=== PATIENT | female | born 1930 | race Caucasian/White ===

== ENCOUNTER 2016-04-01 19:01 | Emergency (ER) | payer OTHER, MEDICARE ==
[~2016-04-01 19:01] MED LIST: AMLODIPINE BESYL5 MG PO; ASPIRIN EC LOW81 MG PO; DOCUSATE SODIU100 MG PO; GLIMEPIRIDE2 MG PO; IRON325 MG PO; LEVOTHYROXINE100 MCG PO; LIPITOR80 MG PO; LOSARTAN POTASS25 MG PO; MILK OF MA400 MG/5 M; MIRALAX EQUIVAL17 GM; NITROSTAT0.4 MG SL; NORCO1 TA2 PO; PRILOSEC20 MG PO; SENNA8.6 M1 PO; TEMAZEPAM15 MG PO
--- NOTE | 2016-04-01 19:55 | DIAGNOSTIC IMAGING REPORT ---
PROCEDURE: XR CHEST 1 VIEW INDICATION: CHEST PAIN, initial encounter TECHNIQUE: Portable AP view 07:35 p.m. COMPARISON: Chest x-ray 12/29/2015 FINDINGS: The patient is rotated. Lungs are clear. Heart and mediastinum are normal. Thorax is normal. No significant interval change. IMPRESSION: 1. Negative chest.
--- NOTE | 2016-04-01 21:52 | ED NURSING NOTES ---
Clinical Report - Nurses [facility] [address] [place] [address] 04/01/2016 19:02 Patient: RENATO CARDONA TRIAGE Triage time 19:Apr 01 2016. Acuity: LEVEL 3. Chief Complaint: CHEST PAIN. SEPSIS SCREEN: Sepsis Screen: negative. Negative (no infection suspected/documented). --19:14 Sheryl Tate R.N. 19:07 04/01/16. BP: 131/46. HR: 65. RR: 18. O2 saturation: 97%. Temp: 98.0 F. Pain level now 5/10. --19:14 Sheryl Tate R.N. 19:34 04/01/16. --19:34 Sheryl Tate R.N. Weight: 100.2 kg. Height/Length: 65 inches. BMI: 36.8. --19:05 Sheryl Tate R.N. Medications AmLODIPine Besylate Oral 5 mg, daily. Aspirin Oral (Tablet 325 mg), daily. Atorvastatin Calcium Oral (Tablet 80 mg), daily. Ferrous Sulfate Oral (Tablet 325 (65 Fe) mg), daily. Fiber Oral. Glimepiride Oral (Tablet 2 mg), 2x a day. Hydrocodone-Acetaminophen Oral (Tablet 7.5-325 mg), as needed. Levothyroxine Sodium Oral (Tablet 100 mcg), daily. Losartan Potassium Oral (Tablet 25 mg), daily. Magnesium Oral (Capsule 300 mg), 2x a day. Metoprolol Tartrate Oral 25 mg, 2x a day. Milk of Magnesia Oral. Omeprazole Oral 20 mg, 2x a day. Ondansetron Oral (Tablet Dispersible 4 mg), 3x a day. Senna Oral. Stool Softener Oral. Temazepam Oral (Capsule 15 mg), daily. --19:08 Sheryl Tate R.N. Medication/allergy information source: the patient. --19:14 Sheryl Tate R.N. Allergies NKDA. --19:08 Sheryl Tate R.N. History Arrived by EMS. Historian: patient. Accompanied by family. This started today. No difficulty breathing, nausea, vomiting, fever or cough. Treatment BOBBIN DOFFER: None. Oxygen administered by nasal cannula. real estate valuer applied. Medications given- morphine IVP (10 mg IV). ( nitro and aspirin). PAST MEDICAL HX: Immunizations: has received pneumonia vaccine; seasonal influenza. SOCIAL HX: Never smoker. No alcohol use or drug use. No infectious disease exposure. ABUSE ASSESSMENT: No report of abuse. SELF HARM ASSESSMENT: A self harm assessment was performed. The patient answered "no" to the question "Have you recently felt down, depressed, or hopeless?", "Have you noticed less interest or pleasure in doing things?", "Do you have thoughts of harming or killing yourself?", "Are you here because you tried to hurt yourself?", "Have you ever tried to hurt yourself before today?", "Have you recently had thoughts about harming or killing others?" and "Do you have any dangerous items in your possession?". --19:14 Sheryl Tate R.N. ( Patient reports CP sharp on left side of chest since 1500 today. Went to PCP office. They gave nitro and MSo4 5 mg and then EMS called, they gave additional nitro and 10 mg MSO4. Pt reports recent admission to [place] with cardiac cath. States they can do no more due to renal issues.). --19:34 Sheryl Tate R.N. PROBLEMS: Hypertension [Active]. Heart Disease [Active]. Diabetes Mellitus [Active]. --19:08 Sheryl Tate R.N. Hyperlipidemia. Chest Wall Pain. Acute Pain. Renal Insufficiency. --19:08 Sheryl Tate R.N. ADDITIONAL SURGERIES: Bowel Surgery. Cardiac Procedures. Cholecystectomy. Shoulder Surgery. --19:08 Sheryl Tate R.N. Interventions ID band on patient. --19:14 Sheryl Tate R.N. PHYSICAL ASSESSMENT 19:56 04/01/16. To room via stretcher. GENERAL / NEURO / PSYCH: Alert. Oriented X 4. Appears in no acute distress. HEENT: Mucous membranes are pink. RESPIRATORY: Respirations not labored. Breath sounds within normal limits. CVS: Normal sinus rhythm noted. Pulses within normal limits. Capillary refill less than 2 seconds. GI / : The patient has had nausea. Abdomen soft. No emesis noted. EXTREMITIES: No lower extremity edema. SKIN: Skin is dry. Skin is cool. Skin is non-tender. --19:57 Sheryl Tate R.N. NURSING PROGRESS NOTES EKG time: (1920). EKG was performed by a forrest and shown to the ED physician. --19:24 Ronda Munoz late entry - 19:10 04/01/16. Cardiac rhythm: normal sinus rhythm. The initial plan of care for this patient includes an assessment with efforts to address the presence of pain; impairment of the cardiovascular system. This plan of care was discussed with the patient. real estate valuer, pulse oximeter and NIBP monitor placed on patient; sponge maker- Lead II; monitor alarms on. Patient gowned. Reassurance given. Two patient identifiers checked. Call light placed in reach. Side rails up x 2. Bed placed in lowest position. Patient ready for evaluation. --19:56 Sheryl Tate R.N. 19:30 04/01/2016 Site #1 started prior to arrival in doctor's office via IV in the left with an 22g angiocath, with good blood return (IV started by Drs office. IV site dressing changed and capped to saline lock. site cleansed with chlorhexadine and allowed to dry prior to new clear occlusive dressing.). --19:35 Sheryl Tate R.N. 19:45 04/01/2016 NITROGLYCERIN PASTE Topical Paste 1 inch. Applied to the left upper arm. Allergies verified and confirmed 5 rights. --19:53 Sheryl Tate R.N. 19:53 04/01/2016 Zofran (Ondansetron HCl) IVP 8 mg given over 1 minute(s) via site #1. Allergies verified and confirmed 5 rights. IV patency established. IV site checked: no pain, redness, or swelling. IV flushed thoroughly pre- and post-medication administration. --19:53 Sheryl Tate R.N. 21:29 04/01/16. BP: 133/78. HR: 64. RR: 18. O2 saturation: 95%. Pain level now 5/10. --21:29 Sheryl Tate R.N. 21:29 04/01/16. Cardiac rhythm: normal sinus rhythm. The patient is calm. RESPIRATORY: No respiratory distress. GI / : The patient reports nausea. SKIN: Skin is warm and dry. Patient waiting for disposition. --21:29 Sheryl Tate R.N. 21:45 04/01/2016 PHENERGAN (Promethazine HCl) IVP 6.25 mg given over 3 minute(s) via site #1. Allergies verified and confirmed 5 rights. IV patency established. IV site checked: no pain, redness, or swelling. IV flushed thoroughly pre- and post-medication administration. IVP given by RN. --21:49 Sheryl Tate R.N. 21:48 04/01/2016 Dilaudid (HYDROmorphone HCl PF) IVP 0.5 mg given over 1 minute(s) via site #1. Allergies verified, confirmed 5 rights and sedative warning given to the patient. IV patency established. IV site checked: no pain, redness, or swelling. IV flushed thoroughly pre- and post-medication administration. IVP given by RN. --21:49 Sheryl Tate R.N. DISPOSITION / DISCHARGE 22:30 04/01/16. BP: 138/49. HR: 69. RR: 16. O2 saturation: 93% on room air. Temp: 98.6 F. Pain level now: 310. Additional comments: Abdominal Pain. --22:54 Goyo Pollack R.N. Departure time: 2229. --22:54 Goyo Pollack R.N. 22:30. Condition at departure: improved. No learning barriers present. Discharge instructions provided and reviewed with the patient. Reviewed medication(s) (Continue your usual medications as ordered). Reviewed referral to family practice for followup. Patient verbalized understanding. Written instructions provided in Ivorian. The patient was discharged by the physician. She was discharged home and accompanied by java lead engineer. She left the Emergency Department in a wheelchair and via private vehicle. General Manager Road Production driving. --23:01 Goyo Pollack R.N. Locked/Released at 04/01/2016 23:03 by Goyo Pollack R.N.
--- NOTE | 2016-04-01 21:52 | ED NURSING NOTES ---
Clinical Report - Nurses [facility] [address] [place] [address] 04/01/2016 19:02 Patient: RENATO CARDONA TRIAGE Triage time 19:Apr 01 2016. Acuity: LEVEL 3. Chief Complaint: CHEST PAIN. SEPSIS SCREEN: Sepsis Screen: negative. Negative (no infection suspected/documented). --19:14 Sheryl Tate R.N. 19:07 04/01/16. BP: 131/46. HR: 65. RR: 18. O2 saturation: 97%. Temp: 98.0 F. Pain level now 5/10. --19:14 Sheryl Tate R.N. 19:34 04/01/16. --19:34 Sheryl Tate R.N. Weight: 100.2 kg. Height/Length: 65 inches. BMI: 36.8. --19:05 Sheryl Tate R.N. Medications AmLODIPine Besylate Oral 5 mg, daily. Aspirin Oral (Tablet 325 mg), daily. Atorvastatin Calcium Oral (Tablet 80 mg), daily. Ferrous Sulfate Oral (Tablet 325 (65 Fe) mg), daily. Fiber Oral. Glimepiride Oral (Tablet 2 mg), 2x a day. Hydrocodone-Acetaminophen Oral (Tablet 7.5-325 mg), as needed. Levothyroxine Sodium Oral (Tablet 100 mcg), daily. Losartan Potassium Oral (Tablet 25 mg), daily. Magnesium Oral (Capsule 300 mg), 2x a day. Metoprolol Tartrate Oral 25 mg, 2x a day. Milk of Magnesia Oral. Omeprazole Oral 20 mg, 2x a day. Ondansetron Oral (Tablet Dispersible 4 mg), 3x a day. Senna Oral. Stool Softener Oral. Temazepam Oral (Capsule 15 mg), daily. --19:08 Sheryl Tate R.N. Medication/allergy information source: the patient. --19:14 Sheryl Tate R.N. Allergies NKDA. --19:08 Sheryl Tate R.N. History Arrived by EMS. Historian: patient. Accompanied by family. This started today. No difficulty breathing, nausea, vomiting, fever or cough. Treatment EMERGENCY ROOM SPECIALIST: None. Oxygen administered by nasal cannula. quality assurance monitor applied. Medications given- morphine IVP (10 mg IV). ( nitro and aspirin). PAST MEDICAL HX: Immunizations: has received pneumonia vaccine; seasonal influenza. SOCIAL HX: Never smoker. No alcohol use or drug use. No infectious disease exposure. ABUSE ASSESSMENT: No report of abuse. SELF HARM ASSESSMENT: A self harm assessment was performed. The patient answered "no" to the question "Have you recently felt down, depressed, or hopeless?", "Have you noticed less interest or pleasure in doing things?", "Do you have thoughts of harming or killing yourself?", "Are you here because you tried to hurt yourself?", "Have you ever tried to hurt yourself before today?", "Have you recently had thoughts about harming or killing others?" and "Do you have any dangerous items in your possession?". --19:14 Sheryl Tate R.N. ( Patient reports CP sharp on left side of chest since 1500 today. Went to PCP office. They gave nitro and MSo4 5 mg and then EMS called, they gave additional nitro and 10 mg MSO4. Pt reports recent admission to [place] with cardiac cath. States they can do no more due to renal issues.). --19:34 Sheryl Tate R.N. PROBLEMS: Hypertension [Active]. Heart Disease [Active]. Diabetes Mellitus [Active]. --19:08 Sheryl Tate R.N. Hyperlipidemia. Chest Wall Pain. Acute Pain. Renal Insufficiency. --19:08 Sheryl Tate R.N. ADDITIONAL SURGERIES: Bowel Surgery. Cardiac Procedures. Cholecystectomy. Shoulder Surgery. --19:08 Sheryl Tate R.N. Interventions ID band on patient. --19:14 Sheryl Tate R.N. PHYSICAL ASSESSMENT 19:56 04/01/16. To room via stretcher. GENERAL / NEURO / PSYCH: Alert. Oriented X 4. Appears in no acute distress. HEENT: Mucous membranes are pink. RESPIRATORY: Respirations not labored. Breath sounds within normal limits. CVS: Normal sinus rhythm noted. Pulses within normal limits. Capillary refill less than 2 seconds. GI / : The patient has had nausea. Abdomen soft. No emesis noted. EXTREMITIES: No lower extremity edema. SKIN: Skin is dry. Skin is cool. Skin is non-tender. --19:57 Sheryl Tate R.N. NURSING PROGRESS NOTES EKG time: (1920). EKG was performed by a forrest and shown to the ED physician. --19:24 Ronda Munoz late entry - 19:10 04/01/16. Cardiac rhythm: normal sinus rhythm. The initial plan of care for this patient includes an assessment with efforts to address the presence of pain; impairment of the cardiovascular system. This plan of care was discussed with the patient. quality assurance monitor, pulse oximeter and NIBP monitor placed on patient; campus monitor- Lead II; monitor alarms on. Patient gowned. Reassurance given. Two patient identifiers checked. Call light placed in reach. Side rails up x 2. Bed placed in lowest position. Patient ready for evaluation. --19:56 Sheryl Tate R.N. 19:30 04/01/2016 Site #1 started prior to arrival in doctor's office via IV in the left with an 22g angiocath, with good blood return (IV started by Drs office. IV site dressing changed and capped to saline lock. site cleansed with chlorhexadine and allowed to dry prior to new clear occlusive dressing.). --19:35 Sheryl Tate R.N. 19:45 04/01/2016 NITROGLYCERIN PASTE Topical Paste 1 inch. Applied to the left upper arm. Allergies verified and confirmed 5 rights. --19:53 Sheryl Tate R.N. 19:53 04/01/2016 Zofran (Ondansetron HCl) IVP 8 mg given over 1 minute(s) via site #1. Allergies verified and confirmed 5 rights. IV patency established. IV site checked: no pain, redness, or swelling. IV flushed thoroughly pre- and post-medication administration. --19:53 Sheryl Tate R.N. 21:29 04/01/16. BP: 133/78. HR: 64. RR: 18. O2 saturation: 95%. Pain level now 5/10. --21:29 Sheryl Tate R.N. 21:29 04/01/16. Cardiac rhythm: normal sinus rhythm. The patient is calm. RESPIRATORY: No respiratory distress. GI / : The patient reports nausea. SKIN: Skin is warm and dry. Patient waiting for disposition. --21:29 Sheryl Tate R.N. 21:45 04/01/2016 PHENERGAN (Promethazine HCl) IVP 6.25 mg given over 3 minute(s) via site #1. Allergies verified and confirmed 5 rights. IV patency established. IV site checked: no pain, redness, or swelling. IV flushed thoroughly pre- and post-medication administration. IVP given by RN. --21:49 Sheryl Tate R.N. 21:48 04/01/2016 Dilaudid (HYDROmorphone HCl PF) IVP 0.5 mg given over 1 minute(s) via site #1. Allergies verified, confirmed 5 rights and sedative warning given to the patient. IV patency established. IV site checked: no pain, redness, or swelling. IV flushed thoroughly pre- and post-medication administration. IVP given by RN. --21:49 Sheryl Tate R.N. DISPOSITION / DISCHARGE 22:30 04/01/16. BP: 138/49. HR: 69. RR: 16. O2 saturation: 93% on room air. Temp: 98.6 F. Pain level now: 310. Additional comments: Abdominal Pain. --22:54 Goyo Pollack R.N. Departure time: 2229. --22:54 Goyo Pollack R.N. 22:30. Condition at departure: improved. No learning barriers present. Discharge instructions provided and reviewed with the patient. Reviewed medication(s) (Continue your usual medications as ordered). Reviewed referral to family practice for followup. Patient verbalized understanding. Written instructions provided in Emirati. The patient was discharged by the physician. She was discharged home and accompanied by golf club repairer. She left the Emergency Department in a wheelchair and via private vehicle. Lap Regulator driving. --23:01 Goyo Pollack R.N. Locked/Released at 04/01/2016 23:03 by Goyo Pollack R.N.
--- NOTE | 2016-04-01 21:52 | ED ORDER SUMMARY ---
..... Patient: RENATO CARDONA OrderSheet [facility] VisitID: [id number] [place] [address] 85y, F Registration Date/Time: 04/01/2016 ORDER SHEET Weight: 100.2 kg Allergies: NKDA GENERAL ORDERS: Lean Process Deployment Consultant (Continuous) (19:16 04/01/2016 EInderbitzen R.N. verbal order read back to Brenda WOOD) (19:35 EInderbitzen R.N.) Cardiac Panel Stat (19:16 04/01/2016 EInderbitzen R.N. verbal order read back to Brenda WOOD) (Ack 19:35 LTapper) (19:37 EInderbitzen R.N.) Pulse oximeter (19:16 04/01/2016 EInderbitzen R.N. verbal order read back to Brenda WOOD) (19:35 EInderbitzen R.N.) EKG - ER Stat (19:16 04/01/2016 EInderbitzen R.N. verbal order read back to Brenda WOOD) (19:35 EInderbitzen R.N.) (Ack 19:35 LTapper) BNP Urgent (19:31 04/01/2016 Brenda WOOD) (Ack 19:35 LTapper) (19:37 EInderbitzen R.N.) Chest 1V Urgent (19:31 04/01/2016 Brenda WOOD) (Ack 19:35 LTapper) Lipase Urgent (20:22 04/01/2016 Brenda WOOD) (20:26 EInderbitzen R.N.) MEDICATION ORDERS: Aspirin PO 325 mg (NOW) (19:30 04/01/2016 Brenda WOOD) (Cancelled: Patient [id number] EInderbitzen R.N.) NitroGLYCERIN Paste Topical 1 in. (to CW) (19:34 04/01/2016 Brenda WOOD) (19:53 EInderbitzen R.N.) Phenergan IV 6.25 mg (NOW) (20:59 04/01/2016 Brenda WOOD) (21:49 EInderbitzen R.N.) IV FLUIDS: IV Saline Lock (19:16 04/01/2016 EVELIAnderchalinozen R.N. verbal order read back to Brenda WOOD) (19:37 EInderbitzen R.N.) Zofran IV 8 mg (NOW) (19:34 04/01/2016 Brenda WOOD) (19:53 EInderbitzen R.N.) Dilaudid IV 0.5 mg (NOW) (20:59 04/01/2016 Brenda WOOD) (21:49 EInderbitzen R.N.) ORDER SHEET NOTES: [Electronically signed by Goyo Pollack R.N. (23:03 04/01/2016)] [Electronically signed by Qamar Johnson MD (12:05 04/02/2016)] [Electronically locked/signed by Goyo Pollack R.N. (23:03 04/01/2016)]
--- NOTE | 2016-04-01 21:52 | ED ORDER SUMMARY ---
..... Patient: RENATO CARDONA OrderSheet [facility] VisitID: [id number] [place] [address] 85y, F Registration Date/Time: 04/01/2016 ORDER SHEET Weight: 100.2 kg Allergies: NKDA GENERAL ORDERS: Physician Obstetrician (Continuous) (19:16 04/01/2016 EInderbitzen R.N. verbal order read back to Brenda WOOD) (19:35 EInderbitzen R.N.) Cardiac Panel Stat (19:16 04/01/2016 EInderbitzen R.N. verbal order read back to Brenda WOOD) (Ack 19:35 LTapper) (19:37 EInderbitzen R.N.) Pulse oximeter (19:16 04/01/2016 EInderbitzen R.N. verbal order read back to Brenda WOOD) (19:35 EInderbitzen R.N.) EKG - ER Stat (19:16 04/01/2016 EInderbitzen R.N. verbal order read back to Brenda WOOD) (19:35 EInderbitzen R.N.) (Ack 19:35 LTapper) BNP Urgent (19:31 04/01/2016 Brenda WOOD) (Ack 19:35 LTapper) (19:37 EInderbitzen R.N.) Chest 1V Urgent (19:31 04/01/2016 Brenda WOOD) (Ack 19:35 LTapper) Lipase Urgent (20:22 04/01/2016 Brenda WOOD) (20:26 EInderbitzen R.N.) MEDICATION ORDERS: Aspirin PO 325 mg (NOW) (19:30 04/01/2016 Brenda WOOD) (Cancelled: Patient [id number] EInderbitzen R.N.) NitroGLYCERIN Paste Topical 1 in. (to CW) (19:34 04/01/2016 Brenda WOOD) (19:53 EInderbitzen R.N.) Phenergan IV 6.25 mg (NOW) (20:59 04/01/2016 Brenda WOOD) (21:49 EInderbitzen R.N.) IV FLUIDS: IV Saline Lock (19:16 04/01/2016 EVELIAnderchalinozen R.N. verbal order read back to Brenda WOOD) (19:37 EInderbitzen R.N.) Zofran IV 8 mg (NOW) (19:34 04/01/2016 Brenda WOOD) (19:53 EInderbitzen R.N.) Dilaudid IV 0.5 mg (NOW) (20:59 04/01/2016 Brenda WOOD) (21:49 EInderbitzen R.N.) ORDER SHEET NOTES: [Electronically signed by Goyo Pollack R.N. (23:03 04/01/2016)] [Electronically signed by Qamar Johnson MD (12:05 04/02/2016)] [Electronically locked/signed by Goyo Pollack R.N. (23:03 04/01/2016)]
--- NOTE | 2016-04-01 21:52 | ED CLINICAL REPORT ---
Clinical Report - Physicians/Mid Levels [facility] [address] [place] [place] [address] 04/01/2016 19:02 Patient: RENATO CARDONA Time Seen: 19:28. Arrived- By ambulance. Historian- patient. HISTORY OF PRESENT ILLNESS Chief Complaint: CHEST PAIN. and ABDOMINAL PAIN. At its maximum, severity described as 7 / 10. When seen in the E.D., severity described as 5 / 10. Modifying factors- relieved by morphine and nitroglycerin (two, given by paramedics). Relief was partial. This started today 11 AM; Ms Cardona developed central chest pain at 11 am. She also has her significant but usual mid to upper abdominal pain and is still present. It was abrupt in onset. It is described as "pain" and it is described as located in the central chest area. No radiation. The patient has had nausea. No difficulty breathing or diaphoresis. Recent medical care: The patient was seen recently by a health care provider. ( Ms Cardona was recently seen by her PCP and per his personal communication has had a fairly recent and negative EGD (HH was present)). REVIEW OF SYSTEMS No fever, chills, cough, pedal edema or calf pain. No fainting episodes, sore throat, black stools, difficulty with urination or skin rash. No bloody stools, double vision, ear pain or sinus pain. The patient has had abdominal pain. PAST HISTORY PCP: Markos Illness: Renal insufficiency, Recurrent chest pain 2011 LAD angioplasty and stent, 2013 repeat angio normal during chest pain episode, 12/2015 admit to [facility] for similar pain episode which was ultimately felt to be atypical chest pain of non-cardiac etiology PROBLEMS: Hypertension [Active]. Heart Disease [Active]. Diabetes Mellitus [Active]. Hyperlipidemia. Chest Wall Pain Renal Insufficiency. ADDITIONAL SURGERIES: Bowel Surgery. Cardiac Procedures - snpbr Cholecystectomy. Shoulder Surgery R hand partial amputation. SOCIAL HISTORY Never smoker. ADDITIONAL NOTES The nursing notes have been reviewed. PHYSICAL EXAM Vital Signs: 04/01/2016 22:30 BP: 138/49. HR: 69. RR: 16. O2 saturation: 93%. Temp: 98.6 F. Pain level now: 05/24. 04/01/2016 21:29 BP: 133/78. HR: 64. RR: 18. O2 saturation: 95%. 04/01/2016 19:07 BP: 131/46. HR: 65. RR: 18. O2 saturation: 97%. Temp: 98.0 F. Appearance: Alert. No acute distress. Eyes: Eyes normal inspection. ENT: Pharynx normal. Neck: Normal inspection. CVS: Normal heart rate and rhythm. Respiratory: No respiratory distress. Breath sounds normal. Chest nontender. Abdomen: Soft. Mild tenderness diffusely. Bowel sounds normal. No mass. Skin: Skin warm. Extremities: Extremities exhibit normal ROM. No lower extremity edema. Neuro: No alteration in mental status. LABS, X-RAYS, AND EKG EKG: Normal sinus rhythm. Rate: 66. Abnormal P waves. Left axis deviation. ST depression. T wave inversion in lead III, aVF, V1, V2, V3, V4, V5 and V6 (Biphasic). Improved from 2015. Chest X-ray: (PROCEDURE: XR CHEST 1 VIEW INDICATION: CHEST PAIN, initial encounter TECHNIQUE: Portable AP view 07:35 p.m. COMPARISON: Chest x-ray 12/29/2015 FINDINGS: The patient is rotated. Lungs are clear. Heart and mediastinum are normal. Thorax is normal. No significant interval change. IMPRESSION: 1. Negative chest. Electronically Final signed by:Micha Mendez MD 04/01/2016 7:55:03 PM). Laboratory Tests: CBC w Diff: (DESTINEE: 04/01/2016 19:30) ( MsgRcvd 04/01/2016 20:10) Final results Test Result Flag Units (Reference) WHITE BLOOD COUNT 8.7 K/uL (4.5-11.5) RED BLOOD COUNT 3.97 L M/uL (4.00-5.20) HEMOGLOBIN 11.5 L gm/dL (12.0-16.0) HEMATOCRIT 38.0 % (36.0-46.0) MEAN CELL VOLUME 96 fL (80-100) MEAN CORPUSCULAR HGB 29 pg (26-34) MEAN CORPUSCULAR HGB CONC 30 L g/dL (31-37) RED CELL DISTRIBUTION WIDTH 17.0 H % (11.6-14.8) PLATELET COUNT 174 K/uL (150-400) NEUTROPHIL % 65.2 % (50-75) LYMPH % 18.9 L % (25-40) MONO % 7.9 % (3-14) EOSINOPHIL % 7.8 H % (0-4) BASOPHIL % 0.2 % (0-2) Lipase: (DESTINEE: 04/01/2016 19:30) ( [facility] 04/01/2016 20:33) Final results Test Result Flag Units (Reference) LIPASE 254 U/L (73-393) BNP: (DESTINEE: 04/01/2016 19:30) ( [facility] 04/01/2016 20:29) Final results Test Result Flag Units (Reference) B-TYPE NATRIURETIC PEPTIDE 69.2 pg/ml (5-100) CHEM 13 PANEL: (DESTINEE: 04/01/2016 19:30) ( [facility] 04/01/2016 20:09) Final results Test Result Flag Units (Reference) GLUCOSE 143 H mg/dL (70-110) BUN 24 H mg/dL (7-18) CREATININE 1.5 H mg/dL (0.6-1.3) Estimated GFR 35.25 mL/min Estimated GFR- 42.72 mL/min Note: Persistent reduction over 3 months in eGFR<60 mL/min/1.73 m2 defines CKD. Patients with eGFR values>=60 mL/min/1.73 m2 may also have CKD if evidence ofpersistent proteinuria. Additional information may be foundat www.kidney.org. SODIUM 139 mmol/L (136-145) POTASSIUM 4.7 mmol/L (3.5-5.1) CHLORIDE 106 mmol/L (98-107) CARBON DIOXIDE 28 mmol/L (21-32) CALCIUM 8.8 mg/dL (8.5-10.1) TOTAL PROTEIN 6.0 L g/dL (6.4-8.2) ALBUMIN 3.3 g/dL (3.3-5.0) BILIRUBIN, TOTAL 0.4 mg/dL (0.0-1.0) ALKALINE PHOSPHATASE 111 U/L (46-116) AST (SGOT) 13 L U/L (15-37) ALT (SGPT) 23 U/L (12-78) MAGNESIUM 2.7 H mg/dL (1.8-2.4) CPK 41 U/L (24-260) TROPONIN I <0.05 ng/mL (0.00-1.5) TROPONIN REFERENCE RANGE:<0.1 NEGATIVE0.1-1.5 INDETERMINANT>1.5 POSITIVE . PROGRESS AND PROCEDURES Course of Care: 19:33 04/01/16. pain 3-4 down from 710 20:16 04/01/16. EKG is less abnormal than in 2015. CK, Troponin are negative after 8 hours of continuous pain making ACS unlikely. 20:45 04/01/16. EKG is abnormal but better than December 2015 when she was transported to [facility]. 21:03 04/01/16. Dr Willis of the [facility] service provided me with much of the detail on the patient's prior heart procedures. I discussed the management of Ms Cardona chest and abdominal symptoms in some detail with Dr Burrows. He is able to see her in follow up. ACS is not likely and acute surgical abdomen is even less likely. She had medications at home for both pain and nausea. Both inpatient and out patient pain management were considers, in the end Ms Cardona preferred home care and I endorse that choice. Disposition: Discharged. Condition: stable. CLINICAL IMPRESSION Abdominal pain. Atypical chest pain INSTRUCTIONS (USE YOUR OWN ODANSETRON AND HYDROCODONE FOR PAIN CONTROL. IMMEDIATE RECHECK FOR INCREASED ABDOMINAL OR CHEST PAIN OR SHORTNESS OF BREATH CALL DR LOVE IN THE AM.). Follow-up: Follow up with your doctor tomorrow. Understanding of the discharge instructions verbalized by patient. (Electronically signed by Qamar Johnson MD 04/02/2016 12:05)
--- NOTE | 2016-04-02 12:05 | ED MED RECONCILIATION SUMMARY ---
Patient: RENATO CARDONA Medication Reconciliation Report [facility] VisitID: [id number] [address] [place] [address] 85y, F Registration Date/Time: 04/01/2016 Weight: 100.2 kg Height/Length: 65 in. BMI: 36.8 ALLERGIES: NKDA The patient's Home Medications are listed below: THE FOLLOWING MEDICATIONS NEED TO BE RECONCILED: AmLODIPine Besylate Oral 5 mg, daily Aspirin Oral (325 mg), daily Atorvastatin Calcium Oral (80 mg), daily Ferrous Sulfate Oral (325 (65 Fe) mg), daily Fiber Oral Glimepiride Oral (2 mg), 2x a day Hydrocodone-Acetaminophen Oral (7.5-325 mg) Levothyroxine Sodium Oral (100 mcg), daily Losartan Potassium Oral (25 mg), daily Magnesium Oral (300 mg), 2x a day Metoprolol Tartrate Oral 25 mg, 2x a day Milk of Magnesia Oral Omeprazole Oral 20 mg, 2x a day Ondansetron Oral (4 mg), 3x a day Senna Oral Stool Softener Oral Temazepam Oral (15 mg), daily The source(s) of the original Home Medication information: patient The following Medications were given to the patient in the Emergency Department: NITROGLYCERIN PASTE [TOPICAL] Topical 1 in., administered: 04/01/2016 7:45:00 PM Zofran [IVP] IVP 8 mg, administered: 04/01/2016 7:53:00 PM PHENERGAN [IVP] IVP 6.25 mg, administered: 04/01/2016 9:45:00 PM Dilaudid [IVP] IVP 0.5 mg, administered: 04/01/2016 9:48:00 PM The following Medications were prescribed to the patient: None.
--- NOTE | 2016-04-02 12:05 | ED DISCHARGE INSTRUCTIONS ---
Patient: RENATO CARDONA General Instructions [facility] VisitID: [id number] [place] [address] 85y, F Registration Date/Time: 04/01/2016 Abdominal pain. Atypical chest pain INSTRUCTIONS (USE YOUR OWN ODANSETRON AND HYDROCODONE FOR PAIN CONTROL. IMMEDIATE RECHECK FOR INCREASED ABDOMINAL OR CHEST PAIN OR SHORTNESS OF BREATH CALL DR LOVE IN THE AM.). Follow-up: Follow up with your doctor tomorrow. Understanding of the discharge instructions verbalized by patient. ADDITIONAL INFORMATION Chest Pain, Noncardiac Based on your visit today, the exact cause of your chest pain is not certain. Your condition does not seem serious and your pain does not appear to be coming from your heart. However, sometimes the signs of a serious problem take more time to appear. Therefore, please watch for the warning signs listed below. Home Care: Rest today and avoid strenuous activity. Take any prescribed medicine as directed. Follow Up with your doctor or this facility as instructed or if you do not start to feel better within 24 hours. Get Prompt Medical Attention if any of the following occur: A change in the type of pain: if it feels different, becomes more severe, lasts longer, or begins to spread into your shoulder, arm, neck, jaw or back Shortness of breath or increased pain with breathing Cough with dark colored sputum (phlegm) or blood Weakness, dizziness, or fainting Fever of 100.4F (38C) or higher, or as directed by your healthcare provider Swelling, pain or redness in one leg Abdominal Pain, Unknown Cause (Female) The exact cause of your abdominal (stomach) pain is not certain. This does not mean that this is something to worry about, or the right tests were not done. Everyone likes to know the exact cause of the problem, but sometimes with abdominal pain, there is no clear-cut cause, and this could be a good thing. The good news is that your symptoms can be treated, and you will feel better. Your condition does not seem serious now; however, sometimes the signs of a serious problem may take more time to appear. For this reason,it is important for you to watch for any new symptoms, problems,or worsening of your condition. Over the next few days, the abdominal pain may come and go, or be continuous. Other common symptoms can include nausea and vomiting. Sometimes it can be difficult to tell if you feel nauseous, you may just feel bad and not associate that feeling with nausea. Constipation, diarrhea, and a fever may go along with the pain. The pain may continue even if treated correctly over the following days. Depending on how things go, sometimes the cause can become clear and may require further or different treatment. Additional evaluations, medications, or tests may be needed. Home care Your health care provider may prescribe medications for pain, symptoms, or an infection. Follow the health care provider's instructions for taking these medications. General care Rest until your next exam. No strenuous activities. Try to find positions that ease discomfort. A small pillow placed on the abdomen may help relieve pain. Something warm on your abdomen (such as a heating pad) may help, but be careful not to burn yourself. Diet Do not force yourself to eat, especially if having cramps, vomiting, or diarrhea. Water is important so you do not get dehydrated. Soup may also be good. Sports drinks may also help, especially if they are not too acidic. Make sure you don't drink sugary drinks as this can make things worse. Take liquids in small amounts. Do not guzzle them. Caffeine sometimes makes the pain and cramping worse. Avoid dairy products if you have vomiting or diarrhea. Don't eat large amounts at a time. Wait a few minutes between bites. Eat a diet low in fiber (called a low-residue diet). Foods allowed include refined breads, white rice, fruit and vegetable juices without pulp, tender meats. These foods will pass more easily through the intestine. Avoid whole-grain foods, whole fruits and vegetables, meats, seeds and nuts, fried or fatty foods, dairy, alcohol and spicy foods until your symptoms go away. Follow-up care Follow up with your health care provider as instructed, or if your pain does not begin to improve in the next 24 hours. When to seek medical care Seek prompt medical care if any of the following occur: Pain gets worse or moves to the right lower abdomen New or worsening vomiting or diarrhea Swelling of the abdomen Unable to pass stool for more than three days Fever of 100.4F (38C) or higher, or as directed by your healthcare provider. Blood in vomit or bowel movements (dark red or black color) Jaundice (yellow color of eyes and skin) Weakness, dizziness Chest, arm, back, neck or jaw pain Unexpected vaginal bleeding or missed period Call 911 Call emergency services if any of the following occur: Trouble breathing Confusion Fainting or loss of consciousness Rapid heart rate Seizure You have been given the following additional information: Chest Pain, Noncardiac Abdominal Pain, Unknown Cause, (Female) (Electronically signed by Qamar Johnson MD 04/02/2016 12:05)
--- NOTE | 2016-04-02 12:05 | ED MAR SUMMARY ---
..... Medication Administration Record [facility] [address] [place] [address] Patient: RENTAO CARDONA Visit ID: [id number] 85y, F Weight: 100.2 kg Height/Length: 65 in BMI: 36.8 ALLERGIES: NKDA Given 19:45 04/01/2016 Sheryl Tate R.N. Medication Administered: NITROGLYCERIN PASTE [TOPICAL], Dose: 1 in. Paste Topical. Medication Ordered: NitroGLYCERIN Paste Topical 1 in. (to CW). Given 19:53 04/01/2016 Sheryl Tate R.N. Medication Administered: ZOFRAN [IVP] (ONDANSETRON HCL), Dose: 8 mg IVP over 1 minute(s), Site: #1 left. Medication Ordered: Zofran IV 8 mg (NOW). Given :45 04/01/2016 Sheryl Tate R.N. Medication Administered: PHENERGAN [IVP] (PROMETHAZINE HCL), Dose: 6.25 mg IVP over 3 minute(s), Site: #1 left. Medication Ordered: Phenergan IV 6.25 mg (NOW). Given :48 04/01/2016 Sheryl Tate R.N. Medication Administered: DILAUDID [IVP] (HYDROMORPHONE HCL PF), Dose: 0.5 mg IVP over 1 minute(s), Site: #1 left. Medication Ordered: Dilaudid IV 0.5 mg (NOW).
--- NOTE | 2016-04-02 12:05 | ED MAR SUMMARY ---
..... Medication Administration Record [facility] [address] [place] [address] Patient: RENATO CARDONA Visit ID: [id number] 85y, F Weight: 100.2 kg Height/Length: 65 in BMI: 36.8 ALLERGIES: NKDA Given 19:45 04/01/2016 Sheryl Tate R.N. Medication Administered: NITROGLYCERIN PASTE [TOPICAL], Dose: 1 in. Paste Topical. Medication Ordered: NitroGLYCERIN Paste Topical 1 in. (to CW). Given 19:53 04/01/2016 Sheryl Tate R.N. Medication Administered: ZOFRAN [IVP] (ONDANSETRON HCL), Dose: 8 mg IVP over 1 minute(s), Site: #1 left. Medication Ordered: Zofran IV 8 mg (NOW). Given :45 04/01/2016 Sheryl Tate R.N. Medication Administered: PHENERGAN [IVP] (PROMETHAZINE HCL), Dose: 6.25 mg IVP over 3 minute(s), Site: #1 left. Medication Ordered: Phenergan IV 6.25 mg (NOW). Given :48 04/01/2016 Sheryl Tate R.N. Medication Administered: DILAUDID [IVP] (HYDROMORPHONE HCL PF), Dose: 0.5 mg IVP over 1 minute(s), Site: #1 left. Medication Ordered: Dilaudid IV 0.5 mg (NOW).
--- NOTE | 2016-04-02 12:05 | ED MED RECONCILIATION SUMMARY ---
Patient: RENATO CARDONA Medication Reconciliation Report [facility] VisitID: [id number] [address] [place] [address] 85y, F Registration Date/Time: 04/01/2016 Weight: 100.2 kg Height/Length: 65 in. BMI: 36.8 ALLERGIES: NKDA The patient's Home Medications are listed below: THE FOLLOWING MEDICATIONS NEED TO BE RECONCILED: AmLODIPine Besylate Oral 5 mg, daily Aspirin Oral (325 mg), daily Atorvastatin Calcium Oral (80 mg), daily Ferrous Sulfate Oral (325 (65 Fe) mg), daily Fiber Oral Glimepiride Oral (2 mg), 2x a day Hydrocodone-Acetaminophen Oral (7.5-325 mg) Levothyroxine Sodium Oral (100 mcg), daily Losartan Potassium Oral (25 mg), daily Magnesium Oral (300 mg), 2x a day Metoprolol Tartrate Oral 25 mg, 2x a day Milk of Magnesia Oral Omeprazole Oral 20 mg, 2x a day Ondansetron Oral (4 mg), 3x a day Senna Oral Stool Softener Oral Temazepam Oral (15 mg), daily The source(s) of the original Home Medication information: patient The following Medications were given to the patient in the Emergency Department: NITROGLYCERIN PASTE [TOPICAL] Topical 1 in., administered: 04/01/2016 7:45:00 PM Zofran [IVP] IVP 8 mg, administered: 04/01/2016 7:53:00 PM PHENERGAN [IVP] IVP 6.25 mg, administered: 04/01/2016 9:45:00 PM Dilaudid [IVP] IVP 0.5 mg, administered: 04/01/2016 9:48:00 PM The following Medications were prescribed to the patient: None.
[2016-04-25] MEDS ORDERED: METOPROLOL TART25 MG PO ×2 (15:47)
[2016-08-30] MEDS ORDERED: ASPIRIN325 MG PO (11:43)
[2016-08-30] MEDS ORDERED: MAGNESIUM400 M1 PO (11:43)
[2016-08-30] MEDS ORDERED: MILK OF MA400 MG/5 M PO ×2 (11:46→11:47)
== END 2016-04-01 22:30 | disposition home or self-care (01) ==
LOC: ED SRH 19:01
DX: R07.89 Other chest pain (principal); R10.9 Unspecified abdominal pain; I10 Essential (primary) hypertension; E11.9 Type 2 diabetes mellitus without complications; E78.5 Hyperlipidemia, unspecified
CPT/HCPCS: 90100; 90616; 91320; 92235; 92610; 92720; 95059

== ENCOUNTER 2016-04-13 17:58 | Inpatient (IN) | payer OTHER, MEDICARE ==
[~2016-04-13] VITALS: Ht 165.1 cm; Wt 100.2 kg
--- NOTE | 2016-04-13 18:49 | ED NURSING NOTES ---
Clinical Report - Nurses [facility] [address] [place] [address] 04/13/2016 17:59 Patient: RENATO CARDONA TRIAGE Triage time 18:08. Acuity: LEVEL 3. Chief Complaint: ABDOMINAL PAIN and NAUSEA and (Hernia, "I talked to dr Ba, and he said to come in for surgurg"). Alert. No acute distress. SEPSIS SCREEN: Sepsis Screen: negative. Negative (no infection suspected/documented). --18:24 Jayashree Preston R.N. 18:07 04/13/16. BP: 144/66. HR: 82. RR: 20. O2 saturation: 95%. Temp: 97.8 F. Pain level now: 7/10. --18:24 Jayashree Preston R.N. 18:07 04/13/16. BP: 144/66. HR: 82. RR: 20. O2 saturation: 95%. Temp: 97.8 F. Pain level now: 710. --18:24 Jayashree Preston R.N. Weight: 90.7 kg stated. Height/Length: 65 inches Per Patient. BMI: 33.3. --18:22 Jayashree Preston R.N. Medications AmLODIPine Besylate Oral 5 mg, daily. Aspirin Oral (Tablet 325 mg), daily. Atorvastatin Calcium Oral (Tablet 80 mg), daily. Ferrous Sulfate Oral (Tablet 325 (65 Fe) mg), daily. Fiber Oral. Glimepiride Oral (Tablet 2 mg), 2x a day. Hydrocodone-Acetaminophen Oral (Tablet 7.5-325 mg), as needed. Levothyroxine Sodium Oral (Tablet 100 mcg), daily. Losartan Potassium Oral (Tablet 25 mg), daily. Magnesium Oral (Capsule 300 mg), 2x a day. Metoprolol Tartrate Oral 25 mg, 2x a day. Milk of Magnesia Oral. Omeprazole Oral 20 mg, 2x a day. Ondansetron Oral (Tablet Dispersible 4 mg), 3x a day. Senna Oral. Stool Softener Oral. Temazepam Oral (Capsule 15 mg), daily. --18:16 Jayashree Preston R.N. Medication/allergy information source: the patient. --18:24 Jayashree Preston R.N. Allergies NKDA. --18:16 Jayashree Preston R.N. History Arrived by private vehicle. Historian: patient and family. Accompanied by family. Primary physician (daniel). The patient has had nausea. She has had constipation (3 days ago). Last oral intake by patient was breakfast today (coffee and sandwich.). PAST MEDICAL HX: Immunizations: status is unknown. The patient is post-menopausal. SOCIAL HX: Smoker- current status unknown. No alcohol use or drug use. FALL RISK ASSESSMENT: Fall risk assessment completed. No fall risk identified. NUTRITIONAL RISK ASSESSMENT: The nutritional risk assessment revealed no deficiencies. LEARNING NEEDS ASSESSMENT: The learning needs assessment revealed no barriers. FUNCTIONAL ASSESSMENT: Functional assessment performed: independent with the activities of daily living; uses walker and cane. SKIN INTEGRITY ASSESSMENT: Skin integrity risk assessment completed. No skin integrity risk identified. --18:24 Jayashree Preston R.N. PROBLEMS: Hypertension [Active]. Diabetes Mellitus [Active]. Dyspnea [Active]. Chest Pain [Active]. --18:15 Jayashree Preston R.N. Hyperlipidemia. Chest Pain of GI Origin. Palpitations. Ovarian Cyst. Back Pain. Acute Pain. Atypical Chest Pain. Anemia. UTI - Urinary Tract Infection. Diabetes Mellitus. Pyelonephritis. Abdominal Pain. Heart Disease. Hyperglycemia. Renal Insufficiency. Chest Pain. Coronary Artery Disease. Sinus bradycardia. --18:15 Jayashree Preston R.N. Angina [RuleOut]. Acute Myocardial Infarction [RuleOut]. --18:15 Jayashree Preston R.N. ADDITIONAL SURGERIES: Bowel Surgery. Cardiac Procedures. Cholecystectomy. Shoulder Surgery. --18:15 Jayashree Preston R.N. Interventions ID band on patient. To room. --18:24 Jayashree Preston R.N. PHYSICAL ASSESSMENT To room via wheelchair. Patient gowned. GENERAL / NEURO / PSYCH: Alert. Oriented X 4. Appears in pain and anxious. HEENT: Mucous membranes are pink. RESPIRATORY: Respirations not labored. CVS: Capillary refill less than 2 seconds. GI / : Abdomen nontender. SKIN: Skin is warm and dry. --18:24 Jayashree Preston R.N. NURSING PROGRESS NOTES electronic device monitor, pulse oximeter and NIBP monitor placed on patient; electronic device monitor- Lead II; monitor alarms on. Patient gowned. Head of bed elevated. Two patient identifiers checked. Call light placed in reach. Side rails up x 2. Bed placed in lowest position. Brakes of bed on. Patient ready for evaluation. --18:25 Jayashree Preston R.N. 18:44 04/13/2016 Site #1 started via IV in the right hand with an 18g angiocath using 1% intra-dermal lidocaine, with aseptic technique and good blood return; one attempt. Blood drawn: rainbow set. Labeled in the presence of the patient and sent to the lab. Saline lock flushed with 10 mL saline. --18:44 Amberly Henley R.N. EKG time: (18:56). EKG was performed by a tech and shown to the ED physician. --19:06 Sylvia Hughes 19:09 04/13/2016 Started bag #1 1000 mL IV Fluids IV NS (Saline); bolus of 500 mL over 30 minute(s) then at 250 mL/hr over 2 hour(s) via site #1. Allergies verified and confirmed 5 rights. Completed per protocol. --19:09 Jayashree Preston R.N. 19:10 04/13/2016 Zofran (Ondansetron HCl) IVP 4 mg given over 1 minute(s) via site #1. Allergies verified and confirmed 5 rights. IV patency established. IV site checked: no pain, redness, or swelling. IV flushed thoroughly pre- and post-medication administration. IVP given by RN. --19:10 Jayashree Preston R.N. In/out catheterization. During procedure hand hygiene observed and sterile equipment and aseptic technique used. Return of less than 50 mL mirian-colored clear urine. She tolerated procedure well. --19:11 Jayashree Preston R.N. electronic device monitor and NIBP monitor placed on patient; electronic device monitor- Lead II; monitor alarms on. Pulse oximeter not placed on patient. --19:20 Jayashree Preston R.N. Patient transported to [place] by stretcher with tech. --19:20 Jayashree Preston R.N. 19:21 04/13/2016 Site #1 removed. Catheter intact. Bandaid applied. --19:21 Jayashree Preston R.N. 19:21 04/13/2016 Site #1 relocated to the left wrist with an 20g angiocath, with aseptic technique and good blood return; one attempt. Saline lock flushed with 10 mL saline. --19:21 Jayashree Preston R.N. 20:13 04/13/2016 IV Fluids IV NS via IV site #1 Rate Changed: bag #1 decreased to 250 mL/hr via IV pump. IV patency established. IV site checked: no pain, redness, or swelling. IV flushed thoroughly. Confirmed 5 Rights. --20:13 Jayashree Preston R.N. Cold pack applied to back. --20:14 Jayashree Preston R.N. Intake & Output TOTAL INTAKE: 750 mL. IV fluids: 750. TOTAL OUTPUT: 50. Urine, with return of less than 50 mL urine. --20:36 Jayashree Pretson R.N. DISPOSITION / DISCHARGE Transported via stretcher by nurse with IV. Report was given to a nurse. Report included patient's care, treatment, medications, reviewed medication reconcilliation, and condition (including any recent changes or anticipated changes). (kong Wooten). Patient's personal items include: pants, undergarments, socks, shoes and glasses; items were placed in belongings bag and transported with the patient. Collection of belongings was witnessed by 1 nurse. She did not have a shirt. --20:38 Jayashree Preston R.N. 20:07 04/13/16. BP: 141/85. HR: 78. RR: 18. O2 saturation: 95% on room air. Temp: deferred. Pain level now: 05/24. 19:17 04/13/16. BP: 126/78. HR: 84. RR: 20. O2 saturation: 96% on room air. 18:07 04/13/16. BP: 144/66. HR: 82. RR: 20. O2 saturation: 95%. Temp: 97.8 F. Pain level now: 09/23. --20:38 Prseton, Jayashree, R.N. Locked/Released at 04/13/2016 21:39 by Jayashree Preston R.N.
--- NOTE | 2016-04-13 18:49 | ED CLINICAL REPORT ---
Clinical Report - Physicians/Mid Levels [facility] [address] [place] [address] 04/13/2016 17:59 Patient: RENATO CARDONA Time Seen: 18:24. Arrived- By private vehicle. Historian- patient. HISTORY OF PRESENT ILLNESS Chief Complaint: ABDOMINAL PAIN. At its maximum, severity described as moderate. When seen in the E.D., severity described as moderate. Modifying factors- worsened by movement and food. Relieved by rest. It is described as "pain". No radiation. It is described as located in the right abdomen and left abdomen, in the periumbilical area and in the lower abdomen. This started about 2 days ago and is still present. It was gradual in onset and has been waxing/waning. The patient has had nausea. No vomiting or diarrhea. Similar symptoms previously: Recent medical care: The patient was seen recently at this facility and another facility in the emergency department. Seen for similar symptoms. Evaluation/treatment: x-rays and labs. REVIEW OF SYSTEMS The patient is post-menopausal. She has had constipation and back pain. No black stools, hematemesis, bloody stools, fever or headache. No sore throat, chest pain or difficulty breathing. Last bowel movement: 3 days ago. All systems otherwise negative, except as recorded above. PAST HISTORY PCP: Tha Illness: Renal insufficiency, Recurrent chest pain 2011 LAD angioplasty and stent, 2013 repeat angio normal during chest pain episode, 12/2015 admit to [facility] for similar pain episode which was ultimately felt to be atypical chest pain of non-cardiac etiology PROBLEMS: Hypertension [Active]. Heart Disease [Active]. Diabetes Mellitus [Active]. Hyperlipidemia. Chest Wall Pain Renal Insufficiency. Hypothyroidism GERD with hiatal hernia on recent ECG Anxiety SURGERIES: Bowel Surgery. Cardiac Procedures Cholecystectomy. Shoulder Surgery R hand partial amputation. Medications: AmLODIPine Besylate Oral 5 mg, daily. Aspirin Oral (Tablet 325 mg), daily. Atorvastatin Calcium Oral (Tablet 80 mg), daily. Ferrous Sulfate Oral (Tablet 325 (65 Fe) mg), daily. Fiber Oral. Glimepiride Oral (Tablet 2 mg), 2x a day. Hydrocodone-Acetaminophen Oral (Tablet 7.5-325 mg), as needed. Levothyroxine Sodium Oral (Tablet 100 mcg), daily. Losartan Potassium Oral (Tablet 25 mg), daily. Magnesium Oral (Capsule 300 mg), 2x a day. Metoprolol Tartrate Oral 25 mg, 2x a day. Milk of Magnesia Oral. Omeprazole Oral 20 mg, 2x a day. Ondansetron Oral (Tablet Dispersible 4 mg), 3x a day. Senna Oral. Stool Softener Oral. Temazepam Oral (Capsule 15 mg), daily. Allergies: NKDA. SOCIAL HISTORY Former smoker, end date 1986. No alcohol use or drug use. ADDITIONAL NOTES The nursing notes have been reviewed. PHYSICAL EXAM Vital Signs: 04/13/2016 18:07 BP: 144/66. HR: 82. RR: 20. O2 saturation: 95%. Temp: 97.8 F. Pain level now: 7/10. Appearance: Alert. Oriented X3. Patient in mild distress. Eyes: Eyes normal inspection. No scleral icterus or pale conjunctivae. ENT: Pharynx normal. No pharyngeal erythema or tonsillar exudate. The mucous membranes are not dry. Neck: Normal inspection. Neck supple. CVS: Cardiac murmur present. Pulses normal. Respiratory: No respiratory distress. Breath sounds normal. Abdomen: Soft. Moderate tenderness diffusely. Mild rebound tenderness in the right side of the abdomen. Distention. (RUQ and mid abdominal scars). Back: Normal inspection. Skin: Skin warm and dry. Normal skin color. Normal skin turgor. Extremities: Extremities exhibit normal ROM. (right hand finger amputations). Neuro: Oriented X 3. No motor deficit. LABS, X-RAYS, AND EKG EKG: EKG time: (18:56). Normal sinus rhythm. Rate: 80. RBBB. Non-specific ST segment / T wave abnormalities. Changes present when compared to prior EKG. (anterior/lateral T wave inversions and lateral ST depression on 01Apr2016 - now resolved; otherwise unchanged). The study has been interpreted contemporaneously by me. The EKG appears to be a good tracing. Abdominal CT: IMPRESSION: 1. Midline ventral herniorrhaphy with stable adjacent broad-based hernia 2. Rectal wall thickening which may indicate proctitis or neoplastic changes. Correlate clinically 3. Cholecystectomy, appendectomy and bilateral hip arthroplasties 4. Mid descending colon surgical suture 5. Sigmoid colon diverticulosis. Study type: abdomen and pelvis. Abdominal CT performed without contrast. The study was independently viewed by me, interpreted by the radiologist and discussed with the radiologist. Laboratory Tests: UA-Culture if indicated: (DESTINEE: 04/13/2016 19:15) ( [facility] 04/13/2016 19:40) Final results Test Result Flag Units (Reference) URINE COLOR YELLOW URINE APPEARANCE CLEAR URINE GLUCOSE NEGATIVE (NEGATIVE) URINE BILIRUBIN NEGATIVE (NEGATIVE) URINE KETONE NEGATIVE (NEGATIVE) URINE SPECIFIC GRAVITY 1.010 (1.010-1.030) URINE PH 7.0 (5.0-8.0) URINE PROTEIN NEGATIVE (NEGATIVE) URINE UROBILINOGEN 0.2 EU/dL (0.2-1.0) URINE NITRITE NEGATIVE (NEGATIVE) URINE BLOOD TRACE-LYSED (NEGATIVE) URINE LEUK ESTERASE NEGATIVE (NEGATIVE) URINE RBC 0-1 rbc/hpf (0-1) URINE WBC 1-3 wbc/hpf (0-1) URINE EPITHELIAL CELLS 5-10 EPI/hpf (0-5) URINE BACTERIA FEW (1+) (NONE SEEN) URINE COMMENT CULT NOT INDICATED 2 m.l. patient sample submitted.URINE CULTURES ARE SET-UP BASED ON THE FOLLOWING CRITERIA:POSITIVE NITRITEPOSITIVE LEUKOCYTE ESTERASEGREATER THAN 10 WHITE BLOOD CELLSMODERATE (2+) OR GREATER BACTERIA CBC w Diff: (DESTINEE: 04/13/2016 18:40) ( [facility] 04/13/2016 18:55) Final results Test Result Flag Units (Reference) WHITE BLOOD COUNT 13.2 H K/uL (4.5-11.5) RED BLOOD COUNT 4.33 M/uL (4.00-5.20) HEMOGLOBIN 12.4 gm/dL (12.0-16.0) HEMATOCRIT 37.9 % (36.0-46.0) MEAN CELL VOLUME 87 fL (80-100) MEAN CORPUSCULAR HGB 29 pg (26-34) MEAN CORPUSCULAR HGB CONC 33 g/dL (31-37) RED CELL DISTRIBUTION WIDTH 16.0 H % (11.6-14.8) PLATELET COUNT 345 K/uL (150-400) NEUTROPHIL % 93.4 H % (50-75) LYMPH % 5.2 L % (25-40) MONO % 0.8 L % (3-14) EOSINOPHIL % 0 % (0-4) BASOPHIL % 0.6 % (0-2) PT with INR: (DESTINEE: 04/13/2016 18:40) ( [facility] 04/13/2016 19:00) Final results Test Result Flag Units (Reference) INR 1.0 (0.8-1.2) Low Intensity Therapy: INR 1.5-2.0 PT range 18.5-23.1Mod.Intensity Therapy: INR 2.0-3.0 PT range 23.1-31.5High Intensity Therapy: INR 2.5-3.5 PT range 27.4-35.5High Intensity Therapy 2: INR 3.0-4.0 PT range 31.5-39.3 D-DIMER QUANTITATIVE 0.59 H ug/mLFEU (0.27-0.52) The primary value of this quantitative assay relates toits negative predictive value (i.e. exclusion) of pulmonaryembolism/deep vein thrombosis/DIC.Elevated levels of d-dimer may also occur with:, age, cancer, inflammation, liver disease,post-op, infection, hematoma, coronary disease, peripheralarteriopathy, bleeding disorders and thrombolytic treatment.Results should be correlated with other clinical andradiological data.Testing Methodology: Latex Immunoassay Urine Drug Screen: (DESTINEE: 04/13/2016 19:15) ( [facility] 04/13/2016 19:57) Final results Test Result Flag Units (Reference) AMPHETAMINE/METHAMPHETAMINE NEGATIVE (NEGATIVE) BARBITURATE NEGATIVE (NEGATIVE) BENZODIAZEPINE NEGATIVE (NEGATIVE) CANNABINOID NEGATIVE (NEGATIVE) COCAINE NEGATIVE (NEGATIVE) ECSTASY NEGATIVE (NEGATIVE) METHADONE NEGATIVE (NEGATIVE) OPIATE POSITIVE H (NEGATIVE) The urine drug screen is a qualitative screening test fordrug overdose and abuse. All screen results should beconsidered as presumptive.Drugs screened for are as follows:BenzodiazepinesCocaineAmphetamines/MetamphetaminesTHC (Tetrahydrocannabinol)OpiatesBarbituratesEcstasyMethadonePositive results are unconfirmed. For confirmation, notifythe lab for the specimen to be sent to the reference lab.All confirmations must be performed by a differentmethodology.The ingestion of natural herbal and plant productscontaining Ephedra/Ephedra metabolites can produce in urineone or more substances capable of cross reacting withamphetamine/methamphetamine immunoassays. These testsprovide a preliminary result only. A more specificalternative chemical method must be used to obtain aconfirmed analytical result. BNP: (DESTINEE: 04/13/2016 18:40) ( [facility] 04/13/2016 19:14) Final results Test Result Flag Units (Reference) B-TYPE NATRIURETIC PEPTIDE 195 H pg/ml (5-100) Lipase: (DESTINEE: 04/13/2016 18:40) ( [facility] 04/13/2016 19:14) Final results Test Result Flag Units (Reference) LIPASE 230 U/L (73-393) AMYLASE 84 U/L (25-115) THYROID STIMULATING HORMONE 0.237 L uIU/mL (0.30-3.74) CHEM 13 PANEL: (DESTINEE: 04/13/2016 18:40) ( [facility] 04/13/2016 19:15) Final results Test Result Flag Units (Reference) GLUCOSE 201 H mg/dL (70-110) BUN 29 H mg/dL (7-18) CREATININE 1.5 H mg/dL (0.6-1.3) Estimated GFR 35.25 mL/min Estimated GFR- 42.72 mL/min Note: Persistent reduction over 3 months in eGFR<60 mL/min/1.73 m2 defines CKD. Patients with eGFR values>=60 mL/min/1.73 m2 may also have CKD if evidence ofpersistent proteinuria. Additional information may be foundat www.kidney.org. SODIUM 134 L mmol/L (136-145) POTASSIUM 5.4 H mmol/L (3.5-5.1) CHLORIDE 98 mmol/L (98-107) CARBON DIOXIDE 25 mmol/L (21-32) CALCIUM 9.4 mg/dL (8.5-10.1) TOTAL PROTEIN 6.7 g/dL (6.4-8.2) ALBUMIN 3.4 g/dL (3.3-5.0) BILIRUBIN, TOTAL 0.5 mg/dL (0.0-1.0) ALKALINE PHOSPHATASE 114 U/L (46-116) AST (SGOT) 15 U/L (15-37) ALT (SGPT) 22 U/L (12-78) MAGNESIUM 2.9 H mg/dL (1.8-2.4) CPK 40 U/L (24-260) TROPONIN I 0.05 ng/mL (0.00-1.5) TROPONIN REFERENCE RANGE:<0.1 NEGATIVE0.1-1.5 INDETERMINANT>1.5 POSITIVE . Pulse Oximetry: 04/13/2016 18:07 O2 saturation: 95%. (FIO2 - room air). Interpretation: normal. PROGRESS AND PROCEDURES Course of Care: Normal Saline 1 liter IVPB given. Zofran 4 mg IVP given. 20:56 04/13/16. Patient is stable. Physical exam findings are unchanged. The patient's symptoms are unchanged. Discussed case with health care provider (Mejia call returned 20:10). Reviewed test results. Agreed upon treatment plan. Discussed case with health care provider (Yash). Patient/family counseled. Old ED records reviewed. (5 visits to [facility] ED in past 12 months). Transition orders written. Disposition: Observation in Acute Care. Condition: stable and improved. CLINICAL IMPRESSION Acute periumbilical abdominal pain. Chronic, moderately well controlled type 2 diabetes with hyperglycemia. No coma. Essential hypertension. Hyperkalemia (mild). Recurrent ventral hernia. No obstruction or gangrene. Renal insufficiency Hyperthyroidism (iatrogenic). INSTRUCTIONS Follow-up: Screening today revealed the patient's blood pressure to be in the hypertensive range. The patient should follow up with a primary care provider for blood pressure management. (Electronically signed by Bayron Goldstein DO 04/13/2016 21:28)
--- NOTE | 2016-04-13 18:49 | ED NURSING NOTES ---
Clinical Report - Nurses [facility] [address] [place] [address] 04/13/2016 17:59 Patient: RENATO CARDONA TRIAGE Triage time 18:08. Acuity: LEVEL 3. Chief Complaint: ABDOMINAL PAIN and NAUSEA and (Hernia, "I talked to dr Ba, and he said to come in for surgurg"). Alert. No acute distress. SEPSIS SCREEN: Sepsis Screen: negative. Negative (no infection suspected/documented). --18:24 Jayashree Preston R.N. 18:07 04/13/16. BP: 144/66. HR: 82. RR: 20. O2 saturation: 95%. Temp: 97.8 F. Pain level now: 7/10. --18:24 Jayashree Preston R.N. 18:07 04/13/16. BP: 144/66. HR: 82. RR: 20. O2 saturation: 95%. Temp: 97.8 F. Pain level now: 710. --18:24 Jayashree Preston R.N. Weight: 90.7 kg stated. Height/Length: 65 inches Per Patient. BMI: 33.3. --18:22 Jayashree Preston R.N. Medications AmLODIPine Besylate Oral 5 mg, daily. Aspirin Oral (Tablet 325 mg), daily. Atorvastatin Calcium Oral (Tablet 80 mg), daily. Ferrous Sulfate Oral (Tablet 325 (65 Fe) mg), daily. Fiber Oral. Glimepiride Oral (Tablet 2 mg), 2x a day. Hydrocodone-Acetaminophen Oral (Tablet 7.5-325 mg), as needed. Levothyroxine Sodium Oral (Tablet 100 mcg), daily. Losartan Potassium Oral (Tablet 25 mg), daily. Magnesium Oral (Capsule 300 mg), 2x a day. Metoprolol Tartrate Oral 25 mg, 2x a day. Milk of Magnesia Oral. Omeprazole Oral 20 mg, 2x a day. Ondansetron Oral (Tablet Dispersible 4 mg), 3x a day. Senna Oral. Stool Softener Oral. Temazepam Oral (Capsule 15 mg), daily. --18:16 Jayashree Preston R.N. Medication/allergy information source: the patient. --18:24 Jayashree Preston R.N. Allergies NKDA. --18:16 Jayashree Preston R.N. History Arrived by private vehicle. Historian: patient and family. Accompanied by family. Primary physician (daniel). The patient has had nausea. She has had constipation (3 days ago). Last oral intake by patient was breakfast today (coffee and sandwich.). PAST MEDICAL HX: Immunizations: status is unknown. The patient is post-menopausal. SOCIAL HX: Smoker- current status unknown. No alcohol use or drug use. FALL RISK ASSESSMENT: Fall risk assessment completed. No fall risk identified. NUTRITIONAL RISK ASSESSMENT: The nutritional risk assessment revealed no deficiencies. LEARNING NEEDS ASSESSMENT: The learning needs assessment revealed no barriers. FUNCTIONAL ASSESSMENT: Functional assessment performed: independent with the activities of daily living; uses walker and cane. SKIN INTEGRITY ASSESSMENT: Skin integrity risk assessment completed. No skin integrity risk identified. --18:24 Jayashree Preston R.N. PROBLEMS: Hypertension [Active]. Diabetes Mellitus [Active]. Dyspnea [Active]. Chest Pain [Active]. --18:15 Jayashree Preston R.N. Hyperlipidemia. Chest Pain of GI Origin. Palpitations. Ovarian Cyst. Back Pain. Acute Pain. Atypical Chest Pain. Anemia. UTI - Urinary Tract Infection. Diabetes Mellitus. Pyelonephritis. Abdominal Pain. Heart Disease. Hyperglycemia. Renal Insufficiency. Chest Pain. Coronary Artery Disease. Sinus bradycardia. --18:15 Jayashree Preston R.N. Angina [RuleOut]. Acute Myocardial Infarction [RuleOut]. --18:15 Jayashree Preston R.N. ADDITIONAL SURGERIES: Bowel Surgery. Cardiac Procedures. Cholecystectomy. Shoulder Surgery. --18:15 Jayashree Preston R.N. Interventions ID band on patient. To room. --18:24 Jayashree Pretson R.N. PHYSICAL ASSESSMENT To room via wheelchair. Patient gowned. GENERAL / NEURO / PSYCH: Alert. Oriented X 4. Appears in pain and anxious. HEENT: Mucous membranes are pink. RESPIRATORY: Respirations not labored. CVS: Capillary refill less than 2 seconds. GI / : Abdomen nontender. SKIN: Skin is warm and dry. --18:24 Jayashree Preston R.N. NURSING PROGRESS NOTES monitoring tech, pulse oximeter and NIBP monitor placed on patient; property assessment monitor- Lead II; monitor alarms on. Patient gowned. Head of bed elevated. Two patient identifiers checked. Call light placed in reach. Side rails up x 2. Bed placed in lowest position. Brakes of bed on. Patient ready for evaluation. --18:25 Jayashree Preston R.N. 18:44 04/13/2016 Site #1 started via IV in the right hand with an 18g angiocath using 1% intra-dermal lidocaine, with aseptic technique and good blood return; one attempt. Blood drawn: rainbow set. Labeled in the presence of the patient and sent to the lab. Saline lock flushed with 10 mL saline. --18:44 Amberly Henley R.N. EKG time: (18:56). EKG was performed by a tech and shown to the ED physician. --19:06 Sylvia Hughes 19:09 04/13/2016 Started bag #1 1000 mL IV Fluids IV NS (Saline); bolus of 500 mL over 30 minute(s) then at 250 mL/hr over 2 hour(s) via site #1. Allergies verified and confirmed 5 rights. Completed per protocol. --19:09 Jayashree Preston R.N. 19:10 04/13/2016 Zofran (Ondansetron HCl) IVP 4 mg given over 1 minute(s) via site #1. Allergies verified and confirmed 5 rights. IV patency established. IV site checked: no pain, redness, or swelling. IV flushed thoroughly pre- and post-medication administration. IVP given by RN. --19:10 Jayashree Preston R.N. In/out catheterization. During procedure hand hygiene observed and sterile equipment and aseptic technique used. Return of less than 50 mL mirian-colored clear urine. She tolerated procedure well. --19:11 Jayashree Preston R.N. monitoring tech and NIBP monitor placed on patient; property assessment monitor- Lead II; monitor alarms on. Pulse oximeter not placed on patient. --19:20 Jayashree Preston R.N. Patient transported to OK by stretcher with tech. --19:20 Jayashree Presotn R.N. 19:21 04/13/2016 Site #1 removed. Catheter intact. Bandaid applied. --19:21 Jayashree Preston R.N. 19:21 04/13/2016 Site #1 relocated to the left wrist with an 20g angiocath, with aseptic technique and good blood return; one attempt. Saline lock flushed with 10 mL saline. --19:21 Jayashree Preston R.N. 20:13 04/13/2016 IV Fluids IV NS via IV site #1 Rate Changed: bag #1 decreased to 250 mL/hr via IV pump. IV patency established. IV site checked: no pain, redness, or swelling. IV flushed thoroughly. Confirmed 5 Rights. --20:13 Jayashree Preston R.N. Cold pack applied to back. --20:14 Jayashree Preston R.N. Intake & Output TOTAL INTAKE: 750 mL. IV fluids: 750. TOTAL OUTPUT: 50. Urine, with return of less than 50 mL urine. --20:36 Jayashree Preston R.N. DISPOSITION / DISCHARGE Transported via stretcher by nurse with IV. Report was given to a nurse. Report included patient's care, treatment, medications, reviewed medication reconcilliation, and condition (including any recent changes or anticipated changes). (kong Wooten). Patient's personal items include: pants, undergarments, socks, shoes and glasses; items were placed in belongings bag and transported with the patient. Collection of belongings was witnessed by 1 nurse. She did not have a shirt. --20:38 Jayashree Preston R.N. 20:07 04/13/16. BP: 141/85. HR: 78. RR: 18. O2 saturation: 95% on room air. Temp: deferred. Pain level now: 05/24. 19:17 04/13/16. BP: 126/78. HR: 84. RR: 20. O2 saturation: 96% on room air. 18:07 04/13/16. BP: 144/66. HR: 82. RR: 20. O2 saturation: 95%. Temp: 97.8 F. Pain level now: 09/23. --20:38 Preston, Jayashree, R.N. Locked/Released at 04/13/2016 21:39 by Jayashree Preston R.N.
--- NOTE | 2016-04-13 18:49 | ED ORDER SUMMARY ---
..... Patient: RENATO CARDONA OrderSheet [facility] VisitID: [id number] [address] [place] [address] 85y, F Registration Date/Time: 04/13/2016 ORDER SHEET Weight: 90.7 kg (stated) Allergies: NKDA GENERAL ORDERS: Rig Site Engineer (Continuous) (18:30 04/13/2016 [facility]) (18:42 DMaziarka R.N.) UA-Culture if indicated Urgent (18:04/13/2016 PHutchinson DO) (Ack 18:32 LTapper) (19:08 SRoberts R.N.) Cardiac Panel Stat ([facility]2016 [facility] (Ack 18:32 LTapper) (18:43 DMaziarka R.N.) BNP Urgent (18:04/13/2016 PHutchinson DO) (Ack 18:32 LTapper) (18:43 DMaziarka R.N.) D-Dimer Urgent (18:30 04/13/2016 PHnechinson DO) (Ack 18:32 LTapper) (18:43 DMaziarka R.N.) Amylase Urgent (18:04/13/2016 PHutchinson DO) (Ack 18:32 LTapper) (18:43 DMaziarka R.N.) PT with INR Urgent (18:30 04/13/2016 PHutchinson DO) (Ack 18:32 LTapper) (18:43 DMaziarka R.N.) TSH Urgent (18:30 04/13/2016 PHutchinson DO) (Ack 18:32 LTapper) (18:43 DMaziarka R.N.) Urine Drug Screen Urgent (18:04/13/2016 PHnechinson DO) (Ack 18:32 LTapper) (19:08 SRoberts R.N.) Lipase Urgent (18:04/13/2016 PHutchinson DO) (Ack 18:32 LTapper) (18:43 DMaziarka R.N.) Pulse oximeter (18:04/13/2016 PHutchinson DO) (18:42 DMaziarka R.N.) EKG - ER Stat (18:30 04/13/2016 [facility]) (Ack 18:32 LTapper) (18:44 DMaziarka R.N.) Vitals (18:30 04/13/2016 [facility]) (18:43 DMaziarka R.N.) CT Abd/Pel w Cont (Yes) (N/A) Urgent (18:35 04/13/2016 [facility]) (Ack 18:42 LTapper) (Cancelled: Other19:03 [facility]) CT Abd/Pel wo Cont Urgent (19:03 04/13/2016 [facility]) (Ack 19:04 LTapper) (19:22 SRoberts R.N.) MEDICATION ORDERS: IV FLUIDS: IV NS : initial bolus 500 mL (1000 mL/hr), then 250 mL/hr for X2 (NOW) (18:30 04/13/2016 [facility]) (19:09 SRoberts R.N.) Zofran IV 4 mg (NOW) (18:30 04/13/2016 [facility]) (19:10 SRoberts R.N.) ORDER SHEET NOTES: [Electronically signed by Bayron Goldstein DO (21:28 04/13/2016)] [Electronically signed by Jayashree Preston R.N. (21:39 04/13/2016)] [Electronically locked/signed by Jayashree Preston R.N. (21:39 04/13/2016)]
--- NOTE | 2016-04-13 18:49 | ED ORDER SUMMARY ---
..... Patient: RENATO CARDONA OrderSheet [facility] VisitID: [id number] [address] [place] [address] 85y, F Registration Date/Time: 04/13/2016 ORDER SHEET Weight: 90.7 kg (stated) Allergies: NKDA GENERAL ORDERS: Conservation Science Officer (Continuous) (18:30 04/13/2016 [facility]) (18:42 DMaziarka R.N.) UA-Culture if indicated Urgent (18:04/13/2016 PHutchinson DO) (Ack 18:32 LTapper) (19:08 SRoberts R.N.) Cardiac Panel Stat [facility] (Ack 18:32 LTapper) (18:43 DMaziarka R.N.) BNP Urgent (18:04/13/2016 PHutchinson DO) (Ack 18:32 LTapper) (18:43 DMaziarka R.N.) D-Dimer Urgent (18:30 04/13/2016 PHmdchinson DO) (Ack 18:32 LTapper) (18:43 DMaziarka R.N.) Amylase Urgent (18:04/13/2016 PHutchinson DO) (Ack 18:32 LTapper) (18:43 DMaziarka R.N.) PT with INR Urgent (18:30 04/13/2016 PHutchinson DO) (Ack 18:32 LTapper) (18:43 DMaziarka R.N.) TSH Urgent (18:30 04/13/2016 PHutchinson DO) (Ack 18:32 LTapper) (18:43 DMaziarka R.N.) Urine Drug Screen Urgent (18:04/13/2016 PHmdchinson DO) (Ack 18:32 LTapper) (19:08 SRoberts R.N.) Lipase Urgent (18:04/13/2016 PHutchinson DO) (Ack 18:32 LTapper) (18:43 DMaziarka R.N.) Pulse oximeter (18:04/13/2016 PHutchinson DO) (18:42 DMaziarka R.N.) EKG - ER Stat (18:30 04/13/2016 [facility]) (Ack 18:32 LTapper) (18:44 DMaziarka R.N.) Vitals (18:30 04/13/2016 [facility]) (18:43 DMaziarka R.N.) CT Abd/Pel w Cont (Yes) (N/A) Urgent (18:35 04/13/2016 [facility]) (Ack 18:42 LTapper) (Cancelled: Other19:03 [facility]) CT Abd/Pel wo Cont Urgent (19:03 04/13/2016 [facility]) (Ack 19:04 LTapper) (19:22 SRoberts R.N.) MEDICATION ORDERS: IV FLUIDS: IV NS : initial bolus 500 mL (1000 mL/hr), then 250 mL/hr for X2 (NOW) (18:30 04/13/2016 [facility]) (19:09 SRoberts R.N.) Zofran IV 4 mg (NOW) (18:30 04/13/2016 [facility]) (19:10 SRoberts R.N.) ORDER SHEET NOTES: [Electronically signed by Bayron Golsdtein DO (21:28 04/13/2016)] [Electronically signed by Jayashree Preston R.N. (21:39 04/13/2016)] [Electronically locked/signed by Jayashree Preston R.N. (21:39 04/13/2016)]
--- NOTE | 2016-04-13 20:07 | DIAGNOSTIC IMAGING REPORT ---
PROCEDURE: CT ABDOMEN/PELVIS W/O CONTRAST INDICATION: Right-sided abdominal pain, initial encounter TECHNIQUE: Noncontrast axial images were obtained of the entire abdomen and pelvis with sagittal and coronal reformations. COMPARISON: CT abdomen/pelvis 12/29/2015 FINDINGS: ABDOMEN: Lung base are clear. Heart size is normal. Cholecystectomy. Liver, pancreas, spleen and adrenal glands are normal. Mild bilateral renal cortical atrophy. Severe atherosclerosis of the aorta. Mid descending colon suture line. Mild descending colon diverticulosis. Ventral hernia, stable. PELVIS: Bilateral hip arthroplasties with prominent beam-hardening artifacts. Rectal wall thickening. Appendectomy. Bladder and adnexa are unremarkable. No pelvic mass, inflammatory changes or free fluid. Mild degenerative changes of the spine. IMPRESSION: 1. Midline ventral herniorrhaphy with stable adjacent broad-based hernia 2. Rectal wall thickening which may indicate proctitis or neoplastic changes. Correlate clinically 3. Cholecystectomy, appendectomy and bilateral hip arthroplasties 4. Mid descending colon surgical suture 5. Sigmoid colon diverticulosis 6. Results discussed with Dr. Goldstein All CT scans at this facility use dose modulation, iterative reconstruction, and/or weight-based dosing when appropriate to reduce radiation dose to as low as reasonably achievable.
[2016-04-13 21:10] VITALS: BP 135/65
--- NOTE | 2016-04-13 21:40 | ED MAR SUMMARY ---
..... Medication Administration Record [facility] [address] [place] [place] [address] Patient: RENATO CARDONA Visit ID: [id number] 85y, F Weight: 90.7 kg Height/Length: 65 in BMI: 33.3 ALLERGIES: NKDA Start 19:09 04/13/2016 Jayashree Preston R.N. Medication Administered: IV NS (SALINE), Dose: IV Fluids over 2 hour(s), Rate: 250 mL/hr, Bolus: 500 mL over 30 minute(s), Dispensed: 1000 mL bag, Site: #1 right hand. Medication Ordered: IV NS : initial bolus 500 mL (1000 mL/hr), then 250 mL/hr for X2 (NOW). Given 19:10 04/13/2016 Jayashree Preston R.N. Medication Administered: ZOFRAN [IVP] (ONDANSETRON HCL), Dose: 4 mg IVP over 1 minute(s), Site: #1 right hand. Medication Ordered: Zofran IV 4 mg (NOW).
--- NOTE | 2016-04-13 21:40 | ED DISCHARGE INSTRUCTIONS ---
Patient: RENATO CARDONA General Instructions [facility] VisitID: [id number] [place] [address] 85y, F Registration Date/Time: 04/13/2016 Acute periumbilical abdominal pain. Chronic, moderately well controlled type 2 diabetes with hyperglycemia. No coma. Essential hypertension. Hyperkalemia (mild). Recurrent ventral hernia. No obstruction or gangrene. Renal insufficiency Hyperthyroidism (iatrogenic). INSTRUCTIONS Follow-up: Screening today revealed the patient's blood pressure to be in the hypertensive range. The patient should follow up with a primary care provider for blood pressure management. ADDITIONAL INFORMATION High Blood Pressure --Established High Blood Pressure (Hypertension) is a chronic disease. The cause is unknown in most cases. It can usually be controlled with lifestyle changes and/or medicines. Symptoms of high blood pressure may include headache, dizziness, visual changes, chest pain and shortness of breath. Sometimes it causes no symptoms at all. However, even if there are no symptoms, untreated high blood pressure increases the risk of heart attack, also known as acute myocardial infarction, or AMI, and stroke. It is a serious health risk and should not be ignored. A normal blood pressure is 120/80 or less. The first (top) number is the "systolic" pressure. The second (bottom) number is the "diastolic" pressure. Hypertension exists when either the top number is 140 or higher, OR the bottom number is 90 or higher on repeated measurements. Home Care: All patients with high blood pressure should do the following to lower their pressure. If you are on medicines, then these methods may reduce or eliminate your need for medicines in the future. Begin a weight loss program if you are overweight. Reduce your salt intake. Avoid high salt foods (olives, pickles, smoked meats, salted potato chips, etc.). Do not add salt to your food at the table. Use only small amounts of salt when cooking. Begin an exercise program. Discuss with your doctor what type of exercise program would be best for you. It doesn't have to be difficult. Even brisk walking for 20 minutes three times a week is a good form of exercise. Avoid medicines which contain heart stimulants. This includes many cold and sinus decongestant pills and sprays as well as diet pills. Check the warnings about hypertension on the label. Stimulants such as amphetamine or cocaine could be lethal for someone with hypertension. Never take these. Limit your caffeine intake or switch to caffeine-free products. Stop smoking. If you are a long-time smoker, this can be hard. Enroll in a stop-smoking program to improve your chance of success. Learning how to handle stress better is an important part of any program to lower blood pressure. Learn about relaxation methods such as meditation, yoga or biofeedback. If medicines were prescribed, take them exactly as directed. Missing doses may cause your blood pressure get out of control. Consider buying an automatic blood pressure machine (available at most pharmacies). Use this to monitor your blood pressure at home and report the results to your doctor. Follow Up: Regular visits to your own physician for blood pressure checks and medicine adjustment is an important part of your care. Make a follow-up appointment as directed by our staff. Get Prompt Medical Attention if any of the following occur: Chest pain or shortness of breath Severe headache Throbbing or rushing sound in the ears Nosebleed Sudden severe abdominal pain Extreme drowsiness, confusion or fainting Dizziness or vertigo (dizziness with spinning sensation) Weakness of an arm or leg or one side of the face Difficulty with speech or vision You have been given the following additional information: Hypertension, Established (Electronically signed by Bayron Goldstein DO 04/13/2016 21:28)
--- NOTE | 2016-04-13 21:40 | ED MED RECONCILIATION SUMMARY ---
Patient: RENATO CARDONA Medication Reconciliation Report [facility] VisitID: [id number] [address] [place] [address] 85y, F Registration Date/Time: 04/13/2016 Weight: 90.7 kg Height/Length: 65 in. BMI: 33.3 ALLERGIES: NKDA The patient's Home Medications are listed below: THE FOLLOWING MEDICATIONS NEED TO BE RECONCILED: AmLODIPine Besylate Oral 5 mg, daily Aspirin Oral (325 mg), daily Atorvastatin Calcium Oral (80 mg), daily Ferrous Sulfate Oral (325 (65 Fe) mg), daily Fiber Oral Glimepiride Oral (2 mg), 2x a day Hydrocodone-Acetaminophen Oral (7.5-325 mg) Levothyroxine Sodium Oral (100 mcg), daily Losartan Potassium Oral (25 mg), daily Magnesium Oral (300 mg), 2x a day Metoprolol Tartrate Oral 25 mg, 2x a day Milk of Magnesia Oral Omeprazole Oral 20 mg, 2x a day Ondansetron Oral (4 mg), 3x a day Senna Oral Stool Softener Oral Temazepam Oral (15 mg), daily The source(s) of the original Home Medication information: patient The following Medications were given to the patient in the Emergency Department: IV NS IV Fluids bolus 500 mL over 30 minute(s), then 250 mL/hr, administered: 04/13/2016 7:09:00 PM Zofran [IVP] IVP 4 mg, administered: 04/13/2016 7:10:00 PM The following Medications were prescribed to the patient: None.
--- NOTE | 2016-04-13 21:40 | ED MAR SUMMARY ---
..... Medication Administration Record [facility] [address] [place] [address] Patient: RENATO CARDONA Visit ID: [id number] 85y, F Weight: 90.7 kg Height/Length: 65 in BMI: 33.3 ALLERGIES: NKDA Start 19:09 04/13/2016 Jayashree Preston R.N. Medication Administered: IV NS (SALINE), Dose: IV Fluids over 2 hour(s), Rate: 250 mL/hr, Bolus: 500 mL over 30 minute(s), Dispensed: 1000 mL bag, Site: #1 right hand. Medication Ordered: IV NS : initial bolus 500 mL (1000 mL/hr), then 250 mL/hr for X2 (NOW). Given 19:10 04/13/2016 Jayashree Preston R.N. Medication Administered: ZOFRAN [IVP] (ONDANSETRON HCL), Dose: 4 mg IVP over 1 minute(s), Site: #1 right hand. Medication Ordered: Zofran IV 4 mg (NOW).
--- NOTE | 2016-04-13 21:40 | ED MED RECONCILIATION SUMMARY ---
Patient: RENATO CARDONA Medication Reconciliation Report [facility] VisitID: [id number] [address] [place] [address] 85y, F Registration Date/Time: 04/13/2016 Weight: 90.7 kg Height/Length: 65 in. BMI: 33.3 ALLERGIES: NKDA The patient's Home Medications are listed below: THE FOLLOWING MEDICATIONS NEED TO BE RECONCILED: AmLODIPine Besylate Oral 5 mg, daily Aspirin Oral (325 mg), daily Atorvastatin Calcium Oral (80 mg), daily Ferrous Sulfate Oral (325 (65 Fe) mg), daily Fiber Oral Glimepiride Oral (2 mg), 2x a day Hydrocodone-Acetaminophen Oral (7.5-325 mg) Levothyroxine Sodium Oral (100 mcg), daily Losartan Potassium Oral (25 mg), daily Magnesium Oral (300 mg), 2x a day Metoprolol Tartrate Oral 25 mg, 2x a day Milk of Magnesia Oral Omeprazole Oral 20 mg, 2x a day Ondansetron Oral (4 mg), 3x a day Senna Oral Stool Softener Oral Temazepam Oral (15 mg), daily The source(s) of the original Home Medication information: patient The following Medications were given to the patient in the Emergency Department: IV NS IV Fluids bolus 500 mL over 30 minute(s), then 250 mL/hr, administered: 04/13/2016 7:09:00 PM Zofran [IVP] IVP 4 mg, administered: 04/13/2016 7:10:00 PM The following Medications were prescribed to the patient: None.
--- NOTE | 2016-04-13 22:46 | NUR ---
PT ARRIVED AROUND 2144 VIA GURNEY FROM THE ED. VSS. A&OX3, LS DIMINISHED THRUOUT AND BT ACTIVE. HR IS REG IN THE 70'S IN NSR. C/O PAIN AT 6/10. PT ALSO WANTED SLEEP MED KRISTINA. THIS RN GAVE HER SMALL ATIVAN ORDERED DOSE, INSTEAD OF PAIN MEDS AND SLEEP MEDS. NO C/O NAUSEA. ABD IS FIRM AND DISTENDED W/ MIDLINE SCAR. PT HAS HAD 2 BM'S TONIGHT AFTER MAG CITRATE WAS GIVEN. RESTING W/ CALL LIGHT IN REACH.
--- NOTE | 2016-04-13 22:51 | HISTORY AND PHYSICAL ---
ADMITTED: 04/13/2016 CHIEF COMPLAINT: 1. Abdominal pain HISTORY OF PRESENT ILLNESS: An 85-year-old female, patient of Dr. Hernandez, with history of diabetes, coronary artery disease, hypertension, hyperlipidemia, and hypothyroidism, presents with abdominal pain, worsening over 3-4 days. She states she has had a hernia in the middle of her abdomen since she had a very large surgery many years ago. She is not certain what the surgery was for, but does have a history of bowel surgery. She states that her wound was left open for 1 or 2 months and that she was very sick and had to be on life support during that time. That surgery took place many years ago. She does not recall how many years. She thinks she may have had something ruptured at that time. More recently, she has had a hernia in the middle of the abdomen and has had difficulty with constipation for which she takes fiber regularly and sometimes takes Milk of Magnesia. Milk of Magnesia is not very often. She tried Milk of Magnesia this morning with no results. The patient has had pain with this which has waxed and waned. She has had no bowel movement since the pain started 3-4 days ago. She discussed her situation with Dr. Ba, her surgeon, who told her to come in for possible surgery. She, therefore, came to the hospital. She reports nausea, but no vomiting. She states she has felt like she had to vomit, but has not been able to vomit. MEDICAL/SURGICAL HISTORY: Past medical history remarkable for coronary artery disease with stent placement. She thinks she had a heart attack at that time when the stent was placed. She does not recall how long ago that was. Diabetes mellitus times approximately 20 years. The patient denies any known complications from her diabetes. Hypertension greater than 20 years. Hyperlipidemia greater than 20 years. History of renal insufficiency. History of hypothyroidism, on oral medication. GERD with hiatal hernia. Anxiety. History of pyelonephritis. History of chronic back pain. Surgeries: Bowel surgery, cardiac procedures, cholecystectomy, shoulder surgery, bilateral hip arthroplasties, and appendectomy. MEDICATIONS: 1. Amlodipine 5 mg p.o. daily. 2. Aspirin 325 mg p.o. daily. 3. Atorvastatin 80 mg p.o. daily. 4. Iron sulfate 325 mg daily. 5. Fiber supplement. 6. Glimepiride 2 mg b.i.d. 7. 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 8. Levothyroxine 100 mcg daily. 9. Losartan 25 mg daily. 10. Magnesium 300 mg capsules b.i.d. 11. Metoprolol 25 mg b.i.d. 12. Milk of Magnesia p.r.n. 13. Omeprazole 20 mg b.i.d. 14. Ondansetron 4 mg dissolvable t.i.d. p.r.n. nausea. 15. Senna p.r.n. 16. Stool softener p.r.n. 17. Temazepam 15 mg at bedtime. ALLERGIES: 1. NO KNOWN DRUG ALLERGIES. SOCIAL HISTORY: female, lives alone in her own home. The patient is able to drive. She has a woman who comes in and helps with chores in her home periodically. The patient has 4 children. She was 8 years ago. Her son has power of litigation attorney associate. Son and [id number] were present in the ED and gave history. FAMILY HISTORY: Mother of unknown etiology. Father of myocardial infarction. Two brothers had myocardial infarction. Sister has had breast cancer. REVIEW OF SYSTEMS: General: Denies fevers, chills, sweats, weight loss. Neurological: Denies seizures, headache, or syncope. HEENT: Denies vision or hearing change recently. Denies sore throat. Respiratory: Denies cough, shortness of breath, or wheezing. Cardiovascular: Denies chest pain, palpitations, or shortness of breath on lying down. Gastrointestinal: See above. Genitourinary: The patient has a feeling of pressure in her bladder. She describes this as "burning in my right kidneys," but then points to the bladder area. She states this has bothered her in the last day. Dermatological: Denies rash, skin lesions, itching. Musculoskeletal: The patient admits to chronic low back pain and chronic right hand pain for which she takes pain medication. She denies joint swelling. PHYSICAL EXAMINATION: VITAL SIGNS: Blood pressure 144/66, heart rate 82, respirations 20, SaO2 95%, temperature 97.8. Pain level 7/10 in the emergency department. GENERAL: Well-developed, well-nourished obese female in no acute distress at the time of my evaluation. HEENT: Shows clear tympanic membranes. Throat is clear. Sinuses are nontender. NECK: Supple, without adenopathy or thyromegaly. CHEST: Clear to auscultation and percussion without wheezing, rhonchi, or rales. HEART: Regular rate and rhythm without murmur. ABDOMEN: Positive bowel sounds. Large ventral hernia is noted with diffuse tenderness. The patient is more tender over the hernia, but is diffusely tender with mild guarding. No rebound, no rigidity. No masses are palpable. Abdomen is moderately protuberant. Hernia appears chronically incarcerated, although is a broad-based large hernia. BACK: Straight without CVA tenderness. EXTREMITIES: Reveal no cyanosis, clubbing, or edema. 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 GENITAL/RECTAL/BREASTS: Deferred. LAB/IMAGING: WBC 13.2, hemoglobin 12.4, hematocrit 37.9, platelets 345. INR 1.0. D-dimer 0.59. Glucose 201, BUN 29, creatinine 1.5, sodium 134, potassium 5.4, chloride 98, bicarbonate 25. Total bilirubin 0.5, alkaline phosphatase 114, AST 15, ALT 22. Magnesium 2.9. CPK 40. Troponin is 0.05. BNP 195. Lipase 230, amylase 84. TSH 0.237. Urinalysis reveals clear yellow urine, pH 7.0, specific gravity 1.010, protein negative, ketones negative, blood trace positive, nitrite negative, bilirubin negative, urobilinogen 0.2, leukocyte esterase negative, 5-10 epithelial cells are noted, 0-1 red cells, and 1-3 white cells, glucose negative. Urine toxicology screen is obtained, which is negative. CT abdomen and pelvis obtained and read by Radiology as showing midline ventral herniorrhaphy with stable adjacent broad-based hernia, rectal wall thickening, cholecystectomy, appendectomy, bilateral hip arthroplasties, mid descending colon surgical suture, sigmoid colon diverticulosis. IMPRESSION: 1. Abdominal pain, probably from a partial bowel obstruction, intermittent from hernia, not acutely obstructed but causing pain. 2. Relative obstipation. 3. Coronary artery disease status post stent placement. 4. Diabetes mellitus type 2, stable, with no history of complications. 5. Hypertension. 6. Hyperlipidemia. 7. Chronic back and hand pain. 8. Hypothyroidism. 9. Gastroesophageal reflux disease. 10. Anxiety disorder. PLAN: Admit to [facility]. We will place the patient on n.p.o. status with intravenous hydration and treat with magnesium citrate as recommended by Dr. Ba, her surgeon. Anticipate resolution of symptomatology versus worsening and need for surgery. These are discussed with the patient. She states she does not want surgery, but would consider it if it was needed to keep her alive. The patient's wishes are discussed in terms of ongoing healthcare. Power of litigation attorney associate is noted as recorded above. Additionally, she requests DO NOT RESUSCITATE status and refuses intubation or artificial life support. Hypermagnesemia was noted and, other than treatment of obstipation, other magnesium will not be given and the patient will be instructed to discontinue her magnesium, at least temporarily on discharge. Diabetes will be managed with Accu-Cheks and sliding scale. Her oral medications will be held. Intravenous proton pump inhibitor will be used for gastroesophageal reflux disease. She will be monitored on telemetry.
--- NOTE | 2016-04-14 00:18 | NUR ---
RESTING IN BED, STATES ABDOMINAL DISCOMFORT 3/10 AT THIS TIME. DENIES NAUSEA. NPO. IVF INFUSING TO L WRIST.
[2016-04-14] MEDS ORDERED: ASPIRIN325 MG PO (01:55)
[2016-04-14] MEDS ORDERED: ONDANSETRON ODT4 MG PO (01:56)
[2016-04-14] MEDS ORDERED: METOPROLOL TART25 MG PO (01:57)
[2016-04-14] MEDS ORDERED: FIBER0.52 GM PO (01:59)
[2016-04-14 02:59] VITALS: BP 133/65
--- NOTE | 2016-04-14 03:06 | NUR ---
C/O 9/10 ABDOMINAL CRAMPING, PRN PAIN MEDS GIVEN. DENIES NAUSEA AT THIS TIME.
[2016-04-14 06:23] VITALS: BP 123/50
--- NOTE | 2016-04-14 09:45 | Provider's Discharge Care Plan ---
Problem, Goal, Plan Problem List 1. Constipation Goals: Improve disease control Instructions: Follow up as needed, Take meds as directed
--- NOTE | 2016-04-14 09:45 | Provider's Discharge Care Plan ---
Problem, Goal, Plan Problem List 1. Constipation Goals: Improve disease control Instructions: Follow up as needed, Take meds as directed
--- NOTE | 2016-04-14 10:04 | NUR ---
0730- BLOOD SUGAR 86. PT IS NPO AND DIABETIC. ATTEMPTED TO PAGE MD TO REPORT X2, NO RESPONSE. 0900- SAW MD LOGAN AND NOTIFIED OF BS, RECHECKED BS PER MD ORDER. BS 54. GIVEN 250 CC BOLUS OF D5 1/2NS 0920- BS 102 1000- MD KAUFMAN WROTE DISCHARGE ORDERS. PT VERY EAGER TO DC TO HOME. MD LOGAN NOTIFIED.
--- NOTE | 2016-04-14 10:36 | CONSULTATION REPORT ---
DATE OF CONSULTATION: 04/14/2016 CHIEF COMPLAINT: Constipation. HISTORY OF PRESENT ILLNESS: An 85-year-old female with known history of ventral hernia, who called me yesterday stating that she had not been able to have a bowel movement for 3 days, stated that her hernia was protruding. I felt this possibly could be an incarcerated hernia leading to her constipation. I asked her to come to the emergency room to be evaluated. The patient was evaluated in the emergency room. A CAT scan of her abdomen showed a midline ventral hernia with stable adjacent broad-based changes, unchanged from prior CAT scans and this was compared to a CAT scan that she had on 12/29/2015. Denied any nausea, vomiting. The patient states that she has taken some milk of magnesia without results. She states that she has had nausea, but no vomiting. This morning, the patient states that she has had a bowel movement with magnesium citrate that she was given last night. She no longer experiencing abdominal discomfort. MEDICAL/SURGICAL HISTORY: Coronary artery disease with stent placement, status post myocardial infarction, history of diabetes for over 20 years, hypertension, hyperlipidemia, renal insufficiency, hypothyroidism, reflux, pyelonephritis, chronic back pain, status post cholecystectomy, appendectomy, bilateral hip arthroplasties, shoulder surgery, amputation of digits, left hand, and sigmoid resection. The patient is followed by Dr. Hernandez who is her family physician and is followed by Dr. Nichols, [facility], having undergone multiple EGDs and colonoscopies. MEDICATIONS: 1. Amlodipine 5 mg daily. 2. Aspirin 325 mg daily. 3. Atorvastatin 80 mg daily. 4. Iron supplementation 325 daily. 5. Glimepiride 2 mg b.i.d. 6. Hydrocodone 7.5/325 two tablets daily for chronic back pain. 7. Levothyroxine 100 mcg daily. 8. Lovastatin 25 mg daily. 9. Magnesium 300 mg tablets b.i.d. 10. Metoprolol 25 mg b.i.d. 11. Milk of magnesia p.r.n. 12. Omeprazole 20 mg b.i.d. 13. Ondansetron 4 mg t.i.d. nausea. 14. Temazepam 15 mg at bedtime. ALLERGIES: 1. NONE. SOCIAL HISTORY: , lives alone. She has 4 children, does not smoke, does not drink alcohol. Rarely drinks coffee. Does not use recreational drugs. FAMILY HISTORY: Mother , etiology unknown. Father , myocardial infarction. Two brothers, MIs. Sister, breast cancer. REVIEW OF SYSTEMS: The patient denies any recent chest pain, shortness of breath , orthopnea. Denies any fainting spells or seizures. She does admit to reflux on occasion, occasional dysuria. Has chronic back pain and hand pain. Denies any history of hepatitis, jaundice, or rheumatic fever. Remaining 12-point review of systems is negative. PHYSICAL EXAMINATION: GENERAL: The patient is awake, alert, does not appear to be any acute discomfort and is anxious to go home. VITAL SIGNS: Blood pressure is 122/50, pulse 61, respirations 21, temperature 97.7. HEENT: Normocephalic, atraumatic. Pupils equal and reactive. No scleral icterus. External auditory canals clear. No nasal septal defect or discharge. Good oral hygiene. Moist mucous membranes. NECK: Supple. No JVD, carotid bruit or adenopathy. LUNGS: Clear. No rales, rhonchi, or wheezing. Room air O2 saturation 96%. HEART: Regular rhythm. No murmur I can appreciate. ABDOMEN: Prominent, she has a midline incisional scar. She does have a ventral hernia. It is soft to palpation. There is no guarding. There is no incarceration. No rebound or rigidity. EXTREMITIES: No pretibial or ankle edema. Right hand partial amputation. SKIN: Warm and dry with no peripheral cyanosis. NEUROLOGIC: The patient is grossly intact with no focal motor neurologic deficits. LYMPHATICS: No cervical, supraclavicular, axillary, or groin adenopathy. LABS: WBC 13.7, this AM 12.0 H/H 12.4/37.9, this AM 11.8/36 IMPRESSION: 1. Constipation. PLAN: I do not see any reason to perform surgery this hospitalization. She is not incarcerated. Recommend discharge. Follow up with Dr. Nichols, surgery clinic to discuss surgery at a later date electively.
--- NOTE | 2016-04-14 10:49 | NUR ---
0730- ASSESSMENT COMPLETED. PT IS ALERT AND ORIENTED. DENIES PAIN. SHE WOULD LIKE TO GO HOME AND BE GIVEN FOOD. 0930- SHAE APPROVED PO AND TO DC TO HOME. PT GIVEN HALF A SANDWICH 1050- PT STABLE. DISCHARGE EDUCATION COMPLETED. PT GIVEN WRITTEN AND VERBAL INSTRUCTIONS. NO NEW RX'S. PT TO DC TO HOME WITH SON.
--- NOTE | 2016-04-14 14:00 | DISCHARGE SUMMARY ---
ADMIT DATE: 04/13/2016 DISCHARGE DATE: 04/14/2016 ADMISSION DIAGNOSES: 1. Abdominal pain 2. Concern for bowel obstruction 3. Constipation DISCHARGE DIAGNOSES: 1. Abdominal pain, resolved after bowel movement 2. Constipation BRIEF HISTORY: This is an 85-year-old female with a history of diabetes, coronary artery disease, hypertension, dyslipidemia, and hypothyroidism, presenting with abdominal pain, worsening over the 3 to 4 days prior to admission. She states that she has had a hernia in the middle of her abdomen, that she had a very large surgery many years ago. She is not certain what the surgery was for, but does have a history of bowel surgery. She states that her wound was left open for 1-2 months, and that she was very sick and had to be on life support during that time. The surgery took place many years ago. She does not recall how many years. She thinks she may have had something ruptured at that time. More recently, she has had a hernia in the middle of the abdomen and has had difficulty with constipation, for which she takes fiber regularly and sometimes takes Milk of Magnesia. Milk of Magnesium is not very often taken. She tried Milk of Magnesium on the morning of admission, without results. The patient had pain with this, which had waxed and waned. She had no bowel movement since the pain started 3-4 days prior to admission. She discussed her situation with Dr. Ba, her surgeon, who told her to come in for possible surgery. She therefore came to the hospital. She reports nausea but no vomiting. She states she has felt like she has had to vomit but has not been able to vomit. HOSPITAL COURSE: The patient was admitted to the hospital and monitored overnight. She was given medications to help with bowel movements and did successfully have a bowel movement this morning, after which she felt significantly improved. PHYSICAL EXAMINATION: At the time of discharge, vital signs were stable. This is a well-appearing female sitting in bed, in no apparent distress. Head is atraumatic, normocephalic. Heart: S1, S2, regular rate and rhythm. No S3, S4, gallops, rubs. A 2/6 systolic murmur, increased at the base. Lungs clear to auscultation bilaterally. Abdomen is nontender, non-diffuse, with active bowel sounds diffusely. The patient does have a very large ventral hernia. There is like 1+ bilateral lower extremity edema. DISCHARGE INSTRUCTIONS/MEDICATIONS: The patient was discharged to home with instructions to follow up with her primary care provider within the next week. Diet: The consistent carb cardiac diet. Activity: Up ad. aly. Medications: Aspirin 81 mg p.o. daily. Docusate 2 tabs p.o. at bedtime. Senna 8.6 mg p.o. daily p.r.n. constipation. Ferrous sulfate 325 mg p.o. daily. MiraLAX 17 g p.o. daily. Milk of Magnesia 400 mg p.o. p.r.n. constipation. Amlodipine 5 mg p.o. daily. Glimepiride 2 mg p.o. b.i.d. Vicodin 7.5/325 mg 1 tablet p.o. b.i.d. p.r.n. pain. Levothyroxine 100 mcg p.o. daily. Omeprazole 20 mg p.o. b.i.d. Nitroglycerin 0.4 mg sublingual every 5 minutes x3 p.r.n. chest pain. Temazepam 15 mg p.o. at bedtime. Atorvastatin 80 mg p.o. daily. Losartan 25 mg p.o. daily. Ondansetron 4 mg p.o. t.i.d. p.r.n. Metoprolol 25 mg p.o. at bedtime. Psyllium 1 gram p.o. daily.
[2016-04-25] MEDS ORDERED: METOPROLOL TART25 MG PO ×2 (15:47)
[2016-08-30] MEDS ORDERED: ASPIRIN325 MG PO (11:43)
[2016-08-30] MEDS ORDERED: MAGNESIUM400 M1 PO (11:43)
[2016-08-30] MEDS ORDERED: MILK OF MA400 MG/5 M PO ×2 (11:46→11:47)
== END 2016-04-14 10:45 | disposition home or self-care (01) | DRG 392 ==
LOC: ED SRH 17:58 → TRANS SRH 19:34 → ACUTE2 SRH 20:48
PROVIDERS: ADMIT Emergency Medicine
DX: K59.00 Constipation, unspecified (principal); E11.9 Type 2 diabetes mellitus without complications; Z79.84 Long term (current) use of oral hypoglycemic drugs; I25.10 Atherosclerotic heart disease of native coronary artery without angina pectoris; Z95.5 Presence of coronary angioplasty implant and graft; I10 Essential (primary) hypertension; E03.9 Hypothyroidism, unspecified; E78.5 Hyperlipidemia, unspecified
CPT/HCPCS: 29230; 81460; 90004; 90074; 90098; 90100; 90616; 90648; 91023; 91286; 91320; 91556; 92235; 92530; 92610; 92720; 92760; 92761; 92762; 92763; 92764; 92765; 92766; 92767; 93140; 94060; 95059

== ENCOUNTER 2016-04-29 07:50 | Day surgery (SDC) | payer OTHER, MEDICARE ==
[~2016-04-29 07:50] MED LIST changes: +ASPIRIN325 MG PO; +FIBER0.52 GM PO; +METOPROLOL TART25 MG PO; +ONDANSETRON ODT4 MG PO
--- NOTE | 2016-04-29 10:52 | Provider's Discharge Care Plan ---
Problem, Goal, Plan Problem List 1. Colon polyp
--- NOTE | 2016-04-29 10:52 | Provider's Discharge Care Plan ---
Problem, Goal, Plan Problem List 1. Colon polyp
--- NOTE | 2016-04-29 11:31 | OPERATIVE REPORT ---
DATE OF SURGERY: 04/29/2016 SURGEON: Bayron Landrum MD PREOPERATIVE DIAGNOSES: 1. Constipation 2. Rectal wall thickening POSTOPERATIVE DIAGNOSES: 1. Colon polyps x2 2. Submucosal lipoma 3. Status post colon resection PROCEDURE PERFORMED: 1. colonoscopy with snare polypectomy and biopsy INDICATIONS: The patient is an 85-year-old woman with longstanding constipation. She had some right-sided abdominal pain, and CT showed thickening of the rectal wall, and the possibility of neoplastic change was raised. She has also had a previous colon resection for perforated diverticulitis. SURGICAL TECHNIQUE: The patient was taken to the endoscopy suite where total IV general was administered and the patient was placed in the left lateral decubitus position. The well-lubricated colonoscope was advanced the length of the colon under direct vision. There was some liquid in the rectal region, but there was solid stool soilage, and the prep appeared adequate. The rectal wall appeared completely normal, expanded nicely and did not show signs of fibrosis or neoplastic change. The colonoscope was advanced into the cecum, and the ileocecal valve was visualized. On withdrawal, the colon was carefully inspected. There was an obvious anastomotic site at about 50 cm, where there was seen to be a double-lumen suggesting a stapled functional end-to-end anastomosis at this location. There were 2 polyps seen proximal to this area, both about 4 mm in diameter. These were removed with cautery snare and submitted for histopathology. The patient, on the right side of the colon, had a thickened fold with a slightly yellowish color. A biopsy forceps was used to palpate this and appeared to show a pillow sign, most consistent with a submucosal lipoma. A single biopsy was taken of the surface mucosa. The rectum itself was once again viewed and appeared to be normal, without signs of active thickening. A retroflexed view was normal, and the patient left in good condition. No intraoperative complications were encountered.
[2016-08-30] MEDS ORDERED: MAGNESIUM400 M1 PO (11:43)
[2016-08-30] MEDS ORDERED: ASPIRIN325 MG PO (11:43)
[2016-08-30] MEDS ORDERED: MILK OF MA400 MG/5 M PO ×2 (11:46→11:47)
== END 2016-04-29 12:10 | disposition home or self-care (01) ==
LOC: OR SRH 07:50 → SCU SRH 07:52
PROVIDERS: Surgery
PROC: 0DBM8ZX Excision of Descending Colon, Via Natural or Artificial Opening Endoscopic, Diagnostic (ICD-10-PCS; principal; 2016-04-29 10:00)
PROC: 0DBK8ZX Excision of Ascending Colon, Via Natural or Artificial Opening Endoscopic, Diagnostic (ICD-10-PCS; principal; 2016-04-29 10:00)
DX: D12.4 Benign neoplasm of descending colon (principal); D17.79 Benign lipomatous neoplasm of other sites; E11.9 Type 2 diabetes mellitus without complications; Z79.84 Long term (current) use of oral hypoglycemic drugs; I10 Essential (primary) hypertension; I25.10 Atherosclerotic heart disease of native coronary artery without angina pectoris
CPT/HCPCS: 29229; 29240; 50004; 60001; 82900; 82944; 83526; 90004

== ENCOUNTER 2016-05-03 17:08 | Emergency (ER) | payer OTHER, MEDICARE ==
--- NOTE | 2016-05-03 20:07 | DIAGNOSTIC IMAGING REPORT ---
PROCEDURE: XR ABD SERIES 2V ABD/1V CHEST INDICATION: CONSTIPATION TECHNIQUE: AP supine and upright views with PA view chest. COMPARISON: Compared to CT abdomen and pelvis (04/13/2016) and chest x-ray (04/01/2016). FINDINGS: ABDOMEN: Bowel pattern is within normal limits with mild stool right colon. No evidence of free air. There are multiple surgical coils overlying the lower central abdomen consistent with prior hernia repair. Status post cholecystectomy with multiple surgical clips in right upper quadrant. Status post bilateral total hip prosthesis. Multiple injection granulomas overlying the left buttocks. CHEST: Lungs are clear. Heart and mediastinum are normal. Thorax is normal. IMPRESSION: 1. Postoperative change of the abdomen (previously documented). 2. Otherwise negative abdomen. 3. Negative chest.
--- NOTE | 2016-05-03 21:48 | ED NURSING NOTES ---
Clinical Report - Nurses [facility] [address] [place] [address] 05/03/2016 17:08 [id number] Triage time 17:02. Acuity: LEVEL 3. Chief Complaint: ABDOMINAL PAIN. Alert. JESSIE COMA SCORE: Jessie Coma Scale: 15- eyes open spontaneously (4); best verbal response- oriented x 4 (5); best motor response- obeys commands (6). --17:17 Ellie Ott R.N. 17:02 05/03/16. BP: 160/67. HR: 87. RR: 18. O2 saturation: 97%. Temp: 98.5 F (oral). Pain level now: 8/10. --17:17 Ellie Ott R.N. Weight: 90.7 kg stated. Height/Length: 65 inches Per Patient. BMI: 33.3. --17:06 Ellie Ott R.N. Medications AmLODIPine Besylate Oral 5 mg, daily. Aspirin Oral (Tablet 325 mg), daily. Atorvastatin Calcium Oral (Tablet 80 mg), daily. Ferrous Sulfate Oral (Tablet 325 (65 Fe) mg), daily. Fiber Oral. Glimepiride Oral (Tablet 2 mg), 2x a day. Hydrocodone-Acetaminophen Oral (Tablet 7.5-325 mg), as needed. Levothyroxine Sodium Oral (Tablet 100 mcg), daily. Metoprolol Tartrate Oral (Tablet 25 mg) 1/2 tablet, daily. Milk of Magnesia Oral (Suspension 400 mg/5mL), daily. Ondansetron Oral (Tablet Dispersible 4 mg), 3x a day as needed. Senna Oral (Tablet 8.6 mg), as needed. Temazepam Oral (Capsule 15 mg), daily as needed. --17:16 Ellie Ott R.N. Losartan Potassium Oral (Tablet 25 mg), daily. Magnesium Oral (Capsule 300 mg), 2x a day. Omeprazole Oral 20 mg, 2x a day. --17:16 Ellie Ott R.N. Polyethylene Glycol 3350 Oral, as needed. --17:52 Ellie Ott R.N. Proctosol HC Rectal (Cream 2.5 %), daily. --17:54 Ellie Ott R.N. Clotrimazole External, 2x a day. --17:56 Ellie Ott R.N. Nitrostat Sublingual (Tablet Sublingual 0.4 mg), as needed. --17:59 Ellie Ott R.N. Docusate Sodium Oral (Capsule 100 mg) 2 capsules, as needed. --18:03 Ellie Ott R.N. The following entry was struck and corrected by Ellie Ott R.N., 18:14 (05/03/16) Reason for correction - other(correction). <<STRICKEN ENTRY-- Docusate Sodium Oral (Capsule 100 mg), as needed. --18:03 Ellie Ott R.N. --END STRIKE>> The following entry was struck and corrected by Ellie Ott R.N., 17:57 (05/03/16) Reason for correction - other(correction). <<STRICKEN ENTRY-- Temazepam Oral (Capsule 15 mg), daily. --17:16 Ellie Ott R.N. --END STRIKE>> The following entry was struck and corrected by Ellie Ott R.N., 17:57 (05/03/16) Reason for correction - other(correction). <<STRICKEN ENTRY-- Ondansetron Oral (Tablet Dispersible 4 mg), 3x a day. --17:16 Ellie Ott R.N. --END STRIKE>> The following entry was struck and corrected by Ellie Ott R.N., 17:54 (05/03/16) Reason for correction - other(correction). <<STRICKEN ENTRY-- Milk of Magnesia Oral. --17:16 Ellie Ott R.N. --END STRIKE>> The following entry was struck by Ellie Ott R.N., 17:52 (05/03/16) Reason - other. <<STRICKEN ENTRY-- Stool Softener Oral. --17:16 Ellie Ott R.N. --END STRIKE>> The following entry was struck and corrected by Ellie Ott R.N., 17:51 (05/03/16) Reason for correction - other(correction). <<STRICKEN ENTRY-- Metoprolol Tartrate Oral 25 mg, daily. --17:16 Ellie Ott R.N. --END STRIKE>> The following entry was struck and corrected by Ellie Ott R.N., 17:51 (05/03/16) Reason for correction - other(correction). <<STRICKEN ENTRY-- Senna Oral. --17:16 Ellie Ott R.N. --END STRIKE>>. Allergies NKDA. --17:16 Ellie Ott R.N. History Arrived by EMS. Historian: EMS and patient. Primary physician (Mary). Onset. (about 2 days). ( s/p colonoscopy 04/29/16 (Dr Landrum), states no BM since procedure). SOCIAL HX: Smoker- current status unknown (no). No alcohol use or drug use. LEARNING NEEDS ASSESSMENT: The learning needs assessment revealed no barriers. FALL RISK ASSESSMENT: Fall risk assessment completed. Risk factors identified include patient impairment of mobility. Fall interventions initiated. Patient placed on stretcher. Side rails up x2. Brakes on Bed in low position. FUNCTIONAL ASSESSMENT: Functional assessment performed: independent with the activities of daily living; uses cane. --17:17 Ellie Ott R.N. Treatment MEDICAL CUSTOMER SERVICE REPRESENTATIVE: (Dilaudid 2 mg IM, Zofran 4 mg ODT at clinic). --18:26 Ellie Ott R.N. PROBLEMS: Hypertension [Active]. Heart Disease [Active]. Diabetes Mellitus [Active]. Dyspnea [Active]. Chest Pain [Active]. --17:12 Ellie Ott R.N. Hernia. Hyperkalemia. Hyperlipidemia. Chest Wall Pain. Chest Pain of GI Origin. Palpitations. Abnormal EKG. Ovarian Cyst. Back Pain. Acute Pain. Atypical Chest Pain. Anemia. UTI - Urinary Tract Infection. Immunizations. Pyelonephritis. Abdominal Pain. Hyperglycemia. Renal Insufficiency. Coronary Artery Disease. Sinus bradycardia. --17:12 Ellie Ott R.N. Angina [RuleOut]. Acute Myocardial Infarction [RuleOut]. --17:12 Ellie Ott R.N. Diverticulitis. --17:50 Ellie Ott R.N. The following entry was modified by Ellie Ott R.N., 17:50 <<STRICKEN ENTRY-- Hypertension. --18:30 Ellie Ott R.N. --END STRIKE>> The following entry was modified by Ellie Ott R.N., 17:50 <<STRICKEN ENTRY-- Diabetes Mellitus. --17:34 Ellie Ott R.N. --END STRIKE>> The following entry was modified by Ellie Ott R.N., 17:50 <<STRICKEN ENTRY-- Heart Disease. --14:44 Ellie Ott R.N. --END STRIKE>> The following entry was modified by Ellie Ott R.N., 17:50 <<STRICKEN ENTRY-- Chest Pain. --00:26 Ellie Ott R.N. --END STRIKE>>. ADDITIONAL SURGERIES: Bowel Surgery. Cardiac Procedures. Cholecystectomy. Colonoscopy. Shoulder Surgery. --17:12 Ellie Ott R.N. Assessment GENERAL / NEURO / PSYCH: Alert. Oriented X 4. Appears in no acute distress. Patient appears calm and cooperative. RESPIRATORY: Respirations not labored. SKIN: Skin is warm and dry. --17:17 Ellie Ott R.N. Interventions ID band on patient. To treatment room. --17:17 Ellie Ott R.N. PHYSICAL ASSESSMENT 17:11 05/03/16. To room via stretcher. Patient gowned. GENERAL / NEURO / PSYCH: Alert. Oriented X 4. Appears in no acute distress. RESPIRATORY: Respirations not labored. SKIN: Skin is warm and dry. --17:11 Ellie Ott R.N. NURSING PROGRESS NOTES 17:11 05/03/16. Pulse oximeter and NIBP monitor placed on patient. Patient gowned. Head of bed elevated. Call light placed in reach. Side rails up x 2. Bed placed in lowest position. Brakes of bed on. --17:11 Ellie Ott R.N. 17:18 05/03/2016 Site #1 started via IV in the right forearm with an 20g angiocath, with aseptic technique and good blood return; one attempt. Blood drawn: rainbow set. Labeled in the presence of the patient and sent to the lab. Saline lock flushed with 10 mL saline (by Rocio VALENTIN). --17:18 Ellie Ott R.N. 17:24 05/03/16. Assisted patient to bedside commode and back to bed (by RN and EDT). :patient confirmed. Clean catch urine collected; sample sent to lab. Specimen labeled in the presence of the patient. --17:24 Ellie Ott R.N. 18:12 05/03/2016 Started bag #1 1000 mL IV Fluids IV NS (Saline); at 1000 mL/hr over 30 minute(s) via site #1 via IV pump. --18:12 Ellie Ott R.N. 18:12 05/03/2016 Zofran (Ondansetron HCl) IVP 4 mg given over 2 minute(s) via site #1. Allergies verified and confirmed 5 rights. IV patency established. IV site checked: no pain, redness, or swelling. IV flushed thoroughly pre- and post-medication administration. IVP given by RN. --18:12 Ellie Ott R.N. 18:13 05/03/2016 Dilaudid (HYDROmorphone HCl PF) IVP 0.5 mg given over 2 minute(s) via site #1. Allergies verified, confirmed 5 rights and sedative warning given to the patient. IV patency established. IV site checked: no pain, redness, or swelling. IV flushed thoroughly pre- and post-medication administration. IVP given by RN. --18:13 Ellie Ott R.N. Patient transported to radiology by stretcher. Patient returned from radiology by stretcher with tech. --18:25 Ellie Ott R.N. 18:25. Reassessment after fluids administered, procedure and medication administered. She is resting quietly. Overall patient status is the same- she states feels the same. SKIN: Skin is warm and dry. --18:25 Ellie Ott R.N. 18:26 still "hurting alot". --18:26 Ellie Ott R.N. 19:08 05/03/16. ( Pt placed on bedpan. 100cc urine out, UA to lab. Pt c/o increased pain and nausea, asking for meds). --19:08 Cris Patterson R.N. EKG time: (18:19). EKG was performed by a tech and shown to the ED physician. --19:25 Sylvia Hughes 20:35 05/03/2016 Fleets enema * TN 1 amplication --20:45 Cris Patterson R.N. 20:15 pt given oil retention enema, then assisted to BSC. no results. --21:33 Cris Patterson R.N. 20:35 pt given fleet enema, small amount of "grape sized" stool returned. --21:36 Cris Patterson R.N. 21:00 Soap suds enema given, minimal results , ERPA notified. --21:37 Cris Patterson R.N. 21:30 additional soap suds enema given. small amount of grape sized stool returned. --21:38 Cris Patterson R.N. 22:00 05/03/2016 GOLYTELY PO 1000 mL given. Allergies verified and confirmed 5 rights. --22:00 Brando Richmond R.N. 22:00 05/03/2016 Site #1 removed upon discharge. Bandage applied. --22:00 Brando Richmond R.N. ( pt had small bm). --22:02 Brando Richmond R.N. 21:37 05/03/2016 IV Fluids IV NS Discontinued: bag #1 infused upon discharge. Total amount infused: 1000 mL. IV patency established. IV site checked: no pain, redness, or swelling. IV flushed thoroughly. --22:02 Brando Richmond R.N. DISPOSITION / DISCHARGE Departure time: 2200. Condition at departure: improved. No learning barriers present. Discharge instructions provided and reviewed with dehydrogenation converter operator and the patient. Reviewed warnings. Reviewed medication(s). Treatments reviewed. Reviewed referrals. Reviewed diet. Activity restrictions reviewed. Patient and dehydrogenation converter operator verbalized understanding. Written instructions provided in Tajik. The patient was discharged by the physician topographical field assistant. She was discharged home and accompanied by dehydrogenation converter operator. She left the Emergency Department ambulatory and via private vehicle. [employer] driving. FALL RISK ASSESSMENT: Fall risk assessment completed. No fall risk identified. --22:01 Brando Richmond R.N. 22:00 05/03/16. BP: 158/68. HR: 88. RR: 18. O2 saturation: 98%. Temp: 98 F. Pain level now 0/10. --22:01 Brando Richmond R.N. Locked/Released at 05/03/2016 22:03 by Brando Richmond R.N.
--- NOTE | 2016-05-03 21:48 | ED NURSING NOTES ---
Clinical Report - Nurses [facility] [address] [place] [address] 05/03/2016 17:08 [id number] Triage time 17:02. Acuity: LEVEL 3. Chief Complaint: ABDOMINAL PAIN. Alert. JESSIE COMA SCORE: Jessie Coma Scale: 15- eyes open spontaneously (4); best verbal response- oriented x 4 (5); best motor response- obeys commands (6). --17:17 Ellie Ott R.N. 17:02 05/03/16. BP: 160/67. HR: 87. RR: 18. O2 saturation: 97%. Temp: 98.5 F (oral). Pain level now: 8/10. --17:17 Ellie Ott R.N. Weight: 90.7 kg stated. Height/Length: 65 inches Per Patient. BMI: 33.3. --17:06 Ellie Ott R.N. Medications AmLODIPine Besylate Oral 5 mg, daily. Aspirin Oral (Tablet 325 mg), daily. Atorvastatin Calcium Oral (Tablet 80 mg), daily. Ferrous Sulfate Oral (Tablet 325 (65 Fe) mg), daily. Fiber Oral. Glimepiride Oral (Tablet 2 mg), 2x a day. Hydrocodone-Acetaminophen Oral (Tablet 7.5-325 mg), as needed. Levothyroxine Sodium Oral (Tablet 100 mcg), daily. Metoprolol Tartrate Oral (Tablet 25 mg) 1/2 tablet, daily. Milk of Magnesia Oral (Suspension 400 mg/5mL), daily. Ondansetron Oral (Tablet Dispersible 4 mg), 3x a day as needed. Senna Oral (Tablet 8.6 mg), as needed. Temazepam Oral (Capsule 15 mg), daily as needed. --17:16 Ellie Ott R.N. Losartan Potassium Oral (Tablet 25 mg), daily. Magnesium Oral (Capsule 300 mg), 2x a day. Omeprazole Oral 20 mg, 2x a day. --17:16 Ellie Ott R.N. Polyethylene Glycol 3350 Oral, as needed. --17:52 Ellie Ott R.N. Proctosol HC Rectal (Cream 2.5 %), daily. --17:54 Ellie Ott R.N. Clotrimazole External, 2x a day. --17:56 Ellie Ott R.N. Nitrostat Sublingual (Tablet Sublingual 0.4 mg), as needed. --17:59 Ellie Ott R.N. Docusate Sodium Oral (Capsule 100 mg) 2 capsules, as needed. --18:03 Ellie Ott R.N. The following entry was struck and corrected by Ellie Ott R.N., 18:14 (05/03/16) Reason for correction - other(correction). <<STRICKEN ENTRY-- Docusate Sodium Oral (Capsule 100 mg), as needed. --18:03 Ellie Ott R.N. --END STRIKE>> The following entry was struck and corrected by Ellie Ott R.N., 17:57 (05/03/16) Reason for correction - other(correction). <<STRICKEN ENTRY-- Temazepam Oral (Capsule 15 mg), daily. --17:16 Ellie Ott R.N. --END STRIKE>> The following entry was struck and corrected by Ellie Ott R.N., 17:57 (05/03/16) Reason for correction - other(correction). <<STRICKEN ENTRY-- Ondansetron Oral (Tablet Dispersible 4 mg), 3x a day. --17:16 Ellie Ott R.N. --END STRIKE>> The following entry was struck and corrected by Ellie Ott R.N., 17:54 (05/03/16) Reason for correction - other(correction). <<STRICKEN ENTRY-- Milk of Magnesia Oral. --17:16 Ellie Ott R.N. --END STRIKE>> The following entry was struck by lElie Ott R.N., 17:52 (05/03/16) Reason - other. <<STRICKEN ENTRY-- Stool Softener Oral. --17:16 Ellie Ott R.N. --END STRIKE>> The following entry was struck and corrected by Ellie Ott R.N., 17:51 (05/03/16) Reason for correction - other(correction). <<STRICKEN ENTRY-- Metoprolol Tartrate Oral 25 mg, daily. --17:16 Ellie Ott R.N. --END STRIKE>> The following entry was struck and corrected by Ellie Ott R.N., 17:51 (05/03/16) Reason for correction - other(correction). <<STRICKEN ENTRY-- Senna Oral. --17:16 Ellie Ott R.N. --END STRIKE>>. Allergies NKDA. --17:16 Ellie Ott R.N. History Arrived by EMS. Historian: EMS and patient. Primary physician (Mary). Onset. (about 2 days). ( s/p colonoscopy 04/29/16 (Dr Landrum), states no BM since procedure). SOCIAL HX: Smoker- current status unknown (no). No alcohol use or drug use. LEARNING NEEDS ASSESSMENT: The learning needs assessment revealed no barriers. FALL RISK ASSESSMENT: Fall risk assessment completed. Risk factors identified include patient impairment of mobility. Fall interventions initiated. Patient placed on stretcher. Side rails up x2. Brakes on Bed in low position. FUNCTIONAL ASSESSMENT: Functional assessment performed: independent with the activities of daily living; uses cane. --17:17 Ellie Ott R.N. Treatment TRAVEL RN: (Dilaudid 2 mg IM, Zofran 4 mg ODT at clinic). --18:26 Ellie Ott R.N. PROBLEMS: Hypertension [Active]. Heart Disease [Active]. Diabetes Mellitus [Active]. Dyspnea [Active]. Chest Pain [Active]. --17:12 Ellie Ott R.N. Hernia. Hyperkalemia. Hyperlipidemia. Chest Wall Pain. Chest Pain of GI Origin. Palpitations. Abnormal EKG. Ovarian Cyst. Back Pain. Acute Pain. Atypical Chest Pain. Anemia. UTI - Urinary Tract Infection. Immunizations. Pyelonephritis. Abdominal Pain. Hyperglycemia. Renal Insufficiency. Coronary Artery Disease. Sinus bradycardia. --17:12 Ellie Ott R.N. Angina [RuleOut]. Acute Myocardial Infarction [RuleOut]. --17:12 Ellie Ott R.N. Diverticulitis. --17:50 Ellie Ott R.N. The following entry was modified by Ellie Ott R.N., 17:50 <<STRICKEN ENTRY-- Hypertension. --18:30 Ellie Ott R.N. --END STRIKE>> The following entry was modified by Ellie Ott R.N., 17:50 <<STRICKEN ENTRY-- Diabetes Mellitus. --17:34 Ellie Ott R.N. --END STRIKE>> The following entry was modified by Ellie Ott R.N., 17:50 <<STRICKEN ENTRY-- Heart Disease. --14:44 Ellie Ott R.N. --END STRIKE>> The following entry was modified by Ellie Ott R.N., 17:50 <<STRICKEN ENTRY-- Chest Pain. --00:26 Ellie Ott R.N. --END STRIKE>>. ADDITIONAL SURGERIES: Bowel Surgery. Cardiac Procedures. Cholecystectomy. Colonoscopy. Shoulder Surgery. --17:12 Ellie Ott R.N. Assessment GENERAL / NEURO / PSYCH: Alert. Oriented X 4. Appears in no acute distress. Patient appears calm and cooperative. RESPIRATORY: Respirations not labored. SKIN: Skin is warm and dry. --17:17 Ellie Ott R.N. Interventions ID band on patient. To treatment room. --17:17 Ellie Ott R.N. PHYSICAL ASSESSMENT 17:11 05/03/16. To room via stretcher. Patient gowned. GENERAL / NEURO / PSYCH: Alert. Oriented X 4. Appears in no acute distress. RESPIRATORY: Respirations not labored. SKIN: Skin is warm and dry. --17:11 Ellie Ott R.N. NURSING PROGRESS NOTES 17:11 05/03/16. Pulse oximeter and NIBP monitor placed on patient. Patient gowned. Head of bed elevated. Call light placed in reach. Side rails up x 2. Bed placed in lowest position. Brakes of bed on. --17:11 Ellie Ott R.N. 17:18 05/03/2016 Site #1 started via IV in the right forearm with an 20g angiocath, with aseptic technique and good blood return; one attempt. Blood drawn: rainbow set. Labeled in the presence of the patient and sent to the lab. Saline lock flushed with 10 mL saline (by Rocio VALENTIN). --17:18 Ellie Ott R.N. 17:24 05/03/16. Assisted patient to bedside commode and back to bed (by RN and EDT). :patient confirmed. Clean catch urine collected; sample sent to lab. Specimen labeled in the presence of the patient. --17:24 Ellie Ott R.N. 18:12 05/03/2016 Started bag #1 1000 mL IV Fluids IV NS (Saline); at 1000 mL/hr over 30 minute(s) via site #1 via IV pump. --18:12 Ellie Ott R.N. 18:12 05/03/2016 Zofran (Ondansetron HCl) IVP 4 mg given over 2 minute(s) via site #1. Allergies verified and confirmed 5 rights. IV patency established. IV site checked: no pain, redness, or swelling. IV flushed thoroughly pre- and post-medication administration. IVP given by RN. --18:12 Ellie Ott R.N. 18:13 05/03/2016 Dilaudid (HYDROmorphone HCl PF) IVP 0.5 mg given over 2 minute(s) via site #1. Allergies verified, confirmed 5 rights and sedative warning given to the patient. IV patency established. IV site checked: no pain, redness, or swelling. IV flushed thoroughly pre- and post-medication administration. IVP given by RN. --18:13 Ellie Ott R.N. Patient transported to radiology by stretcher. Patient returned from radiology by stretcher with tech. --18:25 Ellie Ott R.N. 18:25. Reassessment after fluids administered, procedure and medication administered. She is resting quietly. Overall patient status is the same- she states feels the same. SKIN: Skin is warm and dry. --18:25 Ellie Ott R.N. 18:26 still "hurting alot". --18:26 Ellie Ott R.N. 19:08 05/03/16. ( Pt placed on bedpan. 100cc urine out, UA to lab. Pt c/o increased pain and nausea, asking for meds). --19:08 Cris Patterson R.N. EKG time: (18:19). EKG was performed by a tech and shown to the ED physician. --19:25 Sylvia Hughes 20:35 05/03/2016 Fleets enema * AK 1 amplication --20:45 Cris Patterson R.N. 20:15 pt given oil retention enema, then assisted to BSC. no results. --21:33 Cris Patterson R.N. 20:35 pt given fleet enema, small amount of "grape sized" stool returned. --21:36 Cris Patterson R.N. 21:00 Soap suds enema given, minimal results , ERPA notified. --21:37 Cris Patterson R.N. 21:30 additional soap suds enema given. small amount of grape sized stool returned. --21:38 Cris Patterson R.N. 22:00 05/03/2016 GOLYTELY PO 1000 mL given. Allergies verified and confirmed 5 rights. --22:00 Brando Richmond R.N. 22:00 05/03/2016 Site #1 removed upon discharge. Bandage applied. --22:00 Brando Richmond R.N. ( pt had small bm). --22:02 Brando Richmond R.N. 21:37 05/03/2016 IV Fluids IV NS Discontinued: bag #1 infused upon discharge. Total amount infused: 1000 mL. IV patency established. IV site checked: no pain, redness, or swelling. IV flushed thoroughly. --22:02 Brando Richmond R.N. DISPOSITION / DISCHARGE Departure time: 2200. Condition at departure: improved. No learning barriers present. Discharge instructions provided and reviewed with switchboard mechanic and the patient. Reviewed warnings. Reviewed medication(s). Treatments reviewed. Reviewed referrals. Reviewed diet. Activity restrictions reviewed. Patient and switchboard mechanic verbalized understanding. Written instructions provided in Rwandan. The patient was discharged by the physician respiratory therapy assistant. She was discharged home and accompanied by switchboard mechanic. She left the Emergency Department ambulatory and via private vehicle. Banquet Captain driving. FALL RISK ASSESSMENT: Fall risk assessment completed. No fall risk identified. --22:01 Brando Richmond R.N. 22:00 05/03/16. BP: 158/68. HR: 88. RR: 18. O2 saturation: 98%. Temp: 98 F. Pain level now 0/10. --22:01 Brando Richmond R.N. Locked/Released at 05/03/2016 22:03 by Brando Richmond R.N.
--- NOTE | 2016-05-03 21:48 | ED ORDER SUMMARY ---
..... Patient: RENATO CARDONA OrderSheet [facility] VisitID: [id number] [address] [place] [address] 85y, F Registration Date/Time: 05/03/2016 ORDER SHEET Weight: 90.7 kg (stated) Allergies: NKDA GENERAL ORDERS: Abd Series 2V Abd/1V Chest Urgent (17:33 05/03/2016 JCoates) (Ack 17:35 LTapper) (18:11 Vasu R.N.) CBC w Diff Urgent (17:33 05/03/2016 JCoates) (17:34 Vasu R.N.) CMP Urgent (17:33 05/03/2016 JCoates) (17:34 Vasu R.N.) UA-Culture if indicated Urgent (17:33 05/03/2016 JCoates) (17:34 Vasu R.N.) PT with INR Urgent (17:33 05/03/2016 JCoates) (17:34 Vasu R.N.) PTT Urgent (17:33 05/03/2016 JCoates) (17:34 Vasu R.N.) Lipase Urgent (17:33 05/03/2016 JCoates) (17:34 Vasu R.N.) Troponin-I Urgent (17:33 05/03/2016 JCoates) (17:34 Vasu R.N.) EKG - ER Stat (17:33 05/03/2016 JCoates) (Ack 17:35 LTapper) (19:16 Vasu R.N.) - (Please call Dr. Wolff. Lucas) (18:15 05/03/2016 JCoates) (19:21 Monika ER General Pediatrician) - (soap suds enema) (21:04 05/03/2016 DDean R.N. verbal order read back to JCoates) (21:05 DDean R.N.) - (repeat soap suds enema) (21:31 05/03/2016 DDean R.N. verbal order read back to JCoates) (21:31 DDean R.N.) - (oil retention enema now) (21:31 05/03/2016 DDean R.N. per protocol) (21:32 DDean R.N.) MEDICATION ORDERS: Golytely PO 1,000 mL (NOW) (19:06 05/03/2016 JCoates) (22:00 Donna R.N.) - (FLEETS enema. Thanks) (19:05/03/2016 JCoates) (20:45 DDean R.N.) IV FLUIDS: IV NS : initial bolus 500 mL (1000 mL/hr), then 500 mL/hr for X1 (NOW) (17:32 05/03/2016 JCoates) (Ack 17:33 Vasu R.N.) (18:12 Vasu R.N.) Zofran IV 4 mg (NOW) (17:32 05/03/2016 JCoates) (Ack 17:33 Vasu R.N.) (18:12 Vasu R.N.) Dilaudid IV 0.5 mg (NOW) (17:32 05/03/2016 JCoates) (Ack 17:34 Vasu R.N.) (18:13 Vasu R.N.) IV Saline Lock (17:33 05/03/2016 JCoates) (17:33 Vasu R.N.) ORDER SHEET NOTES: [Electronically signed by Brando Richmond R.N. (22:03 05/03/2016)] [Electronically signed by Brad Gray (00:13 05/04/2016)] [Electronically locked/signed by Brando Richmond R.N. (22:03 05/03/2016)]
--- NOTE | 2016-05-03 21:48 | ED ORDER SUMMARY ---
..... Patient: RENATO CARDONA OrderSheet [facility] VisitID: [id number] [address] [place] [address] 85y, F Registration Date/Time: 05/03/2016 ORDER SHEET Weight: 90.7 kg (stated) Allergies: NKDA GENERAL ORDERS: Abd Series 2V Abd/1V Chest Urgent (17:33 05/03/2016 JCoates) (Ack 17:35 LTapper) (18:11 Vasu R.N.) CBC w Diff Urgent (17:33 05/03/2016 JCoates) (17:34 Vasu R.N.) CMP Urgent (17:33 05/03/2016 JCoates) (17:34 Vasu R.N.) UA-Culture if indicated Urgent (17:33 05/03/2016 JCoates) (17:34 Vasu R.N.) PT with INR Urgent (17:33 05/03/2016 JCoates) (17:34 Vasu R.N.) PTT Urgent (17:33 05/03/2016 JCoates) (17:34 Vasu R.N.) Lipase Urgent (17:33 05/03/2016 JCoates) (17:34 Vasu R.N.) Troponin-I Urgent (17:33 05/03/2016 JCoates) (17:34 Vasu R.N.) EKG - ER Stat (17:33 05/03/2016 JCoates) (Ack 17:35 LTapper) (19:16 Vasu R.N.) - (Please call Dr. Wolff. Lucas) (18:15 05/03/2016 JCoates) (19:21 Monika ER Tomography Technologist) - (soap suds enema) (21:04 05/03/2016 DDean R.N. verbal order read back to JCoates) (21:05 DDean R.N.) - (repeat soap suds enema) (21:31 05/03/2016 DDean R.N. verbal order read back to JCoates) (21:31 DDean R.N.) - (oil retention enema now) (21:31 05/03/2016 DDean R.N. per protocol) (21:32 DDean R.N.) MEDICATION ORDERS: Golytely PO 1,000 mL (NOW) (19:06 05/03/2016 JCoates) (22:00 Donna R.N.) - (FLEETS enema. Thanks) (19:05/03/2016 JCoates) (20:45 DDean R.N.) IV FLUIDS: IV NS : initial bolus 500 mL (1000 mL/hr), then 500 mL/hr for X1 (NOW) (17:32 05/03/2016 JCoates) (Ack 17:33 Vasu R.N.) (18:12 Vasu R.N.) Zofran IV 4 mg (NOW) (17:32 05/03/2016 JCoates) (Ack 17:33 Vasu R.N.) (18:12 Vasu R.N.) Dilaudid IV 0.5 mg (NOW) (17:32 05/03/2016 JCoates) (Ack 17:34 Vasu R.N.) (18:13 Vasu R.N.) IV Saline Lock (17:33 05/03/2016 JCoates) (17:33 Vasu R.N.) ORDER SHEET NOTES: [Electronically signed by Brando Richmond R.N. (22:03 05/03/2016)] [Electronically signed by Brad Gray (00:13 05/04/2016)] [Electronically locked/signed by Brando Richmond R.N. (22:03 05/03/2016)]
--- NOTE | 2016-05-03 21:48 | ED CLINICAL REPORT ---
Clinical Report - Physicians/Mid Levels [facility] [address] [place] [address] 05/03/2016 17:08 Patient: RENATO CARDONA Time Seen: 17:22 May 03 2016. Arrived- By ambulance. Historian- EMS personnel. HISTORY OF PRESENT ILLNESS Chief Complaint: ABDOMINAL PAIN and CONSTIPATION. It is described as diffuse. No radiation. This started 4 days ago; Patient recently had a colonoscopy for her chronic constipation. She says since the colonoscopy she hasn't had a regular bowel movement. She says she's not passing flatus today. No fevers or vomiting. She went to see her primary care provider todayand mentioned that she was feeling quite tired so they transported her here for further evaluation. She denies any chest pain or shortness of breath. and is still present. The patient has had nausea and loss of appetite. No vomiting or diarrhea. Similar symptoms previously: Many times. Recent medical care: The patient was seen recently at another facility in a clinic and hospitalized. REVIEW OF SYSTEMS The patient has had constipation. No black stools, hematemesis, difficulty with urination, pain with urination or bloody stools. No headache, chest pain, difficulty breathing or cough. Last bowel movement- 4 days ago. All systems otherwise negative, except as recorded above. PAST HISTORY See nurses notes. Hypertension. Diabetes mellitus. Heart disease. No history of bowel obstruction. SOCIAL HISTORY Never smoker. No alcohol use. ADDITIONAL NOTES The nursing notes have been reviewed. PHYSICAL EXAM Appearance: Alert. Oriented X3. No acute distress. Eyes: Pupils equal, round and reactive to light. Eyes normal inspection. ENT: Nose normal. Pharynx normal. Neck: Normal inspection. JVD present. Neck supple. CVS: Normal heart rate and rhythm. Heart sounds normal. Respiratory: No respiratory distress. Breath sounds normal. Abdomen: Soft. Moderate tenderness diffusely. No guarding, rebound tenderness or Wilson's sign present. Bowel sounds normal. No mass. Moderate mass present in the periumbilical area (moderate size reproducible hernia.). Back: Normal inspection. No CVA tenderness. Skin: Skin warm and dry. Normal skin color. No rash. Normal skin turgor. Extremities: Extremities exhibit normal ROM. Neuro: No motor deficit. No sensory deficit. LABS, X-RAYS, AND EKG KUB: Abnormal gas pattern. Increased stool present. (Discussed with supervising physician.). Views: two-view AP. Technique: good. Laboratory Tests: UA-Culture if indicated: (DESTINEE: 05/03/2016 17:15) ( [facility] 05/03/2016 17:54) Final results Test Result Flag Units (Reference) URINE COLOR YELLOW URINE APPEARANCE CLEAR URINE GLUCOSE NEGATIVE (NEGATIVE) URINE BILIRUBIN NEGATIVE (NEGATIVE) URINE KETONE NEGATIVE (NEGATIVE) URINE SPECIFIC GRAVITY 1.010 (1.010-1.030) URINE PH 7.5 (5.0-8.0) URINE PROTEIN NEGATIVE (NEGATIVE) URINE UROBILINOGEN 0.2 EU/dL (0.2-1.0) URINE NITRITE NEGATIVE (NEGATIVE) URINE BLOOD NEGATIVE (NEGATIVE) URINE LEUK ESTERASE NEGATIVE (NEGATIVE) URINE RBC NONE SEEN rbc/hpf (0-1) URINE WBC NONE SEEN wbc/hpf (0-1) URINE EPITHELIAL CELLS 1-3 EPI/hpf (0-5) URINE BACTERIA NONE SEEN (NONE SEEN) URINE COMMENT CULT NOT INDICATED URINE CULTURES ARE SET-UP BASED ON THE FOLLOWING CRITERIA:POSITIVE NITRITEPOSITIVE LEUKOCYTE ESTERASEGREATER THAN 10 WHITE BLOOD CELLSMODERATE (2+) OR GREATER BACTERIA CBC w Diff: (DESTINEE: 05/03/2016 17:15) ( [facility] 05/03/2016 17:39) Final results Test Result Flag Units (Reference) WHITE BLOOD COUNT 7.3 K/uL (4.5-11.5) RED BLOOD COUNT 4.61 M/uL (4.00-5.20) HEMOGLOBIN 13.5 gm/dL (12.0-16.0) HEMATOCRIT 41.3 % (36.0-46.0) MEAN CELL VOLUME 90 fL (80-100) MEAN CORPUSCULAR HGB 29 pg (26-34) MEAN CORPUSCULAR HGB CONC 33 g/dL (31-37) RED CELL DISTRIBUTION WIDTH 17.8 H % (11.6-14.8) PLATELET COUNT 181 K/uL (150-400) NEUTROPHIL % 59.7 % (50-75) LYMPH % 23.0 L % (25-40) MONO % 6.4 % (3-14) EOSINOPHIL % 10.7 H % (0-4) BASOPHIL % 0.2 % (0-2) PT with INR: (DESTINEE: 05/03/2016 17:15) ( MsgRcvd 05/03/2016 17:52) Final results Test Result Flag Units (Reference) INR 0.9 (0.8-1.2) Low Intensity Therapy: INR 1.5-2.0 PT range 18.5-23.1Mod.Intensity Therapy: INR 2.0-3.0 PT range 23.1-31.5High Intensity Therapy: INR 2.5-3.5 PT range 27.4-35.5High Intensity Therapy 2: INR 3.0-4.0 PT range 31.5-39.3 APTT 27 SECONDS (24-34) CMP: (DESTINEE: 05/03/2016 17:15) ( MsgRcvd 05/03/2016 18:14) Final results Test Result Flag Units (Reference) GLUCOSE 135 H mg/dL (70-110) BUN 13 mg/dL (7-18) CREATININE 1.4 H mg/dL (0.6-1.3) Estimated GFR 38.17 mL/min Estimated GFR- 46.26 mL/min Note: Persistent reduction over 3 months in eGFR<60 mL/min/1.73 m2 defines CKD. Patients with eGFR values>=60 mL/min/1.73 m2 may also have CKD if evidence ofpersistent proteinuria. Additional information may be foundat www.kidney.org. SODIUM 134 L mmol/L (136-145) POTASSIUM 4.7 mmol/L (3.5-5.1) CHLORIDE 99 mmol/L (98-107) CARBON DIOXIDE 26 mmol/L (21-32) CALCIUM 9.9 mg/dL (8.5-10.1) TOTAL PROTEIN 6.9 g/dL (6.4-8.2) ALBUMIN 3.9 g/dL (3.3-5.0) BILIRUBIN, TOTAL 0.3 mg/dL (0.0-1.0) ALKALINE PHOSPHATASE 116 U/L (46-116) AST (SGOT) 16 U/L (15-37) ALT (SGPT) 18 U/L (12-78) LIPASE 263 U/L (73-393) TROPONIN I <0.05 ng/mL (0.00-1.5) TROPONIN REFERENCE RANGE:<0.1 NEGATIVE0.1-1.5 INDETERMINANT>1.5 POSITIVE . PROGRESS AND PROCEDURES Course of Care: 17:33 05/03/16. patient stable. Primarily constipation causing the abdominal pain. Fatigue is a concern so troponin and EKG ordered as well. 19:06 05/03/16. Spoke with Dr. Landrum, He recommends fleets enemas and starting a quarter of the GoLYTELY. Patient had a small bowel movement in the room. She is feeling much better. At this point in time her labs and x-rays do not suggest life-threatening etiology. We'll discharge her home. Follow-up with Dr. Landrum as scheduled as well as her primary care provider next week. Continue with the GoLYTELY at home. Disposition: Discharged home in stable and improved condition. CLINICAL IMPRESSION Constipation Chronic generalized abdominal pain. INSTRUCTIONS Rest at home tomorrow. Drink plenty of fluids. Take clear liquids only for the next 24 hours until better. Warnings: Further evaluation is necessary. GENERAL WARNINGS: Return or contact your physician immediately if your condition worsens or changes unexpectedly, if not improving as expected, or if other problems arise. SPECIFICALLY, return if you develop fever, vomiting, the inability to keep fluids down, blood in diarrhea or lightheadedness; or for a return of pain in the abdomen. Prescription Medications: GoLYTELY: drink 8 ounces mixed in 8 ounces water or juice every day until consumed for 4 days. Dispense twenty-six (26) ounce bottle. No refills. Substitution is permissible Follow-up: Follow up with your doctor Friday in four days even if well. Understanding of the discharge instructions verbalized by patient. Follow-up with: Bayron Landrum MD, General Surgeon, , [facility], [address] [place] [address], [id number] Follow up as scheduled even if well. (Electronically signed by Brad Gray, 05/04/2016 0:13)
--- NOTE | 2016-05-03 21:48 | ED CLINICAL REPORT ---
Clinical Report - Physicians/Mid Levels [facility] [address] [place] [address] 05/03/2016 17:08 Patient: RENATO CARDONA Time Seen: 17:22 May 03 2016. Arrived- By ambulance. Historian- EMS personnel. HISTORY OF PRESENT ILLNESS Chief Complaint: ABDOMINAL PAIN and CONSTIPATION. It is described as diffuse. No radiation. This started 4 days ago; Patient recently had a colonoscopy for her chronic constipation. She says since the colonoscopy she hasn't had a regular bowel movement. She says she's not passing flatus today. No fevers or vomiting. She went to see her primary care provider todayand mentioned that she was feeling quite tired so they transported her here for further evaluation. She denies any chest pain or shortness of breath. and is still present. The patient has had nausea and loss of appetite. No vomiting or diarrhea. Similar symptoms previously: Many times. Recent medical care: The patient was seen recently at another facility in a clinic and hospitalized. REVIEW OF SYSTEMS The patient has had constipation. No black stools, hematemesis, difficulty with urination, pain with urination or bloody stools. No headache, chest pain, difficulty breathing or cough. Last bowel movement- 4 days ago. All systems otherwise negative, except as recorded above. PAST HISTORY See nurses notes. Hypertension. Diabetes mellitus. Heart disease. No history of bowel obstruction. SOCIAL HISTORY Never smoker. No alcohol use. ADDITIONAL NOTES The nursing notes have been reviewed. PHYSICAL EXAM Appearance: Alert. Oriented X3. No acute distress. Eyes: Pupils equal, round and reactive to light. Eyes normal inspection. ENT: Nose normal. Pharynx normal. Neck: Normal inspection. JVD present. Neck supple. CVS: Normal heart rate and rhythm. Heart sounds normal. Respiratory: No respiratory distress. Breath sounds normal. Abdomen: Soft. Moderate tenderness diffusely. No guarding, rebound tenderness or Wilson's sign present. Bowel sounds normal. No mass. Moderate mass present in the periumbilical area (moderate size reproducible hernia.). Back: Normal inspection. No CVA tenderness. Skin: Skin warm and dry. Normal skin color. No rash. Normal skin turgor. Extremities: Extremities exhibit normal ROM. Neuro: No motor deficit. No sensory deficit. LABS, X-RAYS, AND EKG KUB: Abnormal gas pattern. Increased stool present. (Discussed with supervising physician.). Views: two-view AP. Technique: good. Laboratory Tests: UA-Culture if indicated: (DESTINEE: 05/03/2016 17:15) ( [facility] 05/03/2016 17:54) Final results Test Result Flag Units (Reference) URINE COLOR YELLOW URINE APPEARANCE CLEAR URINE GLUCOSE NEGATIVE (NEGATIVE) URINE BILIRUBIN NEGATIVE (NEGATIVE) URINE KETONE NEGATIVE (NEGATIVE) URINE SPECIFIC GRAVITY 1.010 (1.010-1.030) URINE PH 7.5 (5.0-8.0) URINE PROTEIN NEGATIVE (NEGATIVE) URINE UROBILINOGEN 0.2 EU/dL (0.2-1.0) URINE NITRITE NEGATIVE (NEGATIVE) URINE BLOOD NEGATIVE (NEGATIVE) URINE LEUK ESTERASE NEGATIVE (NEGATIVE) URINE RBC NONE SEEN rbc/hpf (0-1) URINE WBC NONE SEEN wbc/hpf (0-1) URINE EPITHELIAL CELLS 1-3 EPI/hpf (0-5) URINE BACTERIA NONE SEEN (NONE SEEN) URINE COMMENT CULT NOT INDICATED URINE CULTURES ARE SET-UP BASED ON THE FOLLOWING CRITERIA:POSITIVE NITRITEPOSITIVE LEUKOCYTE ESTERASEGREATER THAN 10 WHITE BLOOD CELLSMODERATE (2+) OR GREATER BACTERIA CBC w Diff: (DESTINEE: 05/03/2016 17:15) ( [facility] 05/03/2016 17:39) Final results Test Result Flag Units (Reference) WHITE BLOOD COUNT 7.3 K/uL (4.5-11.5) RED BLOOD COUNT 4.61 M/uL (4.00-5.20) HEMOGLOBIN 13.5 gm/dL (12.0-16.0) HEMATOCRIT 41.3 % (36.0-46.0) MEAN CELL VOLUME 90 fL (80-100) MEAN CORPUSCULAR HGB 29 pg (26-34) MEAN CORPUSCULAR HGB CONC 33 g/dL (31-37) RED CELL DISTRIBUTION WIDTH 17.8 H % (11.6-14.8) PLATELET COUNT 181 K/uL (150-400) NEUTROPHIL % 59.7 % (50-75) LYMPH % 23.0 L % (25-40) MONO % 6.4 % (3-14) EOSINOPHIL % 10.7 H % (0-4) BASOPHIL % 0.2 % (0-2) PT with INR: (DESTINEE: 05/03/2016 17:15) ( MsgRcvd 05/03/2016 17:52) Final results Test Result Flag Units (Reference) INR 0.9 (0.8-1.2) Low Intensity Therapy: INR 1.5-2.0 PT range 18.5-23.1Mod.Intensity Therapy: INR 2.0-3.0 PT range 23.1-31.5High Intensity Therapy: INR 2.5-3.5 PT range 27.4-35.5High Intensity Therapy 2: INR 3.0-4.0 PT range 31.5-39.3 APTT 27 SECONDS (24-34) CMP: (DESTINEE: 05/03/2016 17:15) ( MsgRcvd 05/03/2016 18:14) Final results Test Result Flag Units (Reference) GLUCOSE 135 H mg/dL (70-110) BUN 13 mg/dL (7-18) CREATININE 1.4 H mg/dL (0.6-1.3) Estimated GFR 38.17 mL/min Estimated GFR- 46.26 mL/min Note: Persistent reduction over 3 months in eGFR<60 mL/min/1.73 m2 defines CKD. Patients with eGFR values>=60 mL/min/1.73 m2 may also have CKD if evidence ofpersistent proteinuria. Additional information may be foundat www.kidney.org. SODIUM 134 L mmol/L (136-145) POTASSIUM 4.7 mmol/L (3.5-5.1) CHLORIDE 99 mmol/L (98-107) CARBON DIOXIDE 26 mmol/L (21-32) CALCIUM 9.9 mg/dL (8.5-10.1) TOTAL PROTEIN 6.9 g/dL (6.4-8.2) ALBUMIN 3.9 g/dL (3.3-5.0) BILIRUBIN, TOTAL 0.3 mg/dL (0.0-1.0) ALKALINE PHOSPHATASE 116 U/L (46-116) AST (SGOT) 16 U/L (15-37) ALT (SGPT) 18 U/L (12-78) LIPASE 263 U/L (73-393) TROPONIN I <0.05 ng/mL (0.00-1.5) TROPONIN REFERENCE RANGE:<0.1 NEGATIVE0.1-1.5 INDETERMINANT>1.5 POSITIVE . PROGRESS AND PROCEDURES Course of Care: 17:33 05/03/16. patient stable. Primarily constipation causing the abdominal pain. Fatigue is a concern so troponin and EKG ordered as well. 19:06 05/03/16. Spoke with Dr. Landrum, He recommends fleets enemas and starting a quarter of the GoLYTELY. Patient had a small bowel movement in the room. She is feeling much better. At this point in time her labs and x-rays do not suggest life-threatening etiology. We'll discharge her home. Follow-up with Dr. Landrum as scheduled as well as her primary care provider next week. Continue with the GoLYTELY at home. Disposition: Discharged home in stable and improved condition. CLINICAL IMPRESSION Constipation Chronic generalized abdominal pain. INSTRUCTIONS Rest at home tomorrow. Drink plenty of fluids. Take clear liquids only for the next 24 hours until better. Warnings: Further evaluation is necessary. GENERAL WARNINGS: Return or contact your physician immediately if your condition worsens or changes unexpectedly, if not improving as expected, or if other problems arise. SPECIFICALLY, return if you develop fever, vomiting, the inability to keep fluids down, blood in diarrhea or lightheadedness; or for a return of pain in the abdomen. Prescription Medications: GoLYTELY: drink 8 ounces mixed in 8 ounces water or juice every day until consumed for 4 days. Dispense twenty-six (26) ounce bottle. No refills. Substitution is permissible Follow-up: Follow up with your doctor Friday in four days even if well. Understanding of the discharge instructions verbalized by patient. Follow-up with: Bayron Landrum MD, General Surgeon, , [facility], [address] [place] [address], [id number] Follow up as scheduled even if well. (Electronically signed by Brad Gray, 05/04/2016 0:13)
--- NOTE | 2016-05-04 00:14 | ED MAR SUMMARY ---
..... Medication Administration Record [facility] [address] [place] [address] Patient: RENATO CARDONA Visit ID: [id number] 85y, F Weight: 90.7 kg Height/Length: 65 in BMI: 33.3 ALLERGIES: NKDA Start 18:12 05/03/2016 Ellie Ott R.N., Stop 21:37 05/03/2016 Brando Richmond R.N. Medication Administered: IV NS (SALINE), Dose: IV Fluids over 30 minute(s), Rate: 1000 mL/hr, Dispensed: 1000 mL bag, Site: #1 right forearm. Medication Ordered: IV NS : initial bolus 500 mL (1000 mL/hr), then 500 mL/hr for X1 (NOW). Given 18:12 05/03/2016 Ellie Ott R.N. Medication Administered: ZOFRAN [IVP] (ONDANSETRON HCL), Dose: 4 mg IVP over 2 minute(s), Site: #1 right forearm. Medication Ordered: Zofran IV 4 mg (NOW). Given 18:13 05/03/2016 Ellie Ott R.N. Medication Administered: DILAUDID [IVP] (HYDROMORPHONE HCL PF), Dose: 0.5 mg IVP over 2 minute(s), Site: #1 right forearm. Medication Ordered: Dilaudid IV 0.5 mg (NOW). Given 20:35 05/03/2016 Cris Patterson R.N. Medication Administered: Fleets enema *, Dose: 1 amplication * [place]. Medication Ordered: - (FLEETS enema. Thanks). Given 22:00 05/03/2016 Brando Richmond R.N. Medication Administered: GOLYTELY [PO], Dose: 1000 mL PO. Medication Ordered: Golytely PO 1,000 mL (NOW).
--- NOTE | 2016-05-04 00:14 | ED DISCHARGE INSTRUCTIONS ---
Patient: RENATO CARDONA General Instructions [facility] VisitID: [id number] [address] [place], [place] [id number] 85y, F Registration Date/Time: 05/03/2016 Constipation Chronic generalized abdominal pain. INSTRUCTIONS Rest at home tomorrow. Drink plenty of fluids. Take clear liquids only for the next 24 hours until better. Warnings: Further evaluation is necessary. GENERAL WARNINGS: Return or contact your physician immediately if your condition worsens or changes unexpectedly, if not improving as expected, or if other problems arise. SPECIFICALLY, return if you develop fever, vomiting, the inability to keep fluids down, blood in diarrhea or lightheadedness; or for a return of pain in the abdomen. Prescription Medications: GoLYTELY: drink 8 ounces mixed in 8 ounces water or juice every day until consumed for 4 days. Dispense twenty-six (26) ounce bottle. No refills. Substitution is permissible Follow-up: Follow up with your doctor Friday in four days even if well. Understanding of the discharge instructions verbalized by patient. Follow-up with: Bayron Landrum MD, General Surgeon, , [facility], [address] [place] [id number] Follow up as scheduled even if well. ADDITIONAL INFORMATION Constipation (Adult) Constipation is bowel movements that are less frequent than usual. Stools often become very hard and difficult to pass. This may lead to abdominal pain and bloating. It may also cause painful bowel movements. Constipation may be due to a diet thats low in fiber. Some medications, especially pain medications, can also cause it. Constipation may be treated with enemas, suppositories, laxatives or stool softeners. Your doctor will advise you which will work best for you. Follow the advice below to help avoid this problem in the future. Home Care Medication: Take any medicines as directed. Some laxatives are safe only for occasional use. Others can be taken on a regular basis. Talk to your doctor or pharmacist if you have questions. General Care: Prescription pain medications can cause constipation. If you are prescribed pain medications, ask the doctor whether you should also take a stool softener. A diet high in fiber with plenty of fluids helps to maintain regular, soft bowel movements. The following foods are good sources of dietary fiber: Cereals and breads: Whole grain cereal with bran, oatmeal, rolled oats, whole grain breads Fruits: All fruits (fresh and dried), raisins, prunes, apricots, berries, figs Vegetables: Any fresh vegetables, especially peas, broccoli, brussels sprouts, winter squash, green beans, cauliflower, durand beans, carrots Other: Popcorn, brown rice Drink plenty of water when you increase the amount of fiber you eat. Follow Up with your doctor or return to this facility if symptoms do not improve in the next few days. You may require further tests or a referral to a specialist. Get Prompt Medical Attention if any of the following occur: Fever over 100.4F (38C) Failure to resume normal bowel movements Increasing abdominal or back pain Nausea or vomiting Abdominal swelling Blood in the stool Weakness, dizziness or fainting Unexpected vaginal bleeding You have been given the following additional information: Constipation (Adult) Rest at home tomorrow. (Electronically signed by Brad Gray, 05/04/2016 0:13)
--- NOTE | 2016-05-04 00:14 | ED DISCHARGE INSTRUCTIONS ---
Patient: RENATO CARDONA General Instructions [facility] VisitID: [id number] [address] [place], [place] [id number] 85y, F Registration Date/Time: 05/03/2016 Constipation Chronic generalized abdominal pain. INSTRUCTIONS Rest at home tomorrow. Drink plenty of fluids. Take clear liquids only for the next 24 hours until better. Warnings: Further evaluation is necessary. GENERAL WARNINGS: Return or contact your physician immediately if your condition worsens or changes unexpectedly, if not improving as expected, or if other problems arise. SPECIFICALLY, return if you develop fever, vomiting, the inability to keep fluids down, blood in diarrhea or lightheadedness; or for a return of pain in the abdomen. Prescription Medications: GoLYTELY: drink 8 ounces mixed in 8 ounces water or juice every day until consumed for 4 days. Dispense twenty-six (26) ounce bottle. No refills. Substitution is permissible Follow-up: Follow up with your doctor Friday in four days even if well. Understanding of the discharge instructions verbalized by patient. Follow-up with: Bayron Landrum MD, General Surgeon, , [facility], [address] [place] [id number] Follow up as scheduled even if well. ADDITIONAL INFORMATION Constipation (Adult) Constipation is bowel movements that are less frequent than usual. Stools often become very hard and difficult to pass. This may lead to abdominal pain and bloating. It may also cause painful bowel movements. Constipation may be due to a diet thats low in fiber. Some medications, especially pain medications, can also cause it. Constipation may be treated with enemas, suppositories, laxatives or stool softeners. Your doctor will advise you which will work best for you. Follow the advice below to help avoid this problem in the future. Home Care Medication: Take any medicines as directed. Some laxatives are safe only for occasional use. Others can be taken on a regular basis. Talk to your doctor or pharmacist if you have questions. General Care: Prescription pain medications can cause constipation. If you are prescribed pain medications, ask the doctor whether you should also take a stool softener. A diet high in fiber with plenty of fluids helps to maintain regular, soft bowel movements. The following foods are good sources of dietary fiber: Cereals and breads: Whole grain cereal with bran, oatmeal, rolled oats, whole grain breads Fruits: All fruits (fresh and dried), raisins, prunes, apricots, berries, figs Vegetables: Any fresh vegetables, especially peas, broccoli, brussels sprouts, winter squash, green beans, cauliflower, durand beans, carrots Other: Popcorn, brown rice Drink plenty of water when you increase the amount of fiber you eat. Follow Up with your doctor or return to this facility if symptoms do not improve in the next few days. You may require further tests or a referral to a specialist. Get Prompt Medical Attention if any of the following occur: Fever over 100.4F (38C) Failure to resume normal bowel movements Increasing abdominal or back pain Nausea or vomiting Abdominal swelling Blood in the stool Weakness, dizziness or fainting Unexpected vaginal bleeding You have been given the following additional information: Constipation (Adult) Rest at home tomorrow. (Electronically signed by Brad Gray, 05/04/2016 0:13)
--- NOTE | 2016-05-04 00:14 | ED MED RECONCILIATION SUMMARY ---
Patient: RENATO CARDONA Medication Reconciliation Report [facility] VisitID: [id number] [address] [place] [address] 85y, F Registration Date/Time: 05/03/2016 Weight: 90.7 kg Height/Length: 65 in. BMI: 33.3 ALLERGIES: NKDA The patient's Home Medications are listed below: THE FOLLOWING MEDICATIONS NEED TO BE RECONCILED: AmLODIPine Besylate Oral 5 mg, daily Aspirin Oral (325 mg), daily Atorvastatin Calcium Oral (80 mg), daily Clotrimazole External, 2x a day Docusate Sodium Oral (100 mg) 2 capsules Ferrous Sulfate Oral (325 (65 Fe) mg), daily Fiber Oral Glimepiride Oral (2 mg), 2x a day Hydrocodone-Acetaminophen Oral (7.5-325 mg) Levothyroxine Sodium Oral (100 mcg), daily Losartan Potassium Oral (25 mg), daily Magnesium Oral (300 mg), 2x a day Metoprolol Tartrate Oral (25 mg) 1/2 tablet, daily Milk of Magnesia Oral (400 mg/5mL), daily Nitrostat Sublingual (0.4 mg) Omeprazole Oral 20 mg, 2x a day Ondansetron Oral (4 mg), 3x a day Polyethylene Glycol 3350 Oral Proctosol HC Rectal (2.5 %), daily Senna Oral (8.6 mg) Temazepam Oral (15 mg), daily The source(s) of the original Home Medication information: Not obtained. The following Medications were given to the patient in the Emergency Department: IV NS IV Fluids bolus 0, then 1000 mL/hr, administered: 05/03/2016 6:12:00 PM Zofran [IVP] IVP 4 mg, administered: 05/03/2016 6:12:00 PM Dilaudid [IVP] IVP 0.5 mg, administered: 05/03/2016 6:13:00 PM Fleets enema MS 1 amplication, administered: 05/03/2016 8:35:00 PM GOLYTELY [PO] PO 1000 mL, administered: 05/03/2016 10:00:00 PM The following Medications were prescribed to the patient: GoLYTELY: drink 8 ounces mixed in 8 ounces water or juice every day until consumed for 4 days. Dispense twenty-six (26) ounce bottle. No refills. Substitution is permissible -- Brad Gray
--- NOTE | 2016-05-04 00:14 | ED MAR SUMMARY ---
..... Medication Administration Record [facility] [address] [place] [address] Patient: RENATO CARDONA Visit ID: [id number] 85y, F Weight: 90.7 kg Height/Length: 65 in BMI: 33.3 ALLERGIES: NKDA Start 18:12 05/03/2016 Ellie Ott R.N., Stop 21:37 05/03/2016 Brando Richmond R.N. Medication Administered: IV NS (SALINE), Dose: IV Fluids over 30 minute(s), Rate: 1000 mL/hr, Dispensed: 1000 mL bag, Site: #1 right forearm. Medication Ordered: IV NS : initial bolus 500 mL (1000 mL/hr), then 500 mL/hr for X1 (NOW). Given 18:12 05/03/2016 Ellei Ott R.N. Medication Administered: ZOFRAN [IVP] (ONDANSETRON HCL), Dose: 4 mg IVP over 2 minute(s), Site: #1 right forearm. Medication Ordered: Zofran IV 4 mg (NOW). Given 18:13 05/03/2016 Ellie Ott R.N. Medication Administered: DILAUDID [IVP] (HYDROMORPHONE HCL PF), Dose: 0.5 mg IVP over 2 minute(s), Site: #1 right forearm. Medication Ordered: Dilaudid IV 0.5 mg (NOW). Given 20:35 05/03/2016 Cris Patterson R.N. Medication Administered: Fleets enema *, Dose: 1 amplication * [place]. Medication Ordered: - (FLEETS enema. Thanks). Given 22:00 05/03/2016 Brando Richmond R.N. Medication Administered: GOLYTELY [PO], Dose: 1000 mL PO. Medication Ordered: Golytely PO 1,000 mL (NOW).
--- NOTE | 2016-05-04 00:14 | ED MED RECONCILIATION SUMMARY ---
Patient: RENATO CARDONA Medication Reconciliation Report [facility] VisitID: [id number] [address] [place] [address] 85y, F Registration Date/Time: 05/03/2016 Weight: 90.7 kg Height/Length: 65 in. BMI: 33.3 ALLERGIES: NKDA The patient's Home Medications are listed below: THE FOLLOWING MEDICATIONS NEED TO BE RECONCILED: AmLODIPine Besylate Oral 5 mg, daily Aspirin Oral (325 mg), daily Atorvastatin Calcium Oral (80 mg), daily Clotrimazole External, 2x a day Docusate Sodium Oral (100 mg) 2 capsules Ferrous Sulfate Oral (325 (65 Fe) mg), daily Fiber Oral Glimepiride Oral (2 mg), 2x a day Hydrocodone-Acetaminophen Oral (7.5-325 mg) Levothyroxine Sodium Oral (100 mcg), daily Losartan Potassium Oral (25 mg), daily Magnesium Oral (300 mg), 2x a day Metoprolol Tartrate Oral (25 mg) 1/2 tablet, daily Milk of Magnesia Oral (400 mg/5mL), daily Nitrostat Sublingual (0.4 mg) Omeprazole Oral 20 mg, 2x a day Ondansetron Oral (4 mg), 3x a day Polyethylene Glycol 3350 Oral Proctosol HC Rectal (2.5 %), daily Senna Oral (8.6 mg) Temazepam Oral (15 mg), daily The source(s) of the original Home Medication information: Not obtained. The following Medications were given to the patient in the Emergency Department: IV NS IV Fluids bolus 0, then 1000 mL/hr, administered: 05/03/2016 6:12:00 PM Zofran [IVP] IVP 4 mg, administered: 05/03/2016 6:12:00 PM Dilaudid [IVP] IVP 0.5 mg, administered: 05/03/2016 6:13:00 PM Fleets enema [place] 1 amplication, administered: 05/03/2016 8:35:00 PM GOLYTELY [PO] PO 1000 mL, administered: 05/03/2016 10:00:00 PM The following Medications were prescribed to the patient: GoLYTELY: drink 8 ounces mixed in 8 ounces water or juice every day until consumed for 4 days. Dispense twenty-six (26) ounce bottle. No refills. Substitution is permissible -- Brad Gray
[2016-08-30] MEDS ORDERED: MAGNESIUM400 M1 PO (11:43)
[2016-08-30] MEDS ORDERED: ASPIRIN325 MG PO (11:43)
[2016-08-30] MEDS ORDERED: MILK OF MA400 MG/5 M PO ×2 (11:46→11:47)
== END 2016-05-03 22:00 | disposition home or self-care (01) ==
LOC: ED SRH 17:08
DX: R10.84 Generalized abdominal pain (principal); K59.00 Constipation, unspecified; G89.29 Other chronic pain; I10 Essential (primary) hypertension; E11.9 Type 2 diabetes mellitus without complications; N28.9 Disorder of kidney and ureter, unspecified; Z79.899 Other long term (current) drug therapy; Z79.82 Long term (current) use of aspirin
CPT/HCPCS: 90004; 90100; 90616; 92235; 94001; 94060; 95059

== ENCOUNTER 2016-05-23 07:21 | Day surgery (SDC) | payer OTHER, MEDICARE ==
--- NOTE | 2016-05-23 11:45 | Provider's Discharge Care Plan ---
Problem, Goal, Plan Problem List 1. Ventral hernia
--- NOTE | 2016-05-23 11:45 | Provider's Discharge Care Plan ---
Problem, Goal, Plan Problem List 1. Ventral hernia
[2016-05-23] MEDS ORDERED: NORCO1 TA1 PO (11:48)
[2016-05-23 13:09] VITALS: BP 152/70
--- NOTE | 2016-05-23 14:00 | OPERATIVE REPORT ---
DATE OF SURGERY: 05/23/2016 SURGEON: Bayron Landrum MD PREOPERATIVE DIAGNOSIS: 1. Ventral hernia POSTOPERATIVE DIAGNOSIS: 1. Ventral hernia PROCEDURE PERFORMED: 1. Ventral herniorrhaphy with mesh ANESTHESIA: General. INDICATIONS: The patient is an 85-year-old woman with an increasingly painful recurrent ventral hernia. She had a remote repair many years ago. SURGICAL TECHNIQUE: The patient was taken to the operating room where a general anesthetic was administered and the patient prepped and draped in the usual sterile fashion. IV antibiotics were given. The midline incisional scar was incised and later excised directly over the site of the hernia. Dissection was carried down, freeing up the hernia. The bowel was from the undersurface, where there was a previous bridging mesh. It had pulled away from the left side, and the right side was still attached to the fascia. This was all well incorporated into soft tissue. This dissection was carried back at least 5 cm in all directions, and part of the anterior surface of the fascia on the left and the mesh on the right was exposed. A piece of Parietex adhesion barrier mesh was tailored to suit the defect. On both lateral sides, transfascial sutures using 2-0 Prolene were performed to anchor the lateral edge of the mesh well up under the fascia or mesh at least 5 cm back. A bunch of old suture and tacks was also removed during this process. Once the mesh was in place, the fascia was closed over the top of it using running #1 Maxon suture, with the knot tied internally. There was a relatively small subcutaneous pocket; therefore, no drain was placed. The skin was closed with running subcuticular 4-0 Vicryl suture and Steri-Strips. A pressure dressing and an abdominal binder were placed. The patient left in good condition.
[2016-08-30] MEDS ORDERED: ASPIRIN325 MG PO (11:43)
[2016-08-30] MEDS ORDERED: MAGNESIUM400 M1 PO (11:43)
[2016-08-30] MEDS ORDERED: MILK OF MA400 MG/5 M PO ×2 (11:46→11:47)
== END 2016-05-23 13:49 | disposition home or self-care (01) ==
LOC: OR SRH 07:21 → SCU SRH 08:22 → OR SRH 09:00
PROVIDERS: Surgery
PROC: 0WUF0JZ Supplement Abdominal Wall with Synthetic Substitute, Open Approach (ICD-10-PCS; principal; 2016-05-23 09:30)
DX: K43.2 Incisional hernia without obstruction or gangrene (principal); I10 Essential (primary) hypertension; E11.9 Type 2 diabetes mellitus without complications; Z79.84 Long term (current) use of oral hypoglycemic drugs
CPT/HCPCS: 29240; 50002; 60001; 70002; 80102; 80124; 80212; 80866; 84038; 84041; 84519; 85311

== ENCOUNTER 2016-05-27 20:15 | Emergency (ER) | payer OTHER, MEDICARE ==
[~2016-05-27 20:15] MED LIST changes: +NORCO1 TA1 PO
--- NOTE | 2016-05-27 21:11 | DIAGNOSTIC IMAGING REPORT ---
PROCEDURE: XR CHEST 1 VIEW INDICATION: SHORTNESS OF BREATH TECHNIQUE: Single view chest. 2100 hours COMPARISON: 04/01/2016 FINDINGS: Mild cardiomegaly, stable. Normal aortic contour and central vessels. Small opacity laterally at the left lung base and minor right base atelectatic changes. The upper lung zones are clear. No effusion or pneumothorax. Intact osseous structures. IMPRESSION: 1. Probable bibasilar atelectatic changes, underlying pneumonia entirely excluded. 2. Stable mild cardiomegaly.
--- NOTE | 2016-05-27 23:45 | ED CLINICAL REPORT ---
Clinical Report - Physicians/Mid Levels [facility] [address] [place] [address] 05/27/2016 20:15 Patient: RENATO CARDONA Time Seen: 21:06 May 27 2016. Arrived- By private vehicle. Historian- patient. CPT: ER phys charges level 4 plus (#[id number]). EKG interpretation (#[id number]). HISTORY OF PRESENT ILLNESS Chief Complaint: LOWER EXTREMITY PAIN and SWELLING. Severity is described as being moderate. The quality is noted to be sharp, aching and "pain". 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 (3 hours ago). ( pt had ventral hernia repair 5 days ago. today developed sudden onset of shortness of breath and bilateral lower leg pain).). Symptoms located in the area of the right leg and left leg. The patient has had swelling, but not had redness. She has had difficulty walking. No bladder dysfunction, bowel dysfunction, sensory loss or motor loss. Patient denies an injury. Similar symptoms previously: None. Recent medical care: Not recently seen/assessed. REVIEW OF SYSTEMS No cough, chest pain, difficulty breathing, fever or skin rash. No neck pain, back pain, sore throat, abdominal pain or vomiting. No diarrhea. Pt indicates that she is not short of breath. PAST HISTORY ( Constipation. Diverticulitis. Hernia. Hyperkalemia. Hypertension. Hyperlipidemia. Back Pain. Acute Pain. Anemia. UTI - Urinary Tract Infection. Diabetes Mellitus. Pyelonephritis. Heart Disease. Renal Insufficiency. Coronary Artery Disease. Sinus bradycardia. --20:31 Sheryl Tate R.N. ADDITIONAL SURGERIES: Bowel Surgery. Cardiac Procedures. Cholecystectomy. Colonoscopy. Hernia Repair. Shoulder Surgery. --). Medications: Metoprolol Tartrate Oral (Tablet 25 mg) 1/2 tablet, daily. Omeprazole Oral 20 mg, 2x a day. Senna Oral (Tablet 8.6 mg), as needed. Temazepam Oral (Capsule 15 mg), daily as needed. AmLODIPine Besylate Oral 5 mg, daily. Aspirin Oral (Tablet 325 mg), daily. Atorvastatin Calcium Oral (Tablet 80 mg), daily. Docusate Sodium Oral (Capsule 100 mg) 2 capsules, as needed. Ferrous Sulfate Oral (Tablet 325 (65 Fe) mg), daily. Fiber Oral. Glimepiride Oral (Tablet 2 mg), 2x a day. Hydrocodone-Acetaminophen Oral (Tablet 7.5-325 mg), as needed. Levothyroxine Sodium Oral (Tablet 100 mcg), daily. Losartan Potassium Oral (Tablet 25 mg), daily. Magnesium Oral (Capsule 300 mg), 2x a day. Allergies: No Known Drug Allergy. SOCIAL HISTORY Former smoker. No alcohol use or drug use. ADDITIONAL NOTES The nursing notes have been reviewed. PHYSICAL EXAM Vital Signs: 05/27/2016 20:25 BP: 137/59. HR: 77. RR: 20. O2 saturation: 95%. Temp: 98.7 F. Pain level now: 7/10. Appearance: Alert. No acute distress. Eyes: Eyes normal inspection. ENT: Pharynx normal. Neck: Normal inspection. CVS: Normal heart rate and rhythm. Heart sounds normal. Respiratory: No respiratory distress. Breath sounds normal. Abdomen: Soft and nontender. Back: No tenderness. Skin: Skin intact. Skin warm. Normal skin color. Extremities: Right leg: moderate tenderness located in the upper leg. No swelling. Left leg: mild tenderness located in the mid leg. No swelling. Neuro, Vascular and Tendons: No pulse deficit present. Neuro: Oriented X 3. No motor deficit. No sensory deficit. LABS, X-RAYS, AND EKG EKG: Normal sinus rhythm. Normal P waves. RBBB. ST depression in lead II, III, aVF, V3, V4, V5 and V6. EKG unchanged when compared with prior EKG. The study has been interpreted contemporaneously. The study has been independently viewed by me. The EKG appears to be a good tracing. Lower Extremity Sonography: Negative study. Laboratory Tests: CBC w Diff: (DESTINEE: 05/27/2016 20:35) ( MsgRcvd 05/27/2016 20:57) Final results Test Result Flag Units (Reference) WHITE BLOOD COUNT 7.6 K/uL (4.5-11.5) RED BLOOD COUNT 4.12 M/uL (4.00-5.20) HEMOGLOBIN 12.2 gm/dL (12.0-16.0) HEMATOCRIT 36.4 % (36.0-46.0) MEAN CELL VOLUME 88 fL (80-100) MEAN CORPUSCULAR HGB 30 pg (26-34) MEAN CORPUSCULAR HGB CONC 33 g/dL (31-37) RED CELL DISTRIBUTION WIDTH 16.7 H % (11.6-14.8) PLATELET COUNT 230 K/uL (150-400) NEUTROPHIL % 69.5 % (50-75) LYMPH % 19.2 L % (25-40) MONO % 6.7 % (3-14) EOSINOPHIL % 4.3 H % (0-4) BASOPHIL % 0.3 % (0-2) PT with INR: (DESTINEE: 05/27/2016 20:35) ( [facility] 05/27/2016 21:09) Final results Test Result Flag Units (Reference) INR 0.8 (0.8-1.2) Low Intensity Therapy: INR 1.5-2.0 PT range 18.5-23.1Mod.Intensity Therapy: INR 2.0-3.0 PT range 23.1-31.5High Intensity Therapy: INR 2.5-3.5 PT range 27.4-35.5High Intensity Therapy 2: INR 3.0-4.0 PT range 31.5-39.3 [id number]: (DESTINEE: 05/27/2016 20:35) ( [facility] 05/27/2016 21:01) Final results Test Result Flag Units (Reference) D-DIMER QUANTITATIVE 0.59 H ug/mLFEU (0.27-0.52) The primary value of this quantitative assay relates toits negative predictive value (i.e. exclusion) of pulmonaryembolism/deep vein thrombosis/DIC.Elevated levels of d-dimer may also occur with:, age, cancer, inflammation, liver disease,post-op, infection, hematoma, coronary disease, peripheralarteriopathy, bleeding disorders and thrombolytic treatment.Results should be correlated with other clinical andradiological data.Testing Methodology: Latex Immunoassay CPK: (DESTINEE: 05/27/2016 20:30) ( [facility] 05/27/2016 21:58) Final results Test Result Flag Units (Reference) CPK 44 U/L (24-260) TROPONIN I <0.05 ng/mL (0.00-1.5) TROPONIN REFERENCE RANGE:<0.1 NEGATIVE0.1-1.5 INDETERMINANT>1.5 POSITIVE BNP: (DESTINEE: 05/27/2016 20:35) ( [facility] 05/27/2016 21:12) Final results Test Result Flag Units (Reference) B-TYPE NATRIURETIC PEPTIDE 102 H pg/ml (5-100) CMP: (DESTINEE: 05/27/2016 20:35) ( [facility] 05/27/2016 21:03) Final results Test Result Flag Units (Reference) GLUCOSE 134 H mg/dL (70-110) BUN 20 H mg/dL (7-18) CREATININE 1.6 H mg/dL (0.6-1.3) Estimated GFR 32.72 mL/min Estimated GFR- 39.65 mL/min Note: Persistent reduction over 3 months in eGFR<60 mL/min/1.73 m2 defines CKD. Patients with eGFR values>=60 mL/min/1.73 m2 may also have CKD if evidence ofpersistent proteinuria. Additional information may be foundat www.kidney.org. SODIUM 135 L mmol/L (136-145) POTASSIUM 4.3 mmol/L (3.5-5.1) CHLORIDE 98 mmol/L (98-107) CARBON DIOXIDE 27 mmol/L (21-32) CALCIUM 9.3 mg/dL (8.5-10.1) TOTAL PROTEIN 6.3 L g/dL (6.4-8.2) ALBUMIN 3.4 g/dL (3.3-5.0) BILIRUBIN, TOTAL 0.5 mg/dL (0.0-1.0) ALKALINE PHOSPHATASE 119 H U/L (46-116) AST (SGOT) 10 L U/L (15-37) ALT (SGPT) 15 U/L (12-78) . PROGRESS AND PROCEDURES Course of Care: Heplock Toradol 30 mg IV Patient is stable. Symptoms better. Patient/family counseled. Disposition: Discharged. Condition: stable and improved. 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 INSTRUCTIONS You may walk and bear weight as tolerated. Warnings: Further evaluation is necessary. GENERAL WARNINGS: Return or contact your physician immediately if your condition worsens or changes unexpectedly, if not improving as expected, or if other problems arise. Your Current Medications: CONTINUE TAKING THE FOLLOWING MEDICATIONS: AmLODIPine Besylate Oral : 5 mg daily. Aspirin Oral : Tablet 325 mg, daily. Atorvastatin Calcium Oral : Tablet 80 mg, daily. Docusate Sodium Oral : Capsule 100 mg, 2 capsules, prn. Ferrous Sulfate Oral : Tablet 325 (65 Fe) mg, daily. Fiber Oral. Glimepiride Oral : Tablet 2 mg, 2x a day. Hydrocodone-Acetaminophen Oral : Tablet 7.5-325 mg, prn. Levothyroxine Sodium Oral : Tablet 100 mcg, daily. Losartan Potassium Oral : Tablet 25 mg, daily. Magnesium Oral : Capsule 300 mg, 2x a day. Metoprolol Tartrate Oral : Tablet 25 mg, 1/2 tablet daily. Omeprazole Oral : 20 mg 2x a day. Senna Oral : Tablet 8.6 mg, prn. Temazepam Oral : Capsule 15 mg, daily, prn. Prescription Medications: Hydrocodone / APAP Liquid 7.5mg/325mg/15 mL: take ten (10) mL orally every 4 hours as needed for pain. Dispense one hundred fifty (150) mL. No refill. Follow-up: Return to the emergency department If worse. Follow up with your doctor in two days. Call for an appointment. Understanding of the discharge instructions verbalized by patient. Discharge instructions reviewed with and understanding was verbalized by spouse. (Electronically signed by Leighton Mendoza MD 05/30/2016 9:45)
--- NOTE | 2016-05-27 23:45 | ED ORDER SUMMARY ---
..... Patient: RENATO CARDONA OrderSheet [facility] VisitID: [id number] [address] [place] [address] 85y, F Registration Date/Time: 05/27/2016 ORDER SHEET Weight: 99.7 kg Allergies: No Known Drug Allergy GENERAL ORDERS: Chest 1V (er room 10) Urgent (20:44 05/27/2016 EInderbitzen R.N. verbal order read back to Pio Lira) (Ack 20:47 AMcQuoid ER Tech1) (21:04 MCampbell) CBC w Diff Urgent (20:45 05/27/2016 EInderbitzen R.N. verbal order read back to Pio Lira) (Ack 20:47 AMcQuoid ER Tech1) (20:47 AMcQuoid ER Tech1) CMP Urgent (20:45 05/27/2016 EInderchalinozen R.N. verbal order read back to Pio Lira) (Ack 20:47 AMcQuoid ER Tech1) (20:47 AMcQuoid ER Tech1) BNP Urgent (20:45 05/27/2016 EInderbitzen R.N. verbal order read back to Pio Lira) (Ack 20:47 AMcQuoid ER Tech1) (20:47 AMcQuoid ER Tech1) D-Dimer Urgent (20:45 05/27/2016 EInderbitzen R.N. verbal order read back to Pio Lira) (Ack 20:47 AMcQuoid ER Tech1) (20:47 AMcQuoid ER Tech1) EKG - ER Stat (20:45 05/27/2016 EInderbitzen R.N. verbal order read back to Pio Lira) (Ack 20:47 AMcQuoid ER Tech1) (21:00 Nahidegekimana) PT with INR Urgent (20:47 05/27/2016 EInderbitzen R.N. verbal order read back to Pio Lira) (20:54 AMcQuoid ER Tech1) US Venous Bilat Urgent (21:33 05/27/2016 Nathan WOOD) (Ack 21:42 AMcQuoid ER Tech1) (23:24 AMcQuoid ER Tech1) Troponin-I Urgent (21:33 05/27/2016 Nathan WOOD) (21:42 AMcQuoid ER Tech1) CPK Urgent (21:33 05/27/2016 Nathan WOOD) (21:42 AMcQuoid ER Tech1) Old Records (Old EKG) (21:55 05/27/2016 Nathan WOOD) (21:58 AMcQuoid ER Tech1) MEDICATION ORDERS: IV FLUIDS: IV Saline Lock (20:46 05/27/2016 Yael R.NSedrick verbal order read back to Pio Lira) (20:48 EIndkye R.N.) Toradol IV 30 mg (NOW) (23:42 05/27/2016 Nathan WOOD) (23:52 EInderleobardo R.N.) ORDER SHEET NOTES: [Electronically signed by Sheryl Tate R.N. (00:00 05/28/2016)] [Electronically signed by Leighton Mendoza MD (09:45 05/30/2016)] [Electronically locked/signed by Sheryl Tate R.N. (00:00 05/28/2016)]
--- NOTE | 2016-05-27 23:45 | ED NURSING NOTES ---
Clinical Report - Nurses [facility] [address] [place] [address] 05/27/2016 20:15 Patient: RENATO CARDONA TRIAGE Triage time 20:May 27 2016. Acuity: LEVEL 3. Chief Complaint: (short of breath and bilateral leg pain). 20:25 05/27/16. --20:32 Sheryl Tate R.N. 20:25 05/27/16. BP: 137/59. HR: 77. RR: 20. O2 saturation: 95%. Temp: 98.7 F. Pain level now: 09/23. --20:32 Sheryl Tate R.N. Weight: 99.7 kg. Height/Length: 65 inches Per Patient. BMI: 36.6. --20:24 Sheryl Tate R.N. Medications AmLODIPine Besylate Oral 5 mg, daily. Aspirin Oral (Tablet 325 mg), daily. Atorvastatin Calcium Oral (Tablet 80 mg), daily. Docusate Sodium Oral (Capsule 100 mg) 2 capsules, as needed. Ferrous Sulfate Oral (Tablet 325 (65 Fe) mg), daily. Fiber Oral. Glimepiride Oral (Tablet 2 mg), 2x a day. Hydrocodone-Acetaminophen Oral (Tablet 7.5-325 mg), as needed. Levothyroxine Sodium Oral (Tablet 100 mcg), daily. Losartan Potassium Oral (Tablet 25 mg), daily. Magnesium Oral (Capsule 300 mg), 2x a day. --20:30 Sheryl Tate R.N. Metoprolol Tartrate Oral (Tablet 25 mg) 1/2 tablet, daily. Omeprazole Oral 20 mg, 2x a day. Senna Oral (Tablet 8.6 mg), as needed. Temazepam Oral (Capsule 15 mg), daily as needed. --20:30 Sheryl Tate R.N. Medication/allergy information source: the patient. --20:32 Sheryl Tate R.N. Allergies No Known Drug Allergy. --20:27 Sheryl Tate R.N. History Arrived by private vehicle. Historian: patient. Accompanied by friend. This started just prior to arrival. Onset. (3 hours ago). ( pt had ventral hernia repair 5 days ago. today developed sudden onset of shortness of breath and bilateral lower leg pain). No fever or cough. 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 PAST MEDICAL HX: Immunizations: has received pneumonia vaccine; seasonal influenza. SOCIAL HX: Former smoker. No alcohol use or drug use. No infectious disease exposure. ABUSE ASSESSMENT: No report of abuse. SELF HARM ASSESSMENT: A self harm assessment was performed. The patient answered "no" to the question "Have you recently felt down, depressed, or hopeless?", "Have you noticed less interest or pleasure in doing things?", "Do you have thoughts of harming or killing yourself?", "Are you here because you tried to hurt yourself?", "Have you ever tried to hurt yourself before today?", "Have you recently had thoughts about harming or killing others?" and "Do you have any dangerous items in your possession?". NUTRITIONAL RISK ASSESSMENT: The nutritional risk assessment revealed no deficiencies. LEARNING NEEDS ASSESSMENT: The learning needs assessment revealed no barriers. FUNCTIONAL ASSESSMENT: Functional assessment performed: independent with the activities of daily living; uses cane- this mobility impairment is an ongoing problem. SKIN INTEGRITY ASSESSMENT: Skin integrity risk assessment completed. No skin integrity risk identified. --20:32 Sheryl Tate R.N. PROBLEMS: Constipation. Diverticulitis. Hernia. Hyperkalemia. Hypertension. Hyperlipidemia. Back Pain. Acute Pain. Anemia. UTI - Urinary Tract Infection. Diabetes Mellitus. Pyelonephritis. Heart Disease. Renal Insufficiency. Coronary Artery Disease. Sinus bradycardia. --20:31 Sheryl Tate R.N. ADDITIONAL SURGERIES: Bowel Surgery. Cardiac Procedures. Cholecystectomy. Colonoscopy. Hernia Repair. Shoulder Surgery. --20:31 Sheryl Tate R.N. Interventions ID band on patient. --20:32 Sheryl Tate R.N. PHYSICAL ASSESSMENT 20:30 05/27/16. To room via wheelchair. ( post op surgical dressing in place over vertical left abdominal incision, wound edges well approximated, steri strips in place, brusing around surgical site). GENERAL / NEURO / PSYCH: Alert. Oriented X 4. Appears anxious. HEENT: Pupils equal, round and reactive to light. No facial asymmetry noted. Mucous membranes are pink. RESPIRATORY: Decreased breath sounds. CVS: Pulses within normal limits. GI / : Abdomen soft. Abdominal tenderness (post surgical). EXTREMITIES: Bilateral 1+ non-pitting edema of the lower extremities. SKIN: Skin is warm and dry. Normal skin turgor. --21:08 Sheryl Tate R.N. NURSING PROGRESS NOTES 20:30 05/27/16. The initial plan of care for this patient includes an assessment with efforts to address patient positioning; the presence of pain. This plan of care was discussed with the patient. Patient gowned. Reassurance given to the patient. Patient identifiers checked. Call light placed in reach. Side rails up x 1. Bed placed in lowest position. Brakes of bed on. Patient ready for evaluation. --20:33 Sheryl Tate R.N. 20:30 05/27/2016 Site #1 started via IV in the left wrist with an 20g angiocath, with aseptic technique and good blood return; one attempt. Blood drawn: rainbow set. Labeled in the presence of the patient. Saline lock flushed with 10 mL saline. --20:33 Sheryl Tate R.N. EKG time: (2056). EKG was ordered, performed by a tech and shown to the ED physician. --21:01 Grace Silva 21:50- Called into room by pt, pt upset and states "What is going on? If they arent going to do anything for me, I want to leave". Extensive reasurance given and pt updated with plan of care (US exam ordered and ETA of RealtimeBoard tech 3060). Pt requesting to get up and walk around. Primary nurse informed and will attend to pts needs. --21:55 Natali Casillas R.N. 22:11 05/27/16. BP: 120/49. HR: 74. RR: 18. O2 saturation: 95%. Pain level now 5/10. --22:12 Sheryl Tate R.N. 22:11 05/27/16. Overall patient status is the same- she states feels the same. RESPIRATORY: No respiratory distress. SKIN: Skin is warm and dry. --22:12 Sheryl Tate R.N. 23:20 Ultrasound complete. --23:24 McQuoid, Deedee, ER Tech1 23:28 05/27/16. ( MD in to review test results with patient). --23:44 Sheryl Tate R.N. 23:48 05/27/2016 Toradol IVP 30 mg given over 1 minute(s) via site #1. Allergies verified and confirmed 5 rights. IV patency established. IV site checked: no pain, redness, or swelling. IV flushed thoroughly pre- and post-medication administration. IVP given by RN. --23:52 Sheryl Tate R.N. DISPOSITION / DISCHARGE 23:53 05/27/2016 Site #1 removed upon discharge. Catheter intact. Bandage applied. --23:54 Sheryl Tate R.N. 23:55 05/27/16. Condition at departure: improved and stable. The goals identified in the patient's plan of care were met. --23:55 Sheryl Tate R.N. 23:55 05/27/16. BP: 108/54. HR: 78. RR: 18. O2 saturation: 95%. Temp: 98.0 F. Pain level now 5/10. --23:55 Sheryl Tate R.N. 00:00 05/28/16. Departure time: 00:00 May 28 2016. No learning barriers present. Reviewed medication(s) side effects, precautions, dosing and course information. Prescription(s) given to the patient. Reviewed referral to a surgeon for followup. Summary of care provided to patient via paper. Patient verbalized understanding. Written instructions provided in Lithuanian. The patient was discharged home and accompanied by irrigator head. She left the Emergency Department in a wheelchair and via private vehicle. Office Specialist driving. --00:00 Sheryl Tate R.N. Locked/Released at 05/28/2016 0:00 by Sheryl Tate R.N.
--- NOTE | 2016-05-27 23:45 | ED ORDER SUMMARY ---
..... Patient: RENATO CARDONA OrderSheet [facility] VisitID: [id number] [address] [place] [address] 85y, F Registration Date/Time: 05/27/2016 ORDER SHEET Weight: 99.7 kg Allergies: No Known Drug Allergy GENERAL ORDERS: Chest 1V (er room 10) Urgent (20:44 05/27/2016 EInderbitzen R.N. verbal order read back to Pio Lira) (Ack 20:47 AMcQuoid ER Tech1) (21:04 MCampbell) CBC w Diff Urgent (20:45 05/27/2016 EInderbitzen R.N. verbal order read back to Pio Lira) (Ack 20:47 AMcQuoid ER Tech1) (20:47 AMcQuoid ER Tech1) CMP Urgent (20:45 05/27/2016 EInderchalinozen R.N. verbal order read back to Pio Lira) (Ack 20:47 AMcQuoid ER Tech1) (20:47 AMcQuoid ER Tech1) BNP Urgent (20:45 05/27/2016 EInderbitzen R.N. verbal order read back to Pio Lira) (Ack 20:47 AMcQuoid ER Tech1) (20:47 AMcQuoid ER Tech1) D-Dimer Urgent (20:45 05/27/2016 EInderbitzen R.N. verbal order read back to Pio Lira) (Ack 20:47 AMcQuoid ER Tech1) (20:47 AMcQuoid ER Tech1) EKG - ER Stat (20:45 05/27/2016 EInderbitzen R.N. verbal order read back to Pio Lira) (Ack 20:47 AMcQuoid ER Tech1) (21:00 Nahidegekimana) PT with INR Urgent (20:47 05/27/2016 EInderbitzen R.N. verbal order read back to Pio Lira) (20:54 AMcQuoid ER Tech1) US Venous Bilat Urgent (21:33 05/27/2016 Nathan WOOD) (Ack 21:42 AMcQuoid ER Tech1) (23:24 AMcQuoid ER Tech1) Troponin-I Urgent (21:33 05/27/2016 Nathan WOOD) (21:42 AMcQuoid ER Tech1) CPK Urgent (21:33 05/27/2016 Nathan WOOD) (21:42 AMcQuoid ER Tech1) Old Records (Old EKG) (21:55 05/27/2016 Nathan WOOD) (21:58 AMcQuoid ER Tech1) MEDICATION ORDERS: IV FLUIDS: IV Saline Lock (20:46 05/27/2016 Yael R.NSedrick verbal order read back to Pio Lira) (20:48 EIndkye R.N.) Toradol IV 30 mg (NOW) (23:42 05/27/2016 Nathan WOOD) (23:52 EInderleobardo R.N.) ORDER SHEET NOTES: [Electronically signed by Sheryl Tate R.N. (00:00 05/28/2016)] [Electronically signed by Leighton Mendoza MD (09:45 05/30/2016)] [Electronically locked/signed by Sheryl Tate R.N. (00:00 05/28/2016)]
--- NOTE | 2016-05-27 23:45 | ED NURSING NOTES ---
Clinical Report - Nurses [facility] [address] [place] [address] 05/27/2016 20:15 Patient: RENATO CARDONA TRIAGE Triage time 20:May 27 2016. Acuity: LEVEL 3. Chief Complaint: (short of breath and bilateral leg pain). 20:25 05/27/16. --20:32 Sheryl Tate R.N. 20:25 05/27/16. BP: 137/59. HR: 77. RR: 20. O2 saturation: 95%. Temp: 98.7 F. Pain level now: 09/23. --20:32 Sheryl Tate R.N. Weight: 99.7 kg. Height/Length: 65 inches Per Patient. BMI: 36.6. --20:24 Sheryl Tate R.N. Medications AmLODIPine Besylate Oral 5 mg, daily. Aspirin Oral (Tablet 325 mg), daily. Atorvastatin Calcium Oral (Tablet 80 mg), daily. Docusate Sodium Oral (Capsule 100 mg) 2 capsules, as needed. Ferrous Sulfate Oral (Tablet 325 (65 Fe) mg), daily. Fiber Oral. Glimepiride Oral (Tablet 2 mg), 2x a day. Hydrocodone-Acetaminophen Oral (Tablet 7.5-325 mg), as needed. Levothyroxine Sodium Oral (Tablet 100 mcg), daily. Losartan Potassium Oral (Tablet 25 mg), daily. Magnesium Oral (Capsule 300 mg), 2x a day. --20:30 Sheryl Tate R.N. Metoprolol Tartrate Oral (Tablet 25 mg) 1/2 tablet, daily. Omeprazole Oral 20 mg, 2x a day. Senna Oral (Tablet 8.6 mg), as needed. Temazepam Oral (Capsule 15 mg), daily as needed. --20:30 Sheryl Tate R.N. Medication/allergy information source: the patient. --20:32 Sheryl Tate R.N. Allergies No Known Drug Allergy. --20:27 Sheryl Tate R.N. History Arrived by private vehicle. Historian: patient. Accompanied by friend. This started just prior to arrival. Onset. (3 hours ago). ( pt had ventral hernia repair 5 days ago. today developed sudden onset of shortness of breath and bilateral lower leg pain). No fever or cough. 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 PAST MEDICAL HX: Immunizations: has received pneumonia vaccine; seasonal influenza. SOCIAL HX: Former smoker. No alcohol use or drug use. No infectious disease exposure. ABUSE ASSESSMENT: No report of abuse. SELF HARM ASSESSMENT: A self harm assessment was performed. The patient answered "no" to the question "Have you recently felt down, depressed, or hopeless?", "Have you noticed less interest or pleasure in doing things?", "Do you have thoughts of harming or killing yourself?", "Are you here because you tried to hurt yourself?", "Have you ever tried to hurt yourself before today?", "Have you recently had thoughts about harming or killing others?" and "Do you have any dangerous items in your possession?". NUTRITIONAL RISK ASSESSMENT: The nutritional risk assessment revealed no deficiencies. LEARNING NEEDS ASSESSMENT: The learning needs assessment revealed no barriers. FUNCTIONAL ASSESSMENT: Functional assessment performed: independent with the activities of daily living; uses cane- this mobility impairment is an ongoing problem. SKIN INTEGRITY ASSESSMENT: Skin integrity risk assessment completed. No skin integrity risk identified. --20:32 Sheryl Tate R.N. PROBLEMS: Constipation. Diverticulitis. Hernia. Hyperkalemia. Hypertension. Hyperlipidemia. Back Pain. Acute Pain. Anemia. UTI - Urinary Tract Infection. Diabetes Mellitus. Pyelonephritis. Heart Disease. Renal Insufficiency. Coronary Artery Disease. Sinus bradycardia. --20:31 Sheryl Tate R.N. ADDITIONAL SURGERIES: Bowel Surgery. Cardiac Procedures. Cholecystectomy. Colonoscopy. Hernia Repair. Shoulder Surgery. --20:31 Sheryl Tate R.N. Interventions ID band on patient. --20:32 Sheryl Tate R.N. PHYSICAL ASSESSMENT 20:30 05/27/16. To room via wheelchair. ( post op surgical dressing in place over vertical left abdominal incision, wound edges well approximated, steri strips in place, brusing around surgical site). GENERAL / NEURO / PSYCH: Alert. Oriented X 4. Appears anxious. HEENT: Pupils equal, round and reactive to light. No facial asymmetry noted. Mucous membranes are pink. RESPIRATORY: Decreased breath sounds. CVS: Pulses within normal limits. GI / : Abdomen soft. Abdominal tenderness (post surgical). EXTREMITIES: Bilateral 1+ non-pitting edema of the lower extremities. SKIN: Skin is warm and dry. Normal skin turgor. --21:08 Sheryl Tate R.N. NURSING PROGRESS NOTES 20:30 05/27/16. The initial plan of care for this patient includes an assessment with efforts to address patient positioning; the presence of pain. This plan of care was discussed with the patient. Patient gowned. Reassurance given to the patient. Patient identifiers checked. Call light placed in reach. Side rails up x 1. Bed placed in lowest position. Brakes of bed on. Patient ready for evaluation. --20:33 Sheryl Tate R.N. 20:30 05/27/2016 Site #1 started via IV in the left wrist with an 20g angiocath, with aseptic technique and good blood return; one attempt. Blood drawn: rainbow set. Labeled in the presence of the patient. Saline lock flushed with 10 mL saline. --20:33 Sheryl Tate R.N. EKG time: (2056). EKG was ordered, performed by a tech and shown to the ED physician. --21:01 Grace Silva 21:50- Called into room by pt, pt upset and states "What is going on? If they arent going to do anything for me, I want to leave". Extensive reasurance given and pt updated with plan of care (US exam ordered and ETA of [email or web address] tech [id number]). Pt requesting to get up and walk around. Primary nurse informed and will attend to pts needs. --21:55 Natali Casillas R.N. 22:11 05/27/16. BP: 120/49. HR: 74. RR: 18. O2 saturation: 95%. Pain level now 5/10. --22:12 Sheryl Tate R.N. 22:11 05/27/16. Overall patient status is the same- she states feels the same. RESPIRATORY: No respiratory distress. SKIN: Skin is warm and dry. --22:12 Sheryl Tate R.N. 23:20 Ultrasound complete. --23:24 McQuoid, Deedee, ER Tech1 23:28 05/27/16. ( MD in to review test results with patient). --23:44 Sheryl Tate R.N. 23:48 05/27/2016 Toradol IVP 30 mg given over 1 minute(s) via site #1. Allergies verified and confirmed 5 rights. IV patency established. IV site checked: no pain, redness, or swelling. IV flushed thoroughly pre- and post-medication administration. IVP given by RN. --23:52 Sheryl Tate R.N. DISPOSITION / DISCHARGE 23:53 05/27/2016 Site #1 removed upon discharge. Catheter intact. Bandage applied. --23:54 Sheryl Tate R.N. 23:55 05/27/16. Condition at departure: improved and stable. The goals identified in the patient's plan of care were met. --23:55 Sheryl Tate R.N. 23:55 05/27/16. BP: 108/54. HR: 78. RR: 18. O2 saturation: 95%. Temp: 98.0 F. Pain level now 5/10. --23:55 Sheryl Tate R.N. 00:00 05/28/16. Departure time: 00:00 May 28 2016. No learning barriers present. Reviewed medication(s) side effects, precautions, dosing and course information. Prescription(s) given to the patient. Reviewed referral to a surgeon for followup. Summary of care provided to patient via paper. Patient verbalized understanding. Written instructions provided in [place]. The patient was discharged home and accompanied by tightener. She left the Emergency Department in a wheelchair and via private vehicle. Firesetter driving. --00:00 Sheryl Tate R.N. Locked/Released at 05/28/2016 0:00 by Sheryl Tate R.N.
--- NOTE | 2016-05-28 06:23 | DIAGNOSTIC IMAGING REPORT ---
PROCEDURE: US VENOUS - BILATERAL EXT INDICATION: Pain, swelling. History of diabetes. TECHNIQUE: Color Doppler duplex imaging of the deep and superficial venous system without and with compression. COMPARISON: None. FINDINGS: RIGHT LOWER EXTREMITY: Deep and superficial venous system of the right lower extremity is within normal limits. There is no evidence of deep vein thrombosis or superficial thrombophlebitis. LEFT LOWER EXTREMITY: Deep and superficial venous system of the left lower extremity is within normal limits. There is no evidence of deep vein thrombosis or superficial thrombophlebitis. IMPRESSION: 1. Negative venous ultrasound of the bilateral lower extremities.
--- NOTE | 2016-05-30 09:45 | ED MAR SUMMARY ---
..... Medication Administration Record [facility] [address] [place] [address] Patient: RENATO CARDONA Visit ID: [id number] 85y, F Weight: 99.7 kg Height/Length: 65 in BMI: 36.6 ALLERGIES: No Known Drug Allergy Given 23:48 05/27/2016 Sheryl Tate R.N. Medication Administered: TORADOL [IVP], Dose: 30 mg IVP over 1 minute(s), Site: #1 left wrist. Medication Ordered: Toradol IV 30 mg (NOW).
--- NOTE | 2016-05-30 09:45 | ED MED RECONCILIATION SUMMARY ---
Patient: RENATO CARDONA Medication Reconciliation Report [facility] VisitID: [id number] [address] [place] [address] 85y, F Registration Date/Time: 05/27/2016 Weight: 99.7 kg Height/Length: 65 in. BMI: 36.6 ALLERGIES: No Known Drug Allergy The patient's Home Medications are listed below: CONTINUE TAKING THE FOLLOWING MEDICATIONS: AmLODIPine Besylate Oral 5 mg, daily Aspirin Oral (325 mg), daily Atorvastatin Calcium Oral (80 mg), daily Docusate Sodium Oral (100 mg) 2 capsules Ferrous Sulfate Oral (325 (65 Fe) mg), daily Fiber Oral Glimepiride Oral (2 mg), 2x a day Hydrocodone-Acetaminophen Oral (7.5-325 mg) Levothyroxine Sodium Oral (100 mcg), daily Losartan Potassium Oral (25 mg), daily Magnesium Oral (300 mg), 2x a day Metoprolol Tartrate Oral (25 mg) 1/2 tablet, daily Omeprazole Oral 20 mg, 2x a day Senna Oral (8.6 mg) Temazepam Oral (15 mg), daily The source(s) of the original Home Medication information: patient The following Medications were given to the patient in the Emergency Department: Toradol [IVP] IVP 30 mg, administered: 05/27/2016 11:48:00 PM The following Medications were prescribed to the patient: Hydrocodone / APAP Liquid 7.5mg/325mg/15 mL: take ten (10) mL orally every 4 hours as needed for pain. Dispense one hundred fifty (150) mL. No refill. -- Leighton Mendoza MD
--- NOTE | 2016-05-30 09:45 | ED DISCHARGE INSTRUCTIONS ---
Patient: RENATO CARDONA General Instructions [facility] VisitID: [id number] [place] [address] 85y, F Registration Date/Time: 05/27/2016 Bilateral leg pain due to back and or knee DJD. INSTRUCTIONS You may walk and bear weight as tolerated. Warnings: Further evaluation is necessary. GENERAL WARNINGS: Return or contact your physician immediately if your condition worsens or changes unexpectedly, if not improving as expected, or if other problems arise. Your Current Medications: CONTINUE TAKING THE FOLLOWING MEDICATIONS: AmLODIPine Besylate Oral : 5 mg daily. Aspirin Oral : Tablet 325 mg, daily. Atorvastatin Calcium Oral : Tablet 80 mg, daily. Docusate Sodium Oral : Capsule 100 mg, 2 capsules, prn. Ferrous Sulfate Oral : Tablet 325 (65 Fe) mg, daily. Fiber Oral. Glimepiride Oral : Tablet 2 mg, 2x a day. Hydrocodone-Acetaminophen Oral : Tablet 7.5-325 mg, prn. Levothyroxine Sodium Oral : Tablet 100 mcg, daily. Losartan Potassium Oral : Tablet 25 mg, daily. Magnesium Oral : Capsule 300 mg, 2x a day. Metoprolol Tartrate Oral : Tablet 25 mg, 1/2 tablet daily. Omeprazole Oral : 20 mg 2x a day. Senna Oral : Tablet 8.6 mg, prn. Temazepam Oral : Capsule 15 mg, daily, prn. Prescription Medications: Hydrocodone / APAP Liquid 7.5mg/325mg/15 mL: take ten (10) mL orally every 4 hours as needed for pain. Dispense one hundred fifty (150) mL. No refill. Follow-up: Return to the emergency department If worse. Follow up with your doctor in two days. Call for an appointment. Understanding of the discharge instructions verbalized by patient. Discharge instructions reviewed with and understanding was verbalized by spouse. ADDITIONAL INFORMATION Hydrocodone Bitartrate, Acetaminophen Oral solution What is this medicine? ACETAMINOPHEN; HYDROCODONE (a set a WILLOW alisha fen; srini droe KOE done) is a pain reliever. It is used to treat mild to moderate pain. How should I use this medicine? Take this medicine by mouth. Use a specially marked spoon or dropper to measure your dose. Ask your pharmacist if you do not have a dropper or measuring spoon. Do not use a household spoon. Follow the directions on the prescription label. If the medicine upsets your stomach, take it with food or milk. Do not take more medicine than you are told to take. Talk to your administrative clerk regarding the use of this medicine in children. This medicine is not approved for use in children. What side effects may I notice from receiving this medicine? Side effects that you should report to your doctor or health animal care taker as soon as possible: allergic reactions like skin rash, itching or hives, swelling of the face, lips, or tongue breathing problems confusion feeling faint or lightheaded, falls stomach pain yellowing of the eyes or skin Side effects that usually do not require medical attention (report to your doctor or health animal care taker if they continue or are bothersome): nausea, vomiting stomach upset What may interact with this medicine? alcohol antihistamines isoniazid medicines for depression, anxiety, or psychotic disturbances medicines for sleep muscle relaxants naltrexone narcotic medicines (opiates) for pain phenobarbital ritonavir tramadol What if I miss a dose? If you miss a dose, take it as soon as you can. If it is almost time for your next dose, take only that dose. Do not take double or extra doses. Where should I keep my medicine? Keep out of the reach of children. This medicine can be abused. Keep your medicine in a safe place to protect it from theft. Do not share this medicine with anyone. Selling or giving away this medicine is dangerous and against the law. Store at room temperature between 20 and 25 degrees C (68 and 77 degrees F). Protect from light. Keep container tightly closed. Throw away any unused medicine after the expiration date. Discard unused medicine and used packaging carefully. Pets and children can be harmed if they find used or lost packages. What should I tell my health care provider before I take this medicine? They need to know if you have any of these conditions: brain tumor Crohn's disease, inflammatory bowel disease, or ulcerative colitis drink more than 3 alcohol-containing drinks per day drug abuse or addiction head injury heart or circulation problems kidney disease or problems going to the bathroom liver disease lung disease, asthma, or breathing problems an unusual or allergic reaction to acetaminophen, hydrocodone, other opioid analgesics, other medicines, foods, dyes, or preservatives or trying to get breast-feeding What should I watch for while using this medicine? Tell your doctor or health animal care taker if your pain does not go away, if it gets worse, or if you have new or a different type of pain. You may develop tolerance to the medicine. Tolerance means that you will need a higher dose of the medicine for pain relief. Tolerance is normal and is expected if you take this medicine for a long time. Do not suddenly stop taking your medicine because you may develop a severe reaction. Your body becomes used to the medicine. This does NOT mean you are addicted. Addiction is a behavior related to getting and using a drug for a non-medical reason. If you have pain, you have a medical reason to take pain medicine. Your doctor will tell you how much medicine to take. If your doctor wants you to stop the medicine, the dose will be slowly lowered over time to avoid any side effects. You may get drowsy or dizzy when you first start taking the medicine or change doses. Do not drive, use machinery, or do anything that may be dangerous until you know how the medicine affects you. Stand or sit up slowly. There are different types of narcotic medicines (opiates) for pain. If you take more than one type at the same time, you may have more side effects. Give your health care provider a list of all medicines you use. Your doctor will tell you how much medicine to take. Do not take more medicine than directed. Call emergency for help if you have problems breathing. The medicine will cause constipation. Try to have a bowel movement at least every 2 to 3 days. If you do not have a bowel movement for 3 days, call your doctor or health animal care taker. Too much acetaminophen can be very dangerous. Do not take Tylenol (acetaminophen) or medicines that contain acetaminophen with this medicine. Many non-prescription medicines contain acetaminophen. Always read the labels carefully. You have been given the following additional information: Hydrocodone Bitartrate, Acetaminophen Oral solution You may walk and bear weight as tolerated. (Electronically signed by Leighton Mendoza MD 05/30/2016 9:45)
--- NOTE | 2016-05-30 09:45 | ED MED RECONCILIATION SUMMARY ---
Patient: RENATO CARDONA Medication Reconciliation Report [facility] VisitID: [id number] [address] [place] [address] 85y, F Registration Date/Time: 05/27/2016 Weight: 99.7 kg Height/Length: 65 in. BMI: 36.6 ALLERGIES: No Known Drug Allergy The patient's Home Medications are listed below: CONTINUE TAKING THE FOLLOWING MEDICATIONS: AmLODIPine Besylate Oral 5 mg, daily Aspirin Oral (325 mg), daily Atorvastatin Calcium Oral (80 mg), daily Docusate Sodium Oral (100 mg) 2 capsules Ferrous Sulfate Oral (325 (65 Fe) mg), daily Fiber Oral Glimepiride Oral (2 mg), 2x a day Hydrocodone-Acetaminophen Oral (7.5-325 mg) Levothyroxine Sodium Oral (100 mcg), daily Losartan Potassium Oral (25 mg), daily Magnesium Oral (300 mg), 2x a day Metoprolol Tartrate Oral (25 mg) 1/2 tablet, daily Omeprazole Oral 20 mg, 2x a day Senna Oral (8.6 mg) Temazepam Oral (15 mg), daily The source(s) of the original Home Medication information: patient The following Medications were given to the patient in the Emergency Department: Toradol [IVP] IVP 30 mg, administered: 05/27/2016 11:48:00 PM The following Medications were prescribed to the patient: Hydrocodone / APAP Liquid 7.5mg/325mg/15 mL: take ten (10) mL orally every 4 hours as needed for pain. Dispense one hundred fifty (150) mL. No refill. -- Leighton Mendoza MD
--- NOTE | 2016-05-30 09:45 | ED MAR SUMMARY ---
..... Medication Administration Record [facility] [address] [place] [address] Patient: RENATO CARDONA Visit ID: [id number] 85y, F Weight: 99.7 kg Height/Length: 65 in BMI: 36.6 ALLERGIES: No Known Drug Allergy Given 23:48 05/27/2016 Sheryl Tate R.N. Medication Administered: TORADOL [IVP], Dose: 30 mg IVP over 1 minute(s), Site: #1 left wrist. Medication Ordered: Toradol IV 30 mg (NOW).
--- NOTE | 2016-05-30 09:45 | ED DISCHARGE INSTRUCTIONS ---
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 INSTRUCTIONS You may walk and bear weight as tolerated. Warnings: Further evaluation is necessary. GENERAL WARNINGS: Return or contact your physician immediately if your condition worsens or changes unexpectedly, if not improving as expected, or if other problems arise. Your Current Medications: CONTINUE TAKING THE FOLLOWING MEDICATIONS: AmLODIPine Besylate Oral : 5 mg daily. Aspirin Oral : Tablet 325 mg, daily. Atorvastatin Calcium Oral : Tablet 80 mg, daily. Docusate Sodium Oral : Capsule 100 mg, 2 capsules, prn. Ferrous Sulfate Oral : Tablet 325 (65 Fe) mg, daily. Fiber Oral. Glimepiride Oral : Tablet 2 mg, 2x a day. Hydrocodone-Acetaminophen Oral : Tablet 7.5-325 mg, prn. Levothyroxine Sodium Oral : Tablet 100 mcg, daily. Losartan Potassium Oral : Tablet 25 mg, daily. Magnesium Oral : Capsule 300 mg, 2x a day. Metoprolol Tartrate Oral : Tablet 25 mg, 1/2 tablet daily. Omeprazole Oral : 20 mg 2x a day. Senna Oral : Tablet 8.6 mg, prn. Temazepam Oral : Capsule 15 mg, daily, prn. Prescription Medications: Hydrocodone / APAP Liquid 7.5mg/325mg/15 mL: take ten (10) mL orally every 4 hours as needed for pain. Dispense one hundred fifty (150) mL. No refill. Follow-up: Return to the emergency department If worse. Follow up with your doctor in two days. Call for an appointment. Understanding of the discharge instructions verbalized by patient. Discharge instructions reviewed with and understanding was verbalized by spouse. ADDITIONAL INFORMATION Hydrocodone Bitartrate, Acetaminophen Oral solution What is this medicine? ACETAMINOPHEN; HYDROCODONE (a set a WILLOW alisha fen; srini droe KOE done) is a pain reliever. It is used to treat mild to moderate pain. How should I use this medicine? Take this medicine by mouth. Use a specially marked spoon or dropper to measure your dose. Ask your pharmacist if you do not have a dropper or measuring spoon. Do not use a household spoon. Follow the directions on the prescription label. If the medicine upsets your stomach, take it with food or milk. Do not take more medicine than you are told to take. Talk to your audio visual technician regarding the use of this medicine in children. This medicine is not approved for use in children. What side effects may I notice from receiving this medicine? Side effects that you should report to your doctor or health pet caregiver as soon as possible: allergic reactions like skin rash, itching or hives, swelling of the face, lips, or tongue breathing problems confusion feeling faint or lightheaded, falls stomach pain yellowing of the eyes or skin Side effects that usually do not require medical attention (report to your doctor or health pet caregiver if they continue or are bothersome): nausea, vomiting stomach upset What may interact with this medicine? alcohol antihistamines isoniazid medicines for depression, anxiety, or psychotic disturbances medicines for sleep muscle relaxants naltrexone narcotic medicines (opiates) for pain phenobarbital ritonavir tramadol What if I miss a dose? If you miss a dose, take it as soon as you can. If it is almost time for your next dose, take only that dose. Do not take double or extra doses. Where should I keep my medicine? Keep out of the reach of children. This medicine can be abused. Keep your medicine in a safe place to protect it from theft. Do not share this medicine with anyone. Selling or giving away this medicine is dangerous and against the law. Store at room temperature between 20 and 25 degrees C (68 and 77 degrees F). Protect from light. Keep container tightly closed. Throw away any unused medicine after the expiration date. Discard unused medicine and used packaging carefully. Pets and children can be harmed if they find used or lost packages. What should I tell my health care provider before I take this medicine? They need to know if you have any of these conditions: brain tumor Crohn's disease, inflammatory bowel disease, or ulcerative colitis drink more than 3 alcohol-containing drinks per day drug abuse or addiction head injury heart or circulation problems kidney disease or problems going to the bathroom liver disease lung disease, asthma, or breathing problems an unusual or allergic reaction to acetaminophen, hydrocodone, other opioid analgesics, other medicines, foods, dyes, or preservatives or trying to get breast-feeding What should I watch for while using this medicine? Tell your doctor or health pet caregiver if your pain does not go away, if it gets worse, or if you have new or a different type of pain. You may develop tolerance to the medicine. Tolerance means that you will need a higher dose of the medicine for pain relief. Tolerance is normal and is expected if you take this medicine for a long time. Do not suddenly stop taking your medicine because you may develop a severe reaction. Your body becomes used to the medicine. This does NOT mean you are addicted. Addiction is a behavior related to getting and using a drug for a non-medical reason. If you have pain, you have a medical reason to take pain medicine. Your doctor will tell you how much medicine to take. If your doctor wants you to stop the medicine, the dose will be slowly lowered over time to avoid any side effects. You may get drowsy or dizzy when you first start taking the medicine or change doses. Do not drive, use machinery, or do anything that may be dangerous until you know how the medicine affects you. Stand or sit up slowly. There are different types of narcotic medicines (opiates) for pain. If you take more than one type at the same time, you may have more side effects. Give your health care provider a list of all medicines you use. Your doctor will tell you how much medicine to take. Do not take more medicine than directed. Call emergency for help if you have problems breathing. The medicine will cause constipation. Try to have a bowel movement at least every 2 to 3 days. If you do not have a bowel movement for 3 days, call your doctor or health pet caregiver. Too much acetaminophen can be very dangerous. Do not take Tylenol (acetaminophen) or medicines that contain acetaminophen with this medicine. Many non-prescription medicines contain acetaminophen. Always read the labels carefully. You have been given the following additional information: Hydrocodone Bitartrate, Acetaminophen Oral solution You may walk and bear weight as tolerated. (Electronically signed by Leighton Mendoza MD 05/30/2016 9:45)
[2016-08-30] MEDS ORDERED: MAGNESIUM400 M1 PO (11:43)
[2016-08-30] MEDS ORDERED: ASPIRIN325 MG PO (11:43)
[2016-08-30] MEDS ORDERED: MILK OF MA400 MG/5 M PO ×2 (11:46→11:47)
== END 2016-05-28 | disposition home or self-care (01) ==
LOC: ED SRH 20:15
DX: M79.605 Pain in left leg (principal); M79.604 Pain in right leg; M53.9 Dorsopathy, unspecified; I10 Essential (primary) hypertension; E11.9 Type 2 diabetes mellitus without complications; Z79.82 Long term (current) use of aspirin; Z79.899 Other long term (current) drug therapy; Z79.891 Long term (current) use of opiate analgesic
CPT/HCPCS: 90100; 90616; 91320; 91556; 92610; 94060; 95059

== ENCOUNTER 2016-06-13 15:21 | Emergency (ER) | payer OTHER, MEDICARE ==
--- NOTE | 2016-06-13 15:59 | DIAGNOSTIC IMAGING REPORT ---
PROCEDURE: XR CHEST 1 VIEW INDICATION: CHEST PAIN TECHNIQUE: Single view chest. 1542 hours COMPARISON: 05/27/2016 FINDINGS: Stable cardiomediastinal contour. Mildly prominent central vessels. Slight increase in interstitial thickening and right minor fissural thickening. Small patchy alveolar opacity in the left lower lateral lung. No visible pleural effusion or pneumothorax. Intact osseous structures. IMPRESSION: 1. Findings suggest mild central venous and interstitial congestion. 2. Small left lower lung opacity, different compared to the prior study may be early edema although underlying infection is not excluded. No elvis pleural effusion.
--- NOTE | 2016-06-13 18:46 | ED ORDER SUMMARY ---
..... 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 pain) (15:06/13/2016 Sudhir Lira) (15:49 MCelviak R.N.) CBC w Diff Urgent (15:06/13/2016 Sudhir Lira) (Ack 15:42 Jordyn) (16:11 EHassan R.N.) CMP Urgent (15:06/13/2016 Sudhir Lira) (Ack 15:42 Jordyn) (16:11 CLARISAassan R.N.) UA-Culture if indicated Urgent (15:06/13/2016 Sudhir Lira) (Ack 15:42 Jordyn) (16:33 MCook R.N.) PT with INR Urgent (15:06/13/2016 Sudhir Lira) (Ack 15:42 Jordyn) (16:11 Hermann R.N.) Troponin-I Urgent (15:06/13/2016 Sudhir Lira) (Ack 15:42 Jordyn) (16:11 Hermann R.N.) BNP Urgent (15:06/13/2016 Sudhir Lira) (Ack 15:42 Jordyn) (16:11 Hermann R.N.) EKG - ER Stat (15:06/13/2016 Sudhir Lira) (15:49 MARY JOook R.N.) Pulse oximeter (15:06/13/2016 Sudhir Lira) (15:49 MARY JOook R.N.) Troponin-I (repeat draw in 2 hours) Urgent (15:06/13/2016 Sudhir Lira) (Ack 15:42 Jordyn) (16:11 Ginny R.N.) Chest 1V Urgent (15:06/13/2016 Sudhir Lira) (Ack 15:42 Jordyn) (15:49 [place]) MEDICATION ORDERS: NitroGLYCERIN SL 0.4 mg (NOW) (16:59 06/13/2016 Sudhir Lira) (17:02 [place]) IV FLUIDS: IV Saline Lock (15:26 06/13/2016 Sudhir Lira) (16:12 Ginny Corbin.NSedrick) Azithromycin IV 500 mg/250 mL (NOW) (17:08 06/13/2016 Sudhir Lira) (18:25 [place]) Dilaudid IV 0.5 mg (HIGH ALERT MEDICATION, NOW) (17:13 06/13/2016 Sudhir Lira) (17:28 [place]) ORDER SHEET NOTES: [Electronically signed by Mayra Billings R.N. (21:40 06/13/2016)] [Electronically signed by Wolfgang Faria Dr. (11:26 06/18/2016)] [Electronically locked/signed by Mayra Billings R.N. (21:40 06/13/2016)]
--- NOTE | 2016-06-13 18:46 | ED ORDER SUMMARY ---
..... 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) (chest pain) (15:06/13/2016 Sudhir Lira) (15:49 MCelviak R.N.) CBC w Diff Urgent (15:06/13/2016 Sudhir Lira) (Ack 15:42 Jordyn) (16:11 EHassan R.N.) CMP Urgent (15:06/13/2016 Sudhir Lira) (Ack 15:42 Jordyn) (16:11 CLARISAassan R.N.) UA-Culture if indicated Urgent (15:06/13/2016 Sudhir Lira) (Ack 15:42 Jordyn) (16:33 MCook R.N.) PT with INR Urgent (15:06/13/2016 Sudhir Lira) (Ack 15:42 Jordyn) (16:11 Hermann R.N.) Troponin-I Urgent (15:06/13/2016 Sudhir Lira) (Ack 15:42 Jordyn) (16:11 Hermann R.N.) BNP Urgent (15:06/13/2016 Sudhir Lira) (Ack 15:42 Jordyn) (16:11 Hermann R.N.) EKG - ER Stat (15:06/13/2016 Sudhir Lira) (15:49 MARY JOook R.N.) Pulse oximeter (15:06/13/2016 Sudhir Lira) (15:49 MARY JOook R.N.) Troponin-I (repeat draw in 2 hours) Urgent (15:06/13/2016 Sudhir Lira) (Ack 15:42 Jordyn) (16:11 Ginny R.N.) Chest 1V Urgent (15:06/13/2016 Sudhir Lira) (Ack 15:42 Jordyn) (15:49 [place]) MEDICATION ORDERS: NitroGLYCERIN SL 0.4 mg (NOW) (16:59 06/13/2016 Sudhir Lira) (17:02 [place]) IV FLUIDS: IV Saline Lock (15:26 06/13/2016 Sudhir Lira) (16:12 Ginny Corbin.NSedrick) Azithromycin IV 500 mg/250 mL (NOW) (17:08 06/13/2016 Sudhir Lira) (18:25 [place]) Dilaudid IV 0.5 mg (HIGH ALERT MEDICATION, NOW) (17:13 06/13/2016 Sudhir Lira) (17:28 [place]) ORDER SHEET NOTES: [Electronically signed by Mayra Billings R.N. (21:40 06/13/2016)] [Electronically signed by Wolfgang Faria Dr. (11:26 06/18/2016)] [Electronically locked/signed by Mayra Billings R.N. (21:40 06/13/2016)]
--- NOTE | 2016-06-13 18:46 | ED CLINICAL REPORT ---
Clinical Report - Physicians/Mid Levels [facility] [address] [place] [address] 06/13/2016 15:22 Patient: RENATO CARDONA Time Seen: 1529. Arrived- By ambulance. Historian- patient and EMS personnel (PCP Dr. Kyle). HISTORY OF PRESENT ILLNESS Chief Complaint: CHEST PAIN. At its maximum, severity described as moderate. When seen in the E.D., severity described as moderate. It is described as sharp. No radiation. This started today and is still present. It is not gone now. Onset during rest. No nausea, vomiting, difficulty breathing or diaphoresis. No additional chest pain. Similar symptoms previously: Many times. Recent medical care: The patient was seen recently in a clinic (sent here by PCP). REVIEW OF SYSTEMS The patient has had a cough. All systems otherwise negative, except as recorded above. PAST HISTORY See nurses notes. Medications: Hydrocodone with Acetaminophen. Iron tablets. Senna. Fiber Capsules. Stool Softener. MiraLax. Milk of Magnesia. Temazepam 15 mg Q HS. Omeprazole 20 mg bid. Metoprolol tartrate 25 mg 1/2 tablet q AM and 1 tablet q AM. Magnesium 300 mg BID. Losartan 25 mg daily. Levothyroxine 100 mcg daily. Glimepiride 2 mg daily before breakfast. Atorvastatin 80 mg Q HS. Amlodipine 5 md daily. Aspirin 325 mg daily. Allergies: No Known Drug Allergy. SOCIAL HISTORY Never smoker. No alcohol use or drug use. Recent travel. Is a local resident. FAMILY HISTORY Negative. ADDITIONAL NOTES The nursing notes have been reviewed. PHYSICAL EXAM Vital Signs: 06/13/2016 15:32 BP: 137/58. HR: 59. RR: 13. O2 saturation: 97%. Pain level now: 10/10. Oxygen saturation normal. Appearance: Alert. Oriented X3. No acute distress. Eyes: Pupils equal, round and reactive to light. Eyes normal inspection. ENT: Ears normal. Nose normal. Pharynx normal. Neck: Normal inspection. Neck supple. CVS: Normal heart rate and rhythm. Heart sounds normal. Pulses normal. Respiratory: No respiratory distress. Breath sounds normal. Chest nontender. No rales, rhonchi or wheezes. Abdomen: Soft and nontender. Bowel sounds normal. Skin: Skin warm and dry. Normal skin color. No rash. Normal skin turgor. Extremities: Extremities exhibit normal ROM. No lower extremity edema. LABS, X-RAYS, AND EKG EKG: No acute ischemia. Normal sinus rhythm. Normal P waves. Normal QUINTEN. Normal QRS complex. Normal axis. Normal QT and QTc. Non-specific ST depression in lead II, III, aVF, V5 and V6. No ST depression consistent with reciprocal changes. EKG unchanged when compared with prior EKG. The study has been interpreted contemporaneously by me. The study has been independently viewed by me. The EKG appears to be a good tracing. Chest X-ray: (PROCEDURE: XR CHEST 1 VIEW INDICATION: CHEST PAIN TECHNIQUE: Single view chest. 1542 hours COMPARISON: 05/27/2016 FINDINGS: Stable cardiomediastinal contour. Mildly prominent central vessels. Slight increase in interstitial thickening and right minor fissural thickening. Small patchy alveolar opacity in the left lower lateral lung. No visible pleural effusion or pneumothorax. Intact osseous structures. IMPRESSION: 1. Findings suggest mild central venous and interstitial congestion. 2. Small left lower lung opacity, different compared to the prior study may be early edema although underlying infection is not excluded. No elvis pleural effusion.). The X-rays were independently viewed by me and interpreted by the radiologist. The X-rays were discussed with the radiologist (via pacs). Laboratory Tests: UA-Culture if indicated: (DESTINEE: 06/13/2016 16:25) ( MsgRcvd 06/13/2016 17:03) Final results Test Result Flag Units (Reference) URINE COLOR YELLOW URINE APPEARANCE CLEAR URINE GLUCOSE NEGATIVE (NEGATIVE) URINE BILIRUBIN NEGATIVE (NEGATIVE) URINE KETONE NEGATIVE (NEGATIVE) URINE SPECIFIC GRAVITY 1.010 (1.010-1.030) URINE PH 6.5 (5.0-8.0) URINE PROTEIN NEGATIVE (NEGATIVE) URINE UROBILINOGEN 0.2 EU/dL (0.2-1.0) URINE NITRITE NEGATIVE (NEGATIVE) URINE BLOOD NEGATIVE (NEGATIVE) URINE LEUK ESTERASE NEGATIVE (NEGATIVE) URINE RBC 0-1 rbc/hpf (0-1) URINE WBC 0-1 wbc/hpf (0-1) URINE EPITHELIAL CELLS 1-3 EPI/hpf (0-5) URINE BACTERIA TRACE (<1+) (NONE SEEN) URINE COMMENT CULT NOT INDICATED URINE CULTURES ARE SET-UP BASED ON THE FOLLOWING CRITERIA:POSITIVE NITRITEPOSITIVE LEUKOCYTE ESTERASEGREATER THAN 10 WHITE BLOOD CELLSMODERATE (2+) OR GREATER BACTERIA CBC w Diff: (DESTINEE: 06/13/2016 16:05) ( [facility] 06/13/2016 16:23) Final results Test Result Flag Units (Reference) WHITE BLOOD COUNT 7.9 K/uL (4.5-11.5) RED BLOOD COUNT 3.96 L M/uL (4.00-5.20) HEMOGLOBIN 11.7 L gm/dL (12.0-16.0) HEMATOCRIT 35.1 L % (36.0-46.0) MEAN CELL VOLUME 89 fL (80-100) MEAN CORPUSCULAR HGB 30 pg (26-34) MEAN CORPUSCULAR HGB CONC 33 g/dL (31-37) RED CELL DISTRIBUTION WIDTH 17.3 H % (11.6-14.8) PLATELET COUNT 235 K/uL (150-400) NEUTROPHIL % 67.3 % (50-75) LYMPH % 18.4 L % (25-40) MONO % 6.4 % (3-14) EOSINOPHIL % 7.5 H % (0-4) BASOPHIL % 0.4 % (0-2) PT with INR: (DESTINEE: 06/13/2016 16:05) ( [facility] [place]:35) Final results Test Result Flag Units (Reference) INR 0.9 (0.8-1.2) Low Intensity Therapy: INR 1.5-2.0 PT range 18.5-23.1Mod.Intensity Therapy: INR 2.0-3.0 PT range 23.1-31.5High Intensity Therapy: INR 2.5-3.5 PT range 27.4-35.5High Intensity Therapy 2: INR 3.0-4.0 PT range 31.5-39.3 Troponin-I: (DESTINEE: 06/13/2016 17:51) ( [facility] [place] 18:19) Final results Test Result Flag Units (Reference) TROPONIN I 0.06 ng/mL (0.00-1.5) TROPONIN REFERENCE RANGE:<0.1 NEGATIVE0.1-1.5 INDETERMINANT>1.5 POSITIVE BNP: (DESTINEE: 06/13/2016 16:05) ( [facility] [place]13[place] 16:36) Final results Test Result Flag Units (Reference) B-TYPE NATRIURETIC PEPTIDE 125 H pg/ml (5-100) CMP: (DESTINEE: 06/13/2016 16:05) ( [facility] [place]/13[place] 17:07) Final results Test Result Flag Units (Reference) GLUCOSE 139 H mg/dL (70-110) BUN 21 H mg/dL (7-18) CREATININE 1.6 H mg/dL (0.6-1.3) Estimated GFR 32.72 mL/min Estimated GFR- 39.65 mL/min Note: Persistent reduction over 3 months in eGFR<60 mL/min/1.73 m2 defines CKD. Patients with eGFR values>=60 mL/min/1.73 m2 may also have CKD if evidence ofpersistent proteinuria. Additional information may be foundat www.kidney.org. SODIUM 134 L mmol/L (136-145) POTASSIUM 5.1 mmol/L (3.5-5.1) CHLORIDE 100 mmol/L (98-107) CARBON DIOXIDE 27 mmol/L (21-32) CALCIUM 9.5 mg/dL (8.5-10.1) TOTAL PROTEIN 6.3 L g/dL (6.4-8.2) ALBUMIN 3.5 g/dL (3.3-5.0) BILIRUBIN, TOTAL 0.4 mg/dL (0.0-1.0) ALKALINE PHOSPHATASE 110 U/L (46-116) AST (SGOT) 11 L U/L (15-37) ALT (SGPT) 15 U/L (12-78) TROPONIN I 0.06 ng/mL (0.00-1.5) TROPONIN REFERENCE RANGE:<0.1 NEGATIVE0.1-1.5 INDETERMINANT>1.5 POSITIVE . PROGRESS AND PROCEDURES Course of Care: The patient is a pleasant 85-year-old female presenting for evaluation of atypical left-sided chest pain at this time differential diagnosis includes acute myocardial infarction, pulmonary embolism, and pneumonia. Patient is agreeable to the treatment and plan. Workup includes EKG, chest x-ray, urinalysis, and laboratory studies. Onset of symptoms is less than 8 hours ago. Patient will be evaluated with the delta troponin. The patient's workup was unremarkable for pneumonia noted on chest x-ray. Rest the patient's laboratory studies are unremarkable. Antibiotics have been provided. No other maladies noted on EKG or first set of troponin. Second troponin and return as unremarkable. Because of the patient's negative workup for acute myocardial infarction, overall well appearance, and findings on chest x-ray to explain her symptoms, feel that this is pneumonia. Patient is at low risk for Wells criteria. Do not feel further workup for pulmonary embolism is required at this time. I discussed with the patient workup here in the emergency department including home care, follow-up, and return precautions. All questions have been answered. The patient expsderstanding of these instructions and was agreeable to them. Disposition: Discharged. Condition: good. CLINICAL IMPRESSION 06/13/2016 18:27 BP: 136/60. HR: 71. RR: 16. O2 saturation: 99%. Pain level now: 5/10. Blood pressure normal. Oxygen saturation normal. Atypical chest pain (left sided). Bacterial pneumonia. Vital signs recorded and reviewed; empiric antibiotics given in the ED and prescribed. INSTRUCTIONS Warnings: GENERAL WARNINGS: Return or contact your physician immediately if your condition worsens or changes unexpectedly, if not improving as expected, or if other problems arise. SPECIFICALLY, return if you develop chest, neck, jaw, shoulder, arm, or back pain, difficulty breathing, a fluttering sensation in your chest, lightheadedness, fainting, excessive fatigue, or sudden sweating. Your Current Medications: CONTINUE TAKING THE FOLLOWING MEDICATIONS: Amlodipine 5 md daily*. Aspirin 325 mg daily*. Atorvastatin 80 mg Q HS*. Fiber Capsules*. Glimepiride 2 mg daily before breakfast*. Hydrocodone with Acetaminophen*. Iron tablets*. Levothyroxine 100 mcg daily*. Losartan 25 mg daily*. Magnesium 300 mg BID*. Metoprolol tartrate 25 mg 1/2 tablet q AM and 1 tablet q AM*. Milk of Magnesia*. MiraLax*. Omeprazole 20 mg bid*. Senna*. Stool Softener*. Temazepam 15 mg Q HS*. Prescription Medications: Zithromax Z-Camron: Take according to package instructions. No refills. Substitution is permissible. Follow-up: Return to the emergency department as needed. Follow up with your doctor in three days. Reason for referral: recheck today's concerns. Summary of care provided to patient via paper. Screening today revealed the patient's blood pressure to be in the normal range. The patient should follow up with a primary care provider for blood pressure management. Understanding of the discharge instructions verbalized by patient. (Electronically signed by Wolfgang Faria Dr. 06/18/2016 11:26)
--- NOTE | 2016-06-13 18:46 | ED NURSING NOTES ---
Clinical Report - Nurses [place] [address] [place] [address] 06/13/2016 15:22 Patient: RENATO CARDONA TRIAGE Triage time 15:33 Jun 13 2016. Acuity: LEVEL 3. Chief Complaint: CHEST PAIN. SEPSIS SCREEN: Sepsis Screen. Negative (no infection suspected/documented). --15:44 Dony Valencia R.N. 15:32 06/13/16. BP: 137/58. HR: 59. RR: 13. O2 saturation: 97% on room air. Pain level now: 12/24. --15:44 Dony Valencia R.N. 16:28 06/13/16. Temp: 97.6 F. --16:28 Dony Valencia R.N. Weight: 90.7 kg estimated. Height/Length: 65 inches Per Patient. BMI: 33.3. --15:31 Dony Valencia R.N. Medications Aspirin 325 mg daily. --16:40 Dony Valencia R.N. Amlodipine 5 md daily. --16:40 Dony Valencia R.N. Atorvastatin 80 mg Q HS. --16:41 Dony Valencia R.N. Glimepiride 2 mg daily before breakfast. --16:41 Dony Valencia R.N. Levothyroxine 100 mcg daily. --16:41 Dony Valencia R.N. Losartan 25 mg daily. --16:41 Dony Valencia R.N. Magnesium 300 mg BID. --16:41 Dony Valencia R.N. Metoprolol tartrate 25 mg 1/2 tablet q AM and 1 tablet q AM. --16:41 Dony Valencia R.N. Omeprazole 20 mg bid. --16:41 Dony Valencia R.N. Temazepam 15 mg Q HS. --16:42 Dony Valencia R.N. Milk of Magnesia. --16:42 Dony Valencia R.N. MiraLax. --16:42 Dony Valencia R.N. Stool Softener. --16:42 Dony Valencia R.N. Fiber Capsules. --16:42 Dony Valencia R.N. Senna. --16:42 Dony Valencia R.N. Iron tablets. --16:42 Dony Valencia R.N. Hydrocodone with Acetaminophen. --16:42 Dony Valencai R.N. The following entry was struck by Dony Valencia R.N., 16:40 (06/13/16) Reason - other(Inaccurate). <<STRICKEN ENTRY-- aspirin 325 mg daily Amlodipine 5 mg daily Atorvastatin 80 mg Q HS Glimepiride 2 mg daily before breakfast Levothyroxine 100 mcg daily Losartan 25 mg daily Magnesium 300 mg BID Metoprolol tartrate 25 . --15:44 Dony Valencia R.N. --END STRIKE>>. Allergies No Known Drug Allergy. --15:42 Dony Valencia R.N. History Arrived by EMS. Historian: patient. This started today. Onset. (1330). She has had difficulty breathing. No nausea or vomiting. 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 (Morphine by EMS and clinic). PAST MEDICAL HX: Type II diabetes mellitus. SOCIAL HX: Never smoker. No alcohol use or drug use. No infectious disease exposure. NUTRITIONAL RISK ASSESSMENT: The nutritional risk assessment revealed no deficiencies. LEARNING NEEDS ASSESSMENT: The learning needs assessment revealed no barriers. FALL RISK ASSESSMENT: Fall risk assessment completed. Risk factors identified include patient medications, age greater than 65 years and impairment of mobility and sensation. FUNCTIONAL ASSESSMENT: Functional assessment performed: independent with the activities of daily living. Pt states that she lives alone in [place]. SKIN INTEGRITY ASSESSMENT: Skin integrity risk assessment completed. No skin integrity risk identified. --15:44 Dony Valencia R.N. PROBLEMS: Hypertension [Active]. Heart Disease [Active]. Diabetes Mellitus [Active]. Dyspnea [Active]. Chest Pain [Active]. --15:35 Dony Valencia R.N. Constipation. Diverticulitis. Hernia. Hyperkalemia. Hypertension. Hyperlipidemia. Chest Wall Pain. Chest Pain of GI Origin. Palpitations. Abnormal EKG. Ovarian Cyst. Back Pain. Acute Pain. Atypical Chest Pain. Anemia. UTI - Urinary Tract Infection. Immunizations. Pyelonephritis. Abdominal Pain. Heart Disease. Hyperglycemia. Renal Insufficiency. Chest Pain. Coronary Artery Disease. Sinus bradycardia. --15:35 Dony Valencia R.N. 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 --15:49 Dony Valencia R.N. Hypothyroidism. Blood Transfusions. --16:37 Dony Valencia R.N. LAD stent (2012). --16:39 Dony Valencia R.N. The following entry was modified by Dony Valencia R.N., 15:44 <<STRICKEN ENTRY-- Diabetes Mellitus. --17:34 Dony Valencia R.N. --END STRIKE>>. ADDITIONAL SURGERIES: Bowel Surgery. Cardiac Procedures. Cholecystectomy. Colonoscopy. Hernia Repair. Shoulder Surgery. --15:37 Dony Valencia R.N. Partial colectomy. --16:36 Dony Valencia R.N. Bilateral hip replacements. Hysterectomy. R knee surgery. Traumatic R hand amputation. --16:38 Dony Valencia R.N. Interventions ID band on patient. To treatment room. --15:44 Dony Valencia R.N. PHYSICAL ASSESSMENT To room via stretcher. GENERAL / NEURO / PSYCH: Alert. Oriented X 4. Appears in no acute distress. HEENT: Mucous membranes are pink. RESPIRATORY: Mild respiratory distress. Breath sounds within normal limits. CVS: Pulses within normal limits. Pulses: right radial 3+ and left radial 3+. Capillary refill less than 2 seconds. GI / : Abdomen soft. No nausea noted. No emesis noted. ( Pt has an abdominal binder in place for post hernia sx 2 weeks ago.). EXTREMITIES: No lower extremity edema. SKIN: Skin is warm and dry. Skin is non-tender. --15:46 Dony Valencia R.N. EXTREMITIES: ( R hand amputation (old)). --15:48 Dony Valencia R.N. ( Pt reports pain to her "jowls", that it is a "funny feeling." Pt asking us if we have given her something to make her "feel funny."). --15:53 Cook, Dony, R.N. NURSING PROGRESS NOTES The plan of care for this patient has been created. Monitoring of patient in place. EKG was performed by a tech and shown to the ED physician. Portable chest x-ray performed and shown to the ED physician. Patient gowned. Head of bed elevated. Reassurance given. Call light placed in reach. Side rails up x 2. Bed placed in lowest position. Patient ready for evaluation- ED physician notified. Care transferred and report given. ( IV from clinic/EMS infiltrated upon arrival.). --15:47 Dony Valencia R.N. EKG time: (1533). EKG was performed by a tech and shown to the ED physician. --15:52 Ronda Munoz ( Pt stable, RN attempting another IV start.). --15:56 Dony Valencia R.N. ( Blood Glucose: 129). --16:00 Dony Valencia R.N. 15:47 06/13/2016 Site #1 accessed indwelling PIV line in the right antecubital space using a 18g needle (came with it infiltrated from EMS, redness noted, pt states does not hurt, IV d/c). --16:12 Mayra Billings R.N. 16:12 06/13/2016 Site #2 started via IV in the left wrist with an 20g angiocath; three attempts. Blood drawn: rainbow set. Labeled in the presence of the patient and sent to the lab. --16:12 Mayra Billings R.N. ( Pt reports chest pain is slightly improved but that her bilateral jaws are causing her increased discomfort. IVIP by RN, monitoring in place. Call made to Pt's son, Chuy, to let him know of his mother's arrival to our ED. [phone].). --16:16 Dony Valencia R.N. 16:27 06/13/16. BP: 144/48. HR: 61. RR: 15. O2 saturation: 95% on room air. Pain level now: 11/24. --16:27 Dony Valencia R.N. 17:02 06/13/16. BP: 119/64. HR: 65. Pain level now: 11/24. --17:02 Dony Valencia R.N. 17:02 06/13/2016 Nitroglycerin SL Tablets 0.4 mg given. Allergies verified and confirmed 5 rights. --17:02 Dony Valencia R.N. ( Pt c/o increased jaw and L arm pain. VSS. Cardiac monitoring in place. MD aware of Pt's status.). --17:04 Dony Valencia R.N. 17:28 06/13/16. BP: 114/51. HR: 67. O2 saturation: 94% on room air. Pain level now: 11/24. --17:31 Dony Valencia R.N. ( Pt reports her jaw pain is the same. MD in to see Pt and ordered pain medication and antibiotics. Awaiting Pharm to mix abx. Monitoring in place, vitals stable. Spoke to Pt's son, Chuy, and he is going out of town. He is going to find a ride home for the Pt should she be dc'd this evening. Pt very concerned that her son is going out of town and has asked that staff find out where he is going.). --17:36 Dony Valencia R.N. Patient ID band checked for patient name and birthdate: patient confirmed. Blood samples drawn from the right forearm with Vacutainer and 23g butterfly by nurse ; labeled in presence of the patient. (agricultural engineering technologist personally transported blood to lab.). ( Blood Glucose of 156.). --17:52 Dony Valencia R.N. 17:53 06/13/16. BP: 126/46. HR: 60. RR: 16. O2 saturation: 97% on room air. Pain level now: 09/23. --17:53 Dony Valencia R.N. 16:01 06/13/2016 Site #1 removed. Bandage applied (Infiltrated.). --18:26 Dony Valencia R.N. 17:25 06/13/2016 Nitroglycerin SL Response: no adverse reaction. --18:25 Dony Valencia R.N. 17:28 06/13/2016 Dilaudid (HYDROmorphone HCl PF) IVP 0.5 mg given. via site #2. Sedative warning given to the patient. IV patency established. IV site checked: no pain, redness, or swelling. IV flushed thoroughly pre- and post-medication administration. IVP given by RN. --17:28 Dony Valencia R.N. 18:01 06/13/2016 Dilaudid IVP Response: no adverse reaction pain is improving. Symptoms have improved. --18:26 Dony Valencia R.N. 18:25 06/13/2016 Started 500 mg of Azithromycin IVPB in bag #1 250 mL; at 250 mL/hr via site #2 via IV pump. Allergies verified and confirmed 5 rights. IV patency established. IV site checked: no pain, redness, or swelling. IV flushed thoroughly pre- and post-medication administration. --18:25 Dony Valencia R.N. 18:27 06/13/16. BP: 136/60. HR: 71. RR: 16. O2 saturation: 99% on room air. Pain level now: 07/24. --18:27 Dony Valencia R.N. ( Pt pleasant, easily conversing, reports her pain is improved, asking frequently if we are going to admit her or allow her to go home.). --18:39 Dony Valencia R.N. Care transferred and report given (to Mayra Torres RN). --19:09 Dony Valencia R.N. 19:33 06/13/2016 Site #2 removed upon discharge. Catheter intact. Manual pressure and bandaid applied. --19:33 Mayra Billings R.N. 19:33 06/13/2016 Azithromycin IVPB Discontinued: bag #1 completed. Total amount infused: 250 mL. IV patency established. IV site checked: no pain, redness, or swelling. IV flushed thoroughly. --19:33 Mayra Billings R.N. DISPOSITION / DISCHARGE 18:56 06/13/16. BP: 118/49. HR: 66. RR: 14. O2 saturation: 97% on room air. Temp: 98.7 F. Pain level now: 05/24. --18:58 Dony Valencia R.N. ( Notified Pt's son about discharge. He stated that someone was on their way to the ED now to pick Pt up. Pt's abx are still infusing. Pt sitting at edge of bed, informed of plan of care.). --19:04 Dony Valencia R.N. Learning barriers present. Ability to learn limited by poor comprehension; teaching performed with the patient. Discharge instructions provided and reviewed with the patient. Reviewed warnings (Pt instructed not to drive tonight d/t pain medication she received today in the ED.). Reviewed medication(s) side effects, precautions, dosing and course information. Prescription(s) given to the patient. Reviewed referral to a primary care physician for followup. Patient verbalized understanding. Written instructions provided in Italian. --19:09 Dony Valencia R.N. Departure time: 2019 PM. --21:40 Mayra Billings R.N. Locked/Released at 06/13/2016 21:40 by Mayra Billings R.N.
--- NOTE | 2016-06-18 11:26 | ED MAR SUMMARY ---
..... Medication Administration Record [facility] [address] [place] [address] Patient: RENATO CARDONA Visit ID: [id number] 85y, F Weight: 90.7 kg Height/Length: 65 in BMI: 33.3 ALLERGIES: No Known Drug Allergy Given 17:02 06/13/2016 Dony Valencia R.N. Medication Administered: NITROGLYCERIN [SL], Dose: 0.4 mg Tablets SL. Medication Ordered: NitroGLYCERIN SL 0.4 mg (NOW). Given 17:28 06/13/2016 Dony Valencia R.N. Medication Administered: DILAUDID [IVP] (HYDROMORPHONE HCL PF), Dose: 0.5 mg IVP, Site: #2 left wrist. Medication Ordered: Dilaudid IV 0.5 mg (HIGH ALERT MEDICATION, NOW). Start 18:25 06/13/2016 Dony Valencia RSedrickNSedrick, Stop 19:33 06/13/2016 Mayra Billings RSedrickN. Medication Administered: AZITHROMYCIN [IVPB], Dose: 500 mg IVPB, Rate: 250 mL/hr, Dispensed: 250 mL bag, Site: #2 left wrist. Medication Ordered: Azithromycin IV 500 mg/250 mL (NOW).
--- NOTE | 2016-06-18 11:26 | ED MAR SUMMARY ---
..... Medication Administration Record [facility] [address] [place] [address] Patient: RENATO CARDONA Visit ID: [id number] 85y, F Weight: 90.7 kg Height/Length: 65 in BMI: 33.3 ALLERGIES: No Known Drug Allergy Given 17:02 06/13/2016 Dony Valencia R.N. Medication Administered: NITROGLYCERIN [SL], Dose: 0.4 mg Tablets SL. Medication Ordered: NitroGLYCERIN SL 0.4 mg (NOW). Given 17:28 06/13/2016 Dony Valencia R.N. Medication Administered: DILAUDID [IVP] (HYDROMORPHONE HCL PF), Dose: 0.5 mg IVP, Site: #2 left wrist. Medication Ordered: Dilaudid IV 0.5 mg (HIGH ALERT MEDICATION, NOW). Start 18:25 06/13/2016 Dony Valencia RSedrickNSedrick, Stop 19:33 06/13/2016 Mayra Billings RSedrickN. Medication Administered: AZITHROMYCIN [IVPB], Dose: 500 mg IVPB, Rate: 250 mL/hr, Dispensed: 250 mL bag, Site: #2 left wrist. Medication Ordered: Azithromycin IV 500 mg/250 mL (NOW).
--- NOTE | 2016-06-18 11:26 | ED DISCHARGE INSTRUCTIONS ---
Patient: RENATO CARDONA General Instructions [facility] VisitID: [id number] [address] [place] [address] 85y, F Registration Date/Time: 06/13/2016 06/13/2016 18:27 BP: 136/60. HR: 71. RR: 16. O2 saturation: 99%. Pain level now: 5/10. Blood pressure normal. Oxygen saturation normal. Atypical chest pain (left sided). Bacterial pneumonia. Vital signs recorded and reviewed; empiric antibiotics given in the ED and prescribed. INSTRUCTIONS Warnings: GENERAL WARNINGS: Return or contact your physician immediately if your condition worsens or changes unexpectedly, if not improving as expected, or if other problems arise. SPECIFICALLY, return if you develop chest, neck, jaw, shoulder, arm, or back pain, difficulty breathing, a fluttering sensation in your chest, lightheadedness, fainting, excessive fatigue, or sudden sweating. Your Current Medications: CONTINUE TAKING THE FOLLOWING MEDICATIONS: Amlodipine 5 md daily*. Aspirin 325 mg daily*. Atorvastatin 80 mg Q HS*. Fiber Capsules*. Glimepiride 2 mg daily before breakfast*. Hydrocodone with Acetaminophen*. Iron tablets*. Levothyroxine 100 mcg daily*. Losartan 25 mg daily*. Magnesium 300 mg BID*. Metoprolol tartrate 25 mg 1/2 tablet q AM and 1 tablet q AM*. Milk of Magnesia*. MiraLax*. Omeprazole 20 mg bid*. Senna*. Stool Softener*. Temazepam 15 mg Q HS*. Prescription Medications: Zithromax Z-Camron: Take according to package instructions. No refills. Substitution is permissible. Follow-up: Return to the emergency department as needed. Follow up with your doctor in three days. Reason for referral: recheck today's concerns. Summary of care provided to patient via paper. Screening today revealed the patient's blood pressure to be in the normal range. The patient should follow up with a primary care provider for blood pressure management. Understanding of the discharge instructions verbalized by patient. ADDITIONAL INFORMATION Chest Pain, Uncertain Cause Chest pain can happen for a number of reasons. Sometimes the cause can not be determined. If yourcondition does not seem serious, and your pain does not appear to be coming from your heart, your doctor may recommend watching it closely. Sometimes the signs of a serious problem take more time to appear. Therefore, watch for the warning signs listed below. Home care After your visit, follow these recommendations: Rest today and avoid strenuous activity. Take any prescribed medicine as directed. Follow-up care Follow up with your doctor or this facility as instructed or if you do not start to feel better within 24 hours. Call 911 Get immediate medical attention if any of the following occur: A change in the type of pain: if it feels different, becomes more severe, lasts longer, or begins to spread into your shoulder, arm, neck, jaw or back Shortness of breath or increased pain with breathing Weakness, dizziness, or fainting Rapid heart beat Get prompt medical attention Call your doctor right away if any of the following occur: Cough with dark colored sputum (phlegm) or blood Fever of 100.4F(38C) or higher, or as directed by your health care provider Swelling, pain or redness in one leg Pneumonia (Adult) Pneumonia is an infection deep within the lung, in the small air sacs (alveoli). It may be due to a virus or bacteria and is usually treated with an antibiotic. Severe cases require treatment in the hospital. Milder cases can be treated at home. Symptoms usually start to improve during the first2 days of treatment. Home Care: Rest at home for the first 23 days or until you feel stronger. When resuming activity, dont let yourself become overly tired. Avoid exposure to cigarette smoke (yours or others). You may use acetaminophen (Tylenol) or ibuprofen (Motrin, Advil) to control fever or pain, unless another medicine was prescribed. [NOTE: If you have chronic liver or kidney disease or ever had a stomach ulcer or GI bleeding, talk with your doctor before using these medicines.] (Aspirin should never be used in anyone under 18 years of age who is ill with a fever. It may cause severe liver damage.) Your appetite may be poor so a light diet is fine. Keep well hydrated by drinking 68 glasses of fluids per day (water, sport drinks such as Gatorade, sodas without caffeine, juices, tea, soup, etc.). This will help loosen secretions in the lung, making it easier for you to cough up the phlegm (sputum). If you also have heart or kidney disease, check with your doctor before you drink extra amounts of fluids. Finish all antibiotic medicine prescribed, even if you are feeling better after a few days. Follow Up with your doctor in the next 23 days (or as advised) to be sure you are responding properly to the medicine. [NOTE: If you are age 65 or older, or if you have chronic lung disease (asthma, emphysema or COPD), we recommendthe pneumococcal vaccination and a yearlyinfluenzavaccination(flu-shot) every . Ask your doctor about this.] Get Prompt Medical Attention if any of the following occur: Not getting better within the first 48 hours of treatment Increasing shortness of breath or rapid breathing (over 25 breaths/minute) Coughing up blood or increasing chest pain with breathing Fever of 100.4F (38C) oral or higher, not better with fever medication Increasing weakness, dizziness or fainting Increasing thirst or dry mouth Sinus pain, headache or a stiff neck Chest pain not caused by coughing Azithromycin Oral tablet What is this medicine? AZITHROMYCIN (az ith bri MYE sin) is a macrolide antibiotic. It is used to treat or prevent certain kinds of bacterial infections. It will not work for colds, flu, or other viral infections. How should I use this medicine? Take this medicine by mouth with a full glass of water. Follow the directions on the prescription label. The tablets can be taken with food or on an empty stomach. If the medicine upsets your stomach, take it with food. Take your medicine at regular intervals. Do not take your medicine more often than directed. Take all of your medicine as directed even if you think your are better. Do not skip doses or stop your medicine early. Talk to your oil and gas well treatment operator regarding the use of this medicine in children. Special care may be needed. What side effects may I notice from receiving this medicine? Side effects that you should report to your doctor or health early breastfeeding care specialist as soon as possible: allergic reactions like skin rash, itching or hives, swelling of the face, lips, or tongue confusion, nightmares or hallucinations dark urine difficulty breathing hearing loss irregular heartbeat or chest pain pain or difficulty passing urine redness, blistering, peeling or loosening of the skin, including inside the mouth white patches or sores in the mouth yellowing of the eyes or skin Side effects that usually do not require medical attention (report to your doctor or health early breastfeeding care specialist if they continue or are bothersome): diarrhea dizziness, drowsiness headache stomach upset or vomiting tooth discoloration vaginal irritation What may interact with this medicine? Do not take this medicine with any of the following medications: lincomycin This medicine may also interact with the following medications: amiodarone antacids cyclosporine digoxin magnesium nelfinavir phenytoin warfarin What if I miss a dose? If you miss a dose, take it as soon as you can. If it is almost time for your next dose, take only that dose. Do not take double or extra doses. Where should I keep my medicine? Keep out of the reach of children. Store at room temperature between 15 and 30 degrees C (59 and 86 degrees F). Throw away any unused medicine after the expiration date. What should I tell my health care provider before I take this medicine? They need to know if you have any of these conditions: kidney disease liver disease irregular heartbeat or heart disease an unusual or allergic reaction to azithromycin, erythromycin, other macrolide antibiotics, foods, dyes, or preservatives or trying to get breast-feeding What should I watch for while using this medicine? Tell your doctor or health early breastfeeding care specialist if your symptoms do not improve. Do not treat diarrhea with over the counter products. Contact your doctor if you have diarrhea that lasts more than 2 days or if it is severe and watery. This medicine can make you more sensitive to the sun. Keep out of the sun. If you cannot avoid being in the sun, wear protective clothing and use sunscreen. Do not use sun lamps or tanning beds/booths. You have been given the following additional information: Chest Pain, Uncertain Cause Pneumonia (Adult) Azithromycin Oral tablet (Electronically signed by Wolfgang Faria Dr. 06/18/2016 11:26)
--- NOTE | 2016-06-18 11:27 | ED MED RECONCILIATION SUMMARY ---
Patient: RENATO CARDONA Medication Reconciliation Report [facility] VisitID: [id number] [address] [place] [address] 85y, F Registration Date/Time: 06/13/2016 Weight: 90.7 kg Height/Length: 65 in. BMI: 33.3 ALLERGIES: No Known Drug Allergy The patient's Home Medications are listed below: CONTINUE TAKING THE FOLLOWING MEDICATIONS: Amlodipine 5 md daily Aspirin 325 mg daily Atorvastatin 80 mg Q HS Fiber Capsules Glimepiride 2 mg daily before breakfast Hydrocodone with Acetaminophen Iron tablets Levothyroxine 100 mcg daily Losartan 25 mg daily Magnesium 300 mg BID Metoprolol tartrate 25 mg 1/2 tablet q AM and 1 tablet q AM Milk of Magnesia MiraLax Omeprazole 20 mg bid Senna Stool Softener Temazepam 15 mg Q HS The source(s) of the original Home Medication information: Not obtained. The following Medications were given to the patient in the Emergency Department: Nitroglycerin [SL] SL 0.4 mg, administered: 06/13/2016 5:02:00 PM Dilaudid [IVP] IVP 0.5 mg, administered: 06/13/2016 5:28:00 PM Azithromycin [IVPB] IVPB bolus 0, then 500 mg 250 mL/hr, administered: 06/13/2016 6:25:00 PM The following Medications were prescribed to the patient: Zithromax Z-Camron: Take according to package instructions. No refills. Substitution is permissible. -- Wolfgang Faria Dr.
--- NOTE | 2016-06-18 11:27 | ED MED RECONCILIATION SUMMARY ---
Patient: RENATO CARDONA Medication Reconciliation Report [facility] VisitID: [id number] [address] [place] [address] 85y, F Registration Date/Time: 06/13/2016 Weight: 90.7 kg Height/Length: 65 in. BMI: 33.3 ALLERGIES: No Known Drug Allergy The patient's Home Medications are listed below: CONTINUE TAKING THE FOLLOWING MEDICATIONS: Amlodipine 5 md daily Aspirin 325 mg daily Atorvastatin 80 mg Q HS Fiber Capsules Glimepiride 2 mg daily before breakfast Hydrocodone with Acetaminophen Iron tablets Levothyroxine 100 mcg daily Losartan 25 mg daily Magnesium 300 mg BID Metoprolol tartrate 25 mg 1/2 tablet q AM and 1 tablet q AM Milk of Magnesia MiraLax Omeprazole 20 mg bid Senna Stool Softener Temazepam 15 mg Q HS The source(s) of the original Home Medication information: Not obtained. The following Medications were given to the patient in the Emergency Department: Nitroglycerin [SL] SL 0.4 mg, administered: 06/13/2016 5:02:00 PM Dilaudid [IVP] IVP 0.5 mg, administered: 06/13/2016 5:28:00 PM Azithromycin [IVPB] IVPB bolus 0, then 500 mg 250 mL/hr, administered: 06/13/2016 6:25:00 PM The following Medications were prescribed to the patient: Zithromax Z-Camron: Take according to package instructions. No refills. Substitution is permissible. -- Wolfgang Faria Dr.
[2016-08-30] MEDS ORDERED: MAGNESIUM400 M1 PO (11:43)
[2016-08-30] MEDS ORDERED: ASPIRIN325 MG PO (11:43)
[2016-08-30] MEDS ORDERED: MILK OF MA400 MG/5 M PO ×2 (11:46→11:47)
== END 2016-06-13 20:20 | disposition home or self-care (01) ==
LOC: ED SRH 15:21
DX: R07.89 Other chest pain (principal); J15.9 Unspecified bacterial pneumonia; I10 Essential (primary) hypertension; E11.9 Type 2 diabetes mellitus without complications; E03.9 Hypothyroidism, unspecified; Z79.899 Other long term (current) drug therapy
CPT/HCPCS: 90004; 90100; 90616; 91320; 94060; 95059

== ENCOUNTER 2016-06-19 08:51 | Outpatient (CLI) | payer OTHER, MEDICARE ==
--- NOTE | 2016-06-19 11:41 | DIAGNOSTIC IMAGING REPORT ---
PROCEDURE: MR LUMBAR SPINE W/O CONTRAST INDICATION: Low back and bilateral leg pain (left greater than right). Constipation. History of diabetes. TECHNIQUE: Noncontrast T1, T2, and STIR sagittal images. T1 and T2 axial images. COMPARISON: Comparison is made to CT abdomen and pelvis on 04/13/2016. FINDINGS: Conus is normal. T12-L1: Small left central disc protrusion without canal compromise. L1-2: Normal appearance. L2-3: Mild facet disease. Disc is normal. L3-4: Small broad-based left central disc protrusion superimposed on a mildly bulging disc and moderate facet disease. Overall, these changes result in mild narrowing of the central canal and lateral recesses (left greater than right). L4-5: Moderate to severe facet disease with grade 1 (2 mm) degenerative listhesis. Findings are superimposed on a mildly bulging disc. Overall, these change result in mild narrowing of the central canal and lateral recesses. L5-S1: Small right central disc herniation superimposed on a moderately chronically bulging disc and mild facet disease. Overall, these change result in mild to moderate narrowing of the right lateral recess with mild narrowing of the canal, left lateral recess, and bilateral neural foramina. IMPRESSION: 1. Moderate degenerative changes of the lumbar spine. 2. Small left central disc protrusion and mildly bulging disc at L3-4 results in mild narrowing of the lateral recesses (left greater than right). While there is little evidence of significant canal compromise, consider left L4 radiculopathy. 3. Moderate facet disease and grade 1 (2 mm) degenerative listhesis of L4 on L5, superimposed on a mildly bulging disc, but no evidence of significant canal compromise. 4. Small right central disc herniation and moderately chronically bulging disc at L5-S1 results in mild to moderate narrowing of the right lateral recess. While findings appear chronic, consider right S1 radiculopathy.
[2016-08-30] MEDS ORDERED: MAGNESIUM400 M1 PO (11:43)
[2016-08-30] MEDS ORDERED: ASPIRIN325 MG PO (11:43)
[2016-08-30] MEDS ORDERED: MILK OF MA400 MG/5 M PO ×2 (11:46→11:47)
== END 2016-06-19 23:00 ==
LOC: MRI SRH 08:51
DX: M51.36 Other intervertebral disc degeneration, lumbar region (principal); M51.26 Other intervertebral disc displacement, lumbar region; M51.27 Other intervertebral disc displacement, lumbosacral region

== ENCOUNTER 2016-07-12 22:07 | Emergency (ER) | payer OTHER, MEDICARE ==
--- NOTE | 2016-07-12 23:10 | DIAGNOSTIC IMAGING REPORT ---
PROCEDURE: XR CHEST 1 VIEW INDICATION: CHEST PAIN TECHNIQUE: Portable AP view 10:34 p.m. COMPARISON: Chest x-ray 06/13/2016 FINDINGS: Mild left basilar parenchymal changes suggestive of atelectasis or pneumonia. Stable mild cardiomegaly. Mediastinum and pulmonary vessels are normal Thorax is normal. IMPRESSION: 1. Left basilar atelectasis versus infiltrate 2. Mild cardiomegaly
--- NOTE | 2016-07-13 02:14 | ED CLINICAL REPORT ---
Clinical Report - Physicians/Mid Levels [facility] [address] [place] [address] 07/12/2016 22:09 Patient: RENATO CARDONA Time Seen: 22:17; upon arrival. Arrived- By ambulance. Historian- patient and EMS personnel. HISTORY OF PRESENT ILLNESS Chief Complaint: CHEST PAIN. Abdominal pain. This started at 4 PM and is still present. It was abrupt in onset and has been constant. At its maximum, severity described as 5 / 10. When seen in the E.D., severity described as 5 / 10. It is described as pressure and it is described as located in the central chest area and epigastric area. The patient has had mild difficulty breathing and nausea. No vomiting or diaphoresis. Similar symptoms previously: Many times. ( Ms Cardona has had a number of ED visits for chest and abdominal pain. She has a POLST for requesting limited interventions She previously has declined invasive cardiac work ups. The last time I saw Ms Cardona I called the [facility]imator who read me Ms Cardona' more recent cardiac work ups. Those were reassuring.). Recent medical care: The patient was seen recently by a health care provider. ( [facility] office - UTI). REVIEW OF SYSTEMS The patient has had a hysterectomy. No fever, chills or pedal edema or edema. No calf pain or pain or fainting episodes or episodes. No sore throat or throat or black stools or stools. No difficulty with urination or urination, palpitations, bloody stools or constipation. No diarrhea, vomiting, urinary frequency or hematuria. The patient has had a mild cough. It has been similar to previous symptoms. She has missed periods (hysterectomy). She has had moderate abdominal pain. The pain is described as located in the upper abdomen, chest pain, a cough, nausea and back pain. She has had joint pain. Has had similar previous symptoms of joint pain. She has had abdominal pain (radiates through to the back). She has had difficulty walking. It has been similar to previous symptoms. PAST HISTORY PCP: Mian PROBLEMS: Hypertension [Active]. Heart Disease [Active]. Diabetes Mellitus [Active]. Dyspnea [Active]. Chest Pain [Active]. Pneumonia. LAD stent (2011). Hypothyroidism. Blood Transfusions. 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 Constipation. Diverticulitis. Hernia. Hyperkalemia. Hypertension. Hyperlipidemia. Angina [RuleOut]. Acute Myocardial Infarction [RuleOut]. ADDITIONAL SURGERIES: Bilateral hip replacements. Bowel Surgery. Cardiac Procedures. Cholecystectomy. Colonoscopy. Hernia Repair. Hysterectomy. Partial colectomy. R knee surgery. Shoulder Surgery. Traumatic R hand amputation. SOCIAL HISTORY Never smoker. She lives alone. ADDITIONAL NOTES The nursing notes have been reviewed. PHYSICAL EXAM Appearance: Alert. No acute distress. Eyes: No scleral icterus or pale conjunctivae. ENT: Pharynx normal. CVS: Bradycardia. Heart sounds normal. Respiratory: No respiratory distress. Breath sounds normal. Chest nontender. Abdomen: Soft. Mild tenderness in the upper abdomen. Bowel sounds normal. No mass. No rebound tenderness or guarding. Back: No CVA tenderness. Skin: Skin warm. Normal skin color. Extremities: Extremities exhibit normal ROM. No lower extremity edema. Neuro: No alteration in mental status. LABS, X-RAYS, AND EKG EKG: Rate: 56. First-degree atrioventricular block (BORDERLINE). RBBB. Non-specific ST segment / T wave abnormalities. No ST elevation. EKG unchanged when compared with prior EKG. EKG #2: Performed. No acute process. No acute ischemia. Rate: 65. RBBB. Non-specific ST segment / T wave abnormalities. No ST elevation. EKG unchanged when compared with prior EKG. (FROM #1 EXCEPT FOR RATE.). Chest X-ray: (LLL ATELECTASIS VS INFILTRATE PROCEDURE: XR CHEST 1 VIEW INDICATION: CHEST PAIN TECHNIQUE: Portable AP view 10:34 p.m. COMPARISON: Chest x-ray 06/13/2016 FINDINGS: Mild left basilar parenchymal changes suggestive of atelectasis or pneumonia. Stable mild cardiomegaly. Mediastinum and pulmonary vessels are normal Thorax is normal. IMPRESSION: 1. Left basilar atelectasis versus infiltrate 2. Mild cardiomegaly Dictated by: ALFA OH MD D: ANIKET;07/12/162309 <Electronically signed by ALFA OH MD in OV> 07/12/162309). The X-rays were interpreted by the radiologist and contemporaneously by me. Laboratory Tests: Troponin-I: (DESTINEE: 07/13/2016 01:07) ( [facility] [place] 01:38) Final results Test Result Flag Units (Reference) TROPONIN I <0.05 ng/mL (0.00-1.5) TROPONIN REFERENCE RANGE:<0.1 NEGATIVE0.1-1.5 INDETERMINANT>1.5 POSITIVE UA-Culture if indicated: (DESTINEE: 07/12/2016 23:46) ( [facility] [place]13[place] 00:05) Final results Test Result Flag Units (Reference) URINE COLOR YELLOW URINE APPEARANCE CLEAR URINE GLUCOSE NEGATIVE (NEGATIVE) URINE BILIRUBIN NEGATIVE (NEGATIVE) URINE KETONE NEGATIVE (NEGATIVE) URINE SPECIFIC GRAVITY <= 1.005 L (1.010-1.030) URINE PH 6.0 (5.0-8.0) URINE PROTEIN NEGATIVE (NEGATIVE) URINE UROBILINOGEN 0.2 EU/dL (0.2-1.0) URINE NITRITE NEGATIVE (NEGATIVE) URINE BLOOD NEGATIVE (NEGATIVE) URINE LEUK ESTERASE NEGATIVE (NEGATIVE) URINE RBC 0-1 rbc/hpf (0-1) URINE WBC 0-1 wbc/hpf (0-1) URINE EPITHELIAL CELLS 0-1 EPI/hpf (0-5) URINE BACTERIA NONE SEEN (NONE SEEN) URINE COMMENT CULT NOT INDICATED URINE CULTURES ARE SET-UP BASED ON THE FOLLOWING CRITERIA:POSITIVE NITRITEPOSITIVE LEUKOCYTE ESTERASEGREATER THAN 10 WHITE BLOOD CELLSMODERATE (2+) OR GREATER BACTERIA CBC w Diff: (DESTINEE: 07/12/2016 22:21) ( [facility] [place] 22:50) Final results Test Result Flag Units (Reference) WHITE BLOOD COUNT 8.7 K/uL (4.5-11.5) RED BLOOD COUNT 3.87 L M/uL (4.00-5.20) HEMOGLOBIN 11.3 L gm/dL (12.0-16.0) HEMATOCRIT 34.9 L % (36.0-46.0) MEAN CELL VOLUME 90 fL (80-100) MEAN CORPUSCULAR HGB 29 pg (26-34) MEAN CORPUSCULAR HGB CONC 32 g/dL (31-37) RED CELL DISTRIBUTION WIDTH 17.1 H % (11.6-14.8) PLATELET COUNT 212 K/uL (150-400) LYMPH % 18.5 L % (25-40) MONO % 3.3 % (3-14) GRANULOCYTE % 78.2 (53-90) Lipase: (DESTINEE: 07/12/2016 22:21) ( [facility] [place]/12[place] 23:33) Final results Test Result Flag Units (Reference) LIPASE 342 U/L (73-393) BNP: (DESTINEE: 07/12/2016 22:21) ( [facility] [place]/12[place] 23:05) Final results Test Result Flag Units (Reference) B-TYPE NATRIURETIC PEPTIDE 110 H pg/ml (5-100) CHEM 13 PANEL: (DESTINEE: 07/12/2016 22:21) ( [facility] [place] 07/12/[place] 23:04) Final results Test Result Flag Units (Reference) GLUCOSE 177 H mg/dL (70-110) BUN 20 H mg/dL (7-18) CREATININE 1.4 H mg/dL (0.6-1.3) Estimated GFR 38.17 mL/min Estimated GFR- 46.26 mL/min Note: Persistent reduction over 3 months in eGFR<60 mL/min/1.73 m2 defines CKD. Patients with eGFR values>=60 mL/min/1.73 m2 may also have CKD if evidence ofpersistent proteinuria. Additional information may be foundat www.kidney.org. SODIUM 136 mmol/L (136-145) POTASSIUM 4.7 mmol/L (3.5-5.1) CHLORIDE 100 mmol/L (98-107) CARBON DIOXIDE 26 mmol/L (21-32) CALCIUM 9.5 mg/dL (8.5-10.1) TOTAL PROTEIN 5.9 L g/dL (6.4-8.2) ALBUMIN 3.2 L g/dL (3.3-5.0) BILIRUBIN, TOTAL 0.3 mg/dL (0.0-1.0) ALKALINE PHOSPHATASE 115 U/L (46-116) AST (SGOT) 13 L U/L (15-37) ALT (SGPT) 19 U/L (12-78) MAGNESIUM 2.2 mg/dL (1.8-2.4) CPK 39 U/L (24-260) TROPONIN I <0.05 ng/mL (0.00-1.5) TROPONIN REFERENCE RANGE:<0.1 NEGATIVE0.1-1.5 INDETERMINANT>1.5 POSITIVE . PROGRESS AND PROCEDURES Course of Care: 22:43 07/12/16. NAD, pressure 75, pain 4-5. Non acute EKG. IVF, when pressure is better then morphine to control pain. 23:21 07/12/16. Now RUQ and R flank discomfort 00:40 07/13/16. CT of 03/2016 no AAA 02:05 07/13/16. Both chest and abdominal pain are 2/10. She is hungry and eating pudding. Second EKG and Troponin are unchanged/negative at 9 hours after the onset of pain. It is extremely unlikely that this is an [place] given EKGs and Troponins many hours after chest pain onset. He has no GB and her lipase is negative. This is not biliary colic. About 3-4 months ago she had a CT abdomen which showed no AAA although it did show atheroslerosis. The CXR is not CW TA dissection nor pneumothorax. This is not esophageal rupture. Her Wells score is 0. I doubt that this is a PE because of Wells score. The patient had pain control with NTG and morphine. The morphine made her quite nauseated. It took Zofran 8 mg plus Phenergan 6.25 mg to resolve the nausea. She had not vomited until after the morphine. The abdominal exam and over all setting plus prior episodes make a surgical abdomen quite unlikely. She did have LLL atelectasis vs pneumonia. She does have a stable cough but lacks fever or chills and lacks sputum production. This seems quite unlikely pneumonia. Her son is here to help her home. Disposition: Discharged. Condition: stable. CLINICAL IMPRESSION Acute abdominal pain of undetermined cause. Atypical chest pain LEFT LOWER LOBE ATELECTASIS. INSTRUCTIONS (I DID NOT FIND A CAUSE OF YOUR CHEST OR ABDOMINAL PAIN. I PROVED THAT IT WAS VERY UNLIKELY TO BE A HEART ATTACK. THERE IS SOME CHANCE IT COULD BE HEART PAINS YOU ALSO HAD A LITTLE SHADOW ON THE LEFT LOWER LUNG. I THINK IT IS FROM SHALLOW BREATHING NOT PNEUMONIA. IMMEDIATELY RETURN TO ED FOR NEW BAD SYMPTOMS SUCH FEVER, PROBLEMS BREATHING OR UNCONTROLLED CHEST OR ABDOMINAL PAIN.). Follow-up: Follow up with doctor MIAN Friday in three days even if well. Understanding of the discharge instructions verbalized by patient. (Electronically signed by Qamar Johnson MD 07/14/2016 21:20)
--- NOTE | 2016-07-13 02:14 | ED CLINICAL REPORT ---
Clinical Report - Physicians/Mid Levels [address] [place] [address] 07/12/2016 22:09 Patient: RENATO CARDONA Time Seen: 22:17; upon arrival. Arrived- By ambulance. Historian- patient and EMS personnel. HISTORY OF PRESENT ILLNESS Chief Complaint: CHEST PAIN. Abdominal pain. This started at 4 PM and is still present. It was abrupt in onset and has been constant. At its maximum, severity described as 5 / 10. When seen in the E.D., severity described as 5 / 10. It is described as pressure and it is described as located in the central chest area and epigastric area. The patient has had mild difficulty breathing and nausea. No vomiting or diaphoresis. Similar symptoms previously: Many times. ( Ms Cardona has had a number of ED visits for chest and abdominal pain. She has a POLST for requesting limited interventions She previously has declined invasive cardiac work ups. The last time I saw Ms Cardona I called the [facility] Kiln Packer who read me Ms Cardona' more recent cardiac work ups. Those were reassuring.). Recent medical care: The patient was seen recently by a health care provider. ( [facility] office - UTI). REVIEW OF SYSTEMS The patient has had a hysterectomy. No fever, chills or pedal edema or edema. No calf pain or pain or fainting episodes or episodes. No sore throat or throat or black stools or stools. No difficulty with urination or urination, palpitations, bloody stools or constipation. No diarrhea, vomiting, urinary frequency or hematuria. The patient has had a mild cough. It has been similar to previous symptoms. She has missed periods (hysterectomy). She has had moderate abdominal pain. The pain is described as located in the upper abdomen, chest pain, a cough, nausea and back pain. She has had joint pain. Has had similar previous symptoms of joint pain. She has had abdominal pain (radiates through to the back). She has had difficulty walking. It has been similar to previous symptoms. PAST HISTORY PCP: Mian PROBLEMS: Hypertension [Active]. Heart Disease [Active]. Diabetes Mellitus [Active]. Dyspnea [Active]. Chest Pain [Active]. Pneumonia. LAD stent (2011). Hypothyroidism. Blood Transfusions. 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 Constipation. Diverticulitis. Hernia. Hyperkalemia. Hypertension. Hyperlipidemia. Angina [RuleOut]. Acute Myocardial Infarction [RuleOut]. ADDITIONAL SURGERIES: Bilateral hip replacements. Bowel Surgery. Cardiac Procedures. Cholecystectomy. Colonoscopy. Hernia Repair. Hysterectomy. Partial colectomy. R knee surgery. Shoulder Surgery. Traumatic R hand amputation. SOCIAL HISTORY Never smoker. She lives alone. ADDITIONAL NOTES The nursing notes have been reviewed. PHYSICAL EXAM Appearance: Alert. No acute distress. Eyes: No scleral icterus or pale conjunctivae. ENT: Pharynx normal. CVS: Bradycardia. Heart sounds normal. Respiratory: No respiratory distress. Breath sounds normal. Chest nontender. Abdomen: Soft. Mild tenderness in the upper abdomen. Bowel sounds normal. No mass. No rebound tenderness or guarding. Back: No CVA tenderness. Skin: Skin warm. Normal skin color. Extremities: Extremities exhibit normal ROM. No lower extremity edema. Neuro: No alteration in mental status. LABS, X-RAYS, AND EKG EKG: Rate: 56. First-degree atrioventricular block (BORDERLINE). RBBB. Non-specific ST segment / T wave abnormalities. No ST elevation. EKG unchanged when compared with prior EKG. EKG #2: Performed. No acute process. No acute ischemia. Rate: 65. RBBB. Non-specific ST segment / T wave abnormalities. No ST elevation. EKG unchanged when compared with prior EKG. (FROM #1 EXCEPT FOR RATE.). Chest X-ray: (LLL ATELECTASIS VS INFILTRATE PROCEDURE: XR CHEST 1 VIEW INDICATION: CHEST PAIN TECHNIQUE: Portable AP view 10:34 p.m. COMPARISON: Chest x-ray 06/13/2016 FINDINGS: Mild left basilar parenchymal changes suggestive of atelectasis or pneumonia. Stable mild cardiomegaly. Mediastinum and pulmonary vessels are normal Thorax is normal. IMPRESSION: 1. Left basilar atelectasis versus infiltrate 2. Mild cardiomegaly Dictated by: ALFA OH MD D: ANIKET;07/12/162309 <Electronically signed by ALFA OH MD in OV> 07/12/162309). The X-rays were interpreted by the radiologist and contemporaneously by me. Laboratory Tests: Troponin-I: (DESTINEE: 07/13/2016 01:07) ( [facility] [place] 01:38) Final results Test Result Flag Units (Reference) TROPONIN I <0.05 ng/mL (0.00-1.5) TROPONIN REFERENCE RANGE:<0.1 NEGATIVE0.1-1.5 INDETERMINANT>1.5 POSITIVE UA-Culture if indicated: (DESTINEE: 07/12/2016 23:46) ( [facility] [place] 07/13[place] 00:05) Final results Test Result Flag Units (Reference) URINE COLOR YELLOW URINE APPEARANCE CLEAR URINE GLUCOSE NEGATIVE (NEGATIVE) URINE BILIRUBIN NEGATIVE (NEGATIVE) URINE KETONE NEGATIVE (NEGATIVE) URINE SPECIFIC GRAVITY <= 1.005 L (1.010-1.030) URINE PH 6.0 (5.0-8.0) URINE PROTEIN NEGATIVE (NEGATIVE) URINE UROBILINOGEN 0.2 EU/dL (0.2-1.0) URINE NITRITE NEGATIVE (NEGATIVE) URINE BLOOD NEGATIVE (NEGATIVE) URINE LEUK ESTERASE NEGATIVE (NEGATIVE) URINE RBC 0-1 rbc/hpf (0-1) URINE WBC 0-1 wbc/hpf (0-1) URINE EPITHELIAL CELLS 0-1 EPI/hpf (0-5) URINE BACTERIA NONE SEEN (NONE SEEN) URINE COMMENT CULT NOT INDICATED URINE CULTURES ARE SET-UP BASED ON THE FOLLOWING CRITERIA:POSITIVE NITRITEPOSITIVE LEUKOCYTE ESTERASEGREATER THAN 10 WHITE BLOOD CELLSMODERATE (2+) OR GREATER BACTERIA CBC w Diff: (DESTINEE: 07/12/2016 22:21) ( [facility] [place] 22:50) Final results Test Result Flag Units (Reference) WHITE BLOOD COUNT 8.7 K/uL (4.5-11.5) RED BLOOD COUNT 3.87 L M/uL (4.00-5.20) HEMOGLOBIN 11.3 L gm/dL (12.0-16.0) HEMATOCRIT 34.9 L % (36.0-46.0) MEAN CELL VOLUME 90 fL (80-100) MEAN CORPUSCULAR HGB 29 pg (26-34) MEAN CORPUSCULAR HGB CONC 32 g/dL (31-37) RED CELL DISTRIBUTION WIDTH 17.1 H % (11.6-14.8) PLATELET COUNT 212 K/uL (150-400) LYMPH % 18.5 L % (25-40) MONO % 3.3 % (3-14) GRANULOCYTE % 78.2 (53-90) Lipase: (DESTINEE: 07/12/2016 22:21) ( [facility] [place] 07/12/[place] 23:33) Final results Test Result Flag Units (Reference) LIPASE 342 U/L (73-393) BNP: (DESTINEE: 07/12/2016 22:21) ( [facility] [place] 07/12/2016 23:05) Final results Test Result Flag Units (Reference) B-TYPE NATRIURETIC PEPTIDE 110 H pg/ml (5-100) CHEM 13 PANEL: (DESTINEE: 07/12/2016 22:21) ( [facility] [place] 07/12/2016 23:04) Final results Test Result Flag Units (Reference) GLUCOSE 177 H mg/dL (70-110) BUN 20 H mg/dL (7-18) CREATININE 1.4 H mg/dL (0.6-1.3) Estimated GFR 38.17 mL/min Estimated GFR- 46.26 mL/min Note: Persistent reduction over 3 months in eGFR<60 mL/min/1.73 m2 defines CKD. Patients with eGFR values>=60 mL/min/1.73 m2 may also have CKD if evidence ofpersistent proteinuria. Additional information may be foundat www.kidney.org. SODIUM 136 mmol/L (136-145) POTASSIUM 4.7 mmol/L (3.5-5.1) CHLORIDE 100 mmol/L (98-107) CARBON DIOXIDE 26 mmol/L (21-32) CALCIUM 9.5 mg/dL (8.5-10.1) TOTAL PROTEIN 5.9 L g/dL (6.4-8.2) ALBUMIN 3.2 L g/dL (3.3-5.0) BILIRUBIN, TOTAL 0.3 mg/dL (0.0-1.0) ALKALINE PHOSPHATASE 115 U/L (46-116) AST (SGOT) 13 L U/L (15-37) ALT (SGPT) 19 U/L (12-78) MAGNESIUM 2.2 mg/dL (1.8-2.4) CPK 39 U/L (24-260) TROPONIN I <0.05 ng/mL (0.00-1.5) TROPONIN REFERENCE RANGE:<0.1 NEGATIVE0.1-1.5 INDETERMINANT>1.5 POSITIVE . PROGRESS AND PROCEDURES Course of Care: 22:43 07/12/16. NAD, pressure 75, pain 4-5. Non acute EKG. IVF, when pressure is better then morphine to control pain. 23:21 07/12/16. Now RUQ and R flank discomfort 00:40 07/13/16. CT of 03/2016 no AAA 02:05 07/13/16. Both chest and abdominal pain are 2/10. She is hungry and eating pudding. Second EKG and Troponin are unchanged/negative at 9 hours after the onset of pain. It is extremely unlikely that this is an [place] given EKGs and Troponins many hours after chest pain onset. He has no GB and her lipase is negative. This is not biliary colic. About 3-4 months ago she had a CT abdomen which showed no AAA although it did show atheroslerosis. The CXR is not CW TA dissection nor pneumothorax. This is not esophageal rupture. Her Wells score is 0. I doubt that this is a PE because of Wells score. The patient had pain control with NTG and morphine. The morphine made her quite nauseated. It took Zofran 8 mg plus Phenergan 6.25 mg to resolve the nausea. She had not vomited until after the morphine. The abdominal exam and over all setting plus prior episodes make a surgical abdomen quite unlikely. She did have LLL atelectasis vs pneumonia. She does have a stable cough but lacks fever or chills and lacks sputum production. This seems quite unlikely pneumonia. Her son is here to help her home. Disposition: Discharged. Condition: stable. CLINICAL IMPRESSION Acute abdominal pain of undetermined cause. Atypical chest pain LEFT LOWER LOBE ATELECTASIS. INSTRUCTIONS (I DID NOT FIND A CAUSE OF YOUR CHEST OR ABDOMINAL PAIN. I PROVED THAT IT WAS VERY UNLIKELY TO BE A HEART ATTACK. THERE IS SOME CHANCE IT COULD BE HEART PAINS YOU ALSO HAD A LITTLE SHADOW ON THE LEFT LOWER LUNG. I THINK IT IS FROM SHALLOW BREATHING NOT PNEUMONIA. IMMEDIATELY RETURN TO ED FOR NEW BAD SYMPTOMS SUCH FEVER, PROBLEMS BREATHING OR UNCONTROLLED CHEST OR ABDOMINAL PAIN.). Follow-up: Follow up with doctor MIAN Friday in three days even if well. Understanding of the discharge instructions verbalized by patient. (Electronically signed by Qamar Johnson MD 07/14/2016 21:20)
--- NOTE | 2016-07-13 02:15 | ED ORDER SUMMARY ---
..... Patient: RENATO CARDONA OrderSheet [facility] VisitID: [id number] [place] [address] 85y, F Registration Date/Time: 07/12/2016 ORDER SHEET Weight: 100.2 kg (stated) Allergies: No Known Drug Allergy GENERAL ORDERS: Vp Integrity (Continuous) (chest pain) (22:19 07/12/2016 DDavis R.N. per protocol) (22:20 DDavis R.N.) EKG - ER Stat (22:20 07/12/2016 DDavis R.N. per protocol) (22:22 CHategekimana) Chest 1V Urgent (22:36 07/12/2016 Brenda WOOD) (Ack 22:42 CHagerty ER Rn Travel) (22:49 CHagerty ER Rn Travel) Vp Integrity (Continuous) (22:36 07/12/2016 Brenda WOOD) (22:38 DDavis R.N.) Cardiac Panel Stat (22:37 07/12/2016 Brenda WOOD) (22:38 DDavis R.N.) BNP Urgent (22:37 07/12/2016 Brenda WOOD) (22:38 DDavis R.N.) Oxygen (2 L/min) (NC) (22:37 07/12/2016 Brenda WOOD) (22:38 DDavis R.N.) Pulse oximeter (22:37 07/12/2016 Brenda WOOD) (22:38 DDavis R.N.) EKG - ER Stat (22:37 07/12/2016 Brenda WOOD) (22:38 DDavis R.N.) - (CATH UA PLEASE AND MORE MORPHINE AFTER ZOFRAN) (23:22 07/12/2016 Brenda WOOD) (Ack 23:46 DDavis R.N.) (23:58 DDavis R.N.) Lipase Urgent (23:22 07/12/2016 Brenda WOOD) (23:27 CHagerty ER Rn Travel) UA-Culture if indicated Urgent (23:22 07/12/2016 Brenda WOOD) (Ack 23:27 CHagerty ER Rn Travel) (23:58 DDavis R.N.) Troponin-I (NEW BLOOD DRAW PLEASE) Urgent (00:58 07/13/2016 Brenda WOOD) (Ack 1:09 CHagerty ER Rn Travel) (1:11 DDavis R.N.) EKG - ER Repeat Stat (00:58 07/13/2016 Brenda WOOD) (1:09 CHagerty ER Rn Travel) MEDICATION ORDERS: Phenergan IV 6.25 + 6.25 (titrate) (02:42 07/13/2016 Brenda WOOD) (Ack 2:43 DDavis R.N.) (3:08 DDavis R.N.) IV FLUIDS: IV NS : initial bolus 200 mL (1000 mL/hr), then TKO - for X1 (NOW); Urgent (22:36 07/12/2016 Brenda WOOD) (22:42 DDavis R.N.) Morphine IV 2 mg + 2 mg + 2 mg (titrate) (22:37 07/12/2016 Brenda WOOD) (Ack 23:03 DDavis R.N.) (23:10 DDavis R.N.) IV Saline Lock (22:37 07/12/2016 Brenda WOOD) (22:39 DDavis R.N.) Zofran IV 4 mg (NOW) (23:22 07/12/2016 Brenda WOOD) (23:44 DDavis R.N.) Morphine IV 2 mg + 2 mg + 2 mg IV (titrate) (00:41 07/13/2016 Brenda WOOD) (Ack 0:43 DDavis R.N.) (0:50 DDavis R.N.) Zofran IV 4 mg (NOW) (02:12 07/13/2016 DDavis R.N. verbal order read back to Brenda WOOD) (2:12 DDavis R.N.) ORDER SHEET NOTES: [Electronically signed by Anam North R.N. (03:33 07/13/2016)] [Electronically signed by Qamar Johnson MD (21:20 07/14/2016)] [Electronically locked/signed by Anam North R.N. (03:33 07/13/2016)]
--- NOTE | 2016-07-13 02:15 | ED NURSING NOTES ---
Clinical Report - Nurses [facility] [address] [place] [address] 07/12/2016 22:09 Patient: RENATO CARDONA TRIAGE Triage time 22:11. Acuity: LEVEL 2. Chief Complaint: CHEST PAIN. Alert. No acute distress. --22:18 Anam North R.N. 22:11 07/12/16. BP: 114/45. HR: 57 (regular and bradycardic). RR: 13. O2 saturation: 98% on room air. Temp: 97.6 F (oral). Pain level now: 10. Additional comments: sinus kaylee on monitor with PVC's. --22:18 Anam North R.N. Weight: 100.2 kg stated. Height/Length: 65 inches Per Patient. BMI: 36.8. --22:18 Anam North R.N. Medications Amlodipine 5 md daily. Aspirin 325 mg daily. Atorvastatin 80 mg Q HS. Fiber Capsules. Glimepiride 2 mg daily before breakfast. Hydrocodone with Acetaminophen. Iron tablets. Levothyroxine 100 mcg daily. Losartan 25 mg daily. Magnesium 300 mg BID. Metoprolol tartrate 25 mg 1/2 tablet q AM and 1 tablet q AM. Milk of Magnesia. MiraLax. Omeprazole 20 mg bid. Senna. Stool Softener. Temazepam 15 mg Q HS. --22:13 Anam North R.N. Allergies No Known Drug Allergy. --22:13 Anam North R.N. History Arrived by EMS. Historian: patient. Unaccompanied. This started today. ( 4pm today). She has had difficulty breathing and nausea. No vomiting. SOCIAL HX: Never smoker. No alcohol use or drug use. --22:18 Anam North R.N. SOCIAL HX: ( deneis hi/si). SELF HARM ASSESSMENT: A self harm assessment was performed. The patient answered "no" to the question "Do you have thoughts of harming or killing yourself?" and "Are you here because you tried to hurt yourself?". --22:18 Anam North R.N. PROBLEMS: Hypertension [Active]. Heart Disease [Active]. Diabetes Mellitus [Active]. Dyspnea [Active]. Chest Pain [Active]. --22:13 Anam North R.N. Pneumonia. LAD stent (2011). Hypothyroidism. Blood Transfusions. 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 Constipation. Diverticulitis. Hernia. Hyperkalemia. Hypertension. Hyperlipidemia. Chest Wall Pain. Chest Pain of GI Origin. Palpitations. Abnormal EKG. Ovarian Cyst. Back Pain. Acute Pain. Atypical Chest Pain. Anemia. UTI - Urinary Tract Infection. Immunizations. Diabetes Mellitus. Pyelonephritis. Abdominal Pain. Heart Disease. Hyperglycemia. Renal Insufficiency. Chest Pain. Coronary Artery Disease. Sinus bradycardia. --22:13 Anam North R.N. Angina [RuleOut]. Acute Myocardial Infarction [RuleOut]. --22:13 Anam North R.N. ADDITIONAL SURGERIES: Bilateral hip replacements. Bowel Surgery. Cardiac Procedures. Cholecystectomy. Colonoscopy. Hernia Repair. Hysterectomy. Partial colectomy. R knee surgery. Shoulder Surgery. Traumatic R hand amputation. --22:13 Anam North R.N. Interventions ID band on patient. To treatment room. --22:18 Anam North R.N. PHYSICAL ASSESSMENT ( see triage note. pt states having chest pain starting today radiating down left shoulder and arm). GENERAL / NEURO / PSYCH: Alert. Oriented X 4. Appears in no acute distress. --22:22 Anam North R.N. To room via stretcher. --22:22 Anam North R.N. GENERAL / NEURO / PSYCH: Alert. Oriented X 4. HEENT: Mucous membranes are pink. RESPIRATORY: Respirations not labored. Left upper chest wall tenderness. Breath sounds within normal limits. ( Patient states that the chest and shoulder pain increases with palpation). CVS: Cardiac rhythm: sinus bradycardia. Abnormal heart sounds: murmur. GI / : The patient has had nausea. Abdomen soft and nontender. Normal bowel sounds. SKIN: Skin is warm and dry. --22:26 Anam North R.N. 23:02 07/12/16. BP: 110/33. HR: 51. RR: 17. O2 saturation: 100% on nasal cannula at 2 liters/minute. Pain level now: 07/24. --23:03 Anam North R.N. GENERAL / NEURO / PSYCH: Alert. Oriented X 4. --23:11 Anam North R.N. 23:08 07/12/16. BP: 124/49. HR: 53 (regular and bradycardic). RR: 20 (regular). O2 saturation: 100% on nasal cannula at 2 liters/minute. --23:11 Anam North R.N. 00:00 07/13/16. BP: 157/39. HR: 54. RR: 18. O2 saturation: 100% on nasal cannula at 2 liters/minute. --00:01 Anam North R.N. 00:17 07/13/16. BP: 136/49. HR: 60. O2 saturation: 100% on nasal cannula at 2 liters/minute. --00:17 Anam North R.N. ( Patient states that her nausea is increasing. Dr. Nuno notified.). --02:35 Anam North R.N. ( i observed the patient dry-heaving.). --02:36 Anam North R.N. NURSING PROGRESS NOTES Oxygen administered. air sampling and monitoring, pulse oximeter and NIBP monitor placed on patient. Patient gowned. Head of bed elevated. Two patient identifiers checked. Call light placed in reach. Side rails up x 2. Bed placed in lowest position. Patient ready for evaluation- chart flagged. Patient waiting for evaluation. --22:18 Anam North R.N. ( 02 applied per protocol). --22:20 Anam North R.N. ( Dr. Nuno present at the time of triage). --22:35 Anam North R.N. 22:34 07/12/2016 Site #1 started prior to arrival by EMS via IV in the left hand with an 20g angiocath. Blood drawn: rainbow set. Labeled in the presence of the patient and sent to the lab. Saline lock flushed with 10 mL saline. --22:39 Anam North R.N. 22:41 07/12/2016 Started bag #1 200 mL IV Fluids IV NS (Saline); at 1000 mL/hr over 12 minute(s) via site #1 via IV pump. Allergies verified and confirmed 5 rights. IV patency established. IV site checked: no pain, redness, or swelling. IV flushed thoroughly pre- and post-medication administration. --22:42 Anam North R.N. 22:48 07/12/16. BP: 105/50 taken on the right arm, while sitting. HR: 53 (regular and bradycardic). --22:48 Anam North R.N. 22:48 07/12/16. O2 saturation: 100% on nasal cannula at 2 liters/minute. --22:49 Anam North R.N. 22:50. Portable chest x-ray performed. --22:50 Goyo Nagy R.N. EKG time: (2220 PM). EKG was ordered, performed by a tech and shown to the ED physician. --23:02 Grace Silva 23:08 07/12/2016 Morphine IVP 2 mg given over 2 minute(s) via site #1. Allergies verified, confirmed 5 rights and sedative warning given to the patient. IV patency established. IV site checked: no pain, redness, or swelling. IV flushed thoroughly pre- and post-medication administration. IVP given by RN. --23:10 Anam North R.N. 23:41 07/12/2016 Zofran (Ondansetron HCl) IVP 4 mg given over 1 minute(s) via site #1. Allergies verified and confirmed 5 rights. IV patency established. IV site checked: no pain, redness, or swelling. IV flushed thoroughly pre- and post-medication administration. IVP given by RN. --23:44 Anam North R.N. 23:42 07/12/2016 Morphine IVP 2 mg given over 2 minute(s) via site #1. Allergies verified, confirmed 5 rights and sedative warning given to the patient. IV patency established. IV site checked: no pain, redness, or swelling. IV flushed thoroughly pre- and post-medication administration. IVP given by RN. --23:45 Anam North R.N. 23:41 07/12/16. BP: 143/59. HR: 67. RR: 19. O2 saturation: 98% on nasal cannula at 2 liters/minute. Pain level now: 07/24. --23:46 Anam North R.N. 00:25 07/13/2016 Morphine IVP 2 mg given. via site #1. Allergies verified, confirmed 5 rights and sedative warning given to the patient. IV patency established. IV site checked: no pain, redness, or swelling. IV flushed thoroughly pre- and post-medication administration. IVP given by RN. --00:25 Dony Valencia R.N. 00:48 07/13/2016 Morphine IVP 2 mg given over 2 minute(s) via site #1. Allergies verified, confirmed 5 rights and sedative warning given to the patient. IV patency established. IV site checked: no pain, redness, or swelling. IV flushed thoroughly pre- and post-medication administration. IVP given by RN. --00:50 Anam North R.N. EKG time: (010). EKG was ordered, performed by a tech and shown to the ED physician. ( 2nd EKG). --01:19 Grace Silva ( Patient states that she has nausea. I notified the doctor). --02:10 Anam North R.N. 02:12 07/13/2016 Zofran (Ondansetron HCl) IVP 4 mg given over 1 minute(s) via site #1. Allergies verified and confirmed 5 rights. IV patency established. IV site checked: no pain, redness, or swelling. IV flushed thoroughly pre- and post-medication administration. IVP given by RN. --02:12 Anam North R.N. ( I called the patient's son Chuy, at the patient's request. And notified him that she was discharged. He states that he is coming to get her and drive her home, and that he will be here in approx. 40 minutes.). --02:19 Anam North R.N. Head of bed elevated 45 degrees. Call light placed in reach. Side rails up x 1. Bed placed in lowest position. Brakes of bed on. --02:20 Anam North R.N. ( Patient's son Chuy's phone number= [phone]). --02:21 Anam North R.N. ( Dr. Nuno currently with patient). --02:41 Anam North R.N. 03:00 07/13/2016 PHENERGAN (Promethazine HCl) IVP 6.25 mg given over 1 minute(s) via site #1. Allergies verified and confirmed 5 rights. IV patency established. IV site checked: no pain, redness, or swelling. IV flushed thoroughly pre- and post-medication administration. IVP given by RN. --03:08 Anam North R.N. ( Patient was undecided about whether or not she wanted to try phenergan for her nausea. She thought about it for a little while, and then agreed to try it after she began to vomit once more. She vomited cloudy white liquid, consistent with the color of the vanilla pudding she ate over an hour ago.). --03:10 Anam North R.N. ( Dr. ball current with patient. THe son of the patient is currently at the bedside. THe patient's cardiac technologist has been removed at her request.). --03:11 Anam North R.N. 03:26 07/13/2016 Site #1 removed upon discharge. Manual pressure, bandaid and bandage applied. --03:26 Anam North R.N. ( Chuy (son) cell phone [phone] (provided by patient's [id number]).). --03:30 Anam North R.N. 03:28 07/13/2016 IV Fluids IV NS Discontinued: infused upon discharge. Total amount infused: 320 mL. IV patency established. IV site checked: no pain, redness, or swelling. IV flushed thoroughly. --03:33 Anam North R.N. DISPOSITION / DISCHARGE Departure time: 03:31. Condition at departure: stable. No learning barriers present. Discharge instructions provided and reviewed with the patient. Reviewed warnings. Reviewed medication(s). Treatments reviewed. Reviewed referrals for followup. Patient verbalized understanding. Written instructions provided in Urdu. The patient was discharged home and accompanied by family. She left the Emergency Department in a wheelchair and via private vehicle. Family member driving. ( patient states that her nausea is better.). --03:32 Anam North R.N. 03:28 07/13/16. BP: 159/50. HR: 65. RR: 20. O2 saturation: 100% on room air. Pain level now: 04/26. --03:32 Anam North R.N. Locked/Released at 07/13/2016 3:33 by Anam North R.N.
--- NOTE | 2016-07-13 02:15 | ED ORDER SUMMARY ---
..... Patient: RENATO CARDONA OrderSheet [facility] VisitID: [id number] [place] [address] 85y, F Registration Date/Time: 07/12/2016 ORDER SHEET Weight: 100.2 kg (stated) Allergies: No Known Drug Allergy GENERAL ORDERS: Knee Bolter (Continuous) (chest pain) (22:19 07/12/2016 DDavis R.N. per protocol) (22:20 DDavis R.N.) EKG - ER Stat (22:20 07/12/2016 DDavis R.N. per protocol) (22:22 CHategekimana) Chest 1V Urgent (22:36 07/12/2016 Brenda WOOD) (Ack 22:42 CHagerty ER Network Technical Analyst) (22:49 CHagerty ER Network Technical Analyst) Knee Bolter (Continuous) (22:36 07/12/2016 Brenad WOOD) (22:38 DDavis R.N.) Cardiac Panel Stat (22:37 07/12/2016 Brenda WOOD) (22:38 DDavis R.N.) BNP Urgent (22:37 07/12/2016 Brenda WOOD) (22:38 DDavis R.N.) Oxygen (2 L/min) (NC) (22:37 07/12/2016 Brenda WOOD) (22:38 DDavis R.N.) Pulse oximeter (22:37 07/12/2016 Brenda WOOD) (22:38 DDavis R.N.) EKG - ER Stat (22:37 07/12/2016 Brenda WOOD) (22:38 DDavis R.N.) - (CATH UA PLEASE AND MORE MORPHINE AFTER ZOFRAN) (23:22 07/12/2016 Brenda WOOD) (Ack 23:46 DDavis R.N.) (23:58 DDavis R.N.) Lipase Urgent (23:22 07/12/2016 Brenda WOOD) (23:27 CHagerty ER Network Technical Analyst) UA-Culture if indicated Urgent (23:22 07/12/2016 Brenda WOOD) (Ack 23:27 CHagerty ER Network Technical Analyst) (23:58 DDavis R.N.) Troponin-I (NEW BLOOD DRAW PLEASE) Urgent (00:58 07/13/2016 Brenda WOOD) (Ack 1:09 CHagerty ER Network Technical Analyst) (1:11 DDavis R.N.) EKG - ER Repeat Stat (00:58 07/13/2016 Brenda WOOD) (1:09 CHagerty ER Network Technical Analyst) MEDICATION ORDERS: Phenergan IV 6.25 + 6.25 (titrate) (02:42 07/13/2016 Brenda WOOD) (Ack 2:43 DDavis R.N.) (3:08 DDavis R.N.) IV FLUIDS: IV NS : initial bolus 200 mL (1000 mL/hr), then TKO - for X1 (NOW); Urgent (22:36 07/12/2016 Brenda WOOD) (22:42 DDavis R.N.) Morphine IV 2 mg + 2 mg + 2 mg (titrate) (22:37 07/12/2016 Brenda WOOD) (Ack 23:03 DDavis R.N.) (23:10 DDavis R.N.) IV Saline Lock (22:37 07/12/2016 Brenda WOOD) (22:39 DDavis R.N.) Zofran IV 4 mg (NOW) (23:22 07/12/2016 Brenda WOOD) (23:44 DDavis R.N.) Morphine IV 2 mg + 2 mg + 2 mg IV (titrate) (00:41 07/13/2016 Brenda WOOD) (Ack 0:43 DDavis R.N.) (0:50 DDavis R.N.) Zofran IV 4 mg (NOW) (02:12 07/13/2016 DDavis R.N. verbal order read back to Brenda WOOD) (2:12 DDavis R.N.) ORDER SHEET NOTES: [Electronically signed by Anam North R.N. (03:33 07/13/2016)] [Electronically signed by Qamar Johnson MD (21:20 07/14/2016)] [Electronically locked/signed by Anam North R.N. (03:33 07/13/2016)]
--- NOTE | 2016-07-14 21:20 | ED DISCHARGE INSTRUCTIONS ---
Patient: RENATO CARDONA General Instructions [facility] VisitID: [id number] [place] [address] 85y, F Registration Date/Time: 07/12/2016 Acute abdominal pain of undetermined cause. Atypical chest pain LEFT LOWER LOBE ATELECTASIS. INSTRUCTIONS (I DID NOT FIND A CAUSE OF YOUR CHEST OR ABDOMINAL PAIN. I PROVED THAT IT WAS VERY UNLIKELY TO BE A HEART ATTACK. THERE IS SOME CHANCE IT COULD BE HEART PAINS YOU ALSO HAD A LITTLE SHADOW ON THE LEFT LOWER LUNG. I THINK IT IS FROM SHALLOW BREATHING NOT PNEUMONIA. IMMEDIATELY RETURN TO ED FOR NEW BAD SYMPTOMS SUCH FEVER, PROBLEMS BREATHING OR UNCONTROLLED CHEST OR ABDOMINAL PAIN.). Follow-up: Follow up with doctor KATE Friday in three days even if well. Understanding of the discharge instructions verbalized by patient. ADDITIONAL INFORMATION Chest Pain, Noncardiac Based on your visit today, the exact cause of your chest pain is not certain. Your condition does not seem serious and your pain does not appear to be coming from your heart. However, sometimes the signs of a serious problem take more time to appear. Therefore, please watch for the warning signs listed below. Home Care: Rest today and avoid strenuous activity. Take any prescribed medicine as directed. Follow Up with your doctor or this facility as instructed or if you do not start to feel better within 24 hours. Get Prompt Medical Attention if any of the following occur: A change in the type of pain: if it feels different, becomes more severe, lasts longer, or begins to spread into your shoulder, arm, neck, jaw or back Shortness of breath or increased pain with breathing Cough with dark colored sputum (phlegm) or blood Weakness, dizziness, or fainting Fever of 100.4F (38C) or higher, or as directed by your healthcare provider Swelling, pain or redness in one leg Abdominal Pain, Unknown Cause (Female) The exact cause of your abdominal (stomach) pain is not certain. This does not mean that this is something to worry about, or the right tests were not done. Everyone likes to know the exact cause of the problem, but sometimes with abdominal pain, there is no clear-cut cause, and this could be a good thing. The good news is that your symptoms can be treated, and you will feel better. Your condition does not seem serious now; however, sometimes the signs of a serious problem may take more time to appear. For this reason,it is important for you to watch for any new symptoms, problems,or worsening of your condition. Over the next few days, the abdominal pain may come and go, or be continuous. Other common symptoms can include nausea and vomiting. Sometimes it can be difficult to tell if you feel nauseous, you may just feel bad and not associate that feeling with nausea. Constipation, diarrhea, and a fever may go along with the pain. The pain may continue even if treated correctly over the following days. Depending on how things go, sometimes the cause can become clear and may require further or different treatment. Additional evaluations, medications, or tests may be needed. Home care Your health care provider may prescribe medications for pain, symptoms, or an infection. Follow the health care provider's instructions for taking these medications. General care Rest until your next exam. No strenuous activities. Try to find positions that ease discomfort. A small pillow placed on the abdomen may help relieve pain. Something warm on your abdomen (such as a heating pad) may help, but be careful not to burn yourself. Diet Do not force yourself to eat, especially if having cramps, vomiting, or diarrhea. Water is important so you do not get dehydrated. Soup may also be good. Sports drinks may also help, especially if they are not too acidic. Make sure you don't drink sugary drinks as this can make things worse. Take liquids in small amounts. Do not guzzle them. Caffeine sometimes makes the pain and cramping worse. Avoid dairy products if you have vomiting or diarrhea. Don't eat large amounts at a time. Wait a few minutes between bites. Eat a diet low in fiber (called a low-residue diet). Foods allowed include refined breads, white rice, fruit and vegetable juices without pulp, tender meats. These foods will pass more easily through the intestine. Avoid whole-grain foods, whole fruits and vegetables, meats, seeds and nuts, fried or fatty foods, dairy, alcohol and spicy foods until your symptoms go away. Follow-up care Follow up with your health care provider as instructed, or if your pain does not begin to improve in the next 24 hours. When to seek medical care Seek prompt medical care if any of the following occur: Pain gets worse or moves to the right lower abdomen New or worsening vomiting or diarrhea Swelling of the abdomen Unable to pass stool for more than three days Fever of 100.4F (38C) or higher, or as directed by your healthcare provider. Blood in vomit or bowel movements (dark red or black color) Jaundice (yellow color of eyes and skin) Weakness, dizziness Chest, arm, back, neck or jaw pain Unexpected vaginal bleeding or missed period Call 911 Call emergency services if any of the following occur: Trouble breathing Confusion Fainting or loss of consciousness Rapid heart rate Seizure You have been given the following additional information: Chest Pain, Noncardiac Abdominal Pain, Unknown Cause, (Female) (Electronically signed by Qamar Johnson MD 07/14/2016 21:20)
--- NOTE | 2016-07-14 21:20 | ED MED RECONCILIATION SUMMARY ---
Patient: RENATO CARDONA Medication Reconciliation Report [facility] VisitID: [id number] [place] [address] 85y, F Registration Date/Time: 07/12/2016 Weight: 100.2 kg Height/Length: 65 in. BMI: 36.8 ALLERGIES: No Known Drug Allergy The patient's Home Medications are listed below: THE FOLLOWING MEDICATIONS NEED TO BE RECONCILED: Amlodipine 5 md daily Aspirin 325 mg daily Atorvastatin 80 mg Q HS Fiber Capsules Glimepiride 2 mg daily before breakfast Hydrocodone with Acetaminophen Iron tablets Levothyroxine 100 mcg daily Losartan 25 mg daily Magnesium 300 mg BID Metoprolol tartrate 25 mg 1/2 tablet q AM and 1 tablet q AM Milk of Magnesia MiraLax Omeprazole 20 mg bid Senna Stool Softener Temazepam 15 mg Q HS The source(s) of the original Home Medication information: Not obtained. The following Medications were given to the patient in the Emergency Department: IV NS IV Fluids bolus 0, then 1000 mL/hr, administered: 07/12/2016 10:41:00 PM Morphine [IVP] IVP 2 mg, administered: 07/12/2016 11:08:00 PM Zofran [IVP] IVP 4 mg, administered: 07/12/2016 11:41:00 PM Morphine [IVP] IVP 2 mg, administered: 07/12/2016 11:42:00 PM Morphine [IVP] IVP 2 mg, administered: 07/13/2016 12:25:00 AM Morphine [IVP] IVP 2 mg, administered: 07/13/2016 12:48:00 AM Zofran [IVP] IVP 4 mg, administered: 07/13/2016 2:12:00 AM PHENERGAN [IVP] IVP 6.25 mg, administered: 07/13/2016 3:00:00 AM The following Medications were prescribed to the patient: None.
--- NOTE | 2016-07-14 21:20 | ED MAR SUMMARY ---
..... Medication Administration Record [facility] [address] [facility] [facility] [place] [address] Patient: RENATO CARDONA Visit ID: [id number] 85y, F Weight: 100.2 kg Height/Length: 65 in BMI: 36.8 ALLERGIES: No Known Drug Allergy Start 22:41 07/12/2016 Anam North R.N., Stop 03:28 07/13/2016 Anam North R.N. Medication Administered: IV NS (SALINE), Dose: IV Fluids over 12 minute(s), Rate: 1000 mL/hr, Dispensed: 200 mL bag, Site: #1 left hand. Medication Ordered: IV NS : initial bolus 200 mL (1000 mL/hr), then TKO - for X1 (NOW); Urgent. Given 23:08 07/12/2016 Anam North R.N. Medication Administered: MORPHINE [IVP], Dose: 2 mg IVP over 2 minute(s), Site: #1 left hand. Medication Ordered: Morphine IV 2 mg + 2 mg + 2 mg (titrate). Given 23:41 07/12/2016 Anam North R.N. Medication Administered: ZOFRAN [IVP] (ONDANSETRON HCL), Dose: 4 mg IVP over 1 minute(s), Site: #1 left hand. Medication Ordered: Zofran IV 4 mg (NOW). Given 23:42 07/12/2016 Anam North R.N. Medication Administered: MORPHINE [IVP], Dose: 2 mg IVP over 2 minute(s), Site: #1 left hand. Medication Ordered: Morphine IV 2 mg + 2 mg + 2 mg (titrate). Given 00:25 07/13/2016 Dony Valencia R.N. Medication Administered: MORPHINE [IVP], Dose: 2 mg IVP, Site: #1 left hand. Medication Ordered: Morphine IV 2 mg + 2 mg + 2 mg (titrate). Given 00:48 07/13/2016 Anam North R.N. Medication Administered: MORPHINE [IVP], Dose: 2 mg IVP over 2 minute(s), Site: #1 left hand. Medication Ordered: Morphine IV 2 mg + 2 mg + 2 mg IV (titrate). Given 02:12 07/13/2016 Anam North R.N. Medication Administered: ZOFRAN [IVP] (ONDANSETRON HCL), Dose: 4 mg IVP over 1 minute(s), Site: #1 left hand. Medication Ordered: Zofran IV 4 mg (NOW). Given 03:00 07/13/2016 Anam North R.N. Medication Administered: PHENERGAN [IVP] (PROMETHAZINE HCL), Dose: 6.25 mg IVP over 1 minute(s), Site: #1 left hand. Medication Ordered: Phenergan IV 6.25 + 6.25 (titrate).
--- NOTE | 2016-07-14 21:20 | ED MED RECONCILIATION SUMMARY ---
Patient: RENATO CARDONA Medication Reconciliation Report [facility] VisitID: [id number] [place] [address] 85y, F Registration Date/Time: 07/12/2016 Weight: 100.2 kg Height/Length: 65 in. BMI: 36.8 ALLERGIES: No Known Drug Allergy The patient's Home Medications are listed below: THE FOLLOWING MEDICATIONS NEED TO BE RECONCILED: Amlodipine 5 md daily Aspirin 325 mg daily Atorvastatin 80 mg Q HS Fiber Capsules Glimepiride 2 mg daily before breakfast Hydrocodone with Acetaminophen Iron tablets Levothyroxine 100 mcg daily Losartan 25 mg daily Magnesium 300 mg BID Metoprolol tartrate 25 mg 1/2 tablet q AM and 1 tablet q AM Milk of Magnesia MiraLax Omeprazole 20 mg bid Senna Stool Softener Temazepam 15 mg Q HS The source(s) of the original Home Medication information: Not obtained. The following Medications were given to the patient in the Emergency Department: IV NS IV Fluids bolus 0, then 1000 mL/hr, administered: 07/12/2016 10:41:00 PM Morphine [IVP] IVP 2 mg, administered: 07/12/2016 11:08:00 PM Zofran [IVP] IVP 4 mg, administered: 07/12/2016 11:41:00 PM Morphine [IVP] IVP 2 mg, administered: 07/12/2016 11:42:00 PM Morphine [IVP] IVP 2 mg, administered: 07/13/2016 12:25:00 AM Morphine [IVP] IVP 2 mg, administered: 07/13/2016 12:48:00 AM Zofran [IVP] IVP 4 mg, administered: 07/13/2016 2:12:00 AM PHENERGAN [IVP] IVP 6.25 mg, administered: 07/13/2016 3:00:00 AM The following Medications were prescribed to the patient: None.
--- NOTE | 2016-07-14 21:20 | ED MAR SUMMARY ---
..... Medication Administration Record [facility] [address] [facility] [place] [address] Patient: RENATO CARDONA Visit ID: [id number] 85y, F Weight: 100.2 kg Height/Length: 65 in BMI: 36.8 ALLERGIES: No Known Drug Allergy Start 22:41 07/12/2016 Anam North R.N., Stop 03:28 07/13/2016 Anam North R.N. Medication Administered: IV NS (SALINE), Dose: IV Fluids over 12 minute(s), Rate: 1000 mL/hr, Dispensed: 200 mL bag, Site: #1 left hand. Medication Ordered: IV NS : initial bolus 200 mL (1000 mL/hr), then TKO - for X1 (NOW); Urgent. Given 23:08 07/12/2016 Anam North R.N. Medication Administered: MORPHINE [IVP], Dose: 2 mg IVP over 2 minute(s), Site: #1 left hand. Medication Ordered: Morphine IV 2 mg + 2 mg + 2 mg (titrate). Given 23:41 07/12/2016 Anam North R.N. Medication Administered: ZOFRAN [IVP] (ONDANSETRON HCL), Dose: 4 mg IVP over 1 minute(s), Site: #1 left hand. Medication Ordered: Zofran IV 4 mg (NOW). Given 23:42 07/12/2016 Anam North R.N. Medication Administered: MORPHINE [IVP], Dose: 2 mg IVP over 2 minute(s), Site: #1 left hand. Medication Ordered: Morphine IV 2 mg + 2 mg + 2 mg (titrate). Given 00:25 07/13/2016 Dony Valencia R.N. Medication Administered: MORPHINE [IVP], Dose: 2 mg IVP, Site: #1 left hand. Medication Ordered: Morphine IV 2 mg + 2 mg + 2 mg (titrate). Given 00:48 07/13/2016 Anam North R.N. Medication Administered: MORPHINE [IVP], Dose: 2 mg IVP over 2 minute(s), Site: #1 left hand. Medication Ordered: Morphine IV 2 mg + 2 mg + 2 mg IV (titrate). Given 02:12 07/13/2016 Anam North R.N. Medication Administered: ZOFRAN [IVP] (ONDANSETRON HCL), Dose: 4 mg IVP over 1 minute(s), Site: #1 left hand. Medication Ordered: Zofran IV 4 mg (NOW). Given 03:00 07/13/2016 Anam North R.N. Medication Administered: PHENERGAN [IVP] (PROMETHAZINE HCL), Dose: 6.25 mg IVP over 1 minute(s), Site: #1 left hand. Medication Ordered: Phenergan IV 6.25 + 6.25 (titrate).
[2016-08-30] MEDS ORDERED: ASPIRIN325 MG PO (11:43)
[2016-08-30] MEDS ORDERED: MAGNESIUM400 M1 PO (11:43)
[2016-08-30] MEDS ORDERED: MILK OF MA400 MG/5 M PO ×2 (11:46→11:47)
== END 2016-07-13 03:31 | disposition home or self-care (01) ==
LOC: ED SRH 22:07
DX: R10.9 Unspecified abdominal pain (principal); J98.11 Atelectasis; R07.89 Other chest pain; I51.9 Heart disease, unspecified; I10 Essential (primary) hypertension; E11.9 Type 2 diabetes mellitus without complications; E73.8 Other lactose intolerance; Z79.82 Long term (current) use of aspirin; Z79.84 Long term (current) use of oral hypoglycemic drugs
CPT/HCPCS: 81460; 90004; 90100; 90616; 91320; 92235; 92610; 92720; 95059

== ENCOUNTER 2016-07-26 18:32 | Emergency (ER) | payer OTHER, MEDICARE ==
--- NOTE | 2016-07-26 19:11 | DIAGNOSTIC IMAGING REPORT ---
PROCEDURE: XR CHEST 1 VIEW INDICATION: CHEST PAIN TECHNIQUE: Portable AP view (1905 hours). COMPARISON: Compared to chest x-ray on 07/12/2016 and 06/13/2016. FINDINGS: Allowing for suboptimal inspiration, there is minor volume loss at the right lung base. Lungs are otherwise clear. Heart and mediastinum are normal. Moderate degenerate changes thoracic spine. IMPRESSION: 1. Allowing for suboptimal inspiration, negative chest. 2. Findings discussed with Dr. Leighton Mendoza.
--- NOTE | 2016-07-26 20:48 | ED NURSING NOTES ---
Clinical Report - Nurses [facility] [address] [place] [address] 07/26/2016 18:35 Patient: RENATO CARDONA TRIAGE Triage time 18:30 Jul 26 2016. Acuity: LEVEL 3. Chief Complaint: CHEST PAIN. Alert. JESSIE COMA SCORE: Jessie Coma Scale: 15- eyes open spontaneously (4); best verbal response- oriented x 4 (5); best motor response- obeys commands (6). --18:49 Goyo Pollack R.N. 18:37 07/26/16. BP: 123/56. HR: 72. RR: 18. O2 saturation: 96% on nasal cannula at 2 liters/minute. Temp: 98 F. Pain level now: 08/24. --18:49 Goyo Pollack R.N. Weight: 44.1 kg measured. Height/Length: 65 inches. BMI: 16.2. --18:47 Gyoo Pollack R.N. Medications Amlodipine 5 md daily. Aspirin 325 mg daily. Atorvastatin 80 mg Q HS. Fiber Capsules. Glimepiride 2 mg daily before breakfast. Hydrocodone with Acetaminophen. Iron tablets. Levothyroxine 100 mcg daily. Losartan 25 mg daily. Magnesium 300 mg BID. Metoprolol tartrate 25 mg 1/2 tablet q AM and 1 tablet q AM. Milk of Magnesia. MiraLax. Omeprazole 20 mg bid. Senna. Stool Softener. Temazepam 15 mg Q HS. --18:45 Goyo Pollack R.N. Medication/allergy information source: the patient. --18:49 Goyo Pollack R.N. Allergies No Known Drug Allergy. --18:45 Goyo Pollack R.N. History Arrived by EMS. Historian: patient. Primary physician (Mary). ( Chest Pain starting two hours ago. Pt took 3 NTG SL without relief and given 3 more NTG in transport by EMS and ASA 325 mg. CP presently 08/24.). This started just prior to arrival and today. Onset. (about 2 hours ago). She has had difficulty breathing. ( Slight Abd Pain). Treatment DRUM SPRAYER: Took aspirin and NTG x3 sublingually. Symptoms did not improve after treatment. PAST MEDICAL HX: Immunizations: up-to-date. The patient is post-menopausal. SOCIAL HX: Former smoker, end date 1996. No alcohol use or drug use. No infectious disease exposure. ABUSE ASSESSMENT: No report of abuse. FALL RISK ASSESSMENT: Fall risk assessment completed. No fall risk identified. NUTRITIONAL RISK ASSESSMENT: The nutritional risk assessment revealed no deficiencies. FUNCTIONAL ASSESSMENT: Functional assessment: no impairments noted. LEARNING NEEDS ASSESSMENT: The learning needs assessment revealed no barriers. SKIN INTEGRITY ASSESSMENT: Skin integrity risk assessment completed. No skin integrity risk identified. --18:49 Goyo Pollack R.N. PROBLEMS: Hypertension [Active]. Heart Disease [Active]. Diabetes Mellitus [Active]. Dyspnea [Active]. Chest Pain [Active]. --18:45 Goyo Pollack R.N. Pneumonia. LAD stent (2011). Hypothyroidism. Blood Transfusions. 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 Constipation. Diverticulitis. Hernia. Hyperkalemia. Hypertension. Hyperlipidemia. Chest Pain of GI Origin. Palpitations. Abnormal EKG. Ovarian Cyst. Back Pain. Acute Pain. Atypical Chest Pain. Anemia. UTI - Urinary Tract Infection. Immunizations. Diabetes Mellitus. Pyelonephritis. Abdominal Pain. Heart Disease. Hyperglycemia. Renal Insufficiency. Chest Pain. Coronary Artery Disease. Sinus bradycardia. --18:45 Goyo Pollack R.N. Angina [RuleOut]. Acute Myocardial Infarction [RuleOut]. --18:45 Goyo Pollack R.N. ADDITIONAL SURGERIES: Bilateral hip replacements. Bowel Surgery. Cardiac Procedures. Cholecystectomy. Colonoscopy. Hernia Repair. Hysterectomy. Partial colectomy. R knee surgery. Shoulder Surgery. Traumatic R hand amputation. --18:45 Goyo Pollack R.N. Interventions ID band on patient. To treatment room. --18:49 Goyo Pollack R.N. PHYSICAL ASSESSMENT Ambulatory to room. GENERAL / NEURO / PSYCH: Alert. Oriented X 4. HEENT: Mucous membranes are pink. RESPIRATORY: Respirations not labored. CVS: Normal sinus rhythm noted. GI / : Abdomen soft and nontender. EXTREMITIES: No lower extremity edema. SKIN: Skin is warm and dry. Normal skin turgor. --18:50 Goyo Pollack R.N. NURSING PROGRESS NOTES Oxygen administered by nasal cannula at 2 liters. Monitoring of patient in place. Patient gowned. Patient ready for evaluation- chart flagged and ED physician notified. --18:51 Goyo Pollack R.N. monitoring tech, pulse oximeter and NIBP monitor placed on patient; site monitor- Lead II and V1; monitor alarms on. --18:52 Goyo Pollack R.N. 18:40 07/26/2016 Site #1 started prior to arrival by EMS via IV in the left wrist with an 20g angiocath, with aseptic technique and good blood return. --18:55 Goyo Pollack R.N. 19:35. EKG time: (1935 PM). EKG was ordered, performed by a tech and shown to the ED physician. --18:56 Goyo Pollack R.N. 19:01 07/26/16. BP: 132/49. HR: 64. RR: 18. O2 saturation: 96%. --19:03 Goyo Pollack R.N. EKG time: (1852). EKG was ordered, performed by a tech and shown to the ED physician. --19:05 Herb Mccray, ER Tech1 19:25 07/26/16. BP: 132/49. HR: 63. RR: 16. O2 saturation: 96% on nasal cannula at 2 liters/minute. O2 started via nasal cannula at 2 liters/minute. Temp: deferred. Pain level now: 2/10. Patient is conversant. --19:28 Stanley Cordova R.N. Cardiac rhythm: normal sinus rhythm. Patient ID band checked for patient name and birthdate: patient confirmed. Blood samples drawn from the left hand with Vacutainer by nurse ; labeled in presence of the patient and sent to lab: rainbow set: cardiac enzymes (1st set). Reassessment after oxygen administered. She is calm and resting quietly. RESPIRATORY: No respiratory distress. Breath sounds normal. CVS: The patient reports central chest pain that is mild in severity and is described as intermittent. Normal sinus rhythm noted. SKIN: Skin is warm and dry. Skin color within normal limits. --19:28 Stanley Cordova R.N. Finger stick glucose: 127 mg/dL; performed by nurse. --19:32 Stanley Cordova R.N. 19:31 07/26/16. BP: 102/54. HR: 60. RR: 20. O2 saturation: 95%. Temp: deferred. --19:32 Stanley Cordova R.N. 20:23 07/26/16. BP: 117/42. HR: 62. RR: 16. O2 saturation: 98% on nasal cannula at 2 liters/minute. O2 started via nasal cannula at 2 liters/minute. Pain level now: 210. --20:25 Stanley Cordova R.N. Cardiac rhythm: normal sinus rhythm; occasional PVCs. Reassessment after (PO fluids). RESPIRATORY: No respiratory distress. Breath sounds normal. CVS: The patient reports chest pain that is mild in severity and is described as intermittent. SKIN: Skin is warm and dry. Skin color within normal limits. --20:25 Stanley Cordova R.N. 20:52 07/26/2016 IV Saline Lock Drip IV Discontinued. Total amount infused: 10 mL. IV patency established. IV site checked: no pain, redness, or swelling. IV flushed thoroughly. --21:02 Stanley Cordova R.N. DISPOSITION / DISCHARGE 20:53 07/26/2016 Site #1 removed upon discharge. Pressure dressing applied. --20:58 Stanley Cordova R.N. Condition at departure: improved. No learning barriers present. Discharge instructions provided and reviewed with the patient. Reviewed referrals. Patient verbalized understanding. Written instructions provided in Yakut. The patient was discharged home and accompanied by office auditor and friend. She left the Emergency Department in a wheelchair and via private vehicle. Heading Pinner driving (friend). --20:59 Stanley Cordova R.N. 20:56 07/26/16. BP: 133/58. HR: 70. RR: 18. O2 saturation: 96% on room air. Temp: 98.1 F. Pain level now: 0/10. --20:59 Stanley Cordova R.N. Departure time: 21:01. --21:01 Stanley Cordova R.N. Locked/Released at 07/26/2016 21:02 by Stanley Cordova R.N.
--- NOTE | 2016-07-26 20:48 | ED ORDER SUMMARY ---
..... Patient: RENATO CARDONA OrderSheet [facility] VisitID: [id number] [place] [address] 85y, F Registration Date/Time: 07/26/2016 ORDER SHEET Weight: 44.1 kg (measured) Allergies: No Known Drug Allergy GENERAL ORDERS: Kelly Machine Operator (Continuous) (18:53 07/26/2016 Jason R.N. verbal order read back to Nathan WOOD) (18:53 Jason R.N.) (Ack 18:54 IJurca ER Tech1) Oxygen (2 L/min) (NC) (18:53 07/26/2016 Jason R.N. verbal order read back to Nathan WOOD) (18:53 Leleelli R.N.) (Ack 18:54 IJurca ER Tech1) Pulse oximeter (18:53 07/26/2016 Jason R.N. verbal order read back to Nathan WOOD) (18:53 omanelli R.N.) (Ack 18:54 IJurca ER Tech1) EKG - ER Stat (18:53 07/26/2016 Jason R.N. verbal order read back to Nathan WOOD) (18:53 Leleelli R.N.) (18:54 IJurca ER Tech1) Chest 1V Urgent (18:57 07/26/2016 Nathan WOOD) (Ack 19:00 IJurca ER Tech1) (19:10 MCampbell) Cardiac Panel Stat (18:57 07/26/2016 Nathan WOOD) (Ack 19:00 IJurca ER Tech1) (19:25 Alessandro R.N.) BNP Urgent (18:57 07/26/2016 Nathan WOOD) (Ack 19:00 IJurca ER Tech1) (19:25 Alessandro R.N.) ESR Urgent (18:57 07/26/2016 Nathan WOOD) (Ack 19:00 IJurca ER Tech1) (19:25 Alessandro R.N.) CRP Urgent (18:57 07/26/2016 Nathan WOOD) (Ack 19:00 IJurca ER Tech1) (19:25 Alessandro Branch) MEDICATION ORDERS: IV FLUIDS: IV Saline Lock (18:53 07/26/2016 Jason Branch verbal order read back to Nathan WOOD) (18:55 Jason Branch) ORDER SHEET NOTES: [Electronically signed by Stanley Cordova R.N. (21:02 07/26/2016)] [Electronically signed by Leighton Mendoza MD (08:56 07/28/2016)] [Electronically locked/signed by Stanley Cordova R.N. (21:02 07/26/2016)]
--- NOTE | 2016-07-26 20:48 | ED CLINICAL REPORT ---
Clinical Report - Physicians/Mid Levels [facility] [address] [place] [address] 07/26/2016 18:35 Patient: RENATO CARDONA Time Seen: 18:37 May 2016. Arrived- By ambulance. Historian- patient and EMS personnel. CPT: ER phys charges level 5 plus (#[id number]). EKG interpretation (#[id number]). HISTORY OF PRESENT ILLNESS Chief Complaint: CHEST PAIN. This started today about 1500 and is still present. It was abrupt in onset and has been constant. Onset during light activity. At its maximum, severity described as moderate. When seen in the E.D., it was gone. Modifying factors- worsened by movement and deep breaths. Relieved by nitroglycerin (six, from patients own supply, given by paramedics). Relief was complete. It is described as sharp, "pain" and well localized and it is described as located in the left chest area. No nausea, vomiting, difficulty breathing or diaphoresis. Similar symptoms previously: As bad. Recent medical care: The patient was seen recently at this facility (2 weeks ago). ( Has seen he r aircraft steel fabricator in [place] "Dr Clark" and he wants to do a cath next week.). Seen for similar symptoms. Evaluation/treatment: x-rays, labs and EKG. ( Extensive w/u for chest pain. Was discharged home with atypical CP.). REVIEW OF SYSTEMS No fever, chills, cough or calf pain. She has had mild pedal edema involving the right and left lower extremity (chronically). PAST HISTORY Hypertension [Active]. Heart Disease [Active]. Diabetes Mellitus [Active]. Dyspnea [Active]. Chest Pain [Active]. Pneumonia. LAD stent (2011). Hypothyroidism. Blood Transfusions. 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 Constipation. Diverticulitis. Hernia. Hyperkalemia. Hypertension. Hyperlipidemia. Angina [RuleOut]. Acute Myocardial Infarction [RuleOut]. ADDITIONAL SURGERIES: Bilateral hip replacements. Bowel Surgery. Cardiac Procedures. Cholecystectomy. Colonoscopy. Hernia Repair. Hysterectomy. Partial colectomy. R knee surgery. Shoulder Surgery. Traumatic R hand amputation. Medications: Amlodipine 5 md daily. Aspirin 325 mg daily. Atorvastatin 80 mg Q HS. Fiber Capsules. Glimepiride 2 mg daily before breakfast. Hydrocodone with Acetaminophen. Iron tablets. Levothyroxine 100 mcg daily. Losartan 25 mg daily. Magnesium 300 mg BID. Metoprolol tartrate 25 mg 1/2 tablet q AM and 1 tablet q AM. Milk of Magnesia. MiraLax. Omeprazole 20 mg bid. Senna. Stool Softener. Temazepam 15 mg Q HS. Allergies: No Known Drug Allergy. SOCIAL HISTORY Former smoker. No alcohol use or drug use. ADDITIONAL NOTES The nursing notes have been reviewed. PHYSICAL EXAM Vital Signs: 07/26/2016 18:37 BP: 123/56. HR: 72. RR: 18. O2 saturation: 96%. Temp: 98 F. Pain level now: 08/24. Appearance: Alert. No acute distress. Eyes: Eyes normal inspection. ENT: Pharynx normal. Neck: Neck supple. No carotid bruit. (tender over the right carotid.). CVS: Normal heart rate and rhythm. Heart sounds normal. Pulses normal. No cardiac murmur. Respiratory: No respiratory distress. Chest pain reproducible with palpation of the anterior chest wall, with movement of the trunk and left arm and with deep breathing. Breath sounds normal. Back: Normal external inspection. Skin: Skin warm. Normal skin color. No rash. Extremities: Bilateral mild 1+ pitting edema of the lower extremities. Extremities exhibit normal ROM. Neuro: Oriented X 3. No motor deficit. No sensory deficit. LABS, X-RAYS, AND EKG EKG: Normal sinus rhythm. RBBB. Left axis deviation. Non-specific ST segment / T wave abnormalities. EKG unchanged when compared with prior EKG. The study has been interpreted contemporaneously. The study has been independently viewed by me. The EKG appears to be a good tracing. Chest X-ray: (mild bibasilar atelectasis. No clear acute findings.). Views: AP (portable). Technique: good. The X-rays were independently viewed by me, interpreted by the radiologist and discussed with the radiologist. Laboratory Tests: ESR: (DESTINEE: 07/26/2016 19:23) ( MsgRcvd 07/26/2016 20:27) Final results Test Result Flag Units (Reference) SED RATE WESTERGREN 10 mm/hr (0-30) CBC w Diff: (DESTINEE: 07/26/2016 19:23) ( [facility] 07/26/2016 19:35) Final results Test Result Flag Units (Reference) WHITE BLOOD COUNT 8.3 K/uL (4.5-11.5) RED BLOOD COUNT 3.85 L M/uL (4.00-5.20) HEMOGLOBIN 11.4 L gm/dL (12.0-16.0) HEMATOCRIT 34.5 L % (36.0-46.0) MEAN CELL VOLUME 89 fL (80-100) MEAN CORPUSCULAR HGB 30 pg (26-34) MEAN CORPUSCULAR HGB CONC 33 g/dL (31-37) RED CELL DISTRIBUTION WIDTH 16.3 H % (11.6-14.8) PLATELET COUNT 261 K/uL (150-400) NEUTROPHIL % 61.4 % (50-75) LYMPH % 19.6 L % (25-40) MONO % 6.3 % (3-14) EOSINOPHIL % 12.4 H % (0-4) BASOPHIL % 0.3 % (0-2) [id number]: (DESTINEE: 07/26/2016 19:23) ( [facility] 07/26/2016 20:00) Final results Test Result Flag Units (Reference) C-REACTIVE PROTEIN < 0.2 mg/dL (0.0-0.9) BNP: (DESTINEE: 07/26/2016 19:23) ( [facility] 07/26/2016 20:27) Final results Test Result Flag Units (Reference) B-TYPE NATRIURETIC PEPTIDE 139 H pg/ml (5-100) CHEM 13 PANEL: (DESTINEE: 07/26/2016 19:23) ( [facility] 07/26/2016 20:01) Final results Test Result Flag Units (Reference) GLUCOSE 127 H mg/dL (70-110) BUN 24 H mg/dL (7-18) CREATININE 1.4 H mg/dL (0.6-1.3) Estimated GFR 38.17 mL/min Estimated GFR- 46.26 mL/min Note: Persistent reduction over 3 months in eGFR<60 mL/min/1.73 m2 defines CKD. Patients with eGFR values>=60 mL/min/1.73 m2 may also have CKD if evidence ofpersistent proteinuria. Additional information may be foundat www.kidney.org. SODIUM 136 mmol/L (136-145) POTASSIUM 5.0 mmol/L (3.5-5.1) CHLORIDE 101 mmol/L (98-107) CARBON DIOXIDE 28 mmol/L (21-32) CALCIUM 9.4 mg/dL (8.5-10.1) TOTAL PROTEIN 6.3 L g/dL (6.4-8.2) ALBUMIN 3.5 g/dL (3.3-5.0) BILIRUBIN, TOTAL 0.4 mg/dL (0.0-1.0) ALKALINE PHOSPHATASE 108 U/L (46-116) AST (SGOT) 13 L U/L (15-37) ALT (SGPT) 22 U/L (12-78) MAGNESIUM 2.3 mg/dL (1.8-2.4) CPK 40 U/L (24-260) TROPONIN I <0.05 ng/mL (0.00-1.5) TROPONIN REFERENCE RANGE:<0.1 NEGATIVE0.1-1.5 INDETERMINANT>1.5 POSITIVE . PROGRESS AND PROCEDURES Course of Care: Pt had NTG times 6 and ASA 324 mg in the field. Pain free at this time unless pushing on her chest. 20:42 07/26/16. Discussed negative tests at this time. Exam shows reproducible pain again and she states this is the pain she came in for. She had it for 4 hours straight and enzymes are normal. The 6 NTG she took seemed to resolve the pain but unclear if it went away on its own or if the NTG helped, or if it was a different pain. I offered her an observation bed and she declined and wishes to go home. I offered a 3 hour troponin and she also declined this . She understands that she could potentially at home and she states that she is ready if this happens. She will stay if she has a lot of problems with a walk test. Ambulates 300 feet without the return of CP. Patient/family counseled. Disposition: Discharged. Condition: stable. CLINICAL IMPRESSION Atypical chest pain .12 lead EKG performed. INSTRUCTIONS No strenuous activity. Warnings: Further evaluation is necessary. GENERAL WARNINGS: Return or contact your physician immediately if your condition worsens or changes unexpectedly, if not improving as expected, or if other problems arise. Your Current Medications: CONTINUE TAKING THE FOLLOWING MEDICATIONS: Amlodipine 5 md daily*. Aspirin 325 mg daily*. Atorvastatin 80 mg Q HS*. Fiber Capsules*. Glimepiride 2 mg daily before breakfast*. Hydrocodone with Acetaminophen*. Iron tablets*. Levothyroxine 100 mcg daily*. Losartan 25 mg daily*. Magnesium 300 mg BID*. Metoprolol tartrate 25 mg 1/2 tablet q AM and 1 tablet q AM*. Milk of Magnesia*. MiraLax*. Omeprazole 20 mg bid*. Senna*. Stool Softener*. Temazepam 15 mg Q HS*. OTC Medications: Acetaminophen (available over the counter): take according to label instructions. Follow-up: Follow up with a aircraft steel fabricator in one week as scheduled. Understanding of the discharge instructions verbalized by patient. (Electronically signed by Leighton Mendoza MD 07/28/2016 8:56)
--- NOTE | 2016-07-26 20:48 | ED ORDER SUMMARY ---
..... Patient: RENATO CARDONA OrderSheet [facility] VisitID: [id number] [place] [address] 85y, F Registration Date/Time: 07/26/2016 ORDER SHEET Weight: 44.1 kg (measured) Allergies: No Known Drug Allergy GENERAL ORDERS: Station Superintendent (Continuous) (18:53 07/26/2016 Jason R.N. verbal order read back to Nathan WOOD) (18:53 Jason R.N.) (Ack 18:54 IJurca ER Tech1) Oxygen (2 L/min) (NC) (18:53 07/26/2016 Jason R.N. verbal order read back to Nathan WOOD) (18:53 Leleelli R.N.) (Ack 18:54 IJurca ER Tech1) Pulse oximeter (18:53 07/26/2016 Jason R.N. verbal order read back to Nathan WOOD) (18:53 omanelli R.N.) (Ack 18:54 IJurca ER Tech1) EKG - ER Stat (18:53 07/26/2016 Jason R.N. verbal order read back to Nathan WOOD) (18:53 Leleelli R.N.) (18:54 IJurca ER Tech1) Chest 1V Urgent (18:57 07/26/2016 Nathan WOOD) (Ack 19:00 IJurca ER Tech1) (19:10 MCampbell) Cardiac Panel Stat (18:57 07/26/2016 Nathan WOOD) (Ack 19:00 IJurca ER Tech1) (19:25 Alessandro R.N.) BNP Urgent (18:57 07/26/2016 Nathan WOOD) (Ack 19:00 IJurca ER Tech1) (19:25 Alessandro R.N.) ESR Urgent (18:57 07/26/2016 Nathan WOOD) (Ack 19:00 IJurca ER Tech1) (19:25 Alessandro R.N.) CRP Urgent (18:57 07/26/2016 Nathan WOOD) (Ack 19:00 IJurca ER Tech1) (19:25 Alessandro Branch) MEDICATION ORDERS: IV FLUIDS: IV Saline Lock (18:53 07/26/2016 Jason Branch verbal order read back to Nathan WOOD) (18:55 Jason Branch) ORDER SHEET NOTES: [Electronically signed by Stanley Cordova R.N. (21:02 07/26/2016)] [Electronically signed by Leighton Mendoza MD (08:56 07/28/2016)] [Electronically locked/signed by Stanley Cordova R.N. (21:02 07/26/2016)]
--- NOTE | 2016-07-26 20:48 | ED NURSING NOTES ---
Clinical Report - Nurses [facility] [address] [place] [address] 07/26/2016 18:35 Patient: RENATO CARDONA TRIAGE Triage time 18:30 Jul 26 2016. Acuity: LEVEL 3. Chief Complaint: CHEST PAIN. Alert. JESSIE COMA SCORE: Jessie Coma Scale: 15- eyes open spontaneously (4); best verbal response- oriented x 4 (5); best motor response- obeys commands (6). --18:49 Goyo Pollack R.N. 18:37 07/26/16. BP: 123/56. HR: 72. RR: 18. O2 saturation: 96% on nasal cannula at 2 liters/minute. Temp: 98 F. Pain level now: 08/24. --18:49 Goyo Pollack R.N. Weight: 44.1 kg measured. Height/Length: 65 inches. BMI: 16.2. --18:47 Goyo Pollack R.N. Medications Amlodipine 5 md daily. Aspirin 325 mg daily. Atorvastatin 80 mg Q HS. Fiber Capsules. Glimepiride 2 mg daily before breakfast. Hydrocodone with Acetaminophen. Iron tablets. Levothyroxine 100 mcg daily. Losartan 25 mg daily. Magnesium 300 mg BID. Metoprolol tartrate 25 mg 1/2 tablet q AM and 1 tablet q AM. Milk of Magnesia. MiraLax. Omeprazole 20 mg bid. Senna. Stool Softener. Temazepam 15 mg Q HS. --18:45 Goyo Pollack R.N. Medication/allergy information source: the patient. --18:49 Goyo Pollack R.N. Allergies No Known Drug Allergy. --18:45 Goyo Pollack R.N. History Arrived by EMS. Historian: patient. Primary physician (Mary). ( Chest Pain starting two hours ago. Pt took 3 NTG SL without relief and given 3 more NTG in transport by EMS and ASA 325 mg. CP presently 08/24.). This started just prior to arrival and today. Onset. (about 2 hours ago). She has had difficulty breathing. ( Slight Abd Pain). Treatment MEDICAL DATA ENTRY CLERK: Took aspirin and NTG x3 sublingually. Symptoms did not improve after treatment. PAST MEDICAL HX: Immunizations: up-to-date. The patient is post-menopausal. SOCIAL HX: Former smoker, end date 1996. No alcohol use or drug use. No infectious disease exposure. ABUSE ASSESSMENT: No report of abuse. FALL RISK ASSESSMENT: Fall risk assessment completed. No fall risk identified. NUTRITIONAL RISK ASSESSMENT: The nutritional risk assessment revealed no deficiencies. FUNCTIONAL ASSESSMENT: Functional assessment: no impairments noted. LEARNING NEEDS ASSESSMENT: The learning needs assessment revealed no barriers. SKIN INTEGRITY ASSESSMENT: Skin integrity risk assessment completed. No skin integrity risk identified. --18:49 Goyo Pollack R.N. PROBLEMS: Hypertension [Active]. Heart Disease [Active]. Diabetes Mellitus [Active]. Dyspnea [Active]. Chest Pain [Active]. --18:45 Goyo Pollack R.N. Pneumonia. LAD stent (2011). Hypothyroidism. Blood Transfusions. 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 Constipation. Diverticulitis. Hernia. Hyperkalemia. Hypertension. Hyperlipidemia. Chest Pain of GI Origin. Palpitations. Abnormal EKG. Ovarian Cyst. Back Pain. Acute Pain. Atypical Chest Pain. Anemia. UTI - Urinary Tract Infection. Immunizations. Diabetes Mellitus. Pyelonephritis. Abdominal Pain. Heart Disease. Hyperglycemia. Renal Insufficiency. Chest Pain. Coronary Artery Disease. Sinus bradycardia. --18:45 Goyo Pollack R.N. Angina [RuleOut]. Acute Myocardial Infarction [RuleOut]. --18:45 Goyo Pollack R.N. ADDITIONAL SURGERIES: Bilateral hip replacements. Bowel Surgery. Cardiac Procedures. Cholecystectomy. Colonoscopy. Hernia Repair. Hysterectomy. Partial colectomy. R knee surgery. Shoulder Surgery. Traumatic R hand amputation. --18:45 Goyo Pollack R.N. Interventions ID band on patient. To treatment room. --18:49 Goyo Pollack R.N. PHYSICAL ASSESSMENT Ambulatory to room. GENERAL / NEURO / PSYCH: Alert. Oriented X 4. HEENT: Mucous membranes are pink. RESPIRATORY: Respirations not labored. CVS: Normal sinus rhythm noted. GI / : Abdomen soft and nontender. EXTREMITIES: No lower extremity edema. SKIN: Skin is warm and dry. Normal skin turgor. --18:50 Goyo Pollack R.N. NURSING PROGRESS NOTES Oxygen administered by nasal cannula at 2 liters. Monitoring of patient in place. Patient gowned. Patient ready for evaluation- chart flagged and ED physician notified. --18:51 Goyo Pollack R.N. engine test cell technician, pulse oximeter and NIBP monitor placed on patient; equipment engineering technician- Lead II and V1; monitor alarms on. --18:52 Goyo Pollack R.N. 18:40 07/26/2016 Site #1 started prior to arrival by EMS via IV in the left wrist with an 20g angiocath, with aseptic technique and good blood return. --18:55 Goyo Pollack R.N. 19:35. EKG time: (1935 PM). EKG was ordered, performed by a tech and shown to the ED physician. --18:56 Goyo Pollack R.N. 19:01 07/26/16. BP: 132/49. HR: 64. RR: 18. O2 saturation: 96%. --19:03 Goyo Pollack R.N. EKG time: (1852). EKG was ordered, performed by a tech and shown to the ED physician. --19:05 Herb Mccray, ER Tech1 19:25 07/26/16. BP: 132/49. HR: 63. RR: 16. O2 saturation: 96% on nasal cannula at 2 liters/minute. O2 started via nasal cannula at 2 liters/minute. Temp: deferred. Pain level now: 2/10. Patient is conversant. --19:28 Stanley Cordova R.N. Cardiac rhythm: normal sinus rhythm. Patient ID band checked for patient name and birthdate: patient confirmed. Blood samples drawn from the left hand with Vacutainer by nurse ; labeled in presence of the patient and sent to lab: rainbow set: cardiac enzymes (1st set). Reassessment after oxygen administered. She is calm and resting quietly. RESPIRATORY: No respiratory distress. Breath sounds normal. CVS: The patient reports central chest pain that is mild in severity and is described as intermittent. Normal sinus rhythm noted. SKIN: Skin is warm and dry. Skin color within normal limits. --19:28 Stanley Cordova R.N. Finger stick glucose: 127 mg/dL; performed by nurse. --19:32 Stanley Cordova R.N. 19:31 07/26/16. BP: 102/54. HR: 60. RR: 20. O2 saturation: 95%. Temp: deferred. --19:32 Stanley Cordova R.N. 20:23 07/26/16. BP: 117/42. HR: 62. RR: 16. O2 saturation: 98% on nasal cannula at 2 liters/minute. O2 started via nasal cannula at 2 liters/minute. Pain level now: 210. --20:25 Stanley Cordova R.N. Cardiac rhythm: normal sinus rhythm; occasional PVCs. Reassessment after (PO fluids). RESPIRATORY: No respiratory distress. Breath sounds normal. CVS: The patient reports chest pain that is mild in severity and is described as intermittent. SKIN: Skin is warm and dry. Skin color within normal limits. --20:25 Stanley Cordova R.N. 20:52 07/26/2016 IV Saline Lock Drip IV Discontinued. Total amount infused: 10 mL. IV patency established. IV site checked: no pain, redness, or swelling. IV flushed thoroughly. --21:02 Stanley Cordova R.N. DISPOSITION / DISCHARGE 20:53 07/26/2016 Site #1 removed upon discharge. Pressure dressing applied. --20:58 Stanley Cordova R.N. Condition at departure: improved. No learning barriers present. Discharge instructions provided and reviewed with the patient. Reviewed referrals. Patient verbalized understanding. Written instructions provided in Croatian. The patient was discharged home and accompanied by special shopper and friend. She left the Emergency Department in a wheelchair and via private vehicle. Test Puller driving (friend). --20:59 Stanley Cordova R.N. 20:56 07/26/16. BP: 133/58. HR: 70. RR: 18. O2 saturation: 96% on room air. Temp: 98.1 F. Pain level now: 0/10. --20:59 Stanley Cordova R.N. Departure time: 21:01. --21:01 Stanley Cordova R.N. Locked/Released at 07/26/2016 21:02 by Stanley Cordova R.N.
--- NOTE | 2016-07-26 20:48 | ED CLINICAL REPORT ---
Clinical Report - Physicians/Mid Levels [facility] [address] [place] [address] 07/26/2016 18:35 Patient: RENATO CARDONA Time Seen: 18:37 May 2016. Arrived- By ambulance. Historian- patient and EMS personnel. CPT: ER phys charges level 5 plus (#[id number]). EKG interpretation (#[id number]). HISTORY OF PRESENT ILLNESS Chief Complaint: CHEST PAIN. This started today about 1500 and is still present. It was abrupt in onset and has been constant. Onset during light activity. At its maximum, severity described as moderate. When seen in the E.D., it was gone. Modifying factors- worsened by movement and deep breaths. Relieved by nitroglycerin (six, from patients own supply, given by paramedics). Relief was complete. It is described as sharp, "pain" and well localized and it is described as located in the left chest area. No nausea, vomiting, difficulty breathing or diaphoresis. Similar symptoms previously: As bad. Recent medical care: The patient was seen recently at this facility (2 weeks ago). ( Has seen he r sfdc solution architect in [place] "Dr Clark" and he wants to do a cath next week.). Seen for similar symptoms. Evaluation/treatment: x-rays, labs and EKG. ( Extensive w/u for chest pain. Was discharged home with atypical CP.). REVIEW OF SYSTEMS No fever, chills, cough or calf pain. She has had mild pedal edema involving the right and left lower extremity (chronically). PAST HISTORY Hypertension [Active]. Heart Disease [Active]. Diabetes Mellitus [Active]. Dyspnea [Active]. Chest Pain [Active]. Pneumonia. LAD stent (2011). Hypothyroidism. Blood Transfusions. 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 Constipation. Diverticulitis. Hernia. Hyperkalemia. Hypertension. Hyperlipidemia. Angina [RuleOut]. Acute Myocardial Infarction [RuleOut]. ADDITIONAL SURGERIES: Bilateral hip replacements. Bowel Surgery. Cardiac Procedures. Cholecystectomy. Colonoscopy. Hernia Repair. Hysterectomy. Partial colectomy. R knee surgery. Shoulder Surgery. Traumatic R hand amputation. Medications: Amlodipine 5 md daily. Aspirin 325 mg daily. Atorvastatin 80 mg Q HS. Fiber Capsules. Glimepiride 2 mg daily before breakfast. Hydrocodone with Acetaminophen. Iron tablets. Levothyroxine 100 mcg daily. Losartan 25 mg daily. Magnesium 300 mg BID. Metoprolol tartrate 25 mg 1/2 tablet q AM and 1 tablet q AM. Milk of Magnesia. MiraLax. Omeprazole 20 mg bid. Senna. Stool Softener. Temazepam 15 mg Q HS. Allergies: No Known Drug Allergy. SOCIAL HISTORY Former smoker. No alcohol use or drug use. ADDITIONAL NOTES The nursing notes have been reviewed. PHYSICAL EXAM Vital Signs: 07/26/2016 18:37 BP: 123/56. HR: 72. RR: 18. O2 saturation: 96%. Temp: 98 F. Pain level now: 08/24. Appearance: Alert. No acute distress. Eyes: Eyes normal inspection. ENT: Pharynx normal. Neck: Neck supple. No carotid bruit. (tender over the right carotid.). CVS: Normal heart rate and rhythm. Heart sounds normal. Pulses normal. No cardiac murmur. Respiratory: No respiratory distress. Chest pain reproducible with palpation of the anterior chest wall, with movement of the trunk and left arm and with deep breathing. Breath sounds normal. Back: Normal external inspection. Skin: Skin warm. Normal skin color. No rash. Extremities: Bilateral mild 1+ pitting edema of the lower extremities. Extremities exhibit normal ROM. Neuro: Oriented X 3. No motor deficit. No sensory deficit. LABS, X-RAYS, AND EKG EKG: Normal sinus rhythm. RBBB. Left axis deviation. Non-specific ST segment / T wave abnormalities. EKG unchanged when compared with prior EKG. The study has been interpreted contemporaneously. The study has been independently viewed by me. The EKG appears to be a good tracing. Chest X-ray: (mild bibasilar atelectasis. No clear acute findings.). Views: AP (portable). Technique: good. The X-rays were independently viewed by me, interpreted by the radiologist and discussed with the radiologist. Laboratory Tests: ESR: (DESTINEE: 07/26/2016 19:23) ( MsgRcvd 07/26/2016 20:27) Final results Test Result Flag Units (Reference) SED RATE WESTERGREN 10 mm/hr (0-30) CBC w Diff: (DESTINEE: 07/26/2016 19:23) ( [facility] 07/26/2016 19:35) Final results Test Result Flag Units (Reference) WHITE BLOOD COUNT 8.3 K/uL (4.5-11.5) RED BLOOD COUNT 3.85 L M/uL (4.00-5.20) HEMOGLOBIN 11.4 L gm/dL (12.0-16.0) HEMATOCRIT 34.5 L % (36.0-46.0) MEAN CELL VOLUME 89 fL (80-100) MEAN CORPUSCULAR HGB 30 pg (26-34) MEAN CORPUSCULAR HGB CONC 33 g/dL (31-37) RED CELL DISTRIBUTION WIDTH 16.3 H % (11.6-14.8) PLATELET COUNT 261 K/uL (150-400) NEUTROPHIL % 61.4 % (50-75) LYMPH % 19.6 L % (25-40) MONO % 6.3 % (3-14) EOSINOPHIL % 12.4 H % (0-4) BASOPHIL % 0.3 % (0-2) [id number]: (DESTINEE: 07/26/2016 19:23) ( [facility] 07/26/2016 20:00) Final results Test Result Flag Units (Reference) C-REACTIVE PROTEIN < 0.2 mg/dL (0.0-0.9) BNP: (DESTINEE: 07/26/2016 19:23) ( [facility] 07/26/2016 20:27) Final results Test Result Flag Units (Reference) B-TYPE NATRIURETIC PEPTIDE 139 H pg/ml (5-100) CHEM 13 PANEL: (DESTINEE: 07/26/2016 19:23) ( [facility] 07/26/2016 20:01) Final results Test Result Flag Units (Reference) GLUCOSE 127 H mg/dL (70-110) BUN 24 H mg/dL (7-18) CREATININE 1.4 H mg/dL (0.6-1.3) Estimated GFR 38.17 mL/min Estimated GFR- 46.26 mL/min Note: Persistent reduction over 3 months in eGFR<60 mL/min/1.73 m2 defines CKD. Patients with eGFR values>=60 mL/min/1.73 m2 may also have CKD if evidence ofpersistent proteinuria. Additional information may be foundat www.kidney.org. SODIUM 136 mmol/L (136-145) POTASSIUM 5.0 mmol/L (3.5-5.1) CHLORIDE 101 mmol/L (98-107) CARBON DIOXIDE 28 mmol/L (21-32) CALCIUM 9.4 mg/dL (8.5-10.1) TOTAL PROTEIN 6.3 L g/dL (6.4-8.2) ALBUMIN 3.5 g/dL (3.3-5.0) BILIRUBIN, TOTAL 0.4 mg/dL (0.0-1.0) ALKALINE PHOSPHATASE 108 U/L (46-116) AST (SGOT) 13 L U/L (15-37) ALT (SGPT) 22 U/L (12-78) MAGNESIUM 2.3 mg/dL (1.8-2.4) CPK 40 U/L (24-260) TROPONIN I <0.05 ng/mL (0.00-1.5) TROPONIN REFERENCE RANGE:<0.1 NEGATIVE0.1-1.5 INDETERMINANT>1.5 POSITIVE . PROGRESS AND PROCEDURES Course of Care: Pt had NTG times 6 and ASA 324 mg in the field. Pain free at this time unless pushing on her chest. 20:42 07/26/16. Discussed negative tests at this time. Exam shows reproducible pain again and she states this is the pain she came in for. She had it for 4 hours straight and enzymes are normal. The 6 NTG she took seemed to resolve the pain but unclear if it went away on its own or if the NTG helped, or if it was a different pain. I offered her an observation bed and she declined and wishes to go home. I offered a 3 hour troponin and she also declined this . She understands that she could potentially at home and she states that she is ready if this happens. She will stay if she has a lot of problems with a walk test. Ambulates 300 feet without the return of CP. Patient/family counseled. Disposition: Discharged. Condition: stable. CLINICAL IMPRESSION Atypical chest pain .12 lead EKG performed. INSTRUCTIONS No strenuous activity. Warnings: Further evaluation is necessary. GENERAL WARNINGS: Return or contact your physician immediately if your condition worsens or changes unexpectedly, if not improving as expected, or if other problems arise. Your Current Medications: CONTINUE TAKING THE FOLLOWING MEDICATIONS: Amlodipine 5 md daily*. Aspirin 325 mg daily*. Atorvastatin 80 mg Q HS*. Fiber Capsules*. Glimepiride 2 mg daily before breakfast*. Hydrocodone with Acetaminophen*. Iron tablets*. Levothyroxine 100 mcg daily*. Losartan 25 mg daily*. Magnesium 300 mg BID*. Metoprolol tartrate 25 mg 1/2 tablet q AM and 1 tablet q AM*. Milk of Magnesia*. MiraLax*. Omeprazole 20 mg bid*. Senna*. Stool Softener*. Temazepam 15 mg Q HS*. OTC Medications: Acetaminophen (available over the counter): take according to label instructions. Follow-up: Follow up with a sfdc solution architect in one week as scheduled. Understanding of the discharge instructions verbalized by patient. (Electronically signed by Leighton Mendoza MD 07/28/2016 8:56)
--- NOTE | 2016-07-28 08:57 | ED MED RECONCILIATION SUMMARY ---
Patient: RENATO CARDONA Medication Reconciliation Report [facility] VisitID: [id number] [address] [place] [address] 85y, F Registration Date/Time: 07/26/2016 Weight: 44.1 kg Height/Length: 65 in. BMI: 16.2 ALLERGIES: No Known Drug Allergy The patient's Home Medications are listed below: CONTINUE TAKING THE FOLLOWING MEDICATIONS: Amlodipine 5 md daily Aspirin 325 mg daily Atorvastatin 80 mg Q HS Fiber Capsules Glimepiride 2 mg daily before breakfast Hydrocodone with Acetaminophen Iron tablets Levothyroxine 100 mcg daily Losartan 25 mg daily Magnesium 300 mg BID Metoprolol tartrate 25 mg 1/2 tablet q AM and 1 tablet q AM Milk of Magnesia MiraLax Omeprazole 20 mg bid Senna Stool Softener Temazepam 15 mg Q HS The source(s) of the original Home Medication information: patient The following Medications were given to the patient in the Emergency Department: None. The following Medications were prescribed to the patient: Acetaminophen (available over the counter): take according to label instructions. -- Leighton Mendoza MD
--- NOTE | 2016-07-28 08:57 | ED MAR SUMMARY ---
..... Medication Administration Record Located Within [facility] [address] [place], [place] [id number] Patient: SEBASTIAN CARDONAYudelka Hernández Visit ID: [id number] 85y, F Weight: 44.1 kg Height/Length: 65 in BMI: 16.2 ALLERGIES: No Known Drug Allergy
--- NOTE | 2016-07-28 08:57 | ED MAR SUMMARY ---
..... Medication Administration Record [facility] [address] [place], [place] [id number] Patient: SEBASTIAN CARDONAYudelka Hernández Visit ID: [id number] 85y, F Weight: 44.1 kg Height/Length: 65 in BMI: 16.2 ALLERGIES: No Known Drug Allergy
--- NOTE | 2016-07-28 08:57 | ED MED RECONCILIATION SUMMARY ---
Patient: RENATO CARDONA Medication Reconciliation Report [facility] VisitID: [id number] [address] [place] [address] 85y, F Registration Date/Time: 07/26/2016 Weight: 44.1 kg Height/Length: 65 in. BMI: 16.2 ALLERGIES: No Known Drug Allergy The patient's Home Medications are listed below: CONTINUE TAKING THE FOLLOWING MEDICATIONS: Amlodipine 5 md daily Aspirin 325 mg daily Atorvastatin 80 mg Q HS Fiber Capsules Glimepiride 2 mg daily before breakfast Hydrocodone with Acetaminophen Iron tablets Levothyroxine 100 mcg daily Losartan 25 mg daily Magnesium 300 mg BID Metoprolol tartrate 25 mg 1/2 tablet q AM and 1 tablet q AM Milk of Magnesia MiraLax Omeprazole 20 mg bid Senna Stool Softener Temazepam 15 mg Q HS The source(s) of the original Home Medication information: patient The following Medications were given to the patient in the Emergency Department: None. The following Medications were prescribed to the patient: Acetaminophen (available over the counter): take according to label instructions. -- Leighton Mendoza MD
--- NOTE | 2016-07-28 08:57 | ED DISCHARGE INSTRUCTIONS ---
Patient: RENATO CARDONA General Instructions [facility] VisitID: [id number] [place] [address] 85y, F Registration Date/Time: 07/26/2016 Atypical chest pain .12 lead EKG performed. INSTRUCTIONS No strenuous activity. Warnings: Further evaluation is necessary. GENERAL WARNINGS: Return or contact your physician immediately if your condition worsens or changes unexpectedly, if not improving as expected, or if other problems arise. Your Current Medications: CONTINUE TAKING THE FOLLOWING MEDICATIONS: Amlodipine 5 md daily*. Aspirin 325 mg daily*. Atorvastatin 80 mg Q HS*. Fiber Capsules*. Glimepiride 2 mg daily before breakfast*. Hydrocodone with Acetaminophen*. Iron tablets*. Levothyroxine 100 mcg daily*. Losartan 25 mg daily*. Magnesium 300 mg BID*. Metoprolol tartrate 25 mg 1/2 tablet q AM and 1 tablet q AM*. Milk of Magnesia*. MiraLax*. Omeprazole 20 mg bid*. Senna*. Stool Softener*. Temazepam 15 mg Q HS*. OTC Medications: Acetaminophen (available over the counter): take according to label instructions. Follow-up: Follow up with a recorder helper gravity prospecting in one week as scheduled. Understanding of the discharge instructions verbalized by patient. ADDITIONAL INFORMATION Chest Pain, Noncardiac Based on your visit today, the exact cause of your chest pain is not certain. Your condition does not seem serious and your pain does not appear to be coming from your heart. However, sometimes the signs of a serious problem take more time to appear. Therefore, please watch for the warning signs listed below. Home Care: Rest today and avoid strenuous activity. Take any prescribed medicine as directed. Follow Up with your doctor or this facility as instructed or if you do not start to feel better within 24 hours. Get Prompt Medical Attention if any of the following occur: A change in the type of pain: if it feels different, becomes more severe, lasts longer, or begins to spread into your shoulder, arm, neck, jaw or back Shortness of breath or increased pain with breathing Cough with dark colored sputum (phlegm) or blood Weakness, dizziness, or fainting Fever of 100.4F (38C) or higher, or as directed by your healthcare provider Swelling, pain or redness in one leg You have been given the following additional information: Chest Pain, Noncardiac No strenuous activity. (Electronically signed by Leighton Mendoza MD 07/28/2016 8:56)
--- NOTE | 2016-07-28 08:57 | ED DISCHARGE INSTRUCTIONS ---
Patient: RENATO CARDONA General Instructions [facility] VisitID: [id number] [place] [address] 85y, F Registration Date/Time: 07/26/2016 Atypical chest pain .12 lead EKG performed. INSTRUCTIONS No strenuous activity. Warnings: Further evaluation is necessary. GENERAL WARNINGS: Return or contact your physician immediately if your condition worsens or changes unexpectedly, if not improving as expected, or if other problems arise. Your Current Medications: CONTINUE TAKING THE FOLLOWING MEDICATIONS: Amlodipine 5 md daily*. Aspirin 325 mg daily*. Atorvastatin 80 mg Q HS*. Fiber Capsules*. Glimepiride 2 mg daily before breakfast*. Hydrocodone with Acetaminophen*. Iron tablets*. Levothyroxine 100 mcg daily*. Losartan 25 mg daily*. Magnesium 300 mg BID*. Metoprolol tartrate 25 mg 1/2 tablet q AM and 1 tablet q AM*. Milk of Magnesia*. MiraLax*. Omeprazole 20 mg bid*. Senna*. Stool Softener*. Temazepam 15 mg Q HS*. OTC Medications: Acetaminophen (available over the counter): take according to label instructions. Follow-up: Follow up with a rehabilitation program coordinator in one week as scheduled. Understanding of the discharge instructions verbalized by patient. ADDITIONAL INFORMATION Chest Pain, Noncardiac Based on your visit today, the exact cause of your chest pain is not certain. Your condition does not seem serious and your pain does not appear to be coming from your heart. However, sometimes the signs of a serious problem take more time to appear. Therefore, please watch for the warning signs listed below. Home Care: Rest today and avoid strenuous activity. Take any prescribed medicine as directed. Follow Up with your doctor or this facility as instructed or if you do not start to feel better within 24 hours. Get Prompt Medical Attention if any of the following occur: A change in the type of pain: if it feels different, becomes more severe, lasts longer, or begins to spread into your shoulder, arm, neck, jaw or back Shortness of breath or increased pain with breathing Cough with dark colored sputum (phlegm) or blood Weakness, dizziness, or fainting Fever of 100.4F (38C) or higher, or as directed by your healthcare provider Swelling, pain or redness in one leg You have been given the following additional information: Chest Pain, Noncardiac No strenuous activity. (Electronically signed by Leighton Mendoza MD 07/28/2016 8:56)
[2016-08-30] MEDS ORDERED: ASPIRIN325 MG PO (11:43)
[2016-08-30] MEDS ORDERED: MAGNESIUM400 M1 PO (11:43)
[2016-08-30] MEDS ORDERED: MILK OF MA400 MG/5 M PO ×2 (11:46→11:47)
== END 2016-07-26 21:00 | disposition home or self-care (01) ==
LOC: ED SRH 18:32
DX: R07.89 Other chest pain (principal); E78.5 Hyperlipidemia, unspecified; I10 Essential (primary) hypertension; E11.9 Type 2 diabetes mellitus without complications; I51.9 Heart disease, unspecified; E07.9 Disorder of thyroid, unspecified; Z95.5 Presence of coronary angioplasty implant and graft; Z87.891 Personal history of nicotine dependence; Z79.899 Other long term (current) drug therapy; Z79.82 Long term (current) use of aspirin
CPT/HCPCS: 90098; 90100; 90616; 91320; 91585; 92610; 92720; 95059; 95150

== ENCOUNTER 2016-08-03 16:35 | Emergency (ER) | payer OTHER, MEDICARE ==
--- NOTE | 2016-08-03 17:49 | DIAGNOSTIC IMAGING REPORT ---
PROCEDURE: XR ABDOMEN 1 VIEW INDICATION: ABDOMINAL DISTENTION TECHNIQUE: Single view upright abdomen. COMPARISON: 05/03/2016 FINDINGS: No free air. Nonspecific, nonobstructive bowel gas pattern without air fluid levels. Surgical changes of right upper quadrant and low midline. Hazy opacity at both lung bases. No suspicious calcification or mass effect. Left hip arthroplasty component partially imaged. Degenerative osteophytosis throughout the thoracic spine. IMPRESSION: 1. Nonspecific bowel gas pattern. 2. Mild hazy bibasilar lung opacities may be due to projection or atelectatic change. Clinical correlation suggested. 3. Postsurgical changes as described.
--- NOTE | 2016-08-03 18:37 | ED ORDER SUMMARY ---
..... Patient: RENATO CARDONA OrderSheet [facility] VisitID: [id number] [place] [address] 85y, F Registration Date/Time: 08/03/2016 ORDER SHEET Weight: 96.1 kg (stated) Allergies: No Known Drug Allergy GENERAL ORDERS: Abdomen 1V Urgent (17:20 08/03/2016 Pio Lira) (Ack 17:28 Dilcia) (17:40 Agnieszka) CBC w Diff Urgent (17:20 08/03/2016 Pio Lira) (Ack 17:28 Dilcia) (18:53 KPage-Adriel R.N.) CMP Urgent (17:08/03/2016 Pio Lira) (Ack 17:28 Dilcia) (18:53 KPage-Simonn R.N.) Amylase Urgent (17:08/03/2016 Pio Lira) (Ack 17:28 Dilcia) (18:53 KPage-Simonn R.N.) Lipase Urgent (17:20 08/03/2016 Pio Lira) (Ack 17:28 Dilcia) (18:53 KPage-Troychan R.N.) MEDICATION ORDERS: IV FLUIDS: ORDER SHEET NOTES: [Electronically signed by Lennie Thomas R.N. (18:58 08/03/2016)] [Electronically signed by Paulie Murcia Dr. (09:29 08/04/2016)] [Electronically locked/signed by Lennie Thomas R.N. (18:58 08/03/2016)]
--- NOTE | 2016-08-03 18:37 | ED NURSING NOTES ---
Clinical Report - Nurses [facility] [address] [place] [address] 08/03/2016 16:36 Patient: RENATO CARDONA TRIAGE Triage time 16:46 Aug 03 2016. Acuity: LEVEL 2. Chief Complaint: CHEST PAIN and UPPER ABDOMINAL PAIN (pt had cath last week at [facility] by Dr Boles.pt reports having cp that began last night, but when asked to point to pain pt points to mid abdomen, pt took own nitro at home without relief. ems gave aspirin and nitro x 2 with minimal relief.). Alert. SEPSIS SCREEN: Sepsis Screen. Negative (no infection suspected/documented). --16:54 Lennie Thomas R.N. 16:46 08/03/16. BP: 95/37. HR: 72. RR: 19. O2 saturation: 98%. Temp: 98.8 F. Pain level now: 10. --16:54 Lennie Thomas R.N. Weight: 96.1 kg stated. Height/Length: 65 inches Per Patient. BMI: 35.3. --16:52 Lennie Thomas R.N. Medications Amlodipine 5 md daily. Aspirin 325 mg daily. Atorvastatin 80 mg Q HS. Fiber Capsules. Glimepiride 2 mg daily before breakfast. Hydrocodone with Acetaminophen. Iron tablets. Levothyroxine 100 mcg daily. Losartan 25 mg daily. Magnesium 300 mg BID. Metoprolol tartrate 25 mg 1/2 tablet q AM and 1 tablet q AM. --16:49 Lennie Thomas R.N. Milk of Magnesia. MiraLax. Omeprazole 20 mg bid. Senna. Stool Softener. Temazepam 15 mg Q HS. --16:49 Lennie Thomas R.N. Medication/allergy information source: the patient. --16:54 Lennie Thomas R.N. Allergies No Known Drug Allergy. --16:49 Page-Kuchan, Karyol, R.N. History Arrived by EMS, and from home (from home with ems). Historian: patient. This started last night. This is a recurrent problem. Started while sleeping. Symptoms are intermittent and still present (pt reports having cp that began last night, but when asked to point to pain pt points to mid abdomen, pt took own nitro at home without relief. ems gave aspirin and nitro x 2 with minimal relief.). 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 Symptoms improved after treatment. Seen within the last 30 days at this facility and another facility in the ED; seen for similar symptoms; xrays done; EKG done; cardiac catheterization was done. See EMS report. PAST MEDICAL HX: The patient has had a hysterectomy. SOCIAL HX: Smoker- current status unknown. No alcohol use or drug use. No infectious disease exposure. ABUSE ASSESSMENT: No report of abuse. SELF HARM ASSESSMENT: A self harm assessment was performed. The patient answered "no" to the question "Do you have thoughts of harming or killing yourself?". FALL RISK ASSESSMENT: Fall risk assessment completed. No fall risk identified. NUTRITIONAL RISK ASSESSMENT: The nutritional risk assessment revealed no deficiencies. FUNCTIONAL ASSESSMENT: Functional assessment: no impairments noted. LEARNING NEEDS ASSESSMENT: The learning needs assessment revealed no barriers. SKIN INTEGRITY ASSESSMENT: Skin integrity risk assessment completed. No skin integrity risk identified. --16:54 Lennie Thomas R.N. PROBLEMS: Hypertension [Active]. Heart Disease [Active]. Diabetes Mellitus [Active]. Dyspnea [Active]. Chest Pain [Active]. --16:50 Lennie Thomas R.N. Pneumonia. LAD stent (2011). Hypothyroidism. Blood Transfusions. 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 Constipation. Diverticulitis. Hernia. Hyperkalemia. Hypertension. Hyperlipidemia. Chest Pain of GI Origin. Palpitations. Abnormal EKG. Ovarian Cyst. Back Pain. Acute Pain. Atypical Chest Pain. Anemia. UTI - Urinary Tract Infection. Immunizations. Diabetes Mellitus. Pyelonephritis. Abdominal Pain. Heart Disease. Hyperglycemia. Renal Insufficiency. Chest Pain. Coronary Artery Disease. Sinus bradycardia. --16:50 Lennie Thomas R.N. Angina [RuleOut]. Acute Myocardial Infarction [RuleOut]. --16:50 Lennie Thomas R.N. ADDITIONAL SURGERIES: Bilateral hip replacements. Bowel Surgery. Cardiac Procedures. Cholecystectomy. Colonoscopy. Hernia Repair. Hysterectomy. Partial colectomy. R knee surgery. Shoulder Surgery. Traumatic R hand amputation. --16:50 Lennie Thomas R.N. Interventions ID band on patient. ID and allergy band checked. CHEST PAIN protocol initiated at triage. --16:54 Lennie Thomas R.N. PHYSICAL ASSESSMENT To room via stretcher. Patient gowned. GENERAL / NEURO / PSYCH: Alert. Oriented X 4. Appears in no acute distress. HEENT: Mucous membranes are pink. RESPIRATORY: Respirations not labored. Chest pain reproducible. Breath sounds within normal limits. ( pain in upper abd, pain increases with palpation). CVS: Cardiac rhythm: (SR). GI / : Abdomen soft. Abdominal tenderness in the upper abdomen. SKIN: Skin is warm and dry. Normal skin turgor. Skin is non-tender. --16:58 Lennie Thomas R.N. 18:16 08/03/16. ( pt called out again ready to dispo home, 'It's my stomach not my heart"). --18:56 Lennie Thomas R.N. NURSING PROGRESS NOTES Cardiac rhythm: (SR). teletypesetter monitor, pulse oximeter and NIBP monitor placed on patient; potline monitor- Lead II and V5; monitor alarms on. EKG was performed by a tech and shown to the ED physician. Checked patient name and birthdate. Blood samples drawn from the right forearm with 22g butterfly by nurse per protocol ; labeled in presence of the patient and sent to lab: rainbow set: cardiac enzymes (1st set). (drawn by Harshil VALENTIN). Patient identifiers checked. Call light placed in reach. Side rails up x 1. Bed placed in lowest position. Brakes of bed on. Patient waiting for evaluation. --16:56 Lennie Thomas R.N. 16:54 08/03/16. BP: 103/54. HR: 66. --16:56 Lennie Thomas R.N. 17:00 08/03/2016 Site #1 started prior to arrival by EMS via IV wrist with an 20g angiocath (placed by ems water vessel captain). --17:00 Lennie Thomas R.N. EKG time: (16:46). EKG was performed by a tech and shown to the ED physician. --17:51 Sylvia Hughes 18:44 08/03/2016 Site #1 removed upon discharge. Bandaid applied. --18:54 Lennie Thomas R.N. DISPOSITION / DISCHARGE No learning barriers present. Discharge instructions provided and reviewed with the patient. Reviewed medication(s) side effects and course information. Prescription(s) given to the patient. Patient verbalized understanding. Written instructions provided in [place]. The patient was discharged by the physician. She was discharged home and accompanied by roustabout pusher. She left the Emergency Department ambulatory and via private vehicle. Typing Section Chief driving. --18:56 Lennie Thomas R.N. 18:54 08/03/16. BP: 105/56. HR: 68. RR: 17. O2 saturation: 98%. Temp: 97.9 F. Pain level now: 05/24. --18:56 Lennie Thomas R.N. Locked/Released at 08/03/2016 18:58 by Lennie Thomas R.N.
--- NOTE | 2016-08-03 18:37 | ED ORDER SUMMARY ---
..... Patient: RNEATO CARDONA OrderSheet [facility] VisitID: [id number] [place] [address] 85y, F Registration Date/Time: 08/03/2016 ORDER SHEET Weight: 96.1 kg (stated) Allergies: No Known Drug Allergy GENERAL ORDERS: Abdomen 1V Urgent (17:20 08/03/2016 Pio Lira) (Ack 17:28 Dilcia) (17:40 Agnieszka) CBC w Diff Urgent (17:20 08/03/2016 Pio Lira) (Ack 17:28 Dilcia) (18:53 KPage-Adriel R.N.) CMP Urgent (17:08/03/2016 Pio Lira) (Ack 17:28 Dilcia) (18:53 KPage-Simonn R.N.) Amylase Urgent (17:08/03/2016 Pio Lira) (Ack 17:28 Dilcia) (18:53 KPage-Simonn R.N.) Lipase Urgent (17:20 08/03/2016 Pio Lira) (Ack 17:28 Dilcia) (18:53 KPage-Troychan R.N.) MEDICATION ORDERS: IV FLUIDS: ORDER SHEET NOTES: [Electronically signed by Lennie Thomas R.N. (18:58 08/03/2016)] [Electronically signed by Paulie Murcia Dr. (09:29 08/04/2016)] [Electronically locked/signed by Lennie Thomas R.N. (18:58 08/03/2016)]
--- NOTE | 2016-08-03 18:37 | ED NURSING NOTES ---
Clinical Report - Nurses [facility] [address] [place] [address] 08/03/2016 16:36 Patient: RENATO CARDONA TRIAGE Triage time 16:46 Aug 03 2016. Acuity: LEVEL 2. Chief Complaint: CHEST PAIN and UPPER ABDOMINAL PAIN (pt had cath last week at [facility] by Dr Boles.pt reports having cp that began last night, but when asked to point to pain pt points to mid abdomen, pt took own nitro at home without relief. ems gave aspirin and nitro x 2 with minimal relief.). Alert. SEPSIS SCREEN: Sepsis Screen. Negative (no infection suspected/documented). --16:54 Lennie Thomas R.N. 16:46 08/03/16. BP: 95/37. HR: 72. RR: 19. O2 saturation: 98%. Temp: 98.8 F. Pain level now: 10. --16:54 Lennie Thomas R.N. Weight: 96.1 kg stated. Height/Length: 65 inches Per Patient. BMI: 35.3. --16:52 Lennie Thomas R.N. Medications Amlodipine 5 md daily. Aspirin 325 mg daily. Atorvastatin 80 mg Q HS. Fiber Capsules. Glimepiride 2 mg daily before breakfast. Hydrocodone with Acetaminophen. Iron tablets. Levothyroxine 100 mcg daily. Losartan 25 mg daily. Magnesium 300 mg BID. Metoprolol tartrate 25 mg 1/2 tablet q AM and 1 tablet q AM. --16:49 Lennie Thomas R.N. Milk of Magnesia. MiraLax. Omeprazole 20 mg bid. Senna. Stool Softener. Temazepam 15 mg Q HS. --16:49 Lennie Thomas R.N. Medication/allergy information source: the patient. --16:54 Lennie Thomas R.N. Allergies No Known Drug Allergy. --16:49 Page-Kuchan, Karyol, R.N. History Arrived by EMS, and from home (from home with ems). Historian: patient. This started last night. This is a recurrent problem. Started while sleeping. Symptoms are intermittent and still present (pt reports having cp that began last night, but when asked to point to pain pt points to mid abdomen, pt took own nitro at home without relief. ems gave aspirin and nitro x 2 with minimal relief.). 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 Symptoms improved after treatment. Seen within the last 30 days at this facility and another facility in the ED; seen for similar symptoms; xrays done; EKG done; cardiac catheterization was done. See EMS report. PAST MEDICAL HX: The patient has had a hysterectomy. SOCIAL HX: Smoker- current status unknown. No alcohol use or drug use. No infectious disease exposure. ABUSE ASSESSMENT: No report of abuse. SELF HARM ASSESSMENT: A self harm assessment was performed. The patient answered "no" to the question "Do you have thoughts of harming or killing yourself?". FALL RISK ASSESSMENT: Fall risk assessment completed. No fall risk identified. NUTRITIONAL RISK ASSESSMENT: The nutritional risk assessment revealed no deficiencies. FUNCTIONAL ASSESSMENT: Functional assessment: no impairments noted. LEARNING NEEDS ASSESSMENT: The learning needs assessment revealed no barriers. SKIN INTEGRITY ASSESSMENT: Skin integrity risk assessment completed. No skin integrity risk identified. --16:54 Lennie Thomas R.N. PROBLEMS: Hypertension [Active]. Heart Disease [Active]. Diabetes Mellitus [Active]. Dyspnea [Active]. Chest Pain [Active]. --16:50 Lennie Thomas R.N. Pneumonia. LAD stent (2011). Hypothyroidism. Blood Transfusions. 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 Constipation. Diverticulitis. Hernia. Hyperkalemia. Hypertension. Hyperlipidemia. Chest Pain of GI Origin. Palpitations. Abnormal EKG. Ovarian Cyst. Back Pain. Acute Pain. Atypical Chest Pain. Anemia. UTI - Urinary Tract Infection. Immunizations. Diabetes Mellitus. Pyelonephritis. Abdominal Pain. Heart Disease. Hyperglycemia. Renal Insufficiency. Chest Pain. Coronary Artery Disease. Sinus bradycardia. --16:50 Lennie Thomas R.N. Angina [RuleOut]. Acute Myocardial Infarction [RuleOut]. --16:50 Lennie Thomas R.N. ADDITIONAL SURGERIES: Bilateral hip replacements. Bowel Surgery. Cardiac Procedures. Cholecystectomy. Colonoscopy. Hernia Repair. Hysterectomy. Partial colectomy. R knee surgery. Shoulder Surgery. Traumatic R hand amputation. --16:50 Lennie Thomas R.N. Interventions ID band on patient. ID and allergy band checked. CHEST PAIN protocol initiated at triage. --16:54 Lennie Thomas R.N. PHYSICAL ASSESSMENT To room via stretcher. Patient gowned. GENERAL / NEURO / PSYCH: Alert. Oriented X 4. Appears in no acute distress. HEENT: Mucous membranes are pink. RESPIRATORY: Respirations not labored. Chest pain reproducible. Breath sounds within normal limits. ( pain in upper abd, pain increases with palpation). CVS: Cardiac rhythm: (SR). GI / : Abdomen soft. Abdominal tenderness in the upper abdomen. SKIN: Skin is warm and dry. Normal skin turgor. Skin is non-tender. --16:58 Lennie Thomas R.N. 18:16 08/03/16. ( pt called out again ready to dispo home, 'It's my stomach not my heart"). --18:56 Lennie Thomas R.N. NURSING PROGRESS NOTES Cardiac rhythm: (SR). insurance agency owner, pulse oximeter and NIBP monitor placed on patient; miller head- Lead II and V5; monitor alarms on. EKG was performed by a tech and shown to the ED physician. Checked patient name and birthdate. Blood samples drawn from the right forearm with 22g butterfly by nurse per protocol ; labeled in presence of the patient and sent to lab: rainbow set: cardiac enzymes (1st set). (drawn by Harshil VALENTIN). Patient identifiers checked. Call light placed in reach. Side rails up x 1. Bed placed in lowest position. Brakes of bed on. Patient waiting for evaluation. --16:56 Lennie Thomas R.N. 16:54 08/03/16. BP: 103/54. HR: 66. --16:56 Lennie Thomas R.N. 17:00 08/03/2016 Site #1 started prior to arrival by EMS via IV wrist with an 20g angiocath (placed by ems police captain precinct). --17:00 Lennie Thomas R.N. EKG time: (16:46). EKG was performed by a tech and shown to the ED physician. --17:51 Sylvia Hughes 18:44 08/03/2016 Site #1 removed upon discharge. Bandaid applied. --18:54 Lennie Thomas R.N. DISPOSITION / DISCHARGE No learning barriers present. Discharge instructions provided and reviewed with the patient. Reviewed medication(s) side effects and course information. Prescription(s) given to the patient. Patient verbalized understanding. Written instructions provided in Ukrainian. The patient was discharged by the physician. She was discharged home and accompanied by mat linker. She left the Emergency Department ambulatory and via private vehicle. Nitroglycerin Neutralizer driving. --18:56 Lennie Thomas R.N. 18:54 08/03/16. BP: 105/56. HR: 68. RR: 17. O2 saturation: 98%. Temp: 97.9 F. Pain level now: 05/24. --18:56 Lennie Thomas R.N. Locked/Released at 08/03/2016 18:58 by Lennie Thomas R.N.
--- NOTE | 2016-08-03 18:37 | ED CLINICAL REPORT ---
Clinical Report - Physicians/Mid Levels [facility] [address] [place] [address] 08/03/2016 16:36 Patient: RENATO CARDONA Time Seen: 16:41; initial patient contact. Arrived- By ambulance. Historian- patient. HISTORY OF PRESENT ILLNESS Chief Complaint: CHEST PAIN. At its maximum, severity described as mild. When seen in the E.D., severity described as mild. Modifying factors- (No relief w/ NTG). Not worsened by anything. Not relieved by anything. This started last night. Onset during light activity. It is described as "pain". No radiation. It is described as located in the epigastric area. No nausea, vomiting, difficulty breathing or diaphoresis. Similar symptoms previously: Many times. Recent medical care: The patient was seen recently in the office. REVIEW OF SYSTEMS No fever, chills, pedal edema, calf pain or difficulty with urination. She has had abdominal pain. All systems otherwise negative, except as recorded above. PAST HISTORY Hypertension [Active]. Heart Disease [Active]. Diabetes Mellitus [Active]. Dyspnea [Active]. Chest Pain [Active]. Pneumonia. LAD stent (2011). Hypothyroidism. Blood Transfusions. 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 Constipation. Diverticulitis. Hernia. Hyperkalemia. Hypertension. Hyperlipidemia. Angina [RuleOut]. Acute Myocardial Infarction [RuleOut]. ADDITIONAL SURGERIES: Bilateral hip replacements. Bowel Surgery. Cardiac Procedures. Cholecystectomy. Colonoscopy. Hernia Repair. Hysterectomy. Partial colectomy. R knee surgery. Shoulder Surgery. Traumatic R hand amputation. SOCIAL HISTORY Former smoker. No alcohol use or drug use. ADDITIONAL NOTES The nursing notes have been reviewed. PHYSICAL EXAM Vital Signs: 08/03/2016 16:46 BP: 95/37. HR: 72. RR: 19. O2 saturation: 98%. Temp: 98.8 F. Pain level now: 5/10. Have been reviewed and do not appear to be correct. Appearance: Alert. Oriented X3. No acute distress. Eyes: Eyes normal inspection. ENT: Pharynx normal. Neck: Normal inspection. No JVD. CVS: Normal heart rate and rhythm. Heart sounds normal. Respiratory: No respiratory distress. Breath sounds normal. Chest nontender. Abdomen: Soft. Mild tenderness in the upper abdomen. No guarding, rebound tenderness or Wilson's sign present. Bowel sounds normal. No mass. Back: Normal external inspection. No CVA tenderness. Skin: Skin warm and dry. Normal skin color. Extremities: No calf tenderness. No lower extremity edema. Neuro: Oriented X 3. LABS, X-RAYS, AND EKG EKG: EKG time: (1646). No acute process. No acute ischemia. Normal sinus rhythm. Rate: 73. Interpretation time: 1646. KUB: No acute disease. Gas pattern normal. No mass effect. Views: supine AP. Technique: good. The X-rays were independently viewed by me and interpreted contemporaneously by me. Prior films were not available for comparison. Laboratory Tests: CBC w Diff: (DESTINEE: 08/03/2016 16:55) ( [facility] 08/03/2016 17:44) Final results Test Result Flag Units (Reference) WHITE BLOOD COUNT 7.0 K/uL (4.5-11.5) RED BLOOD COUNT 3.51 L M/uL (4.00-5.20) HEMOGLOBIN 10.4 L gm/dL (12.0-16.0) HEMATOCRIT 31.5 L % (36.0-46.0) MEAN CELL VOLUME 90 fL (80-100) MEAN CORPUSCULAR HGB 30 pg (26-34) MEAN CORPUSCULAR HGB CONC 33 g/dL (31-37) RED CELL DISTRIBUTION WIDTH 16.9 H % (11.6-14.8) PLATELET COUNT 222 K/uL (150-400) NEUTROPHIL % 64.0 % (50-75) LYMPH % 18.0 L % (25-40) MONO % 7.3 % (3-14) EOSINOPHIL % 10.4 H % (0-4) BASOPHIL % 0.3 % (0-2) CMP: (DESTINEE: 08/03/2016 16:55) ( [facility] [place] [place] 08/03/2016 17:55) Final results Test Result Flag Units (Reference) GLUCOSE 123 H mg/dL (70-110) BUN 26 H mg/dL (7-18) CREATININE 1.6 H mg/dL (0.6-1.3) Estimated GFR 32.72 mL/min Estimated GFR- 39.65 mL/min Note: Persistent reduction over 3 months in eGFR<60 mL/min/1.73 m2 defines CKD. Patients with eGFR values>=60 mL/min/1.73 m2 may also have CKD if evidence ofpersistent proteinuria. Additional information may be foundat www.kidney.org. SODIUM 139 mmol/L (136-145) POTASSIUM 4.3 mmol/L (3.5-5.1) CHLORIDE 102 mmol/L (98-107) CARBON DIOXIDE 27 mmol/L (21-32) CALCIUM 8.9 mg/dL (8.5-10.1) TOTAL PROTEIN 5.6 L g/dL (6.4-8.2) ALBUMIN 3.1 L g/dL (3.3-5.0) BILIRUBIN, TOTAL 0.3 mg/dL (0.0-1.0) ALKALINE PHOSPHATASE 88 U/L (46-116) AST (SGOT) 14 L U/L (15-37) ALT (SGPT) 18 U/L (12-78) LIPASE 191 U/L (73-393) AMYLASE 77 U/L (25-115) . PROGRESS AND PROCEDURES Course of Care: Pt had a normal cardiac cath last week. Disposition: Discharged home in good condition. Condition: good. CLINICAL IMPRESSION Acute epigastric abdominal pain of undetermined cause. INSTRUCTIONS Your Current Medications: CONTINUE TAKING THE FOLLOWING MEDICATIONS: Amlodipine 5 md daily*. Aspirin 325 mg daily*. Atorvastatin 80 mg Q HS*. Fiber Capsules*. Glimepiride 2 mg daily before breakfast*. Hydrocodone with Acetaminophen*. Iron tablets*. Levothyroxine 100 mcg daily*. Losartan 25 mg daily*. Magnesium 300 mg BID*. Metoprolol tartrate 25 mg 1/2 tablet q AM and 1 tablet q AM*. Milk of Magnesia*. MiraLax*. Omeprazole 20 mg bid*. Senna*. Stool Softener*. Temazepam 15 mg Q HS*. OTC Medications: Simethicone 95 mg tablets (available over the counter): take 1 orally every 6 hours as needed for indigestion or gas. Dispense sixty (60). No refill. Follow-up: Follow up with your doctor in about two days. Call for an appointment. Blood pressure screening was not performed during this visit because the patient has an active diagnosis of hypertension. (Electronically signed by Paulie Murcia Dr. 08/04/2016 9:29)
--- NOTE | 2016-08-04 09:29 | ED MAR SUMMARY ---
..... Medication Administration Record [facility] [address] [place], [place] [id number] Patient: SEBASTIAN CARDONAYudelka Hernández Visit ID: [id number] 85y, F Weight: 96.1 kg Height/Length: 65 in BMI: 35.3 ALLERGIES: No Known Drug Allergy
--- NOTE | 2016-08-04 09:29 | ED DISCHARGE INSTRUCTIONS ---
Patient: RENATO CARDONA General Instructions [facility] VisitID: [id number] [place] [address] 85y, F Registration Date/Time: 08/03/2016 Acute epigastric abdominal pain of undetermined cause. INSTRUCTIONS Your Current Medications: CONTINUE TAKING THE FOLLOWING MEDICATIONS: Amlodipine 5 md daily*. Aspirin 325 mg daily*. Atorvastatin 80 mg Q HS*. Fiber Capsules*. Glimepiride 2 mg daily before breakfast*. Hydrocodone with Acetaminophen*. Iron tablets*. Levothyroxine 100 mcg daily*. Losartan 25 mg daily*. Magnesium 300 mg BID*. Metoprolol tartrate 25 mg 1/2 tablet q AM and 1 tablet q AM*. Milk of Magnesia*. MiraLax*. Omeprazole 20 mg bid*. Senna*. Stool Softener*. Temazepam 15 mg Q HS*. OTC Medications: Simethicone 95 mg tablets (available over the counter): take 1 orally every 6 hours as needed for indigestion or gas. Dispense sixty (60). No refill. Follow-up: Follow up with your doctor in about two days. Call for an appointment. Blood pressure screening was not performed during this visit because the patient has an active diagnosis of hypertension. ADDITIONAL INFORMATION Abdominal Pain, Unknown Cause (Female) The exact cause of your abdominal (stomach) pain is not certain. This does not mean that this is something to worry about, or the right tests were not done. Everyone likes to know the exact cause of the problem, but sometimes with abdominal pain, there is no clear-cut cause, and this could be a good thing. The good news is that your symptoms can be treated, and you will feel better. Your condition does not seem serious now; however, sometimes the signs of a serious problem may take more time to appear. For this reason,it is important for you to watch for any new symptoms, problems,or worsening of your condition. Over the next few days, the abdominal pain may come and go, or be continuous. Other common symptoms can include nausea and vomiting. Sometimes it can be difficult to tell if you feel nauseous, you may just feel bad and not associate that feeling with nausea. Constipation, diarrhea, and a fever may go along with the pain. The pain may continue even if treated correctly over the following days. Depending on how things go, sometimes the cause can become clear and may require further or different treatment. Additional evaluations, medications, or tests may be needed. Home care Your health care provider may prescribe medications for pain, symptoms, or an infection. Follow the health care provider's instructions for taking these medications. General care Rest until your next exam. No strenuous activities. Try to find positions that ease discomfort. A small pillow placed on the abdomen may help relieve pain. Something warm on your abdomen (such as a heating pad) may help, but be careful not to burn yourself. Diet Do not force yourself to eat, especially if having cramps, vomiting, or diarrhea. Water is important so you do not get dehydrated. Soup may also be good. Sports drinks may also help, especially if they are not too acidic. Make sure you don't drink sugary drinks as this can make things worse. Take liquids in small amounts. Do not guzzle them. Caffeine sometimes makes the pain and cramping worse. Avoid dairy products if you have vomiting or diarrhea. Don't eat large amounts at a time. Wait a few minutes between bites. Eat a diet low in fiber (called a low-residue diet). Foods allowed include refined breads, white rice, fruit and vegetable juices without pulp, tender meats. These foods will pass more easily through the intestine. Avoid whole-grain foods, whole fruits and vegetables, meats, seeds and nuts, fried or fatty foods, dairy, alcohol and spicy foods until your symptoms go away. Follow-up care Follow up with your health care provider as instructed, or if your pain does not begin to improve in the next 24 hours. When to seek medical care Seek prompt medical care if any of the following occur: Pain gets worse or moves to the right lower abdomen New or worsening vomiting or diarrhea Swelling of the abdomen Unable to pass stool for more than three days Fever of 100.4F (38C) or higher, or as directed by your healthcare provider. Blood in vomit or bowel movements (dark red or black color) Jaundice (yellow color of eyes and skin) Weakness, dizziness Chest, arm, back, neck or jaw pain Unexpected vaginal bleeding or missed period Call 911 Call emergency services if any of the following occur: Trouble breathing Confusion Fainting or loss of consciousness Rapid heart rate Seizure Simethicone Oral tablet What is this medicine? SIMETHICONE (sye METH i stacia) is used to decrease the discomfort caused by gas. How should I use this medicine? Take this medicine by mouth with a glass of water. Follow the directions on the label or those given to you by your doctor or health direct care professional. Do not take your medicine more often than directed. Talk to your radio producer regarding the use of this medicine in children. Special care may be needed. While this medicine may be used in children as young as 12 years for selected conditions, precautions do apply. What side effects may I notice from receiving this medicine? There are no reported side effects of this medicine. What may interact with this medicine? Interactions are not expected. What if I miss a dose? This does not apply. You will only use this medicine as needed for gas pain. Do not use double or extra doses. Where should I keep my medicine? Keep out of the reach of children. Store at room temperature between 15 and 30 degrees C (59 and 86 degrees F). Keep container tightly closed. Throw away any unused medicine after the expiration date. What should I tell my health care provider before I take this medicine? They need to know if you have any of these conditions: an unusual or allergic reaction to simethicone, other medicines, foods, dyes, or preservatives or trying to get breast-feeding What should I watch for while using this medicine? Tell your doctor or health direct care professional if your symptoms get worse, or if you have severe pain, diarrhea, constipation, or blood in your stool. These could be signs of a more serious condition. You have been given the following additional information: Abdominal Pain, Unknown Cause, (Female) Simethicone Oral tablet (Electronically signed by Paulie Murcia Dr. 08/04/2016 9:29)
--- NOTE | 2016-08-04 09:29 | ED MAR SUMMARY ---
..... Medication Administration Record [facility] [address] [place], [place] [id number] Patient: SEBASTIAN CARDONAYudelka Hernández Visit ID: [id number] 85y, F Weight: 96.1 kg Height/Length: 65 in BMI: 35.3 ALLERGIES: No Known Drug Allergy
--- NOTE | 2016-08-04 09:29 | ED MED RECONCILIATION SUMMARY ---
Patient: RENATO CARDONA Medication Reconciliation Report [facility] VisitID: [id number] [address] [place] [address] 85y, F Registration Date/Time: 08/03/2016 Weight: 96.1 kg Height/Length: 65 in. BMI: 35.3 ALLERGIES: No Known Drug Allergy The patient's Home Medications are listed below: CONTINUE TAKING THE FOLLOWING MEDICATIONS: Amlodipine 5 md daily Aspirin 325 mg daily Atorvastatin 80 mg Q HS Fiber Capsules Glimepiride 2 mg daily before breakfast Hydrocodone with Acetaminophen Iron tablets Levothyroxine 100 mcg daily Losartan 25 mg daily Magnesium 300 mg BID Metoprolol tartrate 25 mg 1/2 tablet q AM and 1 tablet q AM Milk of Magnesia MiraLax Omeprazole 20 mg bid Senna Stool Softener Temazepam 15 mg Q HS The source(s) of the original Home Medication information: patient The following Medications were given to the patient in the Emergency Department: None. The following Medications were prescribed to the patient: Simethicone 95 mg tablets (available over the counter): take 1 orally every 6 hours as needed for indigestion or gas. Dispense sixty (60). No refill. -- Paulie Murcia Dr.
--- NOTE | 2016-08-04 09:29 | ED MED RECONCILIATION SUMMARY ---
Patient: RENATO CARDONA Medication Reconciliation Report [facility] VisitID: [id number] [address] [place] [address] 85y, F Registration Date/Time: 08/03/2016 Weight: 96.1 kg Height/Length: 65 in. BMI: 35.3 ALLERGIES: No Known Drug Allergy The patient's Home Medications are listed below: CONTINUE TAKING THE FOLLOWING MEDICATIONS: Amlodipine 5 md daily Aspirin 325 mg daily Atorvastatin 80 mg Q HS Fiber Capsules Glimepiride 2 mg daily before breakfast Hydrocodone with Acetaminophen Iron tablets Levothyroxine 100 mcg daily Losartan 25 mg daily Magnesium 300 mg BID Metoprolol tartrate 25 mg 1/2 tablet q AM and 1 tablet q AM Milk of Magnesia MiraLax Omeprazole 20 mg bid Senna Stool Softener Temazepam 15 mg Q HS The source(s) of the original Home Medication information: patient The following Medications were given to the patient in the Emergency Department: None. The following Medications were prescribed to the patient: Simethicone 95 mg tablets (available over the counter): take 1 orally every 6 hours as needed for indigestion or gas. Dispense sixty (60). No refill. -- Paulie Murcia Dr.
[2016-08-30] MEDS ORDERED: MAGNESIUM400 M1 PO (11:43)
[2016-08-30] MEDS ORDERED: ASPIRIN325 MG PO (11:43)
[2016-08-30] MEDS ORDERED: MILK OF MA400 MG/5 M PO ×2 (11:46→11:47)
== END 2016-08-03 18:51 | disposition home or self-care (01) ==
LOC: ED SRH 16:35
DX: R10.13 Epigastric pain (principal); I10 Essential (primary) hypertension; E11.9 Type 2 diabetes mellitus without complications; E07.9 Disorder of thyroid, unspecified; E78.5 Hyperlipidemia, unspecified; I25.10 Atherosclerotic heart disease of native coronary artery without angina pectoris; Z79.82 Long term (current) use of aspirin; Z79.899 Other long term (current) drug therapy; Z79.891 Long term (current) use of opiate analgesic
CPT/HCPCS: 90100; 92235; 92530; 95059

== ENCOUNTER 2016-08-13 16:27 | Emergency (ER) | payer OTHER, MEDICARE ==
--- NOTE | 2016-08-13 18:20 | DIAGNOSTIC IMAGING REPORT ---
PROCEDURE: CT ABDOMEN/PELVIS W/O CONTRAST INDICATION: Abdominal and epigastric pain. Prior cholecystectomy, appendectomy and ventral hernia repair. TECHNIQUE: Noncontrast axial images were obtained of the entire abdomen and pelvis with sagittal and coronal reformations. Intravenous contrast was not utilized due to renal compromise (GFR 35). COMPARISON: Compared CT abdomen and pelvis on 04/13/2016. FINDINGS: ABDOMEN: Cholecystectomy (surgical clips). Liver, spleen, pancreas, kidneys, are normal. Leighton calcified atheromatous changes aorta. Mild to moderate degenerative changes of the lumbar spine. Bowel pattern is normal. Status post ventral abdominal hernia repair with surgical mesh. There has been interval development of moderate thickening of the tissues superficial and deep to the surgical mesh. PELVIS: Status post hysterectomy. Status post bilateral total hip prosthesis (metal artifact obscures some of the detail). IMPRESSION: 1. Status post cholecystectomy and hysterectomy. 2. Status post bilateral total hip prosthesis. 3. Status post ventral abdominal hernia repair or surgical mesh with development of soft tissue thickening deep and superficial to the surgical mesh. One might consider the possibility of a developing inflammatory process (e.g., infection), or scarring. 4. Findings discussed with Dr. Paulie Murcia. All CT scans at this facility use dose modulation, iterative reconstruction, and/or weight-based dosing when appropriate to reduce radiation dose to as low as reasonably achievable.
--- NOTE | 2016-08-13 19:05 | ED NURSING NOTES ---
Clinical Report - Nurses [facility] [address] [place] [address] 08/13/2016 16:27 Patient: RENATO CARDONA TRIAGE Triage time 16:34. Acuity: LEVEL 4. Chief Complaint: ABDOMINAL PAIN and (weakness). JESSIE COMA SCORE: Jessie Coma Scale: 15- eyes open spontaneously (4); best verbal response- oriented x 4 (5); best motor response- obeys commands (6). --16:43 Josseline Hatch R.N. 16:34 08/13/16. BP: 109/61. HR: 66. RR: 20. O2 saturation: 98% on room air. Temp: 97.6 F. Pain level now: 810. Additional comments: 810 abdominal area. --16:43 Josseline Hatch R.N. Weight: 99.7 kg stated. Height/Length: 65 inches Per Patient. BMI: 36.6. --16:38 Josseline Hatch R.N. Medications Amlodipine 5 md daily. Aspirin 325 mg daily. Atorvastatin 80 mg Q HS. Fiber Capsules. Glimepiride 2 mg daily before breakfast. Hydrocodone with Acetaminophen. Iron tablets. Levothyroxine 100 mcg daily. Losartan 25 mg daily. Magnesium 300 mg BID. Metoprolol tartrate 25 mg 1/2 tablet q AM and 1 tablet q AM. Milk of Magnesia. MiraLax. Omeprazole 20 mg bid. Senna. Stool Softener. Temazepam 15 mg Q HS. --16:36 Josseline Hatch R.N. Allergies No Known Drug Allergy. --16:36 Josseline Hatch R.N. History <<STRICKEN ENTRY-- Arrived by private vehicle. Historian: patient. Accompanied by family. Onset. (1 weeks). She has had nausea and abdominal pain. 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 PAST MEDICAL HX: Immunizations: up-to-date. Currently . SURGERY HX: ( hernia surgery w/in last 6 months). NUTRITIONAL RISK ASSESSMENT: The nutritional risk assessment revealed no deficiencies. FUNCTIONAL ASSESSMENT: Functional assessment: no impairments noted. LEARNING NEEDS ASSESSMENT: The learning needs assessment revealed no barriers. FALL RISK ASSESSMENT: Fall risk assessment completed. Risk factors identified include nausea and patient age greater than 65 years and impairment of mobility. Fall interventions initiated. Patient placed on stretcher. Side rails up x2. Brakes on Bed in low position. Patient identified as a fall risk by chart flagged. Internal Medicine Doctor at bedside. Call light in reach of patient. Instructed not to get up without assistance. SKIN INTEGRITY ASSESSMENT: Skin integrity risk assessment completed. No skin integrity risk identified. --16:43 Josseline Hatch R.N. --END STRIKE>> Correction --17:51 Josseline Hatch R.N. ( Pt denies dark stools.). --16:56 Josseline Hatch R.N. Arrived by private vehicle. Historian: patient. Accompanied by family. Onset. (1 weeks). She has had nausea and abdominal pain. 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 PAST MEDICAL HX: Immunizations: up-to-date. SURGERY HX: ( hernia surgery w/in last 6 months). NUTRITIONAL RISK ASSESSMENT: The nutritional risk assessment revealed no deficiencies. FUNCTIONAL ASSESSMENT: Functional assessment: no impairments noted. LEARNING NEEDS ASSESSMENT: The learning needs assessment revealed no barriers. FALL RISK ASSESSMENT: Fall risk assessment completed. Risk factors identified include nausea and patient age greater than 65 years and impairment of mobility. Fall interventions initiated. Patient placed on stretcher. Side rails up x2. Brakes on Bed in low position. Patient identified as a fall risk by chart flagged. Internal Medicine Doctor at bedside. Call light in reach of patient. Instructed not to get up without assistance. SKIN INTEGRITY ASSESSMENT: Skin integrity risk assessment completed. No skin integrity risk identified. --17:51 Josseline Hatch R.N. PROBLEMS: Hypertension [Active]. Heart Disease [Active]. Diabetes Mellitus [Active]. --16:38 Josseline Hatch R.N. Pneumonia. LAD stent (2011). Hypothyroidism. Blood Transfusions. 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 Constipation. Diverticulitis. Hernia. Hyperkalemia. Hypertension. Hyperlipidemia. Chest Pain of GI Origin. Palpitations. Abnormal EKG. Ovarian Cyst. Back Pain. Acute Pain. Atypical Chest Pain. Anemia. UTI - Urinary Tract Infection. Immunizations. Diabetes Mellitus. Pyelonephritis. Abdominal Pain. Heart Disease. Hyperglycemia. Renal Insufficiency. Chest Pain. Coronary Artery Disease. Sinus bradycardia. --16:38 Josseline Hatch R.N. Angina [RuleOut]. Acute Myocardial Infarction [RuleOut]. --16:38 Josseline Hatch R.N. Assessment The patient states feels the same. --16:43 Josseline Hatch R.N. Interventions ID band on patient. --16:43 Josseline Hatch R.N. PHYSICAL ASSESSMENT To room via wheelchair. GENERAL / NEURO / PSYCH: Alert. Oriented X 4. Appears anxious. CVS: Capillary refill less than 2 seconds. GI / : The patient has had nausea. Abdomen soft. Abdominal tenderness in the left lower quadrant. SKIN: Skin is warm and dry. --16:45 Josseline Hatch R.N. NURSING PROGRESS NOTES 17:06 08/13/2016 Site #1 started via IV in the left forearm with an 20g angiocath, with aseptic technique and good blood return; one attempt. Blood drawn: rainbow set. Labeled in the presence of the patient and sent to the lab. Saline lock flushed with 10 mL saline. --17:21 Josseline Hatch R.N. 17:21 08/13/2016 Started bag #1 1000 mL IV Fluids IV NS (Saline); at 1000 mL/hr over 1 hour(s) via site #1 via IV pump. Allergies verified and confirmed 5 rights. IV patency established. IV site checked: no pain, redness, or swelling. IV flushed thoroughly pre- and post-medication administration. --17:21 Josseline Hatch R.N. 17:22 08/13/2016 Zofran (Ondansetron HCl) IVP 4 mg given over 2 minute(s) via site #1. Allergies verified and confirmed 5 rights. IV patency established. IV site checked: no pain, redness, or swelling. IV flushed thoroughly pre- and post-medication administration. IVP given by RN. --17:22 Kneeland, Josseline, R.N. The plan of care for this patient has been created. Patient gowned. Head of bed elevated. Reassurance given to the patient and patient's friends. Gastroccult test negative. (POC test reference range: negative). Catheterized urine collected with return of yellow-colored clear urine; odor is foul-smelling. Overall patient status is the same. ( IVF started, zofran given per md order.). Patient identifiers checked. Call light placed in reach. Side rails up x 2. Bed placed in lowest position. Brakes of bed on. --17:26 Josseline Hatch R.N. 18:16 08/13/16. BP: 119/54. HR: 56. RR: 20. O2 saturation: 95%. Temp: 97.6 F. Pain level now: 05/24. Additional comments: 05/24 abdominal pain. --18:18 Josseline Hatch R.N. 18:25 08/13/2016 IV Fluids IV NS Discontinued: bag #1 infused. Total amount infused: 1000 mL. IV patency established. IV site checked: no pain, redness, or swelling. IV flushed thoroughly. --18:25 Josseline Hatch R.N. 18:40 08/13/2016 GI COCKTAIL WHITE (Simethicone) PO Oral Suspension 30 mL given. Allergies verified and confirmed 5 rights. --18:40 Josseline Hatch R.N. ( GI White cocktail given to pt.). --18:43 Josseline Hatch R.N. 19:01 08/13/16. BP: 114/62. HR: 60. RR: 18. O2 saturation: 96%. --19:02 Josseline Hatch R.N. ( Pt states that her abdominal pain still feels the pain, despite GI cocktail.). --19:18 Josseline Hatch R.N. ( Pt now not complaining of abdominal pain, instead stating her neck hurts and her head feels funny. MD aware, did discuss these issues with pt, who is to follow up with her PCP tomorrow. Will check pt's blood sugar on pt's request before discharge.). --19:21 Josseline Hatch R.N. 19:21. ( Pt drinks upwards to 1/2 gallon of orange juice a day. Md did have discussion as this being the possible cause for her abdominal pain, as well as the affects of the large amount of sugar and it's contribution to the diabetes symptoms.). --19:38 Josseline Hatch R.N. DISPOSITION / DISCHARGE 19:22 08/13/2016 Site #1 removed upon discharge. Bandaid applied. --19:22 Josseline Hatch R.N. Departure time: 19:29. Condition at departure: improved. The goals identified in the patient's plan of care were met. Discharge instructions provided and reviewed with the patient and family. Patient, family and oracle bpm developer verbalized understanding. Written instructions provided in [place]. ( PT blood sugar was 108, which pt states is "low". Pt requested orange juice, but was offered a cheese stick instead. Pt ate snack, then assisted to front via wheel chair.). The patient was discharged by the physician. She was discharged home and accompanied by oracle bpm developer. She left the Emergency Department in a wheelchair and via private vehicle. Internal Medicine Doctor driving. FALL RISK ASSESSMENT: Fall risk assessment completed. No fall risk identified. --19:30 Josseline Hatch R.N. 19:38 08/13/16. BP: 114/60. HR: 55. RR: 16. O2 saturation: 96%. Temp: 97.3 F. Pain level now: 310. Additional comments: Pt now complaining of neck pain, abdominal pain now appears fine. . --19:39 Josseline Hatch R.N. Locked/Released at 08/13/2016 19:40 by Josseline Hatch R.N.
--- NOTE | 2016-08-13 19:05 | ED CLINICAL REPORT ---
Clinical Report - Physicians/Mid Levels [facility] [address] [place] [address] 08/13/2016 16:27 Patient: RENATO CARDONA Time Seen: 16:47; initial patient contact. Arrived- By private vehicle. Historian- patient. HISTORY OF PRESENT ILLNESS Chief Complaint: ABDOMINAL PAIN. This started about 1 1/2 weeks ago and is still present. It is described as "pain". No radiation. It is described as located in the epigastric area. At its maximum, severity described as moderate. When seen in the E.D., severity described as moderate. Modifying factors. Not worsened by anything. Not relieved by anything. The patient has had nausea and loss of appetite. No vomiting or diarrhea. No additional abdominal pain. Similar symptoms previously: Many times. Recent medical care: The patient was seen recently at this facility in the emergency department. REVIEW OF SYSTEMS No constipation, black stools, hematemesis, difficulty with urination or pain with urination. No bloody stools, fever or chills. All systems otherwise negative, except as recorded above. PAST HISTORY Hypertension [Active]. Heart Disease [Active]. Diabetes Mellitus [Active]. Pneumonia. LAD stent (2011). Hypothyroidism. Blood Transfusions. 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 Constipation. Diverticulitis. Hernia. Hyperkalemia. Hypertension. Hyperlipidemia. Chest Pain of GI Origin. Palpitations. Abnormal EKG. Ovarian Cyst. Back Pain. Acute Pain. Atypical Chest Pain. Anemia. UTI - Urinary Tract Infection. Immunizations. Diabetes Mellitus. Pyelonephritis. Abdominal Pain. Heart Disease. Hyperglycemia. Renal Insufficiency. Chest Pain. Coronary Artery Disease. Sinus bradycardia. Angina Acute Myocardial Infarction. Medications: Amlodipine 5 md daily. Aspirin 325 mg daily. Atorvastatin 80 mg Q HS. Fiber Capsules. Glimepiride 2 mg daily before breakfast. Hydrocodone with Acetaminophen. Iron tablets. Levothyroxine 100 mcg daily. Losartan 25 mg daily. Magnesium 300 mg BID. Metoprolol tartrate 25 mg 1/2 tablet q AM and 1 tablet q AM. Milk of Magnesia. MiraLax. Omeprazole 20 mg bid. Senna. Stool Softener. Temazepam 15 mg Q HS. Allergies: No Known Drug Allergy. SOCIAL HISTORY Former smoker. No alcohol use or drug use. ADDITIONAL NOTES The nursing notes have been reviewed. PHYSICAL EXAM Vital Signs: 08/13/2016 16:34 BP: 109/61. HR: 66. RR: 20. O2 saturation: 98%. Temp: 97.6 F. Pain level now: 8/10. Have been reviewed as normal. Appearance: Alert. Oriented X3. No acute distress. Eyes: Eyes normal inspection. ENT: Pharynx normal. CVS: Normal heart rate and rhythm. 2/6 systolic murmur. Respiratory: No respiratory distress. Breath sounds normal. Abdomen: Soft. Moderate tenderness in the upper abdomen with guarding present. No rebound tenderness or Wilson's sign present. Bowel sounds normal. No organomegaly. No mass. Rectal: Rectal exam normal and nontender. Stool heme negative; hemoccult quality control specialist check passed. (POC test reference range: negative). Skin: Skin warm and dry. Normal skin color. Extremities: No lower extremity edema. Neuro: Oriented X 3. LABS, X-RAYS, AND EKG Laboratory Tests: UA-Culture if indicated: (DESTINEE: 08/13/2016 17:10) ( MsgRcvd 08/13/2016 17:39) Final results Test Result Flag Units (Reference) URINE COLOR YELLOW URINE APPEARANCE CLEAR URINE GLUCOSE NEGATIVE (NEGATIVE) URINE BILIRUBIN NEGATIVE (NEGATIVE) URINE KETONE NEGATIVE (NEGATIVE) URINE SPECIFIC GRAVITY 1.015 (1.010-1.030) URINE PH 6.5 (5.0-8.0) URINE PROTEIN NEGATIVE (NEGATIVE) URINE UROBILINOGEN 1.0 EU/dL (0.2-1.0) URINE NITRITE NEGATIVE (NEGATIVE) URINE BLOOD NEGATIVE (NEGATIVE) URINE LEUK ESTERASE NEGATIVE (NEGATIVE) URINE RBC NONE SEEN rbc/hpf (0-1) URINE WBC RARE wbc/hpf (0-1) URINE EPITHELIAL CELLS 0-1 EPI/hpf (0-5) URINE BACTERIA NONE SEEN (NONE SEEN) URINE COMMENT CULT NOT INDICATED URINE CULTURES ARE SET-UP BASED ON THE FOLLOWING CRITERIA:POSITIVE NITRITEPOSITIVE LEUKOCYTE ESTERASEGREATER THAN 10 WHITE BLOOD CELLSMODERATE (2+) OR GREATER BACTERIA CBC w Diff: (DESTINEE: 08/13/2016 16:55) ( [facility] [place] 08/13/[place] 17:30) Final results Test Result Flag Units (Reference) WHITE BLOOD COUNT 7.4 K/uL (4.5-11.5) RED BLOOD COUNT 3.93 L M/uL (4.00-5.20) HEMOGLOBIN 11.8 L gm/dL (12.0-16.0) HEMATOCRIT 35.2 L % (36.0-46.0) MEAN CELL VOLUME 90 fL (80-100) MEAN CORPUSCULAR HGB 30 pg (26-34) MEAN CORPUSCULAR HGB CONC 33 g/dL (31-37) RED CELL DISTRIBUTION WIDTH 16.0 H % (11.6-14.8) PLATELET COUNT 234 K/uL (150-400) NEUTROPHIL % 65.6 % (50-75) LYMPH % 15.0 L % (25-40) MONO % 8.3 % (3-14) EOSINOPHIL % 10.8 H % (0-4) BASOPHIL % 0.3 % (0-2) CMP: (DESTINEE: 08/13/2016 16:55) ( [facility] 08/13/2016 17:47) Final results Test Result Flag Units (Reference) GLUCOSE 183 H mg/dL (70-110) BUN 20 H mg/dL (7-18) CREATININE 1.5 H mg/dL (0.6-1.3) Estimated GFR 35.25 mL/min Estimated GFR- 42.72 mL/min Note: Persistent reduction over 3 months in eGFR<60 mL/min/1.73 m2 defines CKD. Patients with eGFR values>=60 mL/min/1.73 m2 may also have CKD if evidence ofpersistent proteinuria. Additional information may be foundat www.[email or web address].org. SODIUM 127 L mmol/L (136-145) POTASSIUM 4.9 mmol/L (3.5-5.1) CHLORIDE 92 L mmol/L (98-107) CARBON DIOXIDE 27 mmol/L (21-32) CALCIUM 9.2 mg/dL (8.5-10.1) TOTAL PROTEIN 6.2 L g/dL (6.4-8.2) ALBUMIN 3.4 g/dL (3.3-5.0) BILIRUBIN, TOTAL 0.4 mg/dL (0.0-1.0) ALKALINE PHOSPHATASE 115 U/L (46-116) AST (SGOT) 13 L U/L (15-37) ALT (SGPT) 25 U/L (12-78) LIPASE 256 U/L (73-393) AMYLASE 96 U/L (25-115) . PROGRESS AND PROCEDURES Course of Care: GI Cocktail 30 mL composed of 15 mL viscous lidocaine and antacid PO given. The patient's symptoms are unchanged. Discussed case with patient's primary care provider, (call returned 18:48 Dr. Landrum, [place] for outpt f/u.). Reviewed test results. Agreed upon treatment plan and need for patient follow-up. Health care provider will see patient in office. Disposition: Discharged home in good condition. Condition: good. CLINICAL IMPRESSION Acute generalized abdominal pain of unknown cause. INSTRUCTIONS (Decrease your orange juice intake.). Your Current Medications: CONTINUE TAKING THE FOLLOWING MEDICATIONS: Amlodipine 5 md daily*. Aspirin 325 mg daily*. Atorvastatin 80 mg Q HS*. Fiber Capsules*. Glimepiride 2 mg daily before breakfast*. Hydrocodone with Acetaminophen*. Iron tablets*. Levothyroxine 100 mcg daily*. Losartan 25 mg daily*. Magnesium 300 mg BID*. Metoprolol tartrate 25 mg 1/2 tablet q AM and 1 tablet q AM*. Milk of Magnesia*. MiraLax*. Omeprazole 20 mg bid*. Senna*. Stool Softener*. Temazepam 15 mg Q HS*. Prescription Medications: Tramadol 50 mg: take 1 orally every 6 hours as needed for stiffness. Do not take more than 8 tablets in a 24 hour period. Dispense twenty (20). No refills. Follow-up: Follow up with your doctor in about two days. Call for an appointment. Blood pressure screening was not performed during this visit because the patient has an active diagnosis of hypertension. (Electronically signed by Paulie Murcia Dr. 08/13/2016 21:23)
--- NOTE | 2016-08-13 19:05 | ED NURSING NOTES ---
Clinical Report - Nurses [facility] [address] [place] [address] 08/13/2016 16:27 Patient: RENATO CARDONA TRIAGE Triage time 16:34. Acuity: LEVEL 4. Chief Complaint: ABDOMINAL PAIN and (weakness). JESSIE COMA SCORE: Jessie Coma Scale: 15- eyes open spontaneously (4); best verbal response- oriented x 4 (5); best motor response- obeys commands (6). --16:43 Josseline Hatch R.N. 16:34 08/13/16. BP: 109/61. HR: 66. RR: 20. O2 saturation: 98% on room air. Temp: 97.6 F. Pain level now: 810. Additional comments: 810 abdominal area. --16:43 Josseline Hatch R.N. Weight: 99.7 kg stated. Height/Length: 65 inches Per Patient. BMI: 36.6. --16:38 Josseline Hatch R.N. Medications Amlodipine 5 md daily. Aspirin 325 mg daily. Atorvastatin 80 mg Q HS. Fiber Capsules. Glimepiride 2 mg daily before breakfast. Hydrocodone with Acetaminophen. Iron tablets. Levothyroxine 100 mcg daily. Losartan 25 mg daily. Magnesium 300 mg BID. Metoprolol tartrate 25 mg 1/2 tablet q AM and 1 tablet q AM. Milk of Magnesia. MiraLax. Omeprazole 20 mg bid. Senna. Stool Softener. Temazepam 15 mg Q HS. --16:36 Josseline Hatch R.N. Allergies No Known Drug Allergy. --16:36 Josseline Hatch R.N. History <<STRICKEN ENTRY-- Arrived by private vehicle. Historian: patient. Accompanied by family. Onset. (1 weeks). She has had nausea and abdominal pain. 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 PAST MEDICAL HX: Immunizations: up-to-date. Currently . SURGERY HX: ( hernia surgery w/in last 6 months). NUTRITIONAL RISK ASSESSMENT: The nutritional risk assessment revealed no deficiencies. FUNCTIONAL ASSESSMENT: Functional assessment: no impairments noted. LEARNING NEEDS ASSESSMENT: The learning needs assessment revealed no barriers. FALL RISK ASSESSMENT: Fall risk assessment completed. Risk factors identified include nausea and patient age greater than 65 years and impairment of mobility. Fall interventions initiated. Patient placed on stretcher. Side rails up x2. Brakes on Bed in low position. Patient identified as a fall risk by chart flagged. Movie Projectionist at bedside. Call light in reach of patient. Instructed not to get up without assistance. SKIN INTEGRITY ASSESSMENT: Skin integrity risk assessment completed. No skin integrity risk identified. --16:43 Josseline Hatch R.N. --END STRIKE>> Correction --17:51 Josseline Hatch R.N. ( Pt denies dark stools.). --16:56 Josseline Hatch R.N. Arrived by private vehicle. Historian: patient. Accompanied by family. Onset. (1 weeks). She has had nausea and abdominal pain. 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 PAST MEDICAL HX: Immunizations: up-to-date. SURGERY HX: ( hernia surgery w/in last 6 months). NUTRITIONAL RISK ASSESSMENT: The nutritional risk assessment revealed no deficiencies. FUNCTIONAL ASSESSMENT: Functional assessment: no impairments noted. LEARNING NEEDS ASSESSMENT: The learning needs assessment revealed no barriers. FALL RISK ASSESSMENT: Fall risk assessment completed. Risk factors identified include nausea and patient age greater than 65 years and impairment of mobility. Fall interventions initiated. Patient placed on stretcher. Side rails up x2. Brakes on Bed in low position. Patient identified as a fall risk by chart flagged. Movie Projectionist at bedside. Call light in reach of patient. Instructed not to get up without assistance. SKIN INTEGRITY ASSESSMENT: Skin integrity risk assessment completed. No skin integrity risk identified. --17:51 Josseline Hatch R.N. PROBLEMS: Hypertension [Active]. Heart Disease [Active]. Diabetes Mellitus [Active]. --16:38 Josseline Hatch R.N. Pneumonia. LAD stent (2011). Hypothyroidism. Blood Transfusions. 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 Constipation. Diverticulitis. Hernia. Hyperkalemia. Hypertension. Hyperlipidemia. Chest Pain of GI Origin. Palpitations. Abnormal EKG. Ovarian Cyst. Back Pain. Acute Pain. Atypical Chest Pain. Anemia. UTI - Urinary Tract Infection. Immunizations. Diabetes Mellitus. Pyelonephritis. Abdominal Pain. Heart Disease. Hyperglycemia. Renal Insufficiency. Chest Pain. Coronary Artery Disease. Sinus bradycardia. --16:38 Josseline Hatch R.N. Angina [RuleOut]. Acute Myocardial Infarction [RuleOut]. --16:38 Josseline Hatch R.N. Assessment The patient states feels the same. --16:43 Josseline Hatch R.N. Interventions ID band on patient. --16:43 Josseline Hatch R.N. PHYSICAL ASSESSMENT To room via wheelchair. GENERAL / NEURO / PSYCH: Alert. Oriented X 4. Appears anxious. CVS: Capillary refill less than 2 seconds. GI / : The patient has had nausea. Abdomen soft. Abdominal tenderness in the left lower quadrant. SKIN: Skin is warm and dry. --16:45 Josseline Hatch R.N. NURSING PROGRESS NOTES 17:06 08/13/2016 Site #1 started via IV in the left forearm with an 20g angiocath, with aseptic technique and good blood return; one attempt. Blood drawn: rainbow set. Labeled in the presence of the patient and sent to the lab. Saline lock flushed with 10 mL saline. --17:21 Josseline Hatch R.N. 17:21 08/13/2016 Started bag #1 1000 mL IV Fluids IV NS (Saline); at 1000 mL/hr over 1 hour(s) via site #1 via IV pump. Allergies verified and confirmed 5 rights. IV patency established. IV site checked: no pain, redness, or swelling. IV flushed thoroughly pre- and post-medication administration. --17:21 Josseline Hatch R.N. 17:22 08/13/2016 Zofran (Ondansetron HCl) IVP 4 mg given over 2 minute(s) via site #1. Allergies verified and confirmed 5 rights. IV patency established. IV site checked: no pain, redness, or swelling. IV flushed thoroughly pre- and post-medication administration. IVP given by RN. --17:22 Kneeland, Josseline, R.N. The plan of care for this patient has been created. Patient gowned. Head of bed elevated. Reassurance given to the patient and patient's friends. Gastroccult test negative. (POC test reference range: negative). Catheterized urine collected with return of yellow-colored clear urine; odor is foul-smelling. Overall patient status is the same. ( IVF started, zofran given per md order.). Patient identifiers checked. Call light placed in reach. Side rails up x 2. Bed placed in lowest position. Brakes of bed on. --17:26 Josseline Hatch R.N. 18:16 08/13/16. BP: 119/54. HR: 56. RR: 20. O2 saturation: 95%. Temp: 97.6 F. Pain level now: 05/24. Additional comments: 05/24 abdominal pain. --18:18 Josseline Hatch R.N. 18:25 08/13/2016 IV Fluids IV NS Discontinued: bag #1 infused. Total amount infused: 1000 mL. IV patency established. IV site checked: no pain, redness, or swelling. IV flushed thoroughly. --18:25 Josseline Hatch R.N. 18:40 08/13/2016 GI COCKTAIL WHITE (Simethicone) PO Oral Suspension 30 mL given. Allergies verified and confirmed 5 rights. --18:40 Josseline Hatch R.N. ( GI White cocktail given to pt.). --18:43 Josseline Hatch R.N. 19:01 08/13/16. BP: 114/62. HR: 60. RR: 18. O2 saturation: 96%. --19:02 Josseline Hatch R.N. ( Pt states that her abdominal pain still feels the pain, despite GI cocktail.). --19:18 Josseline Hatch R.N. ( Pt now not complaining of abdominal pain, instead stating her neck hurts and her head feels funny. MD aware, did discuss these issues with pt, who is to follow up with her PCP tomorrow. Will check pt's blood sugar on pt's request before discharge.). --19:21 Josseline Hatch R.N. 19:21. ( Pt drinks upwards to 1/2 gallon of orange juice a day. Md did have discussion as this being the possible cause for her abdominal pain, as well as the affects of the large amount of sugar and it's contribution to the diabetes symptoms.). --19:38 Josseline Hatch R.N. DISPOSITION / DISCHARGE 19:22 08/13/2016 Site #1 removed upon discharge. Bandaid applied. --19:22 Josseline Hatch R.N. Departure time: 19:29. Condition at departure: improved. The goals identified in the patient's plan of care were met. Discharge instructions provided and reviewed with the patient and family. Patient, family and food and beverage order clerk verbalized understanding. Written instructions provided in Syrian. ( PT blood sugar was 108, which pt states is "low". Pt requested orange juice, but was offered a cheese stick instead. Pt ate snack, then assisted to front via wheel chair.). The patient was discharged by the physician. She was discharged home and accompanied by food and beverage order clerk. She left the Emergency Department in a wheelchair and via private vehicle. Movie Projectionist driving. FALL RISK ASSESSMENT: Fall risk assessment completed. No fall risk identified. --19:30 Josseline Hatch R.N. 19:38 08/13/16. BP: 114/60. HR: 55. RR: 16. O2 saturation: 96%. Temp: 97.3 F. Pain level now: 310. Additional comments: Pt now complaining of neck pain, abdominal pain now appears fine. . --19:39 Josseline Hatch R.N. Locked/Released at 08/13/2016 19:40 by Josseline Hatch R.N.
--- NOTE | 2016-08-13 19:06 | ED ORDER SUMMARY ---
..... Patient: RENATO CARDONA OrderSheet [facility] VisitID: [id number] [place] [address] 85y, F Registration Date/Time: 08/13/2016 ORDER SHEET Weight: 99.7 kg (stated) Allergies: No Known Drug Allergy GENERAL ORDERS: CBC w Diff Urgent (17:09 08/13/2016 Pio Lira) (Ack 17:10 PWeiler ER Tech1) (17:14 NKneeland R.N.) (17:19 PWeiler ER Tech1) CMP Urgent (17:09 08/13/2016 Pio Lira) (Ack 17:10 PWeiler ER Tech1) (17:14 NKneeland R.N.) (17:19 PWeiler ER Tech1) UA-Culture if indicated Urgent (17:09 08/13/2016 Pio Lira) (Ack 17:10 PWeiler ER Tech1) (17:14 NKneeland R.N.) Amylase Urgent (17:09 08/13/2016 Pio Lira) (Ack 17:10 PWeiler ER Tech1) (17:14 NKneeland R.N.) (17:19 PWeiler ER Tech1) Lipase Urgent (17:09 08/13/2016 Pio Lira) (Ack 17:10 PWeiler ER Tech1) (17:14 NKneeland R.N.) (17:19 PWeiler ER Tech1) CT Abd/Pel wo Cont Urgent (17:57 08/13/2016 Pio Lira) (Ack 17:58 PWeiler ER Tech1) (18:14 NKneeland R.N.) MEDICATION ORDERS: GI Cocktail WHITE PO 30 mL with Lidocaine Viscous Mouth/Throat 15 mL, Maalox Plus Oral 15 mL (NOW) (18:35 08/13/2016 Pio Lira) (18:40 NKneeland R.N.) IV FLUIDS: IV NS : initial bolus none -, then 1000 mL/hr for X1 (NOW) (17:08 08/13/2016 Pio Lira) (17:21 NKneeland R.N.) Zofran IV 4 mg (NOW) (17:09 08/13/2016 Pio Lira) (17:22 Katheryn Corbin.Clifton) ORDER SHEET NOTES: [Electronically signed by Josseline Hatch R.N. (19:40 08/13/2016)] [Electronically signed by Paulie Murcia Dr. (21:23 08/13/2016)] [Electronically locked/signed by Josseline Hatch R.N. (19:40 08/13/2016)]
--- NOTE | 2016-08-13 19:06 | ED ORDER SUMMARY ---
..... Patient: RENATO CARDONA OrderSheet [facility] VisitID: [id number] [place] [address] 85y, F Registration Date/Time: 08/13/2016 ORDER SHEET Weight: 99.7 kg (stated) Allergies: No Known Drug Allergy GENERAL ORDERS: CBC w Diff Urgent (17:09 08/13/2016 Pio Lira) (Ack 17:10 PWeiler ER Tech1) (17:14 NKneeland R.N.) (17:19 PWeiler ER Tech1) CMP Urgent (17:09 08/13/2016 Pio Lira) (Ack 17:10 PWeiler ER Tech1) (17:14 NKneeland R.N.) (17:19 PWeiler ER Tech1) UA-Culture if indicated Urgent (17:09 08/13/2016 Pio Lira) (Ack 17:10 PWeiler ER Tech1) (17:14 NKneeland R.N.) Amylase Urgent (17:09 08/13/2016 Pio Lira) (Ack 17:10 PWeiler ER Tech1) (17:14 NKneeland R.N.) (17:19 PWeiler ER Tech1) Lipase Urgent (17:09 08/13/2016 Pio Lira) (Ack 17:10 PWeiler ER Tech1) (17:14 NKneeland R.N.) (17:19 PWeiler ER Tech1) CT Abd/Pel wo Cont Urgent (17:57 08/13/2016 Pio Lira) (Ack 17:58 PWeiler ER Tech1) (18:14 NKneeland R.N.) MEDICATION ORDERS: GI Cocktail WHITE PO 30 mL with Lidocaine Viscous Mouth/Throat 15 mL, Maalox Plus Oral 15 mL (NOW) (18:35 08/13/2016 Pio Lira) (18:40 NKneeland R.N.) IV FLUIDS: IV NS : initial bolus none -, then 1000 mL/hr for X1 (NOW) (17:08 08/13/2016 Pio Lira) (17:21 NKneeland R.N.) Zofran IV 4 mg (NOW) (17:09 08/13/2016 Pio Lira) (17:22 Katheryn Corbin.Clifton) ORDER SHEET NOTES: [Electronically signed by Josseline Hatch R.N. (19:40 08/13/2016)] [Electronically signed by Paulie Murcia Dr. (21:23 08/13/2016)] [Electronically locked/signed by Josseline Hatch R.N. (19:40 08/13/2016)]
--- NOTE | 2016-08-13 21:24 | ED DISCHARGE INSTRUCTIONS ---
Patient: RENATO CARDONA General Instructions [facility] VisitID: [id number] [place] [address] 85y, F Registration Date/Time: 08/13/2016 Acute generalized abdominal pain of unknown cause. INSTRUCTIONS (Decrease your orange juice intake.). Your Current Medications: CONTINUE TAKING THE FOLLOWING MEDICATIONS: Amlodipine 5 md daily*. Aspirin 325 mg daily*. Atorvastatin 80 mg Q HS*. Fiber Capsules*. Glimepiride 2 mg daily before breakfast*. Hydrocodone with Acetaminophen*. Iron tablets*. Levothyroxine 100 mcg daily*. Losartan 25 mg daily*. Magnesium 300 mg BID*. Metoprolol tartrate 25 mg 1/2 tablet q AM and 1 tablet q AM*. Milk of Magnesia*. MiraLax*. Omeprazole 20 mg bid*. Senna*. Stool Softener*. Temazepam 15 mg Q HS*. Prescription Medications: Tramadol 50 mg: take 1 orally every 6 hours as needed for stiffness. Do not take more than 8 tablets in a 24 hour period. Dispense twenty (20). No refills. Follow-up: Follow up with your doctor in about two days. Call for an appointment. Blood pressure screening was not performed during this visit because the patient has an active diagnosis of hypertension. ADDITIONAL INFORMATION Abdominal Pain, Unknown Cause (Female) The exact cause of your abdominal (stomach) pain is not certain. This does not mean that this is something to worry about, or the right tests were not done. Everyone likes to know the exact cause of the problem, but sometimes with abdominal pain, there is no clear-cut cause, and this could be a good thing. The good news is that your symptoms can be treated, and you will feel better. Your condition does not seem serious now; however, sometimes the signs of a serious problem may take more time to appear. For this reason,it is important for you to watch for any new symptoms, problems,or worsening of your condition. Over the next few days, the abdominal pain may come and go, or be continuous. Other common symptoms can include nausea and vomiting. Sometimes it can be difficult to tell if you feel nauseous, you may just feel bad and not associate that feeling with nausea. Constipation, diarrhea, and a fever may go along with the pain. The pain may continue even if treated correctly over the following days. Depending on how things go, sometimes the cause can become clear and may require further or different treatment. Additional evaluations, medications, or tests may be needed. Home care Your health care provider may prescribe medications for pain, symptoms, or an infection. Follow the health care provider's instructions for taking these medications. General care Rest until your next exam. No strenuous activities. Try to find positions that ease discomfort. A small pillow placed on the abdomen may help relieve pain. Something warm on your abdomen (such as a heating pad) may help, but be careful not to burn yourself. Diet Do not force yourself to eat, especially if having cramps, vomiting, or diarrhea. Water is important so you do not get dehydrated. Soup may also be good. Sports drinks may also help, especially if they are not too acidic. Make sure you don't drink sugary drinks as this can make things worse. Take liquids in small amounts. Do not guzzle them. Caffeine sometimes makes the pain and cramping worse. Avoid dairy products if you have vomiting or diarrhea. Don't eat large amounts at a time. Wait a few minutes between bites. Eat a diet low in fiber (called a low-residue diet). Foods allowed include refined breads, white rice, fruit and vegetable juices without pulp, tender meats. These foods will pass more easily through the intestine. Avoid whole-grain foods, whole fruits and vegetables, meats, seeds and nuts, fried or fatty foods, dairy, alcohol and spicy foods until your symptoms go away. Follow-up care Follow up with your health care provider as instructed, or if your pain does not begin to improve in the next 24 hours. When to seek medical care Seek prompt medical care if any of the following occur: Pain gets worse or moves to the right lower abdomen New or worsening vomiting or diarrhea Swelling of the abdomen Unable to pass stool for more than three days Fever of 100.4F (38C) or higher, or as directed by your healthcare provider. Blood in vomit or bowel movements (dark red or black color) Jaundice (yellow color of eyes and skin) Weakness, dizziness Chest, arm, back, neck or jaw pain Unexpected vaginal bleeding or missed period Call 911 Call emergency services if any of the following occur: Trouble breathing Confusion Fainting or loss of consciousness Rapid heart rate Seizure Tramadol Hydrochloride Oral tablet What is this medicine? TRAMADOL (TRA ma dole) is a pain reliever. It is used to treat moderate to severe pain in adults. How should I use this medicine? Take this medicine by mouth with a full glass of water. Follow the directions on the prescription label. If the medicine upsets your stomach, take it with food or milk. Do not take more medicine than you are told to take. Talk to your industrial production manager regarding the use of this medicine in children. Special care may be needed. What side effects may I notice from receiving this medicine? Side effects that you should report to your doctor or health personal care service provider as soon as possible: allergic reactions like skin rash, itching or hives, swelling of the face, lips, or tongue breathing difficulties, wheezing confusion itching light headedness or fainting spells redness, blistering, peeling or loosening of the skin, including inside the mouth seizures Side effects that usually do not require medical attention (report to your doctor or health personal care service provider if they continue or are bothersome): constipation dizziness drowsiness headache nausea, vomiting What may interact with this medicine? Do not take this medicine with any of the following medications: MAOIs like Carbex, Eldepryl, Marplan, Nardil, and Parnate This medicine may also interact with the following medications: alcohol or medicines that contain alcohol antihistamines benzodiazepines bupropion carbamazepine or oxcarbazepine clozapine cyclobenzaprine digoxin furazolidone linezolid medicines for depression, anxiety, or psychotic disturbances medicines for migraine headache like almotriptan, eletriptan, frovatriptan, naratriptan, rizatriptan, sumatriptan, zolmitriptan medicines for pain like pentazocine, buprenorphine, butorphanol, meperidine, nalbuphine, and propoxyphene medicines for sleep muscle relaxants naltrexone phenobarbital phenothiazines like perphenazine, thioridazine, chlorpromazine, mesoridazine, fluphenazine, prochlorperazine, promazine, and trifluoperazine procarbazine warfarin What if I miss a dose? If you miss a dose, take it as soon as you can. If it is almost time for your next dose, take only that dose. Do not take double or extra doses. Where should I keep my medicine? Keep out of the reach of children. Store at room temperature between 15 and 30 degrees C (59 and 86 degrees F). Keep container tightly closed. Throw away any unused medicine after the expiration date. What should I tell my health care provider before I take this medicine? They need to know if you have any of these conditions: brain tumor depression drug abuse or addiction head injury if you frequently drink alcohol containing drinks kidney disease or trouble passing urine liver disease lung disease, asthma, or breathing problems seizures or epilepsy suicidal thoughts, plans, or attempt; a previous suicide attempt by you or a family member an unusual or allergic reaction to tramadol, codeine, other medicines, foods, dyes, or preservatives or trying to get breast-feeding What should I watch for while using this medicine? Tell your doctor or health personal care service provider if your pain does not go away, if it gets worse, or if you have new or a different type of pain. You may develop tolerance to the medicine. Tolerance means that you will need a higher dose of the medicine for pain relief. Tolerance is normal and is expected if you take this medicine for a long time. Do not suddenly stop taking your medicine because you may develop a severe reaction. Your body becomes used to the medicine. This does NOT mean you are addicted. Addiction is a behavior related to getting and using a drug for a non-medical reason. If you have pain, you have a medical reason to take pain medicine. Your doctor will tell you how much medicine to take. If your doctor wants you to stop the medicine, the dose will be slowly lowered over time to avoid any side effects. You may get drowsy or dizzy. Do not drive, use machinery, or do anything that needs mental alertness until you know how this medicine affects you. Do not stand or sit up quickly, especially if you are an older patient. This reduces the risk of dizzy or fainting spells. Alcohol can increase or decrease the effects of this medicine. Avoid alcoholic drinks. You may have constipation. Try to have a bowel movement at least every 2 to 3 days. If you do not have a bowel movement for 3 days, call your doctor or health personal care service provider. Your mouth may get dry. Chewing sugarless gum or sucking hard candy, and drinking plenty of water may help. Contact your doctor if the problem does not go away or is severe. You have been given the following additional information: Abdominal Pain, Unknown Cause, (Female) Tramadol Hydrochloride Oral tablet (Electronically signed by Paulie Murcia Dr. 08/13/2016 21:23)
--- NOTE | 2016-08-13 21:24 | ED MED RECONCILIATION SUMMARY ---
Patient: RENATO CARDONA Medication Reconciliation Report [facility] VisitID: [id number] [place] [address] 85y, F Registration Date/Time: 08/13/2016 Weight: 99.7 kg Height/Length: 65 in. BMI: 36.6 ALLERGIES: No Known Drug Allergy The patient's Home Medications are listed below: CONTINUE TAKING THE FOLLOWING MEDICATIONS: Amlodipine 5 md daily Aspirin 325 mg daily Atorvastatin 80 mg Q HS Fiber Capsules Glimepiride 2 mg daily before breakfast Hydrocodone with Acetaminophen Iron tablets Levothyroxine 100 mcg daily Losartan 25 mg daily Magnesium 300 mg BID Metoprolol tartrate 25 mg 1/2 tablet q AM and 1 tablet q AM Milk of Magnesia MiraLax Omeprazole 20 mg bid Senna Stool Softener Temazepam 15 mg Q HS The source(s) of the original Home Medication information: Not obtained. The following Medications were given to the patient in the Emergency Department: IV NS IV Fluids bolus 0, then 1000 mL/hr, administered: 08/13/2016 5:21:00 PM Zofran [IVP] IVP 4 mg, administered: 08/13/2016 5:22:00 PM GI COCKTAIL WHITE [PO] PO 30 mL, administered: 08/13/2016 6:40:00 PM The following Medications were prescribed to the patient: Tramadol 50 mg: take 1 orally every 6 hours as needed for stiffness. Do not take more than 8 tablets in a 24 hour period. Dispense twenty (20). No refills. -- Paulie Murcia Dr.
--- NOTE | 2016-08-13 21:24 | ED MED RECONCILIATION SUMMARY ---
Patient: RENATO CARDONA Medication Reconciliation Report [facility] VisitID: [id number] [place] [address] 85y, F Registration Date/Time: 08/13/2016 Weight: 99.7 kg Height/Length: 65 in. BMI: 36.6 ALLERGIES: No Known Drug Allergy The patient's Home Medications are listed below: CONTINUE TAKING THE FOLLOWING MEDICATIONS: Amlodipine 5 md daily Aspirin 325 mg daily Atorvastatin 80 mg Q HS Fiber Capsules Glimepiride 2 mg daily before breakfast Hydrocodone with Acetaminophen Iron tablets Levothyroxine 100 mcg daily Losartan 25 mg daily Magnesium 300 mg BID Metoprolol tartrate 25 mg 1/2 tablet q AM and 1 tablet q AM Milk of Magnesia MiraLax Omeprazole 20 mg bid Senna Stool Softener Temazepam 15 mg Q HS The source(s) of the original Home Medication information: Not obtained. The following Medications were given to the patient in the Emergency Department: IV NS IV Fluids bolus 0, then 1000 mL/hr, administered: 08/13/2016 5:21:00 PM Zofran [IVP] IVP 4 mg, administered: 08/13/2016 5:22:00 PM GI COCKTAIL WHITE [PO] PO 30 mL, administered: 08/13/2016 6:40:00 PM The following Medications were prescribed to the patient: Tramadol 50 mg: take 1 orally every 6 hours as needed for stiffness. Do not take more than 8 tablets in a 24 hour period. Dispense twenty (20). No refills. -- Paulie Murcia Dr.
--- NOTE | 2016-08-13 21:24 | ED MAR SUMMARY ---
..... Medication Administration Record [facility] [address] [place] [address] Patient: RENATO CARDONA Visit ID: [id number] 85y, F Weight: 99.7 kg Height/Length: 65 in BMI: 36.6 ALLERGIES: No Known Drug Allergy Start 17:21 08/13/2016 Josseline Hatch R.N., Stop 18:25 08/13/2016 Josseline Hatch R.N. Medication Administered: IV NS (SALINE), Dose: IV Fluids over 1 hour(s), Rate: 1000 mL/hr, Dispensed: 1000 mL bag, Site: #1 left forearm. Medication Ordered: IV NS : initial bolus none -, then 1000 mL/hr for X1 (NOW). Given 17:22 08/13/2016 Josseline Hatch R.N. Medication Administered: ZOFRAN [IVP] (ONDANSETRON HCL), Dose: 4 mg IVP over 2 minute(s), Site: #1 left forearm. Medication Ordered: Zofran IV 4 mg (NOW). Given 18:40 08/13/2016 Josseline Hatch R.NSedrick Medication Administered: GI COCKTAIL WHITE [PO] (SIMETHICONE), Dose: 30 mL Oral Suspension PO. Medication Ordered: GI Cocktail WHITE PO 30 mL with Lidocaine Viscous Mouth/Throat 15 mL, Maalox Plus Oral 15 mL (NOW).
--- NOTE | 2016-08-13 21:24 | ED MAR SUMMARY ---
..... Medication Administration Record [facility] [address] [place] [address] Patient: RENATO CARDONA Visit ID: [id number] 85y, F Weight: 99.7 kg Height/Length: 65 in BMI: 36.6 ALLERGIES: No Known Drug Allergy Start 17:21 08/13/2016 Josseline Hatch R.N., Stop 18:25 08/13/2016 Josseline Hatch R.N. Medication Administered: IV NS (SALINE), Dose: IV Fluids over 1 hour(s), Rate: 1000 mL/hr, Dispensed: 1000 mL bag, Site: #1 left forearm. Medication Ordered: IV NS : initial bolus none -, then 1000 mL/hr for X1 (NOW). Given 17:22 08/13/2016 Josseline Hatch R.N. Medication Administered: ZOFRAN [IVP] (ONDANSETRON HCL), Dose: 4 mg IVP over 2 minute(s), Site: #1 left forearm. Medication Ordered: Zofran IV 4 mg (NOW). Given 18:40 08/13/2016 Josseline Hatch R.NSedrick Medication Administered: GI COCKTAIL WHITE [PO] (SIMETHICONE), Dose: 30 mL Oral Suspension PO. Medication Ordered: GI Cocktail WHITE PO 30 mL with Lidocaine Viscous Mouth/Throat 15 mL, Maalox Plus Oral 15 mL (NOW).
== END 2016-08-13 17:20 | disposition home or self-care (01) ==
LOC: ED SRH 16:27
DX: R10.84 Generalized abdominal pain (principal); I10 Essential (primary) hypertension; E11.9 Type 2 diabetes mellitus without complications; I51.9 Heart disease, unspecified; E78.5 Hyperlipidemia, unspecified; I25.2 Old myocardial infarction; Z79.82 Long term (current) use of aspirin; Z79.891 Long term (current) use of opiate analgesic; Z79.899 Other long term (current) drug therapy
CPT/HCPCS: 90004; 90100; 92235; 92530; 95059

== ENCOUNTER 2016-08-23 19:38 | Inpatient (IN) | payer OTHER, MEDICARE ==
[~2016-08-23] VITALS: Ht 165.1 cm; Wt 98.6 kg
--- NOTE | 2016-08-23 22:10 | DIAGNOSTIC IMAGING REPORT ---
PROCEDURE: XR ABD SERIES 2V ABD/1V CHEST INDICATION: ABDOMINAL PAIN TECHNIQUE: Two views of the abdomen and a single view of the chest. COMPARISON: 08/03/2016 and 07/26/2016 FINDINGS: Abdomen: No free intraperitoneal air. There is a fluid level in the distal stomach. Paucity of small bowel gas elsewhere. Increased amount of stool in the proximal colon. Normal amount of gas throughout the rest of the colon and in the rectum. Surgical changes of cholecystectomy, right hernia repair, and bilateral hip arthroplasties. Dystrophic calcifications bilaterally in the proximal lower extremities. Chest: The cardiomediastinal contour is normal. Moderate aortic arch atherosclerosis. No central vascular congestion. Clear lungs. No effusion or pneumothorax. Intact osseous structures. IMPRESSION: 1. Retained stool in the ascending colon. 2. No bowel obstruction. 3. Air-fluid level in the stomach suggestive of ileus. 4. Surgical changes as described. 5. No acute cardiomegaly disease.
--- NOTE | 2016-08-23 22:46 | DIAGNOSTIC IMAGING REPORT ---
PROCEDURE: CT ABDOMEN/PELVIS W/O CONTRAST INDICATION: ABDOMINAL PAIN TECHNIQUE: Axial CT images were obtained through the abdomen and pelvis without IV contrast. Coronal and sagittal reformations were created. No contrast given for chronically low GFR COMPARISON: 08/13/2016 FINDINGS: Valvular and coronary calcification. Normal sized heart. No hiatal hernia. Mild bibasilar atelectatic change. Cholecystectomy, bilateral renal atrophy with moderate perinephric thickening/scarring. Tiny left upper pole exophytic cortical cyst. A diminutive aorta with moderate coarse diminutive aorta with moderate to heavy calcification. Normal pancreas, adrenal glands, spleen, stomach, mesentery, small bowel loops and retroperitoneal soft tissues. Increased amount of retained stool throughout the ascending and proximal transverse colon. Moderate descending colon diverticulosis. Surgical changes of bowel anastomoses in the descending colon. There has been a ventral abdominal hernia repair with soft tissue thickening above and below the left aspect of the mesh. No significant air study. No new hernia defects. Beam-hardening artifact from bilateral hip arthroplasties obscures detail. The uterus appears surgically absent. Moderate stool in the rectum. Decompressed bladder is normal. Pelvic small bowel loops and pelvic vessels are normal. No adenopathy, free fluid, or mass. Degenerative changes in the spine, particularly L5-S1. Appendix is surgically absent. IMPRESSION: 1. No acute process. 2. Moderate to heavy systemic atherosclerosis. 3. Descending diverticulosis without acute diverticulitis. 4. Proximal colonic obstipation. 5. Surgically absent gallbladder, appendix, uterus, and changes of bilateral hip arthroplasty. 5. Recently developed changes of thickening superficial and edema to the periumbilical mesh hernia repair half of the suggestive of seroma formation versus progressive granulomatous change. (Stable since 08/13/2016, but new since 04/13/2016.) 7. Findings called to the emergency room. All CT scans at this facility use dose modulation, iterative reconstruction, and/or weight-based dosing when appropriate to reduce radiation dose to as low as reasonably achievable.
--- NOTE | 2016-08-23 22:52 | ED CLINICAL REPORT ---
Clinical Report - Physicians/Mid Levels [facility] [address] [place] [address] 08/23/2016 19:40 Patient: RENATO CARDONA Time Seen: 20:17 Aug 23 2016. Arrived- By ambulance. Historian- patient and EMS personnel. HISTORY OF PRESENT ILLNESS Chief Complaint: ABDOMINAL PAIN. This started 3 days and is still present. It is described as "pain" and it is described as located in the periumbilical area. No nausea, vomiting or diarrhea. (Patient status post ventral hernia repair on May 23, 2016, and has been having recurring pain since, this time she has had pain for 3 days. patient taking Vicodin. Patient has had bowel movement, one this morning. Patient denies any nausea or vomiting. Denies any new fevers. Denies any sudden sweats. She denies any shortness of breath or chest pain or cough. Denies any lower extremity or upper extremity swelling.). REVIEW OF SYSTEMS No difficulty with urination, pain with urination, urinary frequency, chest pain or difficulty breathing. All systems otherwise negative, except as recorded above. PAST HISTORY Problems: Hypertension [Active]. Heart Disease [Active]. Diabetes Mellitus [Active]. Dyspnea [Active]. Chest Pain [Active]. Pneumonia. LAD stent (2011). Hypothyroidism. Blood Transfusions. 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 Constipation. Diverticulitis. Hernia. Hyperkalemia. Hypertension. Hyperlipidemia. Chest Pain of GI Origin. Palpitations. Abnormal EKG. Ovarian Cyst. Back Pain. Acute Pain. Atypical Chest Pain. Anemia. UTI - Urinary Tract Infection. Immunizations. Diabetes Mellitus. Pyelonephritis. Abdominal Pain. Heart Disease. Hyperglycemia. Renal Insufficiency. Chest Pain. Coronary Artery Disease. Sinus bradycardia. Additional Surgeries: Bilateral hip replacements. Bowel Surgery. Cardiac Procedures. Cholecystectomy. Colonoscopy. Hernia Repair. Hysterectomy. Partial colectomy. R knee surgery. Shoulder Surgery. Traumatic R hand amputation. Medications: Amlodipine 5 md daily. Aspirin 325 mg daily. Atorvastatin 80 mg Q HS. Fiber Capsules. Glimepiride 2 mg daily before breakfast. Hydrocodone with Acetaminophen. Iron tablets. Levothyroxine 100 mcg daily. Losartan 25 mg daily. Magnesium 300 mg BID. Metoprolol tartrate 25 mg 1/2 tablet q AM and 1 tablet q AM. Milk of Magnesia. MiraLax. Omeprazole 20 mg bid. Senna. Stool Softener. Temazepam 15 mg Q HS. Allergies: No Known Drug Allergy. SOCIAL HISTORY No alcohol use or drug use. ADDITIONAL NOTES The nursing notes have been reviewed. PHYSICAL EXAM Vital Signs: 08/23/2016 19:40 BP: 132/86. HR: 57. RR: 18. O2 saturation: 97%. Temp: 98.2 F. Pain level now: 510. Appearance: Alert. Eyes: Eyes normal inspection. ENT: Ears normal. No pharyngeal erythema. Neck: Normal inspection. No lymphadenopathy. CVS: Normal heart rate and rhythm. Heart sounds normal. Respiratory: No respiratory distress. Breath sounds normal. No decreased air movement. Abdomen: Soft. Mild tenderness in the periumbilical area. Bowel sounds normal. Obese. Scar present (mulitple). Tenderness present. Skin: Skin warm. Normal skin color. No rash. Neuro: Oriented X 3. LABS, X-RAYS, AND EKG EKG: EKG time: (2043). No acute process. No acute ischemia. Rate: 48. Bradycardia. Changes present when compared to prior EKG. (august 03, prior sinus rhythm, now kaylee, prior pvc, now not present). The study has been interpreted contemporaneously. The EKG appears to be a good tracing. KUB: (IMPRESSION: 1. Retained stool in the ascending colon. 2. No bowel obstruction. 3. Air-fluid level in the stomach suggestive of ileus. 4. Surgical changes as described. 5. No acute cardiomegaly disease. Electronically Final signed by:Ludy Shay MD 08/23/2016 10:10:37 PM). Abdominal CT: IMPRESSION: 1. No acute process. 2. Moderate to heavy systemic atherosclerosis. 3. Descending diverticulosis without acute diverticulitis. 4. Proximal colonic obstipation. 5. Surgically absent gallbladder, appendix, uterus, and changes of bilateral hip arthroplasty. 5. Recently developed changes of thickening superficial and edema to the periumbilical mesh hernia repair half of the suggestive of seroma formation versus progressive granulomatous change. (Stable since 08/13/2016, but new since 04/13/2016.) 7. Findings called to the emergency room. All CT scans at this facility use dose modulation, iterative reconstruction, and/or weight-based dosing when appropriate to reduce radiation dose to as low as reasonably achievable. Electronically Final signed by:Ludy Shay MD 08/23/2016 10:46:18 PM. Laboratory Tests: UA-Culture if indicated: (DESTINEE: 08/23/2016 21:10) ( [facility] 08/23/2016 21:56) Final results Test Result Flag Units (Reference) URINE COLOR YELLOW URINE APPEARANCE CLEAR URINE GLUCOSE NEGATIVE (NEGATIVE) URINE BILIRUBIN NEGATIVE (NEGATIVE) URINE KETONE NEGATIVE (NEGATIVE) URINE SPECIFIC GRAVITY 1.015 (1.010-1.030) URINE PH 7.5 (5.0-8.0) URINE PROTEIN NEGATIVE (NEGATIVE) URINE UROBILINOGEN 0.2 EU/dL (0.2-1.0) URINE NITRITE NEGATIVE (NEGATIVE) URINE BLOOD NEGATIVE (NEGATIVE) URINE LEUK ESTERASE NEGATIVE (NEGATIVE) URINE RBC 0-1 rbc/hpf (0-1) URINE WBC 0-1 wbc/hpf (0-1) URINE EPITHELIAL CELLS 1-3 EPI/hpf (0-5) URINE BACTERIA NONE SEEN (NONE SEEN) URINE COMMENT CULT NOT INDICATED URINE CULTURES ARE SET-UP BASED ON THE FOLLOWING CRITERIA:POSITIVE NITRITEPOSITIVE LEUKOCYTE ESTERASEGREATER THAN 10 WHITE BLOOD CELLSMODERATE (2+) OR GREATER BACTERIA CBC w Diff: (DESTINEE: 08/23/2016 20:12) ( [facility] 08/23/2016 20:25) Final results Test Result Flag Units (Reference) WHITE BLOOD COUNT 9.1 K/uL (4.5-11.5) RED BLOOD COUNT 3.89 L M/uL (4.00-5.20) HEMOGLOBIN 11.7 L gm/dL (12.0-16.0) HEMATOCRIT 35.0 L % (36.0-46.0) MEAN CELL VOLUME 90 fL (80-100) MEAN CORPUSCULAR HGB 30 pg (26-34) MEAN CORPUSCULAR HGB CONC 33 g/dL (31-37) RED CELL DISTRIBUTION WIDTH 15.9 H % (11.6-14.8) PLATELET COUNT 260 K/uL (150-400) NEUTROPHIL % 70.3 % (50-75) LYMPH % 13.5 L % (25-40) MONO % 6.2 % (3-14) EOSINOPHIL % 9.8 H % (0-4) BASOPHIL % 0.2 % (0-2) Troponin-I: (DESTINEE: 08/23/2016 20:12) ( [facility] 08/[facility]/2016 21:17) Final results Test Result Flag Units (Reference) TROPONIN I <0.05 ng/mL (0.00-1.5) TROPONIN REFERENCE RANGE:<0.1 NEGATIVE0.1-1.5 INDETERMINANT>1.5 POSITIVE CMP: (DESTINEE: 08/23/2016 20:12) ( [facility] 08/23/2016 20:39) Final results Test Result Flag Units (Reference) GLUCOSE 186 H mg/dL (70-110) BUN 28 H mg/dL (7-18) CREATININE 1.4 H mg/dL (0.6-1.3) Estimated GFR 38.17 mL/min Estimated GFR- 46.26 mL/min Note: Persistent reduction over 3 months in eGFR<60 mL/min/1.73 m2 defines CKD. Patients with eGFR values>=60 mL/min/1.73 m2 may also have CKD if evidence ofpersistent proteinuria. Additional information may be foundat www.kidney.org. SODIUM 135 L mmol/L (136-145) POTASSIUM 5.4 H mmol/L (3.5-5.1) CHLORIDE 101 mmol/L (98-107) CARBON DIOXIDE 29 mmol/L (21-32) CALCIUM 9.7 mg/dL (8.5-10.1) TOTAL PROTEIN 6.4 g/dL (6.4-8.2) ALBUMIN 3.5 g/dL (3.3-5.0) BILIRUBIN, TOTAL 0.5 mg/dL (0.0-1.0) ALKALINE PHOSPHATASE 119 H U/L (46-116) AST (SGOT) 11 L U/L (15-37) ALT (SGPT) 22 U/L (12-78) LIPASE 392 U/L (73-393) . PROGRESS AND PROCEDURES Course of Care: 05/23/16 Ventral hernia: ventral herniorrhaphy with mesh [address] Faria , in regard to xr abd findings of an ileus, we'll order a CT. 2239 Patient case discussed with Dr. Shay, radiologist, reports minimal changes from previous CT 10 days previously, on August 13. 0 Case discussed with on-call surgery, Dr. Ba, who requests patient be admitted to hospitals, and follow-up as a consulting in the hospital with him and Dr. Nichols. [address] Jade who will see patient in er, 23:05 here in ER to see patient. 08/23/2016 22:35 BP: 124/55. HR: 54. RR: 20. O2 saturation: 95%. Pain level now: 5/10. Patient is stable. Physical exam findings are improved. Symptoms better. Patient/family counseled. Disposition: Admitted to Acute Care. CLINICAL IMPRESSION Post Op Abdominal Pain DM Chronic Renal Insufficiency. (Electronically signed by Kendra Greenwood P.A.-C 08/23/2016 23:06)
--- NOTE | 2016-08-23 22:52 | ED ORDER SUMMARY ---
..... Patient: RENATO CARDONA OrderSheet Merged With [facility] VisitID: [id number] [address] [place], [place] [id number], F Registration Date/Time: 08/23/2016 ORDER SHEET Weight: 99.7 kg (estimated) Allergies: No Known Drug Allergy GENERAL ORDERS: CBC w Diff Urgent (20:10 08/23/2016 EKoroleva P.A.-C) (Ack 20:13 CHagerty ER Crts) (20:15 DDean R.N.) CMP Urgent (20:10 08/23/2016 EKoroleva P.A.-C) (Ack 20:13 [facility] ER Crts) (20:15 DDean R.N.) UA-Culture if indicated Urgent (20:10 08/23/2016 EKoroleva P.A.-C) (Ack 20:13 [facility] ER Crts) (22:21 DDean R.N.) Lipase Urgent (20:10 08/23/2016 EKoroleva P.A.-C) (Ack 20:13 [facility] ER Crts) (20:15 DDean R.N.) EKG - ER Stat (20:17 08/23/2016 EKoroleva P.A.-C) (Ack 20:35 [facility] ER Crts) (20:46 [facility] ER Crts) Abd Series 2V Abd/1V Chest Urgent (20:33 08/23/2016 EKoroleva P.A.-C) (Ack 20:35 [facility] ER Crts) (21:03 CH[facility]ty ER Crts) Troponin-I Urgent (20:33 08/23/2016 EKoroleva P.A.-C) (Ack 20:35 [facility] ER Crts) (20:52 DDean R.N.) CT Abd/Pel wo Cont Urgent (21:43 08/23/2016 EKoroleva P.A.-C) (Ack 21:48 [facility]agerty ER Crts) (22:20 MCampbell) Vitals (22:34 08/23/2016 EKoroleva P.A.-C) (22:37 DDean R.N.) - (clear liquid diet) (22:52 08/23/2016 Beatrice Manzano.A.-C) (23:25 Apolonia R.N.) MEDICATION ORDERS: IV FLUIDS: IV Saline Lock (20:10 08/23/2016 Beatrice P.A.-C) (20:16 DDean R.N.) Zofran IV 4 mg (NOW) (20:25 08/23/2016 DDean R.N. per protocol) (20:25 DDean R.N.) Dilaudid IV 1 mg (HIGH ALERT MEDICATION, NOW) (22:52 08/23/2016 Beatrice P.A.-C) (Ack 23:14 Apolonia R.N.) (23:24 Apolonia R.N.) ORDER SHEET NOTES: [Electronically signed by Kendra Greenwood P.A.-C (23:06 08/23/2016)] [Electronically signed by Goyo Nagy R.N. (00:55 08/24/2016)] [Electronically locked/signed by Goyo Nagy R.N. (00:55 08/24/2016)]
--- NOTE | 2016-08-23 22:52 | ED CLINICAL REPORT ---
Clinical Report - Physicians/Mid Levels [facility] [address] [place] [address] 08/23/2016 19:40 Patient: RENATO CARDONA Time Seen: 20:17 Aug 23 2016. Arrived- By ambulance. Historian- patient and EMS personnel. HISTORY OF PRESENT ILLNESS Chief Complaint: ABDOMINAL PAIN. This started 3 days and is still present. It is described as "pain" and it is described as located in the periumbilical area. No nausea, vomiting or diarrhea. (Patient status post ventral hernia repair on May 23, 2016, and has been having recurring pain since, this time she has had pain for 3 days. patient taking Vicodin. Patient has had bowel movement, one this morning. Patient denies any nausea or vomiting. Denies any new fevers. Denies any sudden sweats. She denies any shortness of breath or chest pain or cough. Denies any lower extremity or upper extremity swelling.). REVIEW OF SYSTEMS No difficulty with urination, pain with urination, urinary frequency, chest pain or difficulty breathing. All systems otherwise negative, except as recorded above. PAST HISTORY Problems: Hypertension [Active]. Heart Disease [Active]. Diabetes Mellitus [Active]. Dyspnea [Active]. Chest Pain [Active]. Pneumonia. LAD stent (2011). Hypothyroidism. Blood Transfusions. 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 Constipation. Diverticulitis. Hernia. Hyperkalemia. Hypertension. Hyperlipidemia. Chest Pain of GI Origin. Palpitations. Abnormal EKG. Ovarian Cyst. Back Pain. Acute Pain. Atypical Chest Pain. Anemia. UTI - Urinary Tract Infection. Immunizations. Diabetes Mellitus. Pyelonephritis. Abdominal Pain. Heart Disease. Hyperglycemia. Renal Insufficiency. Chest Pain. Coronary Artery Disease. Sinus bradycardia. Additional Surgeries: Bilateral hip replacements. Bowel Surgery. Cardiac Procedures. Cholecystectomy. Colonoscopy. Hernia Repair. Hysterectomy. Partial colectomy. R knee surgery. Shoulder Surgery. Traumatic R hand amputation. Medications: Amlodipine 5 md daily. Aspirin 325 mg daily. Atorvastatin 80 mg Q HS. Fiber Capsules. Glimepiride 2 mg daily before breakfast. Hydrocodone with Acetaminophen. Iron tablets. Levothyroxine 100 mcg daily. Losartan 25 mg daily. Magnesium 300 mg BID. Metoprolol tartrate 25 mg 1/2 tablet q AM and 1 tablet q AM. Milk of Magnesia. MiraLax. Omeprazole 20 mg bid. Senna. Stool Softener. Temazepam 15 mg Q HS. Allergies: No Known Drug Allergy. SOCIAL HISTORY No alcohol use or drug use. ADDITIONAL NOTES The nursing notes have been reviewed. PHYSICAL EXAM Vital Signs: 08/23/2016 19:40 BP: 132/86. HR: 57. RR: 18. O2 saturation: 97%. Temp: 98.2 F. Pain level now: 510. Appearance: Alert. Eyes: Eyes normal inspection. ENT: Ears normal. No pharyngeal erythema. Neck: Normal inspection. No lymphadenopathy. CVS: Normal heart rate and rhythm. Heart sounds normal. Respiratory: No respiratory distress. Breath sounds normal. No decreased air movement. Abdomen: Soft. Mild tenderness in the periumbilical area. Bowel sounds normal. Obese. Scar present (mulitple). Tenderness present. Skin: Skin warm. Normal skin color. No rash. Neuro: Oriented X 3. LABS, X-RAYS, AND EKG EKG: EKG time: (2043). No acute process. No acute ischemia. Rate: 48. Bradycardia. Changes present when compared to prior EKG. (august 03, prior sinus rhythm, now kaylee, prior pvc, now not present). The study has been interpreted contemporaneously. The EKG appears to be a good tracing. KUB: (IMPRESSION: 1. Retained stool in the ascending colon. 2. No bowel obstruction. 3. Air-fluid level in the stomach suggestive of ileus. 4. Surgical changes as described. 5. No acute cardiomegaly disease. Electronically Final signed by:Ludy Shay MD 08/23/2016 10:10:37 PM). Abdominal CT: IMPRESSION: 1. No acute process. 2. Moderate to heavy systemic atherosclerosis. 3. Descending diverticulosis without acute diverticulitis. 4. Proximal colonic obstipation. 5. Surgically absent gallbladder, appendix, uterus, and changes of bilateral hip arthroplasty. 5. Recently developed changes of thickening superficial and edema to the periumbilical mesh hernia repair half of the suggestive of seroma formation versus progressive granulomatous change. (Stable since 08/13/2016, but new since 04/13/2016.) 7. Findings called to the emergency room. All CT scans at this facility use dose modulation, iterative reconstruction, and/or weight-based dosing when appropriate to reduce radiation dose to as low as reasonably achievable. Electronically Final signed by:Ludy Shay MD 08/23/2016 10:46:18 PM. Laboratory Tests: UA-Culture if indicated: (DESTINEE: 08/23/2016 21:10) ( [facility] 08/23/2016 21:56) Final results Test Result Flag Units (Reference) URINE COLOR YELLOW URINE APPEARANCE CLEAR URINE GLUCOSE NEGATIVE (NEGATIVE) URINE BILIRUBIN NEGATIVE (NEGATIVE) URINE KETONE NEGATIVE (NEGATIVE) URINE SPECIFIC GRAVITY 1.015 (1.010-1.030) URINE PH 7.5 (5.0-8.0) URINE PROTEIN NEGATIVE (NEGATIVE) URINE UROBILINOGEN 0.2 EU/dL (0.2-1.0) URINE NITRITE NEGATIVE (NEGATIVE) URINE BLOOD NEGATIVE (NEGATIVE) URINE LEUK ESTERASE NEGATIVE (NEGATIVE) URINE RBC 0-1 rbc/hpf (0-1) URINE WBC 0-1 wbc/hpf (0-1) URINE EPITHELIAL CELLS 1-3 EPI/hpf (0-5) URINE BACTERIA NONE SEEN (NONE SEEN) URINE COMMENT CULT NOT INDICATED URINE CULTURES ARE SET-UP BASED ON THE FOLLOWING CRITERIA:POSITIVE NITRITEPOSITIVE LEUKOCYTE ESTERASEGREATER THAN 10 WHITE BLOOD CELLSMODERATE (2+) OR GREATER BACTERIA CBC w Diff: (DESTINEE: 08/23/2016 20:12) ( [facility]:25) Final results Test Result Flag Units (Reference) WHITE BLOOD COUNT 9.1 K/uL (4.5-11.5) RED BLOOD COUNT 3.89 L M/uL (4.00-5.20) HEMOGLOBIN 11.7 L gm/dL (12.0-16.0) HEMATOCRIT 35.0 L % (36.0-46.0) MEAN CELL VOLUME 90 fL (80-100) MEAN CORPUSCULAR HGB 30 pg (26-34) MEAN CORPUSCULAR HGB CONC 33 g/dL (31-37) RED CELL DISTRIBUTION WIDTH 15.9 H % (11.6-14.8) PLATELET COUNT 260 K/uL (150-400) NEUTROPHIL % 70.3 % (50-75) LYMPH % 13.5 L % (25-40) MONO % 6.2 % (3-14) EOSINOPHIL % 9.8 H % (0-4) BASOPHIL % 0.2 % (0-2) Troponin-I: (DETSINEE: 08/23/2016 20:12) ( [facility] 08/23/2016 21:17) Final results Test Result Flag Units (Reference) TROPONIN I <0.05 ng/mL (0.00-1.5) TROPONIN REFERENCE RANGE:<0.1 NEGATIVE0.1-1.5 INDETERMINANT>1.5 POSITIVE CMP: (DESTINEE: 08/23/2016 20:12) ( [facility] 08/23/2016 20:39) Final results Test Result Flag Units (Reference) GLUCOSE 186 H mg/dL (70-110) BUN 28 H mg/dL (7-18) CREATININE 1.4 H mg/dL (0.6-1.3) Estimated GFR 38.17 mL/min Estimated GFR- 46.26 mL/min Note: Persistent reduction over 3 months in eGFR<60 mL/min/1.73 m2 defines CKD. Patients with eGFR values>=60 mL/min/1.73 m2 may also have CKD if evidence ofpersistent proteinuria. Additional information may be foundat www.kidney.org. SODIUM 135 L mmol/L (136-145) POTASSIUM 5.4 H mmol/L (3.5-5.1) CHLORIDE 101 mmol/L (98-107) CARBON DIOXIDE 29 mmol/L (21-32) CALCIUM 9.7 mg/dL (8.5-10.1) TOTAL PROTEIN 6.4 g/dL (6.4-8.2) ALBUMIN 3.5 g/dL (3.3-5.0) BILIRUBIN, TOTAL 0.5 mg/dL (0.0-1.0) ALKALINE PHOSPHATASE 119 H U/L (46-116) AST (SGOT) 11 L U/L (15-37) ALT (SGPT) 22 U/L (12-78) LIPASE 392 U/L (73-393) . PROGRESS AND PROCEDURES Course of Care: 05/23/16 Ventral hernia: ventral herniorrhaphy with mesh [address] Faria , in regard to xr abd findings of an ileus, we'll order a CT. 2239 Patient case discussed with Dr. Shay, radiologist, reports minimal changes from previous CT 10 days previously, on August 13. 0 Case discussed with on-call surgery, Dr. Ba, who requests patient be admitted to hospitals, and follow-up as a consulting in the hospital with him and Dr. Nichols. [address] Jade who will see patient in er, 23:05 here in ER to see patient. 08/23/2016 22:35 BP: 124/55. HR: 54. RR: 20. O2 saturation: 95%. Pain level now: 5/10. Patient is stable. Physical exam findings are improved. Symptoms better. Patient/family counseled. Disposition: Admitted to Acute Care. CLINICAL IMPRESSION Post Op Abdominal Pain DM Chronic Renal Insufficiency. (Electronically signed by Kendra Greenwood P.A.-C 08/23/2016 23:06)
--- NOTE | 2016-08-23 22:52 | ED NURSING NOTES ---
Clinical Report - Nurses [facility] [address] [place] [address] 08/23/2016 19:40 Patient: RENATO CARDONA TRIAGE Triage time 0. Acuity: LEVEL 3. Chief Complaint: ABDOMINAL PAIN and NAUSEA. --19:56 Cris Patterson R.N. 19:40 08/23/16. BP: 132/86. HR: 57. RR: 18. O2 saturation: 97%. Temp: 98.2 F. Pain level now: 07/24. --19:56 Cris Patterson R.N. Weight: 99.7 kg estimated. Height/Length: 65 inches Estimated. BMI: 36.6. --19:52 Cris Patterson R.N. Medications Amlodipine 5 md daily. Aspirin 325 mg daily. Atorvastatin 80 mg Q HS. Fiber Capsules. Glimepiride 2 mg daily before breakfast. Hydrocodone with Acetaminophen. Iron tablets. Levothyroxine 100 mcg daily. Losartan 25 mg daily. Magnesium 300 mg BID. Metoprolol tartrate 25 mg 1/2 tablet q AM and 1 tablet q AM. Milk of Magnesia. MiraLax. Omeprazole 20 mg bid. Senna. Stool Softener. Temazepam 15 mg Q HS. --19:58 Cris Patterson R.N. Allergies No Known Drug Allergy. --19:58 Cris Patterson R.N. History Arrived by EMS. Historian: patient. Unaccompanied. Primary physician (daniel/ carson). Onset. (has had problems since hernia mesh placed. worsening pain today). She has had nausea and abdominal pain. SOCIAL HX: Former smoker (30+). No alcohol use or drug use. --19:56 Cris Patterson R.N. PROBLEMS: Hypertension [Active]. Heart Disease [Active]. Diabetes Mellitus [Active]. Dyspnea [Active]. Chest Pain [Active]. --19:55 Cris Patterson R.N. Pneumonia. LAD stent (2011). Hypothyroidism. 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 Constipation. Diverticulitis. Hernia. Hyperkalemia. Hypertension. Hyperlipidemia. Chest Pain of GI Origin. Palpitations. Ovarian Cyst. Anemia. UTI - Urinary Tract Infection. Diabetes Mellitus. Pyelonephritis. Heart Disease. Hyperglycemia. Renal Insufficiency. Coronary Artery Disease. Sinus bradycardia. --19:55 Cris Patterson R.N. Angina [RuleOut]. Acute Myocardial Infarction [RuleOut]. --19:55 Cris Patterson R.N. ADDITIONAL SURGERIES: Bilateral hip replacements. Bowel Surgery. Cardiac Procedures. Cholecystectomy. Colonoscopy. Hernia Repair. Hysterectomy. Partial colectomy. R knee surgery. Shoulder Surgery. Traumatic R hand amputation. --19:55 Cris Patterson R.N. Interventions ID band on patient. To treatment room. --19:56 Cris Patterson R.N. PHYSICAL ASSESSMENT 19:40. To room via stretcher. Patient gowned. GENERAL / NEURO / PSYCH: Alert. Oriented X 4. Appears in pain. RESPIRATORY: Respirations not labored. CVS: Capillary refill less than 2 seconds. GI / : The patient has had nausea. Abdominal tenderness. SKIN: Skin is warm and dry. --19:57 Cris Patterson R.N. 19:59 08/23/16. SKIN: ( pt c/o burning pain from knees down on both legs). --19:59 Cris Patterson R.N. NURSING PROGRESS NOTES 19:40. Patient gowned. Head of bed elevated. Reassurance given. Patient identifiers checked. Call light placed in reach. Side rails up. Bed placed in lowest position. Patient ready for evaluation- chart flagged. --19:57 Cris Patterson R.N. 20:05 08/23/2016 Site #1 started via IV in the right wrist with an 22g angiocath, with aseptic technique and good blood return; two attempts. Blood drawn: rainbow set. Labeled in the presence of the patient and sent to the lab. Saline lock flushed with 10 mL saline. --20:15 Cris Patterson R.N. 20:22 08/23/2016 Zofran (Ondansetron HCl) IVP 4 mg given over 1 minute(s) via site #1. IV patency established. IV site checked: no pain, redness, or swelling. IV flushed thoroughly pre- and post-medication administration. IVP given by RN. --20:25 Cris Patterson R.N. 20:44. EKG time: (2043). EKG was ordered, performed and shown to the PA. done by RT. --20:52 Cris Patterson R.N. 20:50. Patient transported to radiology by stretcher with tech. --20:52 Cris Patterson R.N. 21:03. Patient returned from radiology by stretcher with tech. --21:23 Cris Patterson R.N. 21:10 08/23/16. BP: 117/52. HR: 42. RR: 18. O2 saturation: 95% on room air. Temp: deferred. Pain level now: 07/24. --21:27 Cris Patterson R.N. 21:10. --21:27 Cris Patterson R.N. Patient ID band checked for patient name and birthdate: patient confirmed. Clean catch urine collected with return of yellow-colored clear urine; sample sent to lab for urinalysis and culture. Specimen labeled in the presence of the patient (2118 pt up to BSC steady on feet. 225cc urine out. UA sent to lab.). --21:29 Cris Patterson R.N. 22:09. Patient transported to CT by stretcher with tech. --22:10 Goyo Nagy R.N. 22:21 08/23/16. Patient returned from CT by stretcher with tech. --22:21 Cris Patterson R.N. 22:35 08/23/16. BP: 124/55. HR: 54. RR: 20. O2 saturation: 95%. Temp: deferred. Pain level now: 07/24. --22:36 Cris Patterson R.N. 22:47 08/23/16. Care transferred and report given (Goyo Hargrove, EDRN). --22:47 Cris Patterson R.N. 23:04 Dr. Jade with pt. --23:14 Goyo Nagy R.N. 23:22 08/23/16. BP: 156/63. HR: 54. RR: 17. O2 saturation: 98% on room air. Pain level now: 06/24. --23:23 Goyo Nagy R.N. The patient is calm and resting quietly. SKIN: Skin is warm and dry. Skin color within normal limits. --23:23 Goyo Nagy R.N. 23:19 08/23/2016 Dilaudid (HYDROmorphone HCl PF) IVP 1 mg given over 2 minute(s) via site #1. Allergies verified, confirmed 5 rights and sedative warning given to the patient. IV patency established. IV site checked: no pain, redness, or swelling. IV flushed thoroughly pre- and post-medication administration. --23:24 Goyo Nagy R.N. 00:02. Point of care testing: performed by nurse. Glucose: 139. --00:02 Goyo Nagy R.N. 00:44 08/24/2016 Zofran (Ondansetron HCl) IVP 4 mg given over 2 minute(s) via site #1. Allergies verified and confirmed 5 rights. IV patency established. IV site checked: no pain, redness, or swelling. IV flushed thoroughly pre- and post-medication administration. --00:46 Goyo Nagy R.N. 00:44. SKIN: Skin is warm and dry. Skin color within normal limits. --00:55 Goyo Nagy R.N. DISPOSITION / DISCHARGE Condition at departure: stable. No learning barriers present. Admitted to Acute Care. Patient's personal items include: glasses, Other belongings; items were placed in belongings bag and transported with the patient. She did not have contacts, dentures or a hearing aid. FALL RISK ASSESSMENT: Fall risk assessment completed. No fall risk identified. --00:02 Goyo Nagy R.N. 23:57 08/23/16. BP: 147/51. HR: 62. RR: 16. O2 saturation: 97%. Pain level now: 04/26. --00:02 Goyo Nagy R.N. Report was given via a phone call. Report included patient's care, treatment, medications, reviewed medication reconcilliation, and condition (including any recent changes or anticipated changes). All questions were answered. Report was acknowledged. (Panda VALENTINbehavioral health care manager). --00:39 Goyo Nagy R.N. Departure time: 00:47. --00:47 Goyo Nagy R.N. Locked/Released at 08/24/2016 0:55 by Goyo Nagy R.N.
--- NOTE | 2016-08-23 22:52 | ED ORDER SUMMARY ---
..... Patient: RENATO CARDONA OrderSheet [facility] VisitID: [id number] [address], [place] [id number] 85y, F Registration Date/Time: 08/23/2016 ORDER SHEET Weight: 99.7 kg (estimated) Allergies: No Known Drug Allergy GENERAL ORDERS: CBC w Diff Urgent (20:10 08/23/2016 EKoroleva P.A.-C) (Ack 20:13 CHagerty ER Set Up / Operator) (20:15 DDean R.N.) CMP Urgent (20:10 08/23/2016 EKoroleva P.A.-C) (Ack 20:13 CHagerty ER Set Up / Operator) (20:15 DDean R.N.) UA-Culture if indicated Urgent (20:10 08/23/2016 EKoroleva P.A.-C) (Ack 20:13 CHagerty ER Set Up / Operator) (22:21 DDean R.N.) Lipase Urgent (20:10 08/23/2016 EKoroleva P.A.-C) (Ack 20:13 CHagerty ER Set Up / Operator) (20:15 DDean R.N.) EKG - ER Stat (20:17 08/23/2016 EKoroleva P.A.-C) (Ack 20:35 CHagerty ER Set Up / Operator) (20:46 CHagerty ER Set Up / Operator) Abd Series 2V Abd/1V Chest Urgent (20:33 08/23/2016 EKoroleva P.A.-C) (Ack 20:35 CHagerty ER Set Up / Operator) (21:03 CHagerty ER Set Up / Operator) Troponin-I Urgent (20:33 08/23/2016 EKoroleva P.A.-C) (Ack 20:35 CHagerty ER Set Up / Operator) (20:52 DDean R.N.) CT Abd/Pel wo Cont Urgent (21:43 08/23/2016 EKoroleva P.A.-C) (Ack 21:48 CHagerty ER Set Up / Operator) (22:20 MCampbell) Vitals (22:34 08/23/2016 EKoroleva P.A.-C) (22:37 DDean R.N.) - (clear liquid diet) (22:52 08/23/2016 Beatrice Manzano.A.-C) (23:25 Apolonia R.N.) MEDICATION ORDERS: IV FLUIDS: IV Saline Lock (20:10 08/23/2016 Beatrice P.A.-C) (20:16 DDean R.N.) Zofran IV 4 mg (NOW) (20:25 08/23/2016 DDean R.N. per protocol) (20:25 DDean R.N.) Dilaudid IV 1 mg (HIGH ALERT MEDICATION, NOW) (22:52 08/23/2016 Beatrice P.A.-C) (Ack 23:14 Apolonia R.N.) (23:24 Apolonia R.N.) ORDER SHEET NOTES: [Electronically signed by Kendra Greenwood P.A.-C (23:06 08/23/2016)] [Electronically signed by Goyo Nagy R.N. (00:55 08/24/2016)] [Electronically locked/signed by Goyo Nagy R.N. (00:55 08/24/2016)]
--- NOTE | 2016-08-23 23:41 | Progress Note ---
Subjective General ADVANCED CARE PLAN History of Present Illness 85 year old white female complaining of abdominal pain for last 3 months started after abdominal hernia repair and mesh placement. Abdominal Pain progressively became worse to the point that patient had to come to the hospital. No vomiting but patient had nausea normal regular bowel movements. No fever no chills. A discussion was undertaken with the patient regarding previous advance care arrangements/decisions. The following advanced directives were noted by the patient and discussed with me at the time of admission. ADVANCED DIRECTIVES: 1. Living well: Yes 2. POLST: Yes 3. CODE STATUS: Full No Code 4. Durable [employer] Clinical Systems Analyst Health care: Yes 5. Donor card: No The patient has expressed interest in not pursuing any form of resuscitation at this time. She has opted not to pursue intubation/mechanical ventilation, CPR, electrical cardioversion, or life-sustaining efforts involving drugs at the time of cardiopulmonary arrest. The patient's wishes were documented in the chart and orders regarding the patient's wishes entered into the [employer] system. The "Advance Care Plan Document" was not distributed to patient to discuss with her family. Less than 30 minutes was spent in performing the above tasks and documentation of the patient's advanced care plan.
--- NOTE | 2016-08-24 00:17 | HISTORY AND PHYSICAL ---
ADMITTED: 08/23/2016 CHIEF COMPLAINT: 1. Abdominal pain HISTORY OF PRESENT ILLNESS: This started around 3 months ago after the patient had a hernia repair of the abdomen and mesh was placed and progressively became worse to the point that patient had to come to the hospital today. The patient had nausea, but no vomiting. Normal bowel movements. No diarrhea or constipation. No fever, no chills. The patient is admitted with a consultation of the surgery for abdominal pain. MEDICAL/SURGICAL HISTORY: Past medical history: Remarkable for hypertension, diabetes mellitus, hypothyroidism, coronary artery disease, hyperlipidemia, anemia, chronic renal failure. Surgical history: Remarkable for bilateral hip replacement, intraabdominal surgery, cardiac procedure for stent and angioplasty, hernia repair, hysterectomy, colectomy, partial right knee surgery, shoulder surgery and right hand amputation. Last hospitalization: Three months ago for the hernia repair and mesh placement. MEDICATIONS: 1. Amlodipine 5 mg daily. 2. Aspirin 325 mg daily. 3. Atorvastatin 80 mg daily. 4. Glimepiride 2 mg daily. 5. Vicodin 3 times a day as needed. 6. Levoxyl 100 mcg once a day. 7. Losartan 25 mg daily. 8. Metoprolol 25 mg half tablet in the morning and 1 tablet in the afternoon. 9. Magnesium 300 mg twice a day. 10. Omeprazole 20 mg daily. 11. Temazepam 15 mg at bedtime. ALLERGIES: 1. THERE ARE NO KNOWN DRUG ALLERGIES. SOCIAL HISTORY: The patient is . Lives alone. Has 4 kids. No history of smoking, alcohol or drug abuse. FAMILY HISTORY: Noncontributory. REVIEW OF SYSTEMS: The patient has been gaining weight recently. Has hearing loss. No difficulty with vision. Complains of cough, but no runny nose, congestion or sore throat, dyspnea, which is chronic. No chest pain. No palpitations. Gastrointestinal symptoms as described above. No dysuria, frequency or incontinence. Complains of neck pain. Also, headaches caused by neck pain. No tingling, no numbness. No dizziness. No localized weakness. No syncope. PHYSICAL EXAMINATION: VITAL SIGNS: Blood pressure 132/86, pulse is 57, respirations 18, oxygen is 97% on room air, and temperature is 98.2. GENERAL APPEARANCE: Well-developed, well-nourished, good body build. Morbidly obese. No acute distress. HEENT: Ears: Normal tympanic membrane. Mouth: Normal hypopharynx, no exudation, no erythema. Nose: Normal mucosa. NECK: Supple. No JVD. No carotid bruit. No palpable mass. SKIN: Warm and dry with good turgor. LUNGS: Clear to auscultation. No rhonchi, wheezing or crackles. HEART: Regular S1 and S2. No murmur. No S3 was heard. ABDOMEN: Soft. Bowel sounds are positive. The patient actually has tenderness in the left side of the umbilical area around the surgical scar, which goes from up to the lower abdomen, but bowel sounds are positive. EXTREMITIES: No edema. The patient has a half amputation of the right hand, which is chronic. NEUROLOGIC: Alert and oriented x3. Cranial nerves are grossly intact. No motor deficit. Pupils are equal, round, and reactive to light. Extraocular movements are intact. No nystagmus. No cerebellar signs. Deep tendon reflexes are bilateral and symmetric. LAB/IMAGING: EKG: Normal sinus rhythm. X-ray of the abdomen: Stool in the ascending colon, no bowel obstruction and surgical change. CT of the abdomen: Diverticulosis and periumbilical mesh hernia repair site has been thick, edematous and inflamed. UA is unremarkable. White blood count is 9.1, hemoglobin 11.7, hematocrit 35, and platelet count is 260,000. Troponin is less than 0.05. Glucose 186, BUN is 28, creatinine is 1.4, sodium is 135, potassium is 5.4, chloride is 101, CO2 is 29, calcium is 9.7. Liver enzymes unremarkable. Lipase is normal. IMPRESSION: 1. Abdominal pain due to mesh placement and is status post hernia repair. 2. Diabetes mellitus. 3. Coronary artery disease. 4. Hypertension. 5. Hypothyroidism. 6. Hyperlipidemia. PLAN: The patient will be admitted to acute care inpatient and surgical consultation obtained through the emergency department and they are aware that patient is here. We will continue outpatient medication, monitor blood sugar and follow the patient in the hospital.
--- NOTE | 2016-08-24 00:56 | ED MAR SUMMARY ---
..... Medication Administration Record [facility] [address] [place] [address] Patient: RENATO CARDONA Visit ID: [id number] 85y, F Weight: 99.7 kg Height/Length: 65 in BMI: 36.6 ALLERGIES: No Known Drug Allergy Given 20:22 08/23/2016 Cris Patterson R.N. Medication Administered: ZOFRAN [IVP] (ONDANSETRON HCL), Dose: 4 mg IVP over 1 minute(s), Site: #1 right wrist. Medication Ordered: Zofran IV 4 mg (NOW). Given 23:19 08/23/2016 Goyo Nagy R.N. Medication Administered: DILAUDID [IVP] (HYDROMORPHONE HCL PF), Dose: 1 mg IVP over 2 minute(s), Site: #1 right wrist. Medication Ordered: Dilaudid IV 1 mg (HIGH ALERT MEDICATION, NOW). Given 00:44 08/24/2016 Goyo Nagy R.N. Medication Administered: ZOFRAN [IVP] (ONDANSETRON HCL), Dose: 4 mg IVP over 2 minute(s), Site: #1 right wrist. Medication Ordered: Zofran IV 4 mg (NOW).
--- NOTE | 2016-08-24 00:56 | ED DISCHARGE INSTRUCTIONS ---
Patient: RENATO CARDONA General Instructions [facility] VisitID: [id number] [address] [place] [address] 85y, F Registration Date/Time: 08/23/2016 Post Op Abdominal Pain DM Chronic Renal Insufficiency. (Electronically signed by Kendra Greenwood P.A.-C 08/23/2016 23:06)
--- NOTE | 2016-08-24 00:56 | ED DISCHARGE INSTRUCTIONS ---
Patient: RENATO CARDONA General Instructions [facility] VisitID: [id number] [address] [place] [address] 85y, F Registration Date/Time: 08/23/2016 Post Op Abdominal Pain DM Chronic Renal Insufficiency. (Electronically signed by Kendra Greenwood P.A.-C 08/23/2016 23:06)
--- NOTE | 2016-08-24 00:56 | ED MED RECONCILIATION SUMMARY ---
Patient: RENATO CARDONA Medication Reconciliation Report [facility] VisitID: [id number] [address] [place] [address] 85y, F Registration Date/Time: 08/23/2016 Weight: 99.7 kg Height/Length: 65 in. BMI: 36.6 ALLERGIES: No Known Drug Allergy The patient's Home Medications are listed below: THE FOLLOWING MEDICATIONS NEED TO BE RECONCILED: Amlodipine 5 md daily Aspirin 325 mg daily Atorvastatin 80 mg Q HS Fiber Capsules Glimepiride 2 mg daily before breakfast Hydrocodone with Acetaminophen Iron tablets Levothyroxine 100 mcg daily Losartan 25 mg daily Magnesium 300 mg BID Metoprolol tartrate 25 mg 1/2 tablet q AM and 1 tablet q AM Milk of Magnesia MiraLax Omeprazole 20 mg bid Senna Stool Softener Temazepam 15 mg Q HS The source(s) of the original Home Medication information: Not obtained. The following Medications were given to the patient in the Emergency Department: Zofran [IVP] IVP 4 mg, administered: 08/23/2016 8:22:00 PM Dilaudid [IVP] IVP 1 mg, administered: 08/23/2016 11:19:00 PM Zofran [IVP] IVP 4 mg, administered: 08/24/2016 12:44:00 AM The following Medications were prescribed to the patient: None.
--- NOTE | 2016-08-24 00:56 | ED MED RECONCILIATION SUMMARY ---
Patient: RENATO CARDONA Medication Reconciliation Report [facility] VisitID: [id number] [address] [place] [address] 85y, F Registration Date/Time: 08/23/2016 Weight: 99.7 kg Height/Length: 65 in. BMI: 36.6 ALLERGIES: No Known Drug Allergy The patient's Home Medications are listed below: THE FOLLOWING MEDICATIONS NEED TO BE RECONCILED: Amlodipine 5 md daily Aspirin 325 mg daily Atorvastatin 80 mg Q HS Fiber Capsules Glimepiride 2 mg daily before breakfast Hydrocodone with Acetaminophen Iron tablets Levothyroxine 100 mcg daily Losartan 25 mg daily Magnesium 300 mg BID Metoprolol tartrate 25 mg 1/2 tablet q AM and 1 tablet q AM Milk of Magnesia MiraLax Omeprazole 20 mg bid Senna Stool Softener Temazepam 15 mg Q HS The source(s) of the original Home Medication information: Not obtained. The following Medications were given to the patient in the Emergency Department: Zofran [IVP] IVP 4 mg, administered: 08/23/2016 8:22:00 PM Dilaudid [IVP] IVP 1 mg, administered: 08/23/2016 11:19:00 PM Zofran [IVP] IVP 4 mg, administered: 08/24/2016 12:44:00 AM The following Medications were prescribed to the patient: None.
--- NOTE | 2016-08-24 00:56 | ED MAR SUMMARY ---
..... Medication Administration Record [facility] [address] [place] [address] Patient: RENATO CARDONA Visit ID: [id number] 85y, F Weight: 99.7 kg Height/Length: 65 in BMI: 36.6 ALLERGIES: No Known Drug Allergy Given 20:22 08/23/2016 Cris Patterson R.N. Medication Administered: ZOFRAN [IVP] (ONDANSETRON HCL), Dose: 4 mg IVP over 1 minute(s), Site: #1 right wrist. Medication Ordered: Zofran IV 4 mg (NOW). Given 23:19 08/23/2016 Goyo Nagy R.N. Medication Administered: DILAUDID [IVP] (HYDROMORPHONE HCL PF), Dose: 1 mg IVP over 2 minute(s), Site: #1 right wrist. Medication Ordered: Dilaudid IV 1 mg (HIGH ALERT MEDICATION, NOW). Given 00:44 08/24/2016 Goyo Nagy R.N. Medication Administered: ZOFRAN [IVP] (ONDANSETRON HCL), Dose: 4 mg IVP over 2 minute(s), Site: #1 right wrist. Medication Ordered: Zofran IV 4 mg (NOW).
[2016-08-24 01:12] VITALS: BP 132/58
[2016-08-24 02:49] VITALS: BP 141/57
[2016-08-24 07:26] VITALS: BP 145/47
--- NOTE | 2016-08-24 08:51 | Progress Note ---
Subjective General This started around 3 months ago after the patient had a hernia repair of the abdomen and mesh was placed and progressively became worse to the point that patient had to come to the hospital today. The patient had nausea, but no vomiting. Normal bowel movements. No diarrhea or constipation. No fever, no chills. The patient is admitted with a consultation of the surgery for abdominal pain. Still has abdominal pain, also sever nausea no vomiting no BM, no cp no dyspnea no fever or chills, hardly tolerates food Review of system: GI: Positive for abdominal pain and nausea negative for vomiting or bowel movement Respiratory: Negative for dyspnea or shortness of breath Constitutional: Negative for fever or chills Physical Exam Vital Signs / I&Os Vital Signs Date Time Temp Pulse Resp B/P Pulse O2 O2 Flow FiO2 Ox Delivery Rate 08/24 0826 Room Air 08/24 0726 98.1 80 15 145/47 99 Room Air 08/24 0435 Room Air 08/24 0249 98.1 63 15 141/57 97 Room Air 08/24 0112 97.9 62 17 132/58 95 Room Air 0.0 General Appearance Mild distress Lungs Clear to auscultation Neck Supple Cardiovascular Regular rate and rhythm, Normal S1 and S2 (systolic murmur lower sternum) Abdomen Soft, tenderness in surgical scar lination, BS hypoactive Extremities No edema Skin No Rashes Psych/Mental Status Mental status normal LAB Results Laboratory Tests 08/24 08/23 08/23 08/23 0521 2109 2011 2011 Chemistry Plasma Sodium (136 - 145 mmol/L) 137 135 Plasma Potassium (3.5 - 5.1 mmol/L) 4.6 5.4 Plasma Chloride (98 - 107 mmol/L) 102 101 CO2 (Enzymatic) (21 - 32 mmol/L) 30 29 BUN (7 - 18 mg/dL) 26 28 Creatinine (0.6 - 1.3 mg/dL) 1.3 1.4 Est GFR ( Amer) (mL/min) 50.39 46.26 Est GFR (Non-Af Amer) (mL/min) 41.58 38.17 Glucose (70 - 110 mg/dL) 126 186 Plasma Calcium (8.5 - 10.1 mg/dL) 9.6 9.7 Plasma Magnesium (1.8 - 2.4 mg/dL) 2.4 Total Bilirubin (0.0 - 1.0 mg/dL) 0.5 AST (15 - 37 U/L) 11 ALT (12 - 78 U/L) 22 Alkaline Phosphatase (46 - 116 U/L) 119 Troponin (0.00 - 1.5 ng/mL) <0.05 Total Protein (6.4 - 8.2 g/dL) 6.4 Albumin (3.3 - 5.0 g/dL) 3.5 Lipase (73 - 393 U/L) 392 TSH 3rd Generation (0.30 - 3.74 uIU/mL) 1.537 Hematology WBC (4.5 - 11.5 K/uL) 7.8 9.1 RBC (4.00 - 5.20 M/uL) 3.86 3.89 Hgb (12.0 - 16.0 gm/dL) 11.4 11.7 Hct (36.0 - 46.0 %) 34.8 35.0 MCV (80 - 100 fL) 90 90 MCH (26 - 34 pg) 30 30 RDW (11.6 - 14.8 %) 16.1 15.9 Neut % (Auto) (50 - 75 %) 62.1 70.3 Lymph % (Auto) (25 - 40 %) 16.1 13.5 Gregory % (Auto) (3 - 14 %) 7.5 6.2 Eos % (Auto) (0 - 4 %) 14.1 9.8 Baso % (Auto) (0 - 2 %) 0.2 0.2 Plt Count, EDTA (150 - 400 K/uL) 244 260 PUBS MCHC (31 - 37 g/dL) 33 33 Urines Urine Color YELLOW Urine Appearance CLEAR Urine pH (5.0 - 8.0) 7.5 Ur Specific [place] (1.010 - 1.030) 1.015 Urine Protein (NEGATIVE) NEGATIVE Urine Ketones (NEGATIVE) NEGATIVE Urine Blood (NEGATIVE) NEGATIVE Urine Nitrite (NEGATIVE) NEGATIVE Urine Bilirubin (NEGATIVE) NEGATIVE Urine Urobilinogen (0.2 - 1.0 EU/dL) 0.2 Ur Leukocyte Esterase (NEGATIVE) NEGATIVE Urine RBC (0 - 1 rbc/hpf) 0-1 Urine WBC (0 - 1 wbc/hpf) 0-1 Ur Epithelial Cells (0 - 5 EPI/hpf) 1-3 Urine Bacteria (NONE SEEN) NONE SEEN Urine Glucose (NEGATIVE) NEGATIVE Urine Comment CULT NOT INDICATED Assessment and Plan Problem List 1. Abdominal pain Plan s/p hernia surgery mesh placement, surgery on consult, 2. Diabetes mellitus type 2 in obese Plan controlled continue current meds 3. Coronary artery disease Plan stable continue current meds 4. HTN (hypertension) Plan controlled continue current meds
--- NOTE | 2016-08-24 12:37 | Consultation Report ---
History Chief Complaint Abdominal pain History of Present Illness 85-year-old female with history of multiple medical problems, a couple weeks ago underwent a recurrent incisional hernia with mesh by Dr. Landrum. Patient was seen in his clinic approximately 4 days ago. At that time patient was complaining of abdominal discomfort. A plan was made to return the patient to surgery and remove the mesh. The pain was an inflammatory reaction around the mesh according to studies. Last evening the chronic abdominal pain the patient has in the periumbilical region worsened and she was brought to [facility] via ambulance from [place]. Patient denied any fever, chills, nausea, vomiting, or shoulder discomfort. Patient states that the pain is localized, nonradiating, described as chronic sharp, extubated by movement or palpation. She states that the remaining abdomen is nontender. Patient History 1. Abdominal pain 2. Diabetes mellitus type 2 in obese 3. Coronary artery disease 4. HTN (hypertension) Social History The patient is . Patient thinks she may have 3 sons and daughters. She cannot remember if she has not lost any of them. Patient lives alone in [place]. Patient does not drink alcohol. Does not smoke. Denies use recreational drugs. FAMILY HISTORY: Her mother in her 80s from heart disease. Her father at age 84 from heart disease. Patient had 3 brothers who are from cancer of unknown etiology. Vision has one sister who is from cancer of unknown etiology as well. PAST MEDICAL/SURGICAL: Colonoscopies 02/17 #01/23, 09/24, 07/29, 05/03. Exploratory laparotomy, lysis of adhesions, . Exploratory laparotomy, lysis of adhesions . Open repair recurrent incisional hernia 11/15. Status post left hemicolectomy for perforated diverticulitis 01/23 History of diabetes, angina, peripheral vascular disease, and heart disease. Medications and Allergies Medications Current Medications Sig/Huber Start time Last Medication Dose Route Stop Time Status Admin Atorvastatin Calcium 80 MG QPM 08/24 1800 AC PO Promethazine HCl 12.5 MG Q6H PRN 08/24 0915 AC 08/24 IV 0945 Amlodipine Besylate 5 MG DAILY 08/24 09 AC 08/24 PO 0945 Aspirin 325 MG DAILY 08/24 899 AC 08/24 PO 45 Glimepiride 2 MG DAILY 08/24 899 AC 08/24 PO 0945 Heparin Sodium 5,000 UNITS BID 08/24 899 AC 08/24 (Porcine) SC 0945 Losartan Potassium 25 MG DAILY 08/24 899 AC 08/24 PO 944 Metoprolol Tartrate 12.5 MG BID 08/24 899 AC 08/24 PO 09 Levothyroxine Sodium 100 MCG DAILY@08/24 06 AC 08/24 PO 0520 Pantoprazole Sodium 40 MG DAILY@08/24 AC 08/24 IV 0520 Hydromorphone HCl 1 MG Q1H PRN 08/23 2329 AC 08/24 IV 0850 Naloxone HCl 0.4 MG PRN PRN 08/23 2329 AC IV Ondansetron HCl 4 MG Q6H PRN 08/23 2329 AC 08/24 PO 0842 Sodium Chloride 1,000 ML ASDIRECTED 08/23 2329 AC 08/24 IV 0133 Allergies Coded Allergies: NKA (05/23/16) Review of Systems Conclusions or Impression Patient denies any history of hepatitis, jaundice, rheumatic fever, heart murmurs, requiring antibiotics, bleeding tendencies, or blood transfusions. Patient admits to some memory loss. Next abdominal pain. Occasional shortness of breath, rare chest pain. Remaining 12 point review of systems is negative, according to the patient. Physical Exam Vital Signs / I&Os Vital Signs Date Time Temp Pulse Resp B/P Pulse O2 O2 Flow FiO2 Ox Delivery Rate 08/24 0826 Room Air 08/24 0726 98.1 80 15 145/47 99 Room Air 08/24 0435 Room Air 08/24 0249 98.1 63 15 141/57 97 Room Air 08/24 0112 97.9 62 17 132/58 95 Room Air 0.0 General Appearance Alert, Oriented X3, Cooperative, Mild distress HEENT PERRLA, EOMI, Moist mucous membranes Lungs Clear to auscultation Neck No JVD, No masses, No thyromegaly, No lymphadenopathy Cardiovascular Regular rate and rhythm Abdomen Normal bowel sounds, distended, nontympanitic, obese, no erythema, no Harrison Prince or Stalin sign. No evidence of recurrent incisional hernia. Patient is very tender in an area approximately 16 x 10 cm in size to include and just superior and right lateral to the umbilicus . Extremities No cyanosis, No clubbing, No edema, partial amputation, left hand Skin warm and dry Neurological No lateralizing signs Psych/Mental Status Mental status normal LAB Results Laboratory Tests 08/23 2110 0521 Chemistry Plasma Sodium (136 - 145 mmol/L) 135 137 Plasma Potassium (3.5 - 5.1 mmol/L) 5.4 4.6 Plasma Chloride (98 - 107 mmol/L) 101 102 CO2 (Enzymatic) (21 - 32 mmol/L) 29 30 BUN (7 - 18 mg/dL) 28 26 Creatinine (0.6 - 1.3 mg/dL) 1.4 1.3 Est GFR ( Amer) (mL/min) 46.26 50.39 Est GFR (Non-Af Amer) (mL/min) 38.17 41.58 Glucose (70 - 110 mg/dL) 186 126 Plasma Calcium (8.5 - 10.1 mg/dL) 9.7 9.6 Plasma Magnesium (1.8 - 2.4 mg/dL) 2.4 Total Bilirubin (0.0 - 1.0 mg/dL) 0.5 AST (15 - 37 U/L) 11 ALT (12 - 78 U/L) 22 Alkaline Phosphatase (46 - 116 U/L) 119 Troponin (0.00 - 1.5 ng/mL) <0.05 Total Protein (6.4 - 8.2 g/dL) 6.4 Albumin (3.3 - 5.0 g/dL) 3.5 Lipase (73 - 393 U/L) 392 TSH 3rd Generation (0.30 - 3.74 uIU/mL) 1.537 Hematology WBC (4.5 - 11.5 K/uL) 9.1 7.8 RBC (4.00 - 5.20 M/uL) 3.89 3.86 Hgb (12.0 - 16.0 gm/dL) 11.7 11.4 Hct (36.0 - 46.0 %) 35.0 34.8 MCV (80 - 100 fL) 90 90 MCH (26 - 34 pg) 30 30 RDW (11.6 - 14.8 %) 15.9 16.1 Neut % (Auto) (50 - 75 %) 70.3 62.1 Lymph % (Auto) (25 - 40 %) 13.5 16.1 Placer % (Auto) (3 - 14 %) 6.2 7.5 Eos % (Auto) (0 - 4 %) 9.8 14.1 Baso % (Auto) (0 - 2 %) 0.2 0.2 Plt Count, EDTA (150 - 400 K/uL) 260 244 PUBS MCHC (31 - 37 g/dL) 33 33 Urines Urine Color YELLOW Urine Appearance CLEAR Urine pH (5.0 - 8.0) 7.5 Ur Specific [place] (1.010 - 1.030) 1.015 Urine Protein (NEGATIVE) NEGATIVE Urine Ketones (NEGATIVE) NEGATIVE Urine Blood (NEGATIVE) NEGATIVE Urine Nitrite (NEGATIVE) NEGATIVE Urine Bilirubin (NEGATIVE) NEGATIVE Urine Urobilinogen (0.2 - 1.0 EU/dL) 0.2 Ur Leukocyte Esterase (NEGATIVE) NEGATIVE Urine RBC (0 - 1 rbc/hpf) 0-1 Urine WBC (0 - 1 wbc/hpf) 0-1 Ur Epithelial Cells (0 - 5 EPI/hpf) 1-3 Urine Bacteria (NONE SEEN) NONE SEEN Urine Glucose (NEGATIVE) NEGATIVE Urine Comment CULT NOT INDICATED Imaging CT of abdomen shows inflammatory process involving postsurgical changes of the previously placed mesh. No evidence of free air. Assessment and Plan Problem List 1. Abdominal pain Plan Conservative management and analgesics. Probable surgery on 08/26/16 by to reexplore, evaluate possibly remove mesh placed at previous surgery. 2. Diabetes mellitus type 2 in obese Plan Diabetes to be managed by hospitalist 3. Coronary artery disease Plan Coronary artery disease, to be managed by hospitalist 4. HTN (hypertension) Plan Hypertension to be managed by hospitalist
[2016-08-24 14:14] VITALS: BP 130/54
[2016-08-24 18:43] VITALS: BP 139/45
[2016-08-24 22:24] VITALS: BP 156/66
[2016-08-25 02:49] VITALS: BP 135/55
[2016-08-25 07:12] VITALS: BP 108/58; BP 124/57
--- NOTE | 2016-08-25 09:07 | Progress Note ---
Subjective General This started around 3 months ago after the patient had a hernia repair of the abdomen and mesh was placed and progressively became worse to the point that patient had to come to the hospital today. The patient had nausea, but no vomiting. Normal bowel movements. No diarrhea or constipation. No fever, no chills. The patient is admitted with a consultation of the surgery for abdominal pain. Still has abdominal pain, no nausea or vomiting, no BM, no fever or chills, no cp no dyspnea Physical Exam Vital Signs / I&Os Vital Signs Date Time Temp Pulse Resp B/P Pulse O2 O2 Flow FiO2 Ox Delivery Rate 08/25 0847 Room Air 0.0 08/25 0712 98.4 71 18 108/58 94 08/25 0249 98.8 74 18 135/55 95 Room Air 08/24 2224 97.3 60 18 156/66 100 Room Air 08/24 2030 Room Air 08/24 1843 97.7 66 18 139/45 99 Room Air 08/24 1414 98.2 72 18 130/54 95 I&O 08/25 0000 08/24 1600 08/24 0800 Intake Total 1415 320 942 Output Total 950 350 750 Balance 465 -30 192 Lungs Clear to auscultation Cardiovascular Regular rate and rhythm, Normal S1 and S2, No murmurs, gallops, rubs Abdomen Normal bowel sounds (tender in surgical scar), Soft Extremities No edema LAB Results Laboratory Tests 08/25 0538 Chemistry Plasma Sodium (136 - 145 mmol/L) 140 Plasma Potassium (3.5 - 5.1 mmol/L) 5.3 Plasma Chloride (98 - 107 mmol/L) 106 CO2 (Enzymatic) (21 - 32 mmol/L) 29 BUN (7 - 18 mg/dL) 26 Creatinine (0.6 - 1.3 mg/dL) 1.4 Est GFR ( Amer) (mL/min) 46.26 Est GFR (Non-Af Amer) (mL/min) 38.17 Glucose (70 - 110 mg/dL) 99 Plasma Calcium (8.5 - 10.1 mg/dL) 9.1 Hematology WBC (4.5 - 11.5 K/uL) 8.3 RBC (4.00 - 5.20 M/uL) 3.67 Hgb (12.0 - 16.0 gm/dL) 10.8 Hct (36.0 - 46.0 %) 33.1 MCV (80 - 100 fL) 90 MCH (26 - 34 pg) 29 RDW (11.6 - 14.8 %) 15.8 Neut % (Auto) (50 - 75 %) 62.8 Lymph % (Auto) (25 - 40 %) 14.4 [place] % (Auto) (3 - 14 %) 7.4 Eos % (Auto) (0 - 4 %) 15.2 Baso % (Auto) (0 - 2 %) 0.2 Plt Count, EDTA (150 - 400 K/uL) 234 PUBS MCHC (31 - 37 g/dL) 33 Assessment and Plan Problem List 1. Abdominal pain Plan plan to have surgery on Friday 2. Diabetes mellitus type 2 in obese Plan restart metformin, controlled 3. HTN (hypertension) Plan controlled continue current meds 4. Coronary artery disease Plan stable
--- NOTE | 2016-08-25 09:56 | Progress Note ---
Subjective General 85-year-old female, hospital day one, admitted for abdominal pain. Still having abdominal discomfort in the periumbilical region, less than yesterday. No nausea. No vomiting. No shortness of breath. No chest pain Physical Exam Vital Signs / I&Os Vital Signs Date Time Temp Pulse Resp B/P Pulse O2 O2 Flow FiO2 Ox Delivery Rate 08/25 0847 Room Air 0.0 08/25 0712 98.4 71 18 108/58 94 08/25 0249 98.8 74 18 135/55 95 Room Air 08/24 2224 97.3 60 18 156/66 100 Room Air 08/24 2030 Room Air 08/24 1843 97.7 66 18 139/45 99 Room Air 08/24 1414 98.2 72 18 130/54 95 I&O 08/24 0800 08/24 1600 08/25 0000 Intake Total 038 869 7078 Output Total 750 350 950 Balance 192 -30 465 General Appearance Oriented X3, Cooperative, Mild distress HEENT PERRLA, Moist mucous membranes Lungs Clear to auscultation Neck Supple, No JVD, No masses Cardiovascular Regular rate and rhythm Abdomen Normal bowel sounds, distended. Nontympanitic. Tender to palpation in the periumbilical region. No masses. No overlying erythema. Extremities No cyanosis Skin warm and dry Neurological Strength 5/5 x4 ext's Psych/Mental Status Mental status normal LAB Results Laboratory Tests 08/25 0538 Chemistry Plasma Sodium (136 - 145 mmol/L) 140 Plasma Potassium (3.5 - 5.1 mmol/L) 5.3 Plasma Chloride (98 - 107 mmol/L) 106 CO2 (Enzymatic) (21 - 32 mmol/L) 29 BUN (7 - 18 mg/dL) 26 Creatinine (0.6 - 1.3 mg/dL) 1.4 Est GFR ( Amer) (mL/min) 46.26 Est GFR (Non-Af Amer) (mL/min) 38.17 Glucose (70 - 110 mg/dL) 99 Plasma Calcium (8.5 - 10.1 mg/dL) 9.1 Hematology WBC (4.5 - 11.5 K/uL) 8.3 RBC (4.00 - 5.20 M/uL) 3.67 Hgb (12.0 - 16.0 gm/dL) 10.8 Hct (36.0 - 46.0 %) 33.1 MCV (80 - 100 fL) 90 MCH (26 - 34 pg) 29 RDW (11.6 - 14.8 %) 15.8 Neut % (Auto) (50 - 75 %) 62.8 Lymph % (Auto) (25 - 40 %) 14.4 [place]arrard % (Auto) (3 - 14 %) 7.4 Eos % (Auto) (0 - 4 %) 15.2 Baso % (Auto) (0 - 2 %) 0.2 Plt Count, EDTA (150 - 400 K/uL) 234 PUBS MCHC (31 - 37 g/dL) 33 Assessment and Plan Problem List 1. Abdominal pain Plan Will schedule for wound exploration and possible removal of mesh by Dr. Landrum for tomorrow as per previously planned by Dr. Landrum
[2016-08-25 10:59] VITALS: BP 130/34
[2016-08-25 14:38] VITALS: BP 120/42
[2016-08-25 19:08] VITALS: BP 126/62
[2016-08-25 21:36] VITALS: BP 119/67
[2016-08-26 02:59] VITALS: BP 133/67
[2016-08-26 06:21] VITALS: BP 145/48
--- NOTE | 2016-08-26 08:13 | Progress Note ---
Subjective General This started around 3 months ago after the patient had a hernia repair of the abdomen and mesh was placed and progressively became worse to the point that patient had to come to the hospital today. The patient had nausea, but no vomiting. Normal bowel movements. No diarrhea or constipation. No fever, no chills. The patient is admitted with a consultation of the surgery for abdominal pain. Abdominal pain is the same, no nause or vomiting , no BM, no cp no dyspnea no fever or chills Physical Exam Vital Signs / I&Os Vital Signs Date Time Temp Pulse Resp B/P Pulse O2 O2 Flow FiO2 Ox Delivery Rate 08/26 0621 98.8 73 20 145/48 95 Room Air 0.0 08/26 0259 98.8 63 16 133/67 93 Room Air 08/25 2136 98.8 70 18 119/67 98 Room Air 08/25 1930 Room Air 08/25 1908 98.4 67 126/62 94 Room Air 08/25 1438 120/42 08/25 1436 64 20 95 08/25 1059 97.9 56 20 130/34 98 Room Air 0.0 08/25 0847 Room Air 0.0 I&O 08/26 0000 08/25 1600 08/25 0800 Intake Total 357 785 5933 Output Total 1075 400 Balance -030 504 8201 Lungs Clear to auscultation Cardiovascular Regular rate and rhythm, Normal S1 and S2, No murmurs, gallops, rubs Abdomen Normal bowel sounds (tenderin surgical site), Soft Extremities No edema LAB Results Laboratory Tests 08/26 0523 Chemistry Plasma Sodium (136 - 145 mmol/L) 141 Plasma Potassium (3.5 - 5.1 mmol/L) 4.5 Plasma Chloride (98 - 107 mmol/L) 107 CO2 (Enzymatic) (21 - 32 mmol/L) 27 BUN (7 - 18 mg/dL) 27 Creatinine (0.6 - 1.3 mg/dL) 1.4 Est GFR ( Amer) (mL/min) 46.26 Est GFR (Non-Af Amer) (mL/min) 38.17 Glucose (70 - 110 mg/dL) 98 Plasma Calcium (8.5 - 10.1 mg/dL) 9.0 Hematology WBC (4.5 - 11.5 K/uL) 6.4 RBC (4.00 - 5.20 M/uL) 3.41 Hgb (12.0 - 16.0 gm/dL) 10.1 Hct (36.0 - 46.0 %) 30.8 MCV (80 - 100 fL) 90 MCH (26 - 34 pg) 30 RDW (11.6 - 14.8 %) 15.9 Neut % (Auto) (50 - 75 %) 60.5 Lymph % (Auto) (25 - 40 %) 18.0 [place] % (Auto) (3 - 14 %) 7.8 Eos % (Auto) (0 - 4 %) 13.4 Baso % (Auto) (0 - 2 %) 0.3 Plt Count, EDTA (150 - 400 K/uL) 211 PUBS MCHC (31 - 37 g/dL) 33 Assessment and Plan Problem List 1. Abdominal pain Plan will have surgery today, possible mesh removal 2. Diabetes mellitus type 2 in obese Plan controlled continue current management 3. HTN (hypertension) Plan controlled continue [facility], 4. Coronary artery disease Plan stable
--- NOTE | 2016-08-26 08:13 | Progress Note ---
Subjective General This started around 3 months ago after the patient had a hernia repair of the abdomen and mesh was placed and progressively became worse to the point that patient had to come to the hospital today. The patient had nausea, but no vomiting. Normal bowel movements. No diarrhea or constipation. No fever, no chills. The patient is admitted with a consultation of the surgery for abdominal pain. Abdominal pain is the same, no nause or vomiting , no BM, no cp no dyspnea no fever or chills Physical Exam Vital Signs / I&Os Vital Signs Date Time Temp Pulse Resp B/P Pulse O2 O2 Flow FiO2 Ox Delivery Rate 08/26 0621 98.8 73 20 145/48 95 Room Air 0.0 08/26 0259 98.8 63 16 133/67 93 Room Air 08/25 2136 98.8 70 18 119/67 98 Room Air 08/25 1930 Room Air 08/25 1908 98.4 67 126/62 94 Room Air 08/25 1438 120/42 08/25 1436 64 20 95 08/25 1059 97.9 56 20 130/34 98 Room Air 0.0 08/25 0847 Room Air 0.0 I&O 08/26 0000 08/25 1600 08/25 0800 Intake Total 291 325 0471 Output Total 1075 400 Balance -385 128 7587 Lungs Clear to auscultation Cardiovascular Regular rate and rhythm, Normal S1 and S2, No murmurs, gallops, rubs Abdomen Normal bowel sounds (tenderin surgical site), Soft Extremities No edema LAB Results Laboratory Tests 08/26 0523 Chemistry Plasma Sodium (136 - 145 mmol/L) 141 Plasma Potassium (3.5 - 5.1 mmol/L) 4.5 Plasma Chloride (98 - 107 mmol/L) 107 CO2 (Enzymatic) (21 - 32 mmol/L) 27 BUN (7 - 18 mg/dL) 27 Creatinine (0.6 - 1.3 mg/dL) 1.4 Est GFR ( Amer) (mL/min) 46.26 Est GFR (Non-Af Amer) (mL/min) 38.17 Glucose (70 - 110 mg/dL) 98 Plasma Calcium (8.5 - 10.1 mg/dL) 9.0 Hematology WBC (4.5 - 11.5 K/uL) 6.4 RBC (4.00 - 5.20 M/uL) 3.41 Hgb (12.0 - 16.0 gm/dL) 10.1 Hct (36.0 - 46.0 %) 30.8 MCV (80 - 100 fL) 90 MCH (26 - 34 pg) 30 RDW (11.6 - 14.8 %) 15.9 Neut % (Auto) (50 - 75 %) 60.5 Lymph % (Auto) (25 - 40 %) 18.0 [place] % (Auto) (3 - 14 %) 7.8 Eos % (Auto) (0 - 4 %) 13.4 Baso % (Auto) (0 - 2 %) 0.3 Plt Count, EDTA (150 - 400 K/uL) 211 PUBS MCHC (31 - 37 g/dL) 33 Assessment and Plan Problem List 1. Abdominal pain Plan will have surgery today, possible mesh removal 2. Diabetes mellitus type 2 in obese Plan controlled continue current management 3. HTN (hypertension) Plan controlled continue [facility], 4. Coronary artery disease Plan stable
[2016-08-26 09:11] VITALS: BP 133/74
[2016-08-26 10:27] VITALS: BP 120/54
[2016-08-26 14:15] VITALS: BP 123/47
--- NOTE | 2016-08-26 16:59 | Provider's Discharge Care Plan ---
Problem, Goal, Plan Problem List 1. Abdominal pain Instructions: Will set up mesh explant as a scheduled procedure.
--- NOTE | 2016-08-26 16:59 | Provider's Discharge Care Plan ---
Problem, Goal, Plan Problem List 1. Abdominal pain Instructions: Will set up mesh explant as a scheduled procedure.
[2016-08-30] MEDS ORDERED: MAGNESIUM400 M1 PO (11:43)
[2016-08-30] MEDS ORDERED: ASPIRIN325 MG PO (11:43)
[2016-08-30] MEDS ORDERED: MILK OF MA400 MG/5 M PO ×2 (11:46→11:47)
--- NOTE | 2016-09-02 14:40 | DISCHARGE SUMMARY ---
ADMIT DATE: 08/23/2016 DISCHARGE DATE: 08/26/2016 DISCHARGE DIAGNOSIS: 1. Epigastric abdominal pain HOSPITAL COURSE: The patient is an 85-year-old woman who presented to the hospital with ongoing abdominal pain. She has had pain for several months in the mid abdomen. The patient had a CT scan demonstrating inflammation around a previously placed prosthetic mesh which was done as a repair for a large ventral hernia. She was treated initially in the hospital with the intent of removing the mesh; however, the patient remained relatively stable, and this did not appear to be that much of an emergency. DISCHARGE INSTRUCTIONS/MEDICATIONS: It was decided to go ahead and let her go home and follow up as an outpatient, perhaps with more evaluation before pulling the mesh. The patient was then discharged, with followup arranged in the clinic.
== END 2016-08-26 18:15 | disposition home or self-care (01) | DRG 921 ==
LOC: ED SRH 19:38 → ACUTE2 SRH 23:08 → TRANS SRH 23:08 → ACUTE2 SRH 08-24 00:58
PROVIDERS: ADMIT Neuromusculoskeletal Medicine, Sports Medicine
DX: T85.79XA Infection and inflammatory reaction due to other internal prosthetic devices, implants and grafts, initial encounter (principal); E11.22 Type 2 diabetes mellitus with diabetic chronic kidney disease; I12.9 Hypertensive chronic kidney disease with stage 1 through stage 4 chronic kidney disease, or unspecified chronic kidney disease; N18.9 Chronic kidney disease, unspecified; I25.10 Atherosclerotic heart disease of native coronary artery without angina pectoris; E66.9 Obesity, unspecified; Z68.36 Body mass index [BMI] 36.0-36.9, adult; Z79.84 Long term (current) use of oral hypoglycemic drugs

== ENCOUNTER 2016-09-02 09:18 | Day surgery (SDC) | payer OTHER, MEDICARE ==
[~2016-09-02] VITALS: Ht 165.1 cm; Wt 99.3 kg
[~2016-09-02 09:18] MED LIST changes: +MAGNESIUM400 M1 PO; +MILK OF MA400 MG/5 M PO
--- NOTE | 2016-09-02 12:15 | Provider's Discharge Care Plan ---
Problem, Goal, Plan Problem List 1. Abdominal pain
--- NOTE | 2016-09-02 12:15 | Provider's Discharge Care Plan ---
Problem, Goal, Plan Problem List 1. Abdominal pain
[2016-09-02 13:00] VITALS: BP 130/68
--- NOTE | 2016-09-02 14:07 | OPERATIVE REPORT ---
DATE OF SURGERY: 09/02/2016 SURGEON: Bayron Landrum MD PREOPERATIVE DIAGNOSIS: 1. Epigastric pain POSTOPERATIVE DIAGNOSIS: 1. Gastritis PROCEDURE PERFORMED: 1. Esophagogastroduodenoscopy with biopsy ANESTHESIA: Total IV general. INDICATIONS: The patient is an 85-year-old woman with persistent epigastric abdominal pain. This is possibly related to an inflammatory reaction around her ventral mesh; however, she has a previous history of gastric problems, and an EGD was advised. SURGICAL TECHNIQUE: The patient was taken to the endoscopy suite, where total IV general was administered and the patient was placed in the left lateral decubitus position. The well-lubricated endoscope was inserted down the esophagus, stomach, and duodenum under direct vision. The distal third of the stomach, mainly the antrum, had a patchy atrophic appearance to it. The duodenal bulb and first part of the duodenum appeared to be normal. A retroflexed view demonstrated flattening of the GE junction. The upper stomach looked normal. One biopsy was taken for Helicobacter testing and a separate biopsy taken for histopathology. The remainder of the endoscopy was normal and did not demonstrate any further potential etiologies for the patient's abdominal pain.
== END 2016-09-02 13:08 | disposition home or self-care (01) ==
LOC: OR SRH 09:18 → SCU SRH 09:19 → OR SRH 12:00
PROVIDERS: Surgery
PROC: 0DB68ZX Excision of Stomach, Via Natural or Artificial Opening Endoscopic, Diagnostic (ICD-10-PCS; principal; 2016-09-02 12:00)
DX: K29.70 Gastritis, unspecified, without bleeding (principal); I10 Essential (primary) hypertension; E11.9 Type 2 diabetes mellitus without complications; Z79.84 Long term (current) use of oral hypoglycemic drugs
CPT/HCPCS: 29229; 29240; 50004; 60001; 82943; 83526; 90705